=== PATIENT | male | born 1945 | race Caucasian/White ===

== ENCOUNTER 2020-01-24 18:15 | Inpatient (IN) | payer MEDICARE, MEDICAID, SELFPAY ==
[2020-01-24] VITALS (15 sets, daily range): BP systolic 108–123; BP diastolic 67–78; PULSE 108–170; RESP 18–44; TEMP 37.5–39.3; O2SAT 91–99; BMI 24.4
--- NOTE | 2020-01-24 18:35 | XRR_ITS ---
PROCEDURE INFORMATION: Exam: XR Chest, 1 View Exam date and time: 01/24/2020 6:37 PM Age: 74 years old Clinical indication: Shortness of breath; Patient HX: Resp distress TECHNIQUE: Imaging protocol: XR of the chest Views: 1 view. COMPARISON: No relevant prior studies available. FINDINGS: Lungs: Patchy atelectasis versus pneumonia in both right and left lower lobes. Pleural space: No pleural effusion. No pneumothorax. Heart/Mediastinum: The cardiac silhouette is mildly enlarged. Mediastinal contours are unremarkable. Vasculature: Vascular calcifications in the aorta. Bones/joints: Unremarkable for age. XR/XR chest 1V portable [id number] IMPRESSION: 1. Patchy atelectasis versus pneumonia in both right and left lower lobes. 2. Incidental/nonacute findings are listed in the report.
[2020-01-24] MEDS: sodium chloride 0.9% 1,000 ML 999 ML IV (18:43)
[2020-01-24 19:19] LABS: Hematocrit 49.1 % (42.0-52.0); Hemoglobin 14.9 g/dL (11.7-16.6); Mean Corpuscular HGB Conc 30.3 g/dL (30.0-36.0); Mean Corpuscular Hemoglobin 29.4 pg (28.0-34.0); Mean Platelet Volume 9.5 fL (7.4-10.4); Nucleated Red Blood Cells % 0 %; Platelet Count 150 10^3/cmm (130-400); Positive M 1; Red Blood Count 5.06 10^6/uL (4.1-5.3); Red Cell Distribution Width 12.9 % (12.1-15.1); White Blood Count 12.6 10^3/uL (4.0-10.0)
[2020-01-24 19:24] LABS: ABG PH Result 7.26 (7.35-7.45); Arterial Blood Gas Hematocrit 44.4 % (42-52); Base Excess ABG 1.9 mmol/L (-2.0-2.0); Blood Gas Allen Test Pos; Blood Gas Sample Site Radial, right; Blood Gas Sample Type Arterial; HCO3 ABG 31.1 mmol/L (22-26); Oxygen Device NRB
[2020-01-24 19:26] LABS: ABG PCO2 68.8 mmHg (35-45)
[2020-01-24 19:39] LABS: Slide Review Slide Review Perform
[2020-01-24 19:40] LABS: Absolute Neutrophil 10.7 10^3/cmm (1.4-6.5); Absolute Segmented Neutrophil 8.2 10/cmm (1.6-7.1); Band Neutrophils Absolute 2.5 10^3/cmm (0.0-1.2); Lymphocytes 7 %; Monocytes Absolute 0.9 10^3/cmm (0.1-0.6); NT Pro B Type Natriuretic Pept 1908 pg/mL (0-450); Platelet Estimate Normal (Normal); Segmented Neutrophils 65 %; Total Cells Counted 100 (0-100)
[2020-01-24 19:41] LABS: Eosinophils 0 %
[2020-01-24 19:42] LABS: Lymphocytes Absolute 0.9 10^3/cmm (1.2-3.4)
[2020-01-24] MEDS: cefepime 2,000 MG in sodium chloride 0.9% (plus) 50 ML 100 MG IV (20:18)
--- NOTE | 2020-01-24 20:28 | ECG_ITS ---
[facility] ED Test Date: 2020-01-24 Pat Name: Luis Talavera Department: Room: 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 Measurements Intervals [place] Rate: 160 P: [place]: -1 QRS: 189 QRSD: 82 T: 107 QT: 242 QTc: 395 Interpretive Statements POSSIBLY ATRIAL FLUTTER WITH RVR POSSIBLE RIGHT VENTRICULAR HYPERTROPHY Compared to ECG 04/07/2019 10:16:37 Atrial abnormality now present Myocardial infarct finding now present Sinus tachycardia no longer present Electronically Signed On 01-26-2020 19:01:39 CDT by Jacquelyn Ayala M.D. [id number]
[2020-01-24 20:33] LABS: Chloride 100 mmol/L (98-107); Potassium 4.7 mmol/L (3.5-5.1); Sodium 141 mmol/L (136-145)
[2020-01-24 20:34] LABS: Alanine Aminotransferase 16 U/L (0-41); Albumin Level 3.2 g/dL (3.5-5.2); Alkaline Phosphatase 102 IU/L (40-130); Anion Gap 16.7 (5-19); Aspartate Amino Transferase 28 U/L (0-40); Blood Urea Nitrogen 24 mg/dL (8-23); Calcium 8.7 mg/dL (8.5-10.5); Carbon Dioxide 29 mmol/L (22-29); Globulin 3.5 g/dL (1.3-4.6); Glucose 169 mg/dL (65-115); Osmolality Calculated 293 mOsm/kg (285-295); Total Bilirubin 0.9 mg/dL (0.15-1.2); Total Protein 6.7 g/dL (6.6-8.7)
[2020-01-24 20:57] LABS: Troponin(5th) Baseline 35 ng/L (0-15)
[2020-01-24 21:13] LABS: Influenza A by IFA Negative (Negative); Influenza B by IFA Negative (Negative)
[2020-01-24 21:30] LABS: ABG PCO2 63.6 mmHg (35-45); Alveolar-Arterial Oxygen Gradi 135.6 mmHg (5-10); Arterial Blood Gas Hematocrit 47.3 % (42-52); Base Excess ABG 2.8 mmol/L (-2.0-2.0); Blood Gas Allen Test Pos; Blood Gas Sample Site Radial, right; Blood Gas Sample Type Arterial; Carboxyhemoglobin 1.5 %THgb (0.4-20.1); HCO3 ABG 31.3 mmol/L (22-26); HGB O2 Sat 91.8 % (95-100); Ionized Calcium Level - ABG 1.2 mmol/L (1.1-1.4); Methemoglobin 0.9 % (0.4-1.5); Oxygen Device BIPAP; Oxygen Saturation ABG 94.1; PO2 ABG 69.3 mmHg (80.0-100.0); Potassium Level - ABG 4.7 mmol/L (3.5-5.0); Total Hemoglobin 15.4 g/dL (14-18)
--- NOTE | 2020-01-24 22:00 | P.HP_ITS ---
Providers/Chief Complaint Chief Complaint: RESP DISTRESS History of Present Illness Luis Talavera is a 74 year old male OR resident with history of dementia, aspiration pneumonia episodes, is brought for evaluation from the residential due to tachypnea, risk for distress, on the way in EMS was placed on nonrebreather, received terbutaline treatment. In ER respiratory rate still in the 30s, heart rate 120s. HR appears as sinus tachycardia on EKG. He is noted febrile at 102.8 Fahrenheit. Chest x-ray with bilateral lower lobe infiltrate suggestive of pneumonia. He is noted acidemic with a pH 7.3, PCO2 63.6, PO2 69.3, on nonrebreather mask. With noted acute kidney injury, creatinine 2.1. Patient himself has dementia, not able to provide much history, but is able to participate in some of the review of systems. He is feeling a bit better after being placed on BiPAP. He denies any severe shortness of breath at this time. Has a little bit of chest discomfort. He is oriented to being at [facility], but states the year is 1999. In ER he received cefepime, fluid challenge with 1 L bolus, and is being admitted to intensive care unit. Review of Systems Const: Reports: fever(s) and malaise; Denies: chills or body aches Eyes: Denies: change in vision or eye redness ENMT: Denies: throat pain, oral sores or ear or mastoid pain Card: Denies: chest pain, edema, pre-syncope or dyspnea on exertion Resp: Reports: dyspnea; Denies: hemoptysis GI: Denies: abdominal pain, nausea, vomiting, diarrhea, constipation, hematochezia or melena : Denies: flank pain, difficulty urinating, urinary frequency or hematuria Musc: Denies: back pain, joint swelling or joint redness Skin/Breast: Denies: rash, sores or new lesions Neuro: Denies: headache(s), numbness in extremities, weakness in extremities, dizziness, confusion or seizure-like activity Endo: Denies: polyuria or polydipsia Cam/Lymph: Denies: easy bleeding or purpura All/Imm: Denies: urticaria, throat swelling or tongue swelling PFSH Acute PFSH: Medical History Aspiration pneumonia Atrial fibrillation and flutter CHF (congestive heart failure) COPD (chronic obstructive pulmonary disease) Dementia Social History Smoking and tobacco status: current every day smoker cigarettes [ Other cigarette details: Unknown if still smoker, but was up until last year ] Housing: Longterm Vitals/I&O/Wt Last Vital Signs Temp 102.8 F H 01/24/20 18:27 Pulse 123 H 01/24/20 21:04 Resp 34 H 01/24/20 21:04 BP 123/78 01/24/20 21:04 Pulse Ox 92 01/24/20 21:04 01/24/20 01/24/20 01/24/20 06:59 14:59 22:59 Intake Total 1000 / 1000 Balance 1000 / 1000 Weight last 48 hrs Weight 81.647 kg Physical Exam Const: COMMON NORMALS: no acute distress; negative for patient oriented x3 (oriented to place) GENERAL APPEARANCE: cooperative and comfortable (On BiPAP) HENMT: COMMON NORMALS: oropharynx normal Neck/C-Spine: COMMON NORMALS: no JVD Resp: COMMON NORMALS: normal respiratory effort AUSCULTATION: diminished lung sounds bilateral in the lower lung tucker Cardio: COMMON NORMALS: no JVD, regular rhythm, S1 normal heart sound present, S2 normal heart sound present and No murmurs present (Cardio) RATE: tachycardic RHYTHM: regular rhythm HEART SOUNDS: S1 normal heart sound present and S2 normal heart sound present GI: COMMON NORMALS: Normal to inspection, nondistended, normoactive bowel so unds present, Soft to palpation and non-tender PALPATION: Yes Soft to palpation Extremity: COMMON NORMALS: no joint enlargement GENERAL: Yes edema (trace) Neuro: COMMON NORMALS: moves all extremities; negative for patient oriented x3 Skin: COMMON NORMALS: no rashes or lesions noted GENERAL SKIN EXAM: no rashes or lesions noted Data : 01/24/20 19:01 01/24/20 19: Micro: Microbiology 01/24/20 19:01 Blood Culture - Preliminary Blood SPECIMEN COLLECTED 01/24/20 19:01 Blood Culture - Preliminary Blood SPECIMEN COLLECTED A&P Assessment and plan (1) Respiratory failure: Acute respiratory with hypoxia and hypercapnia. Respiratory acidosis. On presentation had to be placed on NRB. Appears bilateral lower lobe pneumonia, possible aspiration given history of aspiration, history of dementia reported. Started on cefepime, will continue for now. Add vancomycin. Add Solu-Medrol, inhalers for COPD exacerbation. Check COVID-19. Rapid flu was negative. Sputum culture, urine bacterial antigens. Follow blood cultures. Continue BiPAP support, admit to ICU. N.p.o. for now. Strict aspiration precautions until can be assessed by ST. Status: Acute (2) Sepsis: WBC 12.6. Fever 102.8. Tachycardia 120s. Suspected pulmonary source. Bilateral pneumonia. Rapid flu negative. Assessment for COVID-19. Blood cultures collected. Antibiotics as above. Lactic acid 2. Received fluid challenge in ER. Hold further for now due to Hx CHF. Severe sepsis due to concomitant acute kidney injury, creatinine 2.1. Acute encephalopathy. Status: Acute (3) Aspiration pneumonia: As above. N.p.o. at this time. ST evaluation. Status: Acute (4) Tachycardia: Appears as sinus tachycardia 120s, although at the same time does have history of atrial fibrillation. Unfortunately no medication list is available at this time from residential. Request is in stricture will inquire with residential to fax the documentation. His blood pressure somewhat on the soft side. For now we will start on 12.5 mg of metoprolol. Assess response. Once medication list available, please review and restart home medications. Status: Acute (5) DEBRA (acute kidney injury): Acute kidney injury with creatinine 2.1. Baseline appears to be normal. Suspect this is secondary to sepsis. At this time medication list is unknown, although holding any p.o. intake due to suspected aspiration. Medication list and other documents are being requested from residential. Once available please review and exclude any medications which may have contributed to acute kidney injury. Received fluid challenge in ER. Monitor renal function, I&O. Will request for renal ultrasound. Will request urine studies. Status: Acute (6) CHF (congestive heart failure): Underlying reported chronic diastolic CHF, however, does not appear to be a solution currently. Does not have symptoms of orthopnea, no JVD, no peripheral edema. Monitor for any changes in symptoms. Please review medication list once available. Status: Acute (7) Dementia: Reported underlying dementia. Currently he knows he is in the hospital, but states the year is 1999. Status: Acute (8) COPD (chronic obstructive pulmonary disease): Status: Acute Additional A&P Information Mild troponin elevation, without significant rise, in the 30s. Has minor chest discomfort and lower substernal area. Complete troponin EKG series. At this time ACS is not suspected. Consider additional evaluation on a nonurgent basis depending on clinical condition, and final results. Attestations Medical Necessity Statement*: Admission of over 2 midnights continued for assessment management of acute respiratory failure with hypoxia and hypercapnia, pneumonia, COPD exacerbation, with severe sepsis, acute kidney injury. Critical Care Time: 55 minutes of critical care time spent on assessment and management of acute respiratory failure with hypoxia and hypercapnia, severe sepsis with pneumonia, COPD exacerbation, acute kidney injury, acute encephalopathy. Critical Care Time (min): 55 Coding Level of Care Code Acute Assembly Hand for [facility] Fwd Diagnoses Respiratory failure J96.90 Sepsis A41.9 Aspiration pneumonia J69.0 Tachycardia R00.0 DEBRA (acute kidney injury) N17.9 CHF (congestive heart failure) I50.9 Dementia F03.90 COPD (chronic obstructive pulmonary disease) J44.9
--- NOTE | 2020-01-24 22:26 | PC.NURSE ---
ATTEMPTED TO CALL REPORT BUT THE NURSE WAS NOT ON THE FLOOR I WAS TOLD SHE WOULD CALL ME BACK
--- NOTE | 2020-01-24 22:28 | ECG_ITS ---
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 Measurements Intervals [place] Rate: 121 P: 62 ID: 130 QRS: 12 QRSD: 79 T: 64 QT: 275 QTc: 390 Interpretive Statements SINUS TACHYCARDIA ABNORMAL RHYTHM ECG Compared to ECG 01/24/2020 18:30:52 Atrial flutter no longer present Atrial abnormality no longer present Myocardial infarct finding no longer present Electronically Signed On 01-25-2020 13:46:31 CDT by Jacquelyn Ayala M.D. [id number]
--- NOTE | 2020-01-24 23:07 | ED_ITS ---
HPI - SOB/Dyspnea General: Chief Complaint: Shortness of Breath/Dyspnea Stated Complaint: RESP DISTRESS Source: EMS Mode of arrival: EMS Limitations: altered mental status History of Present Illness: HPI Narrative: Patient was brought in via EMS from a local longterm facility. The patient was apparently in his usual state of health earlier today until this evening when he developed shortness of breath. According to the retirement staff the patient has frequent episodes of aspiration pneumonia and they felt this was another episode. He was noted to be febrile and hypoxic so he was placed on oxygen via nonrebreather. He was also given terbutaline by EMS. The patient has dementia and is also tachypneic and in respiratory distress and so is unable to give me a history. He has been a recent case of a COVID-19 positive staff member several weeks ago at this facility. This patient has been tested twice for COVID-19 in the last 2 weeks and has been negative both times. Review of Systems General: Reports: ROS unobtainable due to medical condition [facility] ED PFSH: Medical History (Updated 01/24/20 @ 23:23 by Jay Herbert MD, [facility] Aspiration pneumonia Atrial fibrillation and flutter CHF (congestive heart failure) COPD (chronic obstructive pulmonary disease) Dementia Social History Smoking and tobacco status: current every day smoker cigarettes [ Other cigarette details: Unknown if still smoker, but was up until last year ] Housing: [facility] Physical Exam Const: EXAM LIMITATIONS: altered mental status GENERAL APPEARANCE: in distress and ill appearing Resp: EFFORT & INSPECTION: Yes respiratory distress, Yes labored and Yes retractions AUSCULTATION: rales and diminished lung sounds Cardio: COMMON NORMALS: regular rhythm and No murmurs present (Cardio) RATE: tachycardic RHYTHM: regular rhythm GI: COMMON NORMALS: Normal to inspection, nondistended, normoactive bowel sounds present, Soft to palpation and non-tender PALPATION: Yes Soft to palpation : COMMON NORMALS: Yes no CVA tenderness BLADDER/KIDNEY EXAM: Yes no CVA tenderness Back/Pelvis: COMMON NORMALS: no CVA tenderness Course Consultations: Consultation #1: Dr. Roberts, hospitalist. He kindly accepted the patient to his service. Time: 21:19 Vital Signs: Vital signs: Vital Signs Temperature 102.8 F H 01/24/20 18:27 Pulse Rate 108 H 01/24/20 23:07 Respiratory Rate 22 H 01/24/20 23:07 Blood Pressure 116/67 01/24/20 23:07 Pulse Oximetry 93 01/24/20 23:07 MDM - SOB/Dyspnea MDM Narrative: Medical decision making narrative: 74-year-old retirement resident who presents to the emergency department with respiratory failure. He is also febrile. He likely has pneumonia, but he is also tested for COVID- 19. He had to be placed on a BiPAP after blood gas showed hypercapnia. He is admitted to the ICU for further evaluation and management. Differential Diagnosis: Shortness of Breath Differential Diagnosis: Likely acute exacerbation of chronic obstructive airways disease, congestive heart failure and community acquired pneumonia Medical Records: Attestation: I reviewed the patient's medical records. Lab Data: Attestation: I reviewed the patient's lab results. Labs: Lab Results 01/24/20 01/24/20 01/24/20 Range/Units 19:00 19:01 19:01 WBC 12.6 H (4.0-10.0) 10^3/ uL RBC 5.06 (4.1-5.3) 10^6/u L Hgb 14.9 (11.7-16.6) g/dL Hct 49.1 (42.0-52.0) % MCV 97.0 H (80-94) fL MCH 29.4 (28.0-34.0) pg MCHC 30.3 (30.0-36.0) g/dL RDW 12.9 (12.1-15.1) % Plt Count 150 (130-400) 10^3/c mm MPV 9.5 (7.4-10.4) fL Nucleated RBC % (a uto) 0 % Total Counted 100 (0-100) Atypical Lymphs % 0.0 (0-5) % Absolute Neutrophi ls 10.7 H (1.4-6.5) 10^3/c mm Segmented Neutroph ils 65 % Abs Segm Neuts (Ma n) 8.2 H (1.6-7.1) 10/cmm Band Neutrophils 20.0 % Abs Band Neuts (Ma n) 2.5 H (0.0-1.2) 10^3/c mm Absolute Lymphocyt es 0.9 L (1.2-3.4) 10^3/c mm Lymphocytes (Manua l) 7 % Monocytes (Manual) 7.0 % Absolute Monocytes 0.9 H (0.1-0.6) 10^3/c mm Eosinophils (Manua l) 0 % Absolute Eosinophi ls 0.0 (0.0-0.7) 10^3/c mm Basophils (Manual) 0.0 % Absolute Basophils 0.0 (0.0-0.2) 10^3/c mm Nucleated RBCs # 0.0 /100WBC Platelet Estimate Normal (Normal) Specimen Type Sample Site ABG pH (7.35-7.45) ABG pCO2 (35-45) mmHg ABG pO2 (80.0-100.0) mmH g ABG HCO3 (22-26) mmol/L ABG O2 Saturation ABG Base Excess (-2.0-2.0) mmol/ L Jamari Test A-a O2 Gradient (5-10) mmHg Hematocrit (42-52) % Hgb O2 Saturation (95-100) % Carboxyhemoglobin (0.4-20.1) %THgb Methemoglobin (0.4-1.5) % Total Hemoglobin (14-18) g/dL Ionized Calcium (1.1-1.4) mmol/L O2 Delivery Device O2 Liters/Min % FiO2 % Electric Razor Mechanic ID Sodium (136-145) mmol/L Potassium (3.5-5.1) mmol/L Chloride (98-107) mmol/L Carbon Dioxide (22-29) mmol/L Anion Gap (5-19) BUN (8-23) mg/dL Creatinine (0.7-1.2) mg/dL Glucose (65-115) mg/dL Calculated Osmolal ity (285-295) mOsm/k g Lactate 2.0 (0.5-2.2) mmol/L Calcium (8.5-10.5) mg/dL Total Bilirubin (0.15-1.2) mg/dL AST (0-40) U/L ALT (0-41) U/L Alkaline Phosphata se (40-130) IU/L Troponin T Baselin e (0-15) ng/L Troponin T 120 Min [place] (0-15) ng/L Delta Troponin T (0-10) ABS# C-Reactive Protein (0.0-4.9) mg/L NT-Pro-B Natriuret Pep (0-450) pg/mL Total Protein (6.6-8.7) g/dL Albumin (3.5-5.2) g/dL Globulin (1.3-4.6) g/dL Influenza Type A A g Negative (Negative) Influenza Type B A g Negative (Negative) 01/24/20 01/24/20 01/24/20 Range/Units 19:01 19:01 19:01 WBC (4.0-10.0) 10^3/ uL RBC (4.1-5.3) 10^6/u L Hgb (11.7-16.6) g/dL Hct (42.0-52.0) % MCV (80-94) fL MCH (28.0-34.0) pg MCHC (30.0-36.0) g/dL RDW (12.1-15.1) % Plt Count (130-400) 10^3/c mm MPV (7.4-10.4) fL Nucleated RBC % (a uto) % Total Counted (0-100) Atypical Lymphs % (0-5) % Absolute Neutrophi ls (1.4-6.5) 10^3/c mm Segmented Neutroph ils % Abs Segm Neuts (Ma n) (1.6-7.1) 10/cmm Band Neutrophils % Abs Band Neuts (Ma n) (0.0-1.2) 10^3/c mm Absolute Lymphocyt es (1.2-3.4) 10^3/c mm Lymphocytes (Manua l) % Monocytes (Manual) % Absolute Monocytes (0.1-0.6) 10^3/c mm Eosinophils (Manua l) % Absolute Eosinophi ls (0.0-0.7) 10^3/c mm Basophils (Manual) % Absolute Basophils (0.0-0.2) 10^3/c mm Nucleated RBCs # /100WBC Platelet Estimate (Normal) Specimen Type Sample Site ABG pH (7.35-7.45) ABG pCO2 (35-45) mmHg ABG pO2 (80.0-100.0) mmH g ABG HCO3 (22-26) mmol/L ABG O2 Saturation ABG Base Excess (-2.0-2.0) mmol/ L Jamari Test A-a O2 Gradient (5-10) mmHg Hematocrit (42-52) % Hgb O2 Saturation (95-100) % Carboxyhemoglobin (0.4-20.1) %THgb Methemoglobin (0.4-1.5) % Total Hemoglobin (14-18) g/dL Ionized Calcium (1.1-1.4) mmol/L O2 Delivery Device O2 Liters/Min % FiO2 % Electric Razor Mechanic ID Sodium 141 (136-145) mmol/L Potassium 4.7 (3.5-5.1) mmol/L Chloride 100 (98-107) mmol/L Carbon Dioxide 29 (22-29) mmol/L Anion Gap 16.7 (5-19) BUN 24 H (8-23) mg/dL Creatinine 2.1 H (0.7-1.2) mg/dL Glucose 169 H (65-115) mg/dL Calculated Osmolal ity 293 (285-295) mOsm/k g Lactate (0.5-2.2) mmol/L Calcium 8.7 (8.5-10.5) mg/dL Total Bilirubin 0.9 (0.15-1.2) mg/dL AST 28 (0-40) U/L ALT 16 (0-41) U/L Alkaline Phosphata se 102 (40-130) IU/L Troponin T Baselin e 35 H (0-15) ng/L Troponin T 120 Min [place] (0-15) ng/L Delta Troponin T (0-10) ABS# C-Reactive Protein 376.0 H (0.0-4.9) mg/L NT-Pro-B Natriuret Pep 1908 H (0-450) pg/mL Total Protein 6.7 (6.6-8.7) g/dL Albumin 3.2 L (3.5-5.2) g/dL Globulin 3.5 (1.3-4.6) g/dL Influenza Type A A g (Negative) Influenza Type B A g (Negative) 01/24/20 01/24/20 01/24/20 Range/Units 19:15 21:00 21:15 WBC (4.0-10.0) 10^3/ uL RBC (4.1-5.3) 10^6/u L Hgb (11.7-16.6) g/dL Hct (42.0-52.0) % MCV (80-94) fL MCH (28.0-34.0) pg MCHC (30.0-36.0) g/dL RDW (12.1-15.1) % Plt Count (130-400) 10^3/c mm MPV (7.4-10.4) fL Nucleated RBC % (a uto) % Total Counted (0-100) Atypical Lymphs % (0-5) % Absolute Neutrophi ls (1.4-6.5) 10^3/c mm Segmented Neutroph ils % Abs Segm Neuts (Ma n) (1.6-7.1) 10/cmm Band Neutrophils % Abs Band Neuts (Ma n) (0.0-1.2) 10^3/c mm Absolute Lymphocyt es (1.2-3.4) 10^3/c mm Lymphocytes (Manua l) % Monocytes (Manual) % Absolute Monocytes (0.1-0.6) 10^3/c mm Eosinophils (Manua l) % Absolute Eosinophi ls (0.0-0.7) 10^3/c mm Basophils (Manual) % Absolute Basophils (0.0-0.2) 10^3/c mm Nucleated RBCs # /100WBC Platelet Estimate (Normal) Specimen Type Arterial Arterial Sample Site Radial, right Radial, right ABG pH 7.26 L 7.30 L (7.35-7.45) ABG pCO2 68.8 H* 63.6 H* (35-45) mmHg ABG pO2 139.0 H 69.3 L (80.0-100.0) mmH g ABG HCO3 31.1 H 31.3 H (22-26) mmol/L ABG O2 Saturation 94.1 ABG Base Excess 1.9 2.8 H (-2.0-2.0) mmol/ L Jamari Test Pos Pos A-a O2 Gradient 135.6 H (5-10) mmHg Hematocrit 44.4 47.3 (42-52) % Hgb O2 Saturation 91.8 L (95-100) % Carboxyhemoglobin 1.5 (0.4-20.1) %THgb Methemoglobin 0.9 (0.4-1.5) % Total Hemoglobin 15.4 (14-18) g/dL Ionized Calcium 1.2 (1.1-1.4) mmol/L O2 Delivery Device Nrb Bipap O2 Liters/Min 10.0 % FiO2 40.0 % Electric Razor Mechanic ID ellpe ellpe Sodium 141.0 (136-145) mmol/L Potassium 4.7 (3.5-5.1) mmol/L Chloride (98-107) mmol/L Carbon Dioxide (22-29) mmol/L Anion Gap (5-19) BUN (8-23) mg/dL Creatinine (0.7-1.2) mg/dL Glucose 187.0 H (65-115) mg/dL Calculated Osmolal ity (285-295) mOsm/k g Lactate (0.5-2.2) mmol/L Calcium (8.5-10.5) mg/dL Total Bilirubin (0.15-1.2) mg/dL AST (0-40) U/L ALT (0-41) U/L Alkaline Phosphata se (40-130) IU/L Troponin T Baselin e (0-15) ng/L Troponin T 120 Min [place] 33.10 H (0-15) ng/L Delta Troponin T -1.90 L (0-10) ABS# C-Reactive Protein (0.0-4.9) mg/L NT-Pro-B Natriuret Pep (0-450) pg/mL Total Protein (6.6-8.7) g/dL Albumin (3.5-5.2) g/dL Globulin (1.3-4.6) g/dL Influenza Type A A g (Negative) Influenza Type B A g (Negative) Imaging Data^: CXR: Radiologist's impression: [address] [address] XRay Report Signed Patient: Luis Talavera #: [id number] : 4Acct#:[id number] Age/Sex: 74 / MADM Date: 01/24/20 Loc: ERRoom/Bed: Attending Dr: Ordering Provider/Ordering MD: Jay Herbert MD, [facility] [place] of Service: 01/24/20 Procedure(s): XR chest 1V portable [id number] Accession Number(s): [id number] Report Number: [id number] PROCEDURE INFORMATION: Exam: XR Chest, 1 View Exam date and time: 01/24/2020 6:37 PM Age: 74 years old Clinical indication: Shortness of breath; Patient HX: Resp distress TECHNIQUE: Imaging protocol: XR of the chest Views: 1 view. COMPARISON: No relevant prior studies available. FINDINGS: Lungs: Patchy atelectasis versus pneumonia in both right and left lower lobes. Pleural space: No pleural effusion. No pneumothorax. Heart/Mediastinum: The cardiac silhouette is mildly enlarged. Mediastinal contours are unremarkable. Vasculature: Vascular calcifications in the aorta. Bones/joints: Unremarkable for age. XR/XR chest 1V portable [id number] IMPRESSION: 1. Patchy atelectasis versus pneumonia in both right and left lower lobes. 2. Incidental/nonacute findings are listed in the report. Dictated By:Charleen Jurado MD Signed By:Charleen Jurado MDSigned Date/Time:01/24/201956 DD/ 55 EKG Data^: EKG 1: Attestation: I personally reviewed and interpreted this EKG as follows: EKG Interpretation Date: 01/24/20 EKG interpretation time: 20:28 Prior EKG tracings: not available for review Interpretation: Sinus tachycardia or atrial flutter with a heart rate of [address] changes. Normal axis. EKG 2: Attestation: I personally reviewed and interpreted this EKG as follows: EKG Interpretation Date: 01/24/20 EKG interpretation time: 22:28 Prior EKG tracings: available for review Interpretation: Sinus tachycardia. Heart rate [address] changes. Normal axis. 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
[2020-01-24] MEDS: metoprolol tartrate 25 mg Tablet 12.5 MG PO (23:09)
[2020-01-25] VITALS (56 sets, daily range): BP systolic 79–117; BP diastolic 52–77; PULSE 88–134; RESP 15–33; TEMP 36.3–37.2; O2SAT 84–99
[2020-01-25 00:11] LABS: Magnesium 1.8 mg/dL (1.7-2.3)
[2020-01-25 00:30] LABS: Add Urine Microscopic? YES; Bilirubin Urine 1+ (NEGATIVE); Blood Urine 2+ (Negative); Glucose Urine UA Norm (Normal); Ketones Urine 1+ (Negative); Leukocyte Esterase Urine Negative (Negative); Nitrate Urine Negative (Negative); Protein Urine 1+ (Negative); Specific Gravity, Urine 1.015 (1.005-1.030); Urine Appearance Cloudy (CLEAR); Urine Color Yellow (Yellow); Urobilinogen Urine Norm (Negative); pH Urine 5 (5-7)
--- NOTE | 2020-01-25 00:32 | PC.PHAR ---
Pharmacokinetic dosing service Date: 01/25/20 Time: 29 Objective: Patient: Luis Talavera Floor: ICU-5 Age: 74 yo Serum creatinine: 2.1 mg/dL Height: 72.0 Inches Weight (kg): 81.647 Diagnosis: Relevant medical/social history: Cultures and sensitivities: Other labs: Assessment: IBW (kg): 77.60 Dosing wt(kg): 81.647 Estimated Creatinine clearance (ml/min): 33.4 CRCL method: Cockcroft and Gault using ibw(default). Drug selected: Vancomycin Loading dose (mg): 0 Vd (liters): 73.5 (factor used: 0.9 L/kg) Toño (hr-1): 0.032 Half life (hrs): 21.66 Recommended dose: 1250 mg Interval: 24 hrs Infusion time (hrs): 1.5 Predicted peak (mcg/mL): 31.0 Predicted trough (mcg/mL): 15.09 Total body weight is being used for vancomycin dosing. Renal function is stable [ ] /unstable [ ] Recommendations: Give Vancomycin 1250 mg q 24 hrs with an expected Cpeak of 31.0 mcg/ml and an expected Ctrough of 15.09 mcg/ml Renal dosing of other antibiotics (review renal dosing of other medications and list guidelines here): Thank you for the consult, will continue to follow. Signature: Odilia Clark elisha
[2020-01-25 00:37] LABS: RBC Urine 0-4 /hpf (0-2)
[2020-01-25 00:38] LABS: Amorphous Sediment Urine 1+; Bacteria Urine 1+; Coarse Granular Casts Urine 25-40 /lpf; Mucus Urine TRACE; Squamous Epithelial Cell Urine 0-4 (0-5)
[2020-01-25 00:39] LABS: Add Urine Culture? Yes
[2020-01-25 00:44] LABS: Urine Creatinine 259 mg/dL (39-259)
[2020-01-25] MEDS: heparin 5,000 unit/mL INJ 1 mL 5000 UNIT SUBCUT ×3 (00:56→14:34)
[2020-01-25 01:57] LABS: Urine Random Sodium 16 mmol/L
[2020-01-25 01:58] LABS: Urea Nitrogen,Urine Random 562 mg/dL
[2020-01-25 03:04] LABS: Basophils # 0.1 10^3/uL (0.0-0.1); Basophils % 0.5 %; Hematocrit 46.1 % (42.0-52.0); Hemoglobin 14.1 g/dL (11.7-16.6); Lymphocytes # 0.8 10^3/uL (0.8-4.8); Lymphocytes % 6.7 %; Mean Corpuscular HGB Conc 30.6 g/dL (30.0-36.0); Mean Corpuscular Hemoglobin 29.9 pg (28.0-34.0); Mean Corpuscular Volume 97.7 fL (80-94); Mean Platelet Volume 9.7 fL (7.4-10.4); Monocytes # 0.5 10^3/uL (0.2-0.9); Monocytes % 4.6 %; Neutrophils # 10.2 10^3/uL (1.8-7.7); Neutrophils % 87.9 %; Nucleated Red Blood Cells % 0 %; Platelet Count 142 10^3/cmm (130-400); Positive M 1; Red Blood Count 4.72 10^6/uL (4.1-5.3); Red Cell Distribution Width 12.9 % (12.1-15.1); White Blood Count 11.6 10^3/uL (4.0-10.0)
[2020-01-25 03:16] LABS: Troponin 5 6HR 19.24 ng/L (0-15)
[2020-01-25 03:18] LABS: Alanine Aminotransferase 14 U/L (0-41); Albumin Level 3.1 g/dL (3.5-5.2); Alkaline Phosphatase 91 IU/L (40-130); Anion Gap 15.2 (5-19); Aspartate Amino Transferase 22 U/L (0-40); Blood Urea Nitrogen 33 mg/dL (8-23); Calcium 8.7 mg/dL (8.5-10.5); Carbon Dioxide 31 mmol/L (22-29); Chloride 101 mmol/L (98-107); Globulin 2.9 g/dL (1.3-4.6); Glucose 232 mg/dL (65-115); Osmolality Calculated 299 mOsm/kg (285-295); Potassium 5.2 mmol/L (3.5-5.1); Sodium 142 mmol/L (136-145); Total Bilirubin 0.5 mg/dL (0.15-1.2)
[2020-01-25 03:36] LABS: Troponin 5 6HR Delta -15.76 ng/L (0-12)
[2020-01-25] MEDS: albuterol 8 gm MDI 1 PUFF INHALATION ×2 (03:46→23:45)
[2020-01-25 04:17] LABS: Slide Review Slide Review Perform
--- NOTE | 2020-01-25 06:03 | PC.NURSE ---
SHIFT SUMMARY PT WILL AROUSE TO STERNAL RUB, WILL OPEN EYES IF NAME IS SAID. NO VERBAL RESPONSE. PT REMAINS ON NONREBREATHER 15L. PT IS PROTECTING AIRWAY. HEEL BOOTS PLACED ON PATIENT, BATH GIVEN, TURNED PERIODICALLY TO RELIEVE PRESSURE. PT LUNGS REMAIN DIMINISHED, IV IS PATENT. OTOOLE TO GRAVITY DRAIN.
[2020-01-25] MEDS: cefepime 1,000 MG in sodium chloride 0.9% (plus) 50 ML 100 MG IV ×2 (07:36→19:41)
[2020-01-25] MEDS: metoprolol tartrate 25 mg Tablet 12.5 MG PO (07:37)
--- NOTE | 2020-01-25 10:40 | P.PN_ITS ---
Subjective Subjective: Interval history: Chart reviewed including detention documentation, patient has been tested for COVID-19 first on 01/12 and a second time on 01/19 both of which were negative. He has been tested again for COVID-19 so is on isolation precautions. Per nursing staff has been difficult to arouse, significant difficulty with swallowing noted. Remains on nonrebreather, curre ntly on 12 L. Hypotensive, febrile overnight with a T-max of 102.8, tachycardic overnight with a heart rate is currently in the 80s. Medications: Reviewed: Yes Medication Review Details: Active Medications Generic Name Dose Route Start Last Admin Trade Name Freq PRN Reason Stop Dose Admin Acetaminophen 650 mg 01/24/20 23:57 Tylenol PO Q6H PRN Mild/Mod Pain Or Temp >/= 101 Albuterol Sulfate 2.5 mg 01/24/20 23:57 Albuterol INHALATION Q4H.RESPIRATORY P RN SHORTNESS OF JULIA TH Albuterol Sulfate 1 puff 01/25/20 04:00 01/25/20 08:55 Ventolin INHALATION Not Given Q4H.RESPIRATORY S CH Heparin Sodium (Be ef Lung) 5,000 unit 01/24/20 23:57 01/25/20 07:37 Heparin SUBCUT 5,000 unit Q8H CHUNG Administration Cefepime HCl 1,000 mg/ Sodium 50 mls @ 100 mls/ hr 01/25/20 08:00 01/25/20 08:21 Chloride IV Infused Q12H CHUNG Infusion Protocol Vancomycin HCl 1,2 50 mg/ 250 mls @ 250 mls /hr 01/25/20 01:00 01/25/20 02:05 Sodium Chloride IV Infused Q24H CHUNG Infusion Methylprednisolone Sodium Succinate 60 mg 01/24/20 23:57 01/25/20 05:32 Solu-Medrol IVP 60 mg Q6H CHUNG Administration Metoprolol Tartrat e 12.5 mg 01/24/20 22:30 01/25/20 07:37 Lopressor PO 12.5 mg BID CHUNG Administration Vitals/I&O/Wt Last Vital Signs Temp 97.4 F L 01/25/20 05:30 Pulse 88 01/25/20 09:30 Resp 18 01/25/20 09:30 BP 79/56 01/25/20 09:30 Pulse Ox 98 01/25/20 09:30 01/24/20 01/25/20 01/25/20 22:59 06:59 14:59 Intake Total 1050 / 1050 250 / 1300 60 / 60 Output Total 200 / 200 Balance 1050 / 1050 50 / 1100 60 / 60 Weight last 48 hrs Weight 71.804 kg Weight 81.647 kg Physical Exam Const: COMMON NORMALS: no acute distress and patient oriented x3 GENERAL APPEARANCE: cooperative and comfortable ORIENTATION/CONSCIOUSNESS: Yes awake HENMT: COMMON NORMALS: normocephalic, atraumatic, hearing grossly normal bilaterally and moist oral mucous membranes HEAD & SCALP: normocephalic and atraumatic Eye: COMMON NORMALS: Equal, round and reactive pupils present, EOMs intact bilaterally and conjunctivae normal CONJUNCTIVA: Yes conjunctivae normal PUPIL: Yes Equal, round and reactive pupils present Neck/C-Spine: COMMON NORMALS: full ROM GENERAL: Yes normal visual inspection and Yes trachea midline Resp: COMMON NORMALS: normal respiratory effort, No retractions, No use of accessory muscles and clear to auscultation bilaterally EFFORT & INSPECTION: Yes able to speak in complete sentences, Yes symmetric chest movement and No tachypneic AUSCULTATION: clear to auscultation bilaterally Cardio: COMMON NORMALS: regular rate, regular rhythm, S1 normal heart sound present, S2 normal heart sound present and No murmurs present (Cardio) RATE: regular rate RHYTHM: regular rhythm HEART SOUNDS: S1 normal heart sound present and S2 normal heart sound present GI: COMMON NORMALS: Normal to inspection, nondistended, normoactive bowel sounds present, Soft to palpation and non-tender PALPATION: Yes Soft to palpation Extremity: COMMON NORMALS: normal to inspection, full ROM and no clubbing, cyanosis or edema; negative for no pedal edema Neuro: COMMON NORMALS: patient oriented x3, moves all extremities, no focal motor deficits, no sensory deficits noted and gait normal Psych: COMMON NORMALS: mental status grossly normal, Normal thought process present, cooperative, normal affect and speech normal SPEECH: Yes normal speech THOUGHT PROCESS: Normal thought process present Skin: COMMON NORMALS: no rashes or lesions noted, no jaundice, no petechiae and no mottling GENERAL SKIN EXAM: no rashes or lesions noted Urinary Catheter Management^: Hastings: Cath Placed During This Visit: yes Reason for Continuing Indwelling Catheter: Accurate Measurement of Urinary Output in Critically Ill Patients Urinary Catheter Date of Insertion: 01/24/20 Urinary Catheter Time of Insertion: 23:30 Data : 01/25/20 02:35 01/25/20 02:35 Micro: Microbiology 01/25/20 23:55 Legionella Urinary Antigen - Final Urine Catheterized 01/25/20 23:55 Bacterial Antigens - Final Urine,Voided 01/24/20 19:01 Blood Culture - Preliminary Blood SPECIMEN COLLECTED 01/24/20 19:01 Blood Culture - Preliminary Blood SPECIMEN COLLECTED A&P Assessment and plan (1) Pneumonia: -High oxygen requirement currently, not oxygen dependent at baseline; wean as tolerated -Noted leukocytosis with neutrophilic predominance, continue to trend WBC -Chest x-ray noted indicating pneumonia in bilateral lower lobes -Has been tested twice for COVID-19 over the past week, repeat testing pending, continue isolation precautions -Legionella, bacterial antigens negative -Prelim blood cultures negative -has been hypotensive, tachycardic, febrile; continue to monitor vital signs closely -monitor respiratory status -continue Cefepime, Vanc, IV steroids, Neb treatments Status: Acute Qualifiers: Laterality: bilateral Lung location: lower lobe of lung Pneumonia type: due to unspecified organism Qualified Code(s): J18.9 - Pneumonia, unspecified organism (2) Respiratory failure: -as noted above -ABG noted with hypercapnia and hypoxia Status: Acute Qualifiers: Chronicity: acute Respiratory failure complication: hypercapnia Qualified Code(s): J96.02 - Acute respiratory failure with hypercapnia (3) Sepsis: -associated sepsis as evidenced by leukocytosis, hypoxia, fever, tachycardia, tachypnea, hypotensive Status: Acute Qualifiers: Sepsis type: sepsis due to unspecified organism Sepsis acute organ dysfunction status: with acute organ dysfunction Severe sepsis acute organ dysfunction type: acute respiratory failure Acute respiratory failure type: with hypoxia Severe sepsis shock status: without septic shock Qualified Code(s): A41.9 - Sepsis, unspecified organism; R65.20 - Severe sepsis without septic shock; J96.01 - Acute respiratory failure with hypoxia (4) CHF (congestive heart failure): -chronic diastolic CHF, no acute exacerbation -due to poor oral intake, will be on gentle IVF hydration, monitor for fluid ove rload Status: Acute Qualifiers: Heart failure type: diastolic Heart failure chronicity: chronic Qualified Code(s): I50.32 - Chronic diastolic (congestive) heart failure (5) Aspiration pneumonia: -has known hx of aspiration, likely due to underlying dementia -aspiration precautions Status: Acute Qualifiers: Aspiration pneumonia type: unspecified Laterality: unspecified laterality Lung location: unspecified part of lung Qualified Code(s): J69.0 - Pneumonitis due to inhalation of food and vomit (6) COPD (chronic obstructive pulmonary disease): -acute COPD exacerbation secondary to pneumonia -as noted above -not oxygen dependent at baseline Status: Acute Qualifiers: COPD type: COPD with acute exacerbation Qualified Code(s): J44.1 - Chronic obstructive pulmonary disease with (acute) exacerbation (7) Troponin level elevated: -likely secondary to demand ischemia given acute respiratory illness -telemetry monitoring Status: Acute (8) DEBRA (acute kidney injury): -baseline Cr wnl -likely secondary to acute infection -gentle IVF hydration as poor oral intake -continue to monitor renal function, avoid nephrotoxins, renally dose meds -monitor urine output Status: Acute (9) Atrial fibrillation and flutter: -rate controlled Status: Chronic (10) Dementia: -minimal verbal engagement at baseline per NH Status: Chronic Qualifiers: Dementia type: unspecified type Dementia behavioral disturbance: with out behavioral disturbance Qualified Code(s): F03.90 - Unspecified dementia without behavioral disturbance (11) Tachycardia: -likely secondary to sepsis, improving -metoprolol IV PRN Status: Acute Additional A&P Information -unable to take meds by mouth due to somnolence -GI ppx with PPI -DVT ppx with heparin -Dispo: return to [facility] [place] -Code status: DNR/DNI; Guardian is Ventura Matute -ICU care due to isolation precautions, need for close monitoring of respiratory status Attestations Medical Necessity Statement*: Patient requires hospitalization for continued management of pneumonia with associated sepsis on broad spectrum IV antibiotics, high oxygen requirement. Time Spent in Patient Care: Greater than 35 minutes (>than 50% of time spent in counselling and/or direct pt care on unit) . Coding Level of Care Code Acute [facility]p [employer]iler for [facility] Fwd Exam Comprehensive Diagnoses Pneumonia J18.9 Laterality: bilateral Lung location: lower lobe of lung Pneumonia type: due to unspecified organism Respiratory failure J96.02 Chronicity: acute Respiratory failure complication: hypercapnia Sepsis A41.9; R65.20; J96.01 Sepsis type: sepsis due to unspecified organism Sepsis acute organ dysfunction status: with acute organ dysfunction Severe sepsis acute organ dysfunction type: acute respiratory failure Acute respiratory failure type: with hypoxia Severe sepsis shock status: without septic shock CHF (congestive heart failure) I50.32 Heart failure type: diastolic Heart failure chronicity: chronic Aspiration pneumonia J69.0 Aspiration pneumonia type: unspecified Laterality: unspecified laterality Lung location: unspecified part of lung COPD (chronic obstructive pulmonary disease) J44.1 COPD type: COPD with acute exacerbation Troponin level elevated R79.89 DEBRA (acute kidney injury) N17.9 Atrial fibrillation and flutter I48.91; I48.92 Dementia F03.90 Dementia type: unspecified type Dementia behavioral disturbance: without behavioral disturbance Tachycardia R00.0
--- NOTE | 2020-01-25 10:41 | PC.NURSE ---
ZACKARY WADE, PATIENT HAS NO KNOWN ALLERGIES, HE IS A KNOWN SCHZIOPHRENIC WHO OFTEN STAYS TO HIMSELF AND IS MOSTLY ORIENTATED. HE ANSWERS PEOPLE IN YES OR NO SIMPLE SENTANCES NORMALLY. HE ALSO HAS PARKINSONS . FOR ME HE HAS EXPRESSED ANNOYANCE BUT NO SPOKEN WORDS AND WOULD NOT FOLLOW COMMANDS TO TAKE PILLS OR ANSWER QUESTIONS. PATIENT IS BEING TURNED Q2 HOURS
--- NOTE | 2020-01-25 12:29 | PC.NURSE ---
PATIENT IS DIAPHORETIC, UNRESPONSIVE, NO FEVER AT THIS TIME.
--- NOTE | 2020-01-25 13:25 | PC.SLP ---
The pt is not alert enough to participate in CORPORATE TRAVEL AGENT/swallowing evaluation this date.
[2020-01-25] MEDS: sodium chloride 0.9% 1,000 ML 50 ML IV (14:33)
[2020-01-25] MEDS: metoprolol tartrate 1 mg/1 mL SDV 5 mL 2.5 MG IV ×4 (14:34→23:02)
--- NOTE | 2020-01-25 14:49 | PC.NURSE ---
oral care given with swabs and mouth moistkurizer q2 hrs, turn q 2 hrs as well. fluids started and iv lopressor, current hr 102 and sbp 98.
--- NOTE | 2020-01-25 15:14 | PC.NURSE ---
1230 oxi mask placed at 10 liters and was weaned to 5 liters at 1400 , maintaining sats of 97. uop remains low at 20/hr but fluids just started at 1400 as well.
[2020-01-25 20:27] LABS: Coronavirus Lab Test PTC SEE COMMENTS
--- NOTE | 2020-01-25 22:55 | PC.NURSE ---
Dr Red notified of pt changing between ST and Afib with elevated HR. Orders received. Will continue to monitor.
[2020-01-25 23:32] LABS: Magnesium 2.2 mg/dL (1.7-2.3)
[2020-01-26] VITALS (40 sets, daily range): BP systolic 88–135; BP diastolic 57–90; PULSE 77–151; RESP 12–37; TEMP 36.4–37.1; O2SAT 80–100
[2020-01-26] MEDS: heparin 5,000 unit/mL INJ 1 mL 5000 UNIT SUBCUT ×3 (00:16→15:05)
[2020-01-26] MEDS: metoprolol tartrate 1 mg/1 mL SDV 5 mL 5 MG IV ×4 (02:59→15:05)
[2020-01-26] MEDS: albuterol 8 gm MDI 1 PUFF INHALATION ×6 (03:58→23:59)
[2020-01-26 04:07] LABS: Basophils # 0.1 10^3/uL (0.0-0.1); Basophils % 0.5 %; Eosinophils # 0.2 10^3/uL (0.0-0.8); Eosinophils % 1.6 %; Hematocrit 45.7 % (42.0-52.0); Hemoglobin 13.6 g/dL (11.7-16.6); Lymphocytes # 0.6 10^3/uL (0.8-4.8); Lymphocytes % 5.6 %; Mean Corpuscular HGB Conc 29.8 g/dL (30.0-36.0); Mean Corpuscular Hemoglobin 29.8 pg (28.0-34.0); Mean Platelet Volume 9.6 fL (7.4-10.4); Monocytes # 0.7 10^3/uL (0.2-0.9); Monocytes % 6.2 %; Neutrophils # 9.2 10^3/uL (1.8-7.7); Neutrophils % 85.2 %; Nucleated Red Blood Cells % 0.2 %; Platelet Count 158 10^3/cmm (130-400); Red Blood Count 4.57 10^6/uL (4.1-5.3); Red Cell Distribution Width 12.9 % (12.1-15.1); White Blood Count 10.8 10^3/uL (4.0-10.0)
[2020-01-26 04:28] LABS: Alanine Aminotransferase 14 U/L (0-41); Alkaline Phosphatase 83 IU/L (40-130); Anion Gap 15.8 (5-19); Aspartate Amino Transferase 18 U/L (0-40); Blood Urea Nitrogen 54 mg/dL (8-23); Calcium 8.3 mg/dL (8.5-10.5); Carbon Dioxide 28 mmol/L (22-29); Chloride 108 mmol/L (98-107); Globulin 2.9 g/dL (1.3-4.6); Glucose 144 mg/dL (65-115); Osmolality Calculated 303 mOsm/kg (285-295); Potassium 5.8 mmol/L (3.5-5.1); Sodium 146 mmol/L (136-145); Total Bilirubin 0.3 mg/dL (0.15-1.2); Total Protein 5.9 g/dL (6.6-8.7)
--- NOTE | 2020-01-26 05:13 | PC.NURSE ---
Dr Roberts notified of positive blood culture results as well as today's chemistry results. Also notified him pt continues to change from NSR to afib with HR 80-150 without sustaining a high heart rate. Will continue to monitor.
[2020-01-26] MEDS: cefepime 1,000 MG in sodium chloride 0.9% (plus) 50 ML 100 MG IV ×2 (07:23→19:37)
[2020-01-26] MEDS: metoprolol tartrate 25 mg Tablet 12.5 MG PO ×2 (09:12→17:32)
[2020-01-26] MEDS: bisacodyl 10 mg Supp PR (09:13)
[2020-01-26] MEDS: tamsulosin 0.4 mg Capsule PO (09:13)
[2020-01-26] MEDS: sennosides-docusate Tablet 1 TAB PO (09:13)
[2020-01-26] MEDS: sodium polystyrene sulfonate 15 gm/60 mL Btl PO (09:14)
--- NOTE | 2020-01-26 09:38 | PM.PN ---
Subjective Subjective: Interval history: Afebrile overnight, decreased oxygen requirement (now on 4 L NC), has been in and out of atrial fibrillation with RVR, received 2 doses of IV metoprolol 5 mg. Decreased leukocytosis, stable renal function, COVID 19 test negative so off isolation precautions. Awake and alert this AM, will do bedside swallow evaluation to determine if can take PO meds and diet. Had 500 mL urine output overnight. Medications: Reviewed: Yes Medication Review Details: Active Medications Generic Name Dose Route Start Last Admin Trade Name Freq PRN Reason Stop Dose Admin Acetaminophen 650 mg 01/24/20 23:57 Tylenol PO Q6H PRN Mild/Mod Pain Or Temp >/= 101 Albuterol Sulfate 2.5 mg 01/24/20 23:57 Albuterol INHALATION Q4H.RESPIRATORY P RN SHORTNESS OF JULIA TH Albuterol Sulfate 1 puff 01/25/20 04:00 01/26/20 07:27 Ventolin INHALATION 1 puff Q4H.RESPIRATORY S CH Administration Bisacodyl 10 mg 01/26/20 09:00 01/26/20 09:13 Bisac-Evac TN 10 mg DAILY CHUNG Administration Heparin Sodium (Be ef Lung) 5,000 unit 01/24/20 23:57 01/26/20 07:23 Heparin SUBCUT 5,000 unit Q8H CHUNG Administration Cefepime HCl 1,000 mg/ Sodium 50 mls @ 100 mls/ hr 01/25/20 08:00 01/26/20 07:23 Chloride IV 100 mls/hr Q12H CHUNG Administration Protocol Vancomycin HCl 1,2 50 mg/ 250 mls @ 250 mls /hr 01/25/20 01:00 01/26/20 00:55 Sodium Chloride IV 200 mls/hr Q24H CHUNG Administration Sodium Chloride 1,000 mls @ 50 ml s/hr 01/25/20 14:23 01/25/20 14:33 Sodium Chloride 0.9% IV 01/26/20 10:22 50 mls/hr .Q20H ONE Administration Methylprednisolone Sodium Succinate 60 mg 01/24/20 23:57 01/26/20 05:59 Solu-Medrol IVP 60 mg Q6H CHUNG Administration Metoprolol Tartrat e 5 mg 01/26/20 03:00 01/26/20 06:34 Metoprolol Tartr ate IV 5 mg Q4H CHUNG Administration Metoprolol Tartrat e 12.5 mg 01/26/20 09:00 01/26/20 09:12 Lopressor PO 12.5 mg BID CHUNG Administration Mirtazapine 15 mg 01/26/20 21:00 Remeron PO BEDTIME CHUNG Senna/Docusate Sod ium 1 tab 01/26/20 09:00 01/26/20 09:13 Senna-S PO 1 tab BID CHUNG Administration Tamsulosin HCl 0.4 mg 01/26/20 09:00 01/26/20 09:13 Flomax PO 0.4 mg DAILY CHUNG Administration No Known Allergies Allergy (Verified 01/25/20 12:21) Vitals/I&O/Wt Last Vital Signs Temp 97.7 F 01/26/20 08:00 Pulse 83 01/26/20 08:00 Resp 25 H 01/26/20 08:00 BP 107/65 01/26/20 08:00 Pulse Ox 96 01/26/20 07:26 01/25/20 01/26/20 01/26/20 22:59 06:59 14:59 Intake Total 50 / 110 0 / 110 Output Total 150 / 150 250 / 400 Balance -100 / -40 -250 / -290 Weight last 48 hrs Weight 76.204 kg Weight 71.804 kg Weight 81.647 kg Physical Exam Const: COMMON NORMALS: no acute distress and alert GENERAL APPEARANCE: cooperative and comfortable; not ill appearing ORIENTATION/CONSCIOUSNESS: Yes awake and Yes oriented to person HENMT: COMMON NORMALS: normocephalic, atraumatic, hearing grossly normal bilaterally and moist oral mucous membranes HEAD & SCALP: normocephalic and atraumatic Eye: COMMON NORMALS: Equal, round and reactive pupils present, EOMs intact bilaterally and conjunctivae normal CONJUNCTIVA: Yes conjunctivae normal PUPIL: Yes Equal, round and reactive pupils present Neck/C-Spine: COMMON NORMALS: full ROM GENERAL: Yes normal visual inspection and Yes trachea midline Chest: CHEST: Yes Symmetrical chest wall rise Resp: COMMON NORMALS: normal respiratory effort, No retractions, No use of accessory muscles and clear to auscultation bilaterally EFFORT & INSPECTION: Yes able to speak in complete sentences, Yes symmetric chest movement and No tachypneic AUSCULTATION: clear to auscultation bilaterally OTHER: -on 4 L NC Cardio: COMMON NORMALS: regular rate, S1 normal heart sound present, S2 normal heart sound present and No murmurs present (Cardio) RATE: regular rate and tachycardic (intermittently) RHYTHM: abnormal rhythm irregularly irregular HEART SOUNDS: S1 normal heart sound present and S2 normal heart sound present GI: COMMON NORMALS: Normal to inspection, nondistended, normoactive bowel sounds present, Soft to palpation and non-tender PALPATION: Yes Soft to palpation : BLADDER/KIDNEY EXAM: Yes catheter in place Catheter type (Male): urethral Extremity: COMMON NORMALS: normal to inspection, full ROM, no clubbing, cyanosis or edema and no pedal edema Neuro: COMMON NORMALS: moves all extremities, no focal motor deficits and no sensory deficits noted SENSORIUM/ORIENTATION: Yes alert and Yes oriented to person Psych: COMMON NORMALS: mental status grossly normal, Normal thought process present, cooperative, normal affect and speech normal SPEECH: Yes normal speech THOUGHT PROCESS: Normal thought process present Skin: COMMON NORMALS: no rashes or lesions noted, no jaundice, no petechiae and no mottling GENERAL SKIN EXAM: no rashes or lesions noted Urinary Catheter Management^: Hastings: Cath Placed During This Visit: yes Urethral Indwelling: Yes Reason for Continuing Indwelling Catheter: Accurate Measurement of Urinary Output in Critically Ill Patients Urinary Catheter Date of Insertion: 01/24/20 Urinary Catheter Time of Insertion: 23:30 Data : 01/26/20 03:07 01/26/20 03:07 Micro: Microbiology 01/24/20 19:01 Blood Culture - Preliminary Blood Gram positive cocci 01/24/20 19:01 Blood Culture - Preliminary Blood NEGATIVE TO DATE 01/25/20 23:55 Legionella Urinary Antigen - Final Urine Catheterized 01/25/20 23:55 Bacterial Antigens - Final Urine,Voided A&P Assessment and plan (1) Pneumonia: -High oxygen requirement currently, not oxygen dependent at baseline; wean as tolerated -Noted leukocytosis with neutrophilic predominance, continue to trend WBC -Chest x-ray noted indicating pneumonia in bilateral lower lobes -Has been tested twice for COVID-19 over the past week, repeat testing negative, discontinue isolation precautions -Legionella, bacterial antigens negative -Prelim blood cultures negative -had been hypotensive, tachycardic, febrile; now normotensive, afebrile, HR controlled; continue to monitor vital signs closely -continue to monitor respiratory status -continue Cefepime, Vanc, IV steroids, Neb treatments Status: Acute Qualifiers: Laterality: bilateral Lung location: lower lobe of lung Pneumonia type: due to unspecified organism Qualified Code(s): J18.9 - Pneumonia, unspecified organism (2) Respiratory failure: -as noted above -ABG noted with hypercapnia and hypoxia Status: Acute Qualifiers: Chronicity: acute Respiratory failure complication: hypercapnia Qualified Code(s): J96.02 - Acute respiratory failure with hypercapnia (3) Sepsis: -associated sepsis as evidenced by leukocytosis, hypoxia, fever, tachycardia, tachypnea, hypotensive -improving with noted hemodynamic stability, afebrile x > 24 hrs, decreased leukocytosis. Status: Acute Qualifiers: Acute respiratory failure type: with hypoxia Sepsis acute organ dysfunction status: with acute organ dysfunction Sepsis type: sepsis due to unspecified organism Severe sepsis acute organ dysfunction type: acute respiratory failure Severe sepsis shock status: without septic shock Qualified Code(s): A41.9 - Sepsis, unspecified organism; R65.20 - Severe sepsis without septic shock; J96.01 - Acute respiratory failure with hypoxia (4) CHF (congestive heart failure): -chronic diastolic CHF, no acute exacerbation -due to poor oral intake, will be on gentle IVF hydration, monitor for fluid overload -Echo (2016): EF=55%, no RWMA, mild pulmonary HTN (35) Status: Acute Qualifiers: Heart failure chronicity: chronic Heart failure type: diastolic Qualified Code(s): I50.32 - Chronic diastolic (congestive) heart failure (5) Aspiration pneumonia: -has known hx of aspiration, likely due to underlying dementia -aspiration precautions -ST evaluation today Status: Acute Qualifiers: Aspiration pneumonia type: unspecified Laterality: unspecified laterality Lung location: unspecified part of lung Qualified Code(s): J69.0 - Pneumonitis due to inhalation of food and vomit (6) COPD (chronic obstructive pulmonary disease): -acute COPD exacerbation secondary to pneumonia -as noted above -not oxygen dependent at baseline Status: Acute Qualifiers: COPD type: COPD with acute exacerbation Qualified Code(s): J44.1 - Chronic obstructive pulmonary disease with (acute) exacerbation (7) Troponin level elevated: -likely secondary to demand ischemia given acute respiratory illness -telemetry monitoring Status: Acute (8) DEBRA (acute kidney injury): -baseline Cr wnl -likely secondary to acute infection -gentle IVF hydration as poor oral intake -continue to monitor renal function, avoid nephrotoxins, renally dose meds -monitor urine output Status: Acute (9) Atrial fibrillation and flutter: -rate controlled though intermittently in RVR -resume oral BB; trial of digoxin -not on AC, presumably due to high fall risk Status: Chronic (10) Dementia: -minimal verbal engagement at baseline per NH -more alert and talkative today -uses WC at baseline Status: Chronic Qualifiers: Dementia behavioral disturbance: without behavioral disturbance Dementia type: unspecified type Qualified Code(s): F03.90 - Unspecified dementia without behavioral disturbance (11) Tachycardia: -likely secondary to sepsis, improving -metoprolol IV PRN Status: Acute Additional A&P Information -bedside swallow then start on diet (mechanical soft for now) pending ST evaluation -GI ppx with PPI -DVT ppx with heparin -Dispo: return to [facility] -Code status: DNR/DNI; Guardian is Ventura Giovani -transfer to [facility] for continued care Attestations Medical Necessity Statement*: Patient requires hospitalization for continued treatment of bilateral pneumonia, pending PO intake, needs continued monitoring of hemodynamic and respiratory status. Time Spent in Patient Care: 16 - 35 minutes (>than 50% of time spent in counselling and/or direct pt care on unit). Coding Level of Care Code Acute Creative Arts Therapist for g Fwd Exam Comprehensive Diagnoses Pneumonia J18.9 Laterality: bilateral Lung location: lower lobe of lung Pneumonia type: due to unspecified organism Respiratory failure J96.02 Chronicity: acute Respiratory failure complication: hypercapnia Sepsis A41.9; R65.20; J96.01 Acute respiratory failure type: with hypoxia Sepsis acute organ dysfunction status: with acute organ dysfunction Sepsis type: sepsis due to unspecified organism Severe sepsis acute organ dysfunction type: acute respiratory failure Severe sepsis shock status: without septic shock CHF (congestive heart failure) I50.32 Heart failure chronicity: chronic Heart failure type: diastolic Aspiration pneumonia J69.0 Aspiration pneumonia type: unspecified Laterality: unspecified laterality Lung location: unspecified part of lung COPD (chronic obstructive pulmonary disease) J44.1 COPD type: COPD with acute exacerbation Troponin level elevated R79.89 DEBRA (acute kidney injury) N17.9 Atrial fibrillation and flutter I48.91; I48.92 Dementia F03.90 Dementia behavioral disturbance: without behavioral disturbance Dementia type: unspecified type Tachycardia R00.0
[2020-01-26] MEDS: digoxin 250 mcg/ml INJ 2 mL 125 MCG IVP (11:15)
--- NOTE | 2020-01-26 11:46 | PC.RESP ---
Smoking Cessation and Pulmonary Rehab information sent to patient.
[2020-01-26 15:43] LABS: Potassium 4.3 mmol/L (3.5-5.1)
--- NOTE | 2020-01-26 15:46 | PC.NURSE ---
pt responding well to kaexalate therapy.dr maldonado states senna po (bowel regime from [facility]) can be held this evening
[2020-01-26] MEDS: digoxin 125 mcg Tablet PO (17:32)
--- NOTE | 2020-01-26 17:59 | PC.NURSE ---
transfer to [id number] on [facility].report given.pt currently in nsr with rate in 80's.
--- NOTE | 2020-01-26 18:26 | PC.NURSE ---
PATIENT RECEIVED FROM ICU FROM MELANI NICE. PATIENT HAS NO COMPLAINTS AT THIS TIME. DIGOXIN PATIENT HAD ORDERED DOSE OF 125MCG OF DIGOXIN ORDERED PO. PATIENT IN NSR UPON ARRIVAL TO FLOOR. DR. LARSON ASKED THIS NURSE TO NON ADMINISTER DOSE. HOWEVER, PATIENT HR INCREASED TO THE 120'S, UP TO 140'S IN AN ARRHYTHMIA APPEARING TO BE AFIB. THEN ORDERED TO STILL GIVE THE DIGOXIN. DR. LARSON AWARE OF ARRHYTHMIA.
--- NOTE | 2020-01-26 20:30 | PC.NURSE ---
Received report from MELANI Conte. Pt sitting up in bed with no complaints or needs at this time. See nursing assessment.
[2020-01-26] MEDS: mirtazapine 15 mg Tablet PO (20:33)
--- NOTE | 2020-01-26 23:57 | US_ITS ---
WS: [id number] RENAL ULTRASOUND Urinary bladder ultrasound HISTORY: DEBRA COMPARISON: None available. TECHNIQUE: 2-D and color Doppler imaging of the kidney submitted. Right kidney: 11.0 cm x 6.5 cm x 5.8 cm. Normal echogenicity with no hydronephrosis or mass. Left kidney: 11.2 cm x 5.8 cm x 5.9 cm. Normal echogenicity with no hydronephrosis or mass. Aorta: Normal. Urinary Bladder: Nondistended urinary bladder. There is a Hastings catheter present. No free fluid. US/US renal BI with bladder IMPRESSION: Normal renal ultrasound. Nondistended urinary bladder due to Hastings catheter.
[2020-01-27] VITALS (15 sets, daily range): BP systolic 100–136; BP diastolic 74–87; PULSE 90–152; RESP 16–29; TEMP 35.9–36.8; O2SAT 91–96
[2020-01-27] MEDS: heparin 5,000 unit/mL INJ 1 mL 5000 UNIT SUBCUT ×4 (00:24→23:44)
--- NOTE | 2020-01-27 00:44 | PC.NURSE ---
IV vancomycin stopped due to missing trough level.
[2020-01-27 01:21] LABS: Vancomycin Trough 30.6 ug/mL (10-15)
--- NOTE | 2020-01-27 01:59 | PC.PHAR ---
Vancomycin trough is given as 30.6; however, trough level has drawn as Vancomycin was being administered. Ignore this report and repeat draw one hour before administration of next dose.
--- NOTE | 2020-01-27 02:01 | PC.NURSE ---
Spoke with Aydin in Pharmacy regarding vancomycin trough level. He instructed to finish the infusion and he would order next vancomycin level. Vanc resumed.
[2020-01-27 04:42] LABS: Basophils % 0.3 %; Hematocrit 42.9 % (42.0-52.0); Hemoglobin 13.3 g/dL (11.7-16.6); Lymphocytes # 0.5 10^3/uL (0.8-4.8); Lymphocytes % 5.2 %; Mean Corpuscular Hemoglobin 29.6 pg (28.0-34.0); Mean Corpuscular Volume 95.5 fL (80-94); Mean Platelet Volume 9.9 fL (7.4-10.4); Monocytes # 0.4 10^3/uL (0.2-0.9); Monocytes % 3.9 %; Neutrophils % 89.2 %; Nucleated Red Blood Cells % 0.2 %; Platelet Count 182 10^3/cmm (130-400); Red Blood Count 4.49 10^6/uL (4.1-5.3); Red Cell Distribution Width 13.1 % (12.1-15.1)
[2020-01-27 05:09] LABS: Alanine Aminotransferase 17 U/L (0-41); Albumin Level 3.1 g/dL (3.5-5.2); Alkaline Phosphatase 81 IU/L (40-130); Anion Gap 13.8 (5-19); Aspartate Amino Transferase 25 U/L (0-40); Blood Urea Nitrogen 59 mg/dL (8-23); Carbon Dioxide 29 mmol/L (22-29); Chloride 107 mmol/L (98-107); Globulin 2.4 g/dL (1.3-4.6); Glucose 141 mg/dL (65-115); Osmolality Calculated 303 mOsm/kg (285-295); Potassium 3.8 mmol/L (3.5-5.1); Sodium 146 mmol/L (136-145); Total Bilirubin 0.5 mg/dL (0.15-1.2); Total Protein 5.5 g/dL (6.6-8.7)
[2020-01-27] MEDS: albuterol 8 gm MDI 1 PUFF INHALATION ×4 (07:43→20:25)
--- NOTE | 2020-01-27 09:06 | PC.SOCIAL ---
Pg 2 IMM Explained to pt Pg 2 IMM. Pt verbally understands, no questions voiced. Provided pt a copy. Signed, dated, & timed a copy & placed in pt's chart.
[2020-01-27] MEDS: cefepime 1,000 MG in sodium chloride 0.9% (plus) 50 ML 100 MG IV (09:41)
[2020-01-27] MEDS: digoxin 250 mcg Tablet PO ×2 (09:42→17:52)
[2020-01-27] MEDS: metoprolol tartrate 25 mg Tablet 12.5 MG PO ×2 (09:42→17:52)
[2020-01-27] MEDS: tamsulosin 0.4 mg Capsule PO (09:42)
[2020-01-27] MEDS: sennosides-docusate Tablet 1 TAB PO (09:42)
--- NOTE | 2020-01-27 11:41 | P.PN_ITS ---
Subjective Subjective: Interval history: Patient resting quietly in bed, no acute overnight events reported, heart rate remains uncontrolled and rhythm remains atrial fibrillation. Will give additional doses of digoxin as needed for more optimal heart rate control. Had 475 mL urine output overnight and a bowel movement this morning. Remains on supplemental oxygen, currently on 4 L nasal cannula. Normotensive and afebrile. Renal function improving and leukocytosis resolved. Discontinue Hastings catheter. Medications: Reviewed: Yes Medication Review Details: Active Medications Generic Name Dose Route Start Last Admin Trade Name Freq PRN Reason Stop Dose Admin Acetaminophen 650 mg 01/24/20 23:57 Tylenol PO Q6H PRN Mild/Mod Pain Or Temp >/= 101 Albuterol Sulfate 2.5 mg 01/24/20 23:57 Albuterol INHALATION Q4H.RESPIRATORY P RN SHORTNESS OF JULIA TH Albuterol Sulfate 1 puff 01/25/20 04:00 01/27/20 07:45 Ventolin INHALATION Not Given Q4H.RESPIRATORY S CH Bisacodyl 10 mg 01/26/20 09:00 01/27/20 09:21 Bisac-Evac MT Not Given DAILY CHUNG Digoxin 250 mcg 01/27/20 09:00 01/27/20 09:42 Lanoxin PO 250 mcg DAILY CUHNG Administration Heparin Sodium (Be ef Lung) 5,000 unit 01/24/20 23:57 01/27/20 09:41 Heparin SUBCUT 5,000 unit Q8H CHUNG Administration Metoprolol Tartrat e 12.5 mg 01/26/20 09:00 01/27/20 09:42 Lopressor PO 12.5 mg BID CHUNG Administration Mirtazapine 15 mg 01/26/20 21:00 01/26/20 20:33 Remeron PO 15 mg BEDTIME CHUNG Administration Senna/Docusate Sod ium 1 tab 01/26/20 09:00 01/27/20 09:42 Senna-S PO 1 tab BID CHUNG Administration Tamsulosin HCl 0.4 mg 01/26/20 09:00 01/27/20 09:42 Flomax PO 0.4 mg DAILY CHUNG Administration No Known Allergies Allergy (Verified 01/25/20 12:21) Vitals/I&O/Wt Last Vital Signs Temp 96.7 F L 01/27/20 04:01 Pulse 121 H 01/27/20 09:42 Resp 18 01/27/20 07:37 BP 119/76 01/27/20 03:17 Pulse Ox 93 01/27/20 07:37 01/26/20 01/27/20 01/27/20 22:59 06:59 14:59 Intake Total 50 / 580 470 / 1050 Output Total 400 / 400 475 / 875 Balance -350 / 180 -5 / 175 Weight last 48 hrs Weight 55.928 kg Weight 55.928 kg Weight 76.204 kg Physical Exam Const: COMMON NORMALS: no acute distress and alert GENERAL APPEARANCE: cooperative and comfortable; not ill appearing ORIENTATION/CONSCIOUSNESS: Yes awake and Yes oriented to person HENMT: COMMON NORMALS: normocephalic, atraumatic, hearing grossly normal bilaterally and moist oral mucous membranes HEAD & SCALP: normocephalic and atraumatic Eye: COMMON NORMALS: Equal, round and reactive pupils present, EOMs intact bilaterally and conjunctivae normal CONJUNCTIVA: Yes conjunctivae normal PUPIL: Yes Equal, round and reactive pupils present Neck/C-Spine: COMMON NORMALS: full ROM GENERAL: Yes normal visual inspection and Yes trachea midline Chest: CHEST: Yes Symmetrical chest wall rise Resp: COMMON NORMALS: normal respiratory effort, No retractions, No use of accessory muscles and clear to auscultation bilaterally EFFORT & INSPECTION: Yes able to speak in complete sentences, Yes symmetric chest movement and No tachypneic AUSCULTATION: clear to auscultation bilaterally OTHER: -on 4 L NC Cardio: COMMON NORMALS: S1 normal heart sound present, S2 normal heart sound present and No murmurs present (Cardio) RATE: tachycardic (intermittently) RHYTHM: abnormal rhythm irregularly irregular HEART SOUNDS: S1 normal heart sound present and S2 normal heart sound present GI: COMMON NORMALS: Normal to inspection, nondistended, normoactive bowel sounds present, Soft to palpation and non-tender PALPATION: Yes Soft to palpation : BLADDER/KIDNEY EXAM: Yes catheter in place Extremity: COMMON NORMALS: normal to inspection, full ROM, no clubbing, cyanosis or edema and no pedal edema Neuro: COMMON NORMALS: moves all extremities, no focal motor deficits and no sensory deficits noted SENSORIUM/ORIENTATION: Yes alert and Yes oriented to person Psych: COMMON NORMALS: mental status grossly normal, Normal thought process present, cooperative, normal affect and speech normal SPEECH: Yes normal speech THOUGHT PROCESS: Normal thought process present Skin: COMMON NORMALS: no rashes or lesions noted, no jaundice, no petechiae and no mottling GENERAL SKIN EXAM: no rashes or lesions noted Urinary Catheter Management^: Hastings: Cath Placed During This Visit: yes Urethral Indwelling: Yes Reason for Continuing Indwelling Catheter: Accurate Measurement of Urinary Output in Critically Ill Patients Urinary Catheter Date of Insertion: 01/24/20 Urinary Catheter Time of Insertion: 23:30 Data : 01/27/20 03:41 01/27/20 03:41 Micro: Microbiology 01/27/20 08:34 Blood Culture - Preliminary Blood SPECIMEN COLLECTED 01/27/20 08:30 Blood Culture - Preliminary Blood SPECIMEN COLLECTED 01/25/20 23:55 Urine Culture - Preliminary Urine Catheterized A&P Assessment and plan (1) Atrial fibrillation with RVR: -on oral BB; digoxin -not on AC, presumably due to high fall risk Status: Acute (2) Pneumonia: -High oxygen requirement currently, not oxygen dependent at baseline; wean as tolerated -Noted leukocytosis with neutrophilic predominance, continue to trend WBC -Chest x-ray noted indicating pneumonia in bilateral lower lobes -Has been tested twice for COVID-19 over the past week, repeat testing negative, discontinue isolation precautions -Legionella, bacterial antigens negative -blood cultures: 1/4 bottles positive for GPC, suspect contamination, repeat set pending -had been hypotensive, tachycardic, febrile; now normotensive, afebrile, A.fib with RVR; continue to monitor vital signs closely -continue to monitor respiratory status -has been on Cefepime, Vanc, IV steroids, Neb treatments; due to noted clinical improvement, will switch to oral antibiotics and steroids. Status: Acute Qualifiers: Laterality: bilateral Lung location: lower lobe of lung Pneumonia type: due to unspecified organism Qualified Code(s): J18.9 - Pneumonia, unspecified organism (3) Respiratory failure: -as noted above -ABG noted with hypercapnia and hypoxia Status: Acute Qualifiers: Chronicity: acute Respiratory failure complication: hypercapnia Qualified Code(s): J96.02 - Acute respiratory failure with hypercapnia (4) Sepsis: -associated sepsis as evidenced by leukocytosis, hypoxia, fever, tachycardia, tachypnea, hypotensive -improving with noted hemodynamic stability, afebrile x > 24 hrs, resolved leukocytosis. Status: Resolved Qualifiers: Sepsis type: sepsis due to unspecified organism Sepsis acute organ dysfunction status: with acute organ dysfunction Severe sepsis acute organ dysfunction type: acute respiratory failure Acute respiratory failure type: with hypoxia Severe sepsis shock status: without septic shock Qualified Code(s): A41.9 - Sepsis, unspecified organism; R65.20 - Severe sepsis without septic shock; J96.01 - Acute respiratory failure with hypoxia (5) CHF (congestive heart failure): -chronic diastolic CHF, no acute exacerbation -due to poor oral intake, will be on gentle IVF hydration, monitor for fluid overload -Echo (2016): EF=55%, no RWMA, mild pulmonary HTN (35) Status: Acute Qualifiers: Heart failure type: diastolic Heart failure chronicity: chronic Qualified Code(s): I50.32 - Chronic diastolic (congestive) heart failure (6) Aspiration pneumonia: -has known hx of aspiration, likely due to underlying dementia -aspiration precautions -ST evaluation appreciated; no overt aspiration noted, regular liquids with mechanical soft diet recommended Status: Acute Qualifiers: Aspiration pneumonia type: unspecified Laterality: unspecified laterality Lung location: unspecified part of lung Qualified Code(s): J69.0 - Pneumonitis due to inhalation of food and vomit (7) COPD (chronic obstructive pulmonary disease): -acute COPD exacerbation secondary to pneumonia -as noted above -not oxygen dependent at baseline Status: Acute Qualifiers: COPD type: COPD with acute exacerbation Qualified Code(s): J44.1 - Chronic obstructive pulmonary disease with (acute) exacerbation (8) Troponin level elevated: -likely secondary to demand ischemia given acute respiratory illness -telemetry monitoring Status: Acute (9) DEBRA (acute kidney injury): -baseline Cr wnl -likely secondary to acute infection -improved oral intake so off IVF hydration -continue to monitor renal function, avoid nephrotoxins, renally dose meds. Improving renal function -continue to monitor urine output; d/c Hastings catheter today Status: Acute (10) Atrial fibrillation and flutter: Status: Chronic (11) Dementia: -minimal verbal engagement at baseline per NH though typically alert and oriented to self -more alert and oriented to self -uses WC at baseline Status: Chronic Qualifiers: Dementia type: unspecified type Dementia behavioral disturbance: withou t behavioral disturbance Qualified Code(s): F03.90 - Unspecified dementia without behavioral disturbance (12) Tachycardia: -likely secondary to sepsis, improving -metoprolol IV PRN -as noted above Status: Acute Additional A&P Information -mechanical soft diet -GI ppx with PPI -DVT ppx with heparin -Dispo: return to [facility] [place] -Code status: DNR/DNI; Guardian is Ventura Isbelluett Attestations Medical Necessity Statement*: Patient requires hospitalization for continued management of atrial fibrillation with RVR, and treatment of pneumonia, switched to oral antibiotics today. Time Spent in Patient Care: 16 - 35 minutes (>than 50% of time spent in counselling and/or direct pt care on unit) . Coding Level of Care Code Acute Accounts Payable Lead for Chg Fwd Diagnoses Atrial fibrillation with RVR I48.91 Pneumonia J18.9 Laterality: bilateral Lung location: lower lobe of lung Pneumonia type: due to unspecified organism Respiratory failure J96.02 Chronicity: acute Respiratory failure complication: hypercapnia Sepsis A41.9; R65.20; J96.01 Sepsis type: sepsis due to unspecified organism Sepsis acute organ dysfunction status: with acute organ dysfunction Severe sepsis acute organ dysfunction type: acute respiratory failure Acute respiratory failure type: with hypoxia Severe sepsis shock status: without septic shock CHF (congestive heart failure) I50.32 Heart failure type: diastolic Heart failure chronicity: chronic Aspiration pneumonia J69.0 Aspiration pneumonia type: unspecified Laterality: unspecified laterality Lung location: unspecified part of lung COPD (chronic obstructive pulmonary disease) J44.1 COPD type: COPD with acute exacerbation Troponin level elevated R79.89 DEBRA (acute kidney injury) N17.9 Atrial fibrillation and flutter I48.91; I48.92 Dementia F03.90 Dementia type: unspecified type Dementia behavioral disturbance: without behavioral disturbance Tachycardia R00.0
[2020-01-27] MEDS: amoxicillin-clav 875-125 mg Tablet 1 TAB PO ×2 (12:29→17:52)
[2020-01-27] MEDS: predniSONE 20 mg Tablet 40 MG PO (12:29)
[2020-01-27] MEDS: digoxin 125 mcg Tablet PO (12:30)
--- NOTE | 2020-01-27 20:00 | PC.NURSE ---
Received report from MELANI Conte. Pt sitting up in bed watching tv. No complaints or needs at this time. Will continue to monitor.
[2020-01-27] MEDS: mirtazapine 15 mg Tablet PO (20:13)
--- NOTE | 2020-01-27 21:04 | PC.NURSE ---
Hastings removed by previous nurse
[2020-01-28] VITALS (7 sets, daily range): BP systolic 121–138; BP diastolic 68–84; PULSE 85–112; RESP 18–34; TEMP 36.6; O2SAT 85–95
[2020-01-28 04:10] LABS: Anion Gap 12.2 (5-19); Blood Urea Nitrogen 58 mg/dL (8-23); Calcium 7.6 mg/dL (8.5-10.5); Carbon Dioxide 29 mmol/L (22-29); Chloride 106 mmol/L (98-107); Glucose 129 mg/dL (65-115); Osmolality Calculated 296 mOsm/kg (285-295); Potassium 4.2 mmol/L (3.5-5.1); Sodium 143 mmol/L (136-145)
[2020-01-28] MEDS: albuterol 8 gm MDI 1 PUFF INHALATION ×2 (07:34→11:24)
[2020-01-28] MEDS: amoxicillin-clav 875-125 mg Tablet 1 TAB PO (09:09)
[2020-01-28] MEDS: predniSONE 20 mg Tablet 40 MG PO (09:09)
[2020-01-28] MEDS: metoprolol tartrate 50 mg Tablet PO (09:09)
[2020-01-28] MEDS: digoxin 250 mcg Tablet PO (09:09)
[2020-01-28] MEDS: sennosides-docusate Tablet 1 TAB PO (09:09)
[2020-01-28] MEDS: heparin 5,000 unit/mL INJ 1 mL 5000 UNIT SUBCUT (09:10)
[2020-01-28] MEDS: tamsulosin 0.4 mg Capsule PO (09:10)
--- NOTE | 2020-01-28 11:56 | ECG_ITS ---
[facility] ED Test Date: 2020-01-28 Pat Name: Luis Talavera Department: Room: 111 Gender: Male Fight Manager: : 1945 Requested By: Geeta Valdes Order Number: [id number] Liliam MD: Jacquelyn Ayala M.D. Measurements Intervals [place] Rate: 103 P: [place]: -1 QRS: 32 QRSD: 82 T: 50 QT: 308 QTc: 405 Interpretive Statements SINUS RHYTHM WITH FREQUENT PAC'S LOW QRS VOLTAGE IN EXTREMITY LEADS Compared to ECG 01/24/2020 21:35:19 Low QRS voltage now present Sinus tachycardia no longer present Electronically Signed On 01-28-2020 17:11:45 CDT by Jacquelyn Ayala M.D. [id number]
--- NOTE | 2020-01-28 13:24 | PM.DCS ---
Discharge Providers Date of Admission: 01/24/20 21:27 Date of Discharge: January 28, 2020 Attending Provider at Admission: Case Roberts Attending Provider at Discharge: Geeta Valdes MD Primary Care Provider: Dr. Ivet Burnham Diagnoses at Discharge Discharge Diagnosis (1) Atrial fibrillation with RVR: Status: Acute Problem details: -on oral BB; digoxin -not on AC, presumably due to high fall risk (2) Pneumonia: Status: Acute Problem details: -High oxygen requirement initially, not oxygen dependent at baseline; wean as tolerated -Noted leukocytosis with neutrophilic predominance now resolved -Chest x-ray noted indicating pneumonia in bilateral lower lobes -Has been tested twice for COVID-19 over the past week, repeat testing negative, off isolation precautions -Legionella, bacterial antigens negative -blood cultures: 1/ bottles positive for GPC, suspect contamination, repeat set prelim negative -had been hypotensive, tachycardic, febrile; now normotensive, afebrile, A.fib with RVR; continue to monitor vital signs closely -continue to monitor respiratory status -has been on Cefepime, Vanc, IV steroids, Neb treatments; due to noted clinical improvement, switched to oral antibiotics and steroids. Qualifiers: Laterality: bilateral Lung location: lower lobe of lung Pneumonia type: due to unspecified organism Qualified Code(s): J18.9 - Pneumonia, unspecified organism (3) Respiratory failure: Status: Acute Problem details: -as noted above -ABG noted with hypercapnia and hypoxia Qualifiers: Chronicity: acute Respiratory failure complication: hypercapnia Qualified Code(s): J96.02 - Acute respiratory failure with hypercapnia (4) Sepsis: Status: Resolved Problem details: -associated sepsis as evidenced by leukocytosis, hypoxia, fever, tachycardia, tachypnea, hypotensive -improving with noted hemodynamic stability, afebrile x > 24 hrs, resolved leukocytosis. Qualifiers: Acute respiratory failure type: with hypoxia Sepsis acute organ dysfunction status: with acute organ dysfunction Sepsis type: sepsis due to unspecified organism Severe sepsis acute organ dysfunction type: acute respiratory failure Severe sepsis shock status: without septic shock Qualified Code(s): A41.9 - Sepsis, unspecified organism; R65.20 - Severe sepsis without septic shock; J96.01 - Acute respiratory failure with hypoxia (5) CHF (congestive heart failure): Status: Acute Problem details: -chronic diastolic CHF, no acute exacerbation -due to poor oral intake, will be on gentle IVF hydration, monitor for fluid overload -Echo (2016): EF=55%, no RWMA, mild pulmonary HTN (35) Qualifiers: Heart failure chronicity: chronic Heart failure type: diastolic Qualified Code(s): I50.32 - Chronic diastolic (congestive) heart failure (6) Aspiration pneumonia: Status: Acute Problem details: -has known hx of aspiration, likely due to underlying dementia -aspiration precautions -ST evaluation appreciated; no overt aspiration noted, regular liquids with mechanical soft diet recommended Qualifiers: Aspiration pneumonia type: unspecified Laterality: unspecified laterality Lung location: unspecified part of lung Qualified Code(s): J69.0 - Pneumonitis due to inhalation of food and vomit (7) COPD (chronic obstructive pulmonary disease): Status: Acute Problem details: -acute COPD exacerbation secondary to pneumonia -as noted above -not oxygen dependent at baseline Qualifiers: COPD type: COPD with acute exacerbation Qualified Code(s): J44.1 - Chronic obstructive pulmonary disease with (acute) exacerbation (8) Troponin level elevated: Status: Acute Problem details: -likely secondary to demand ischemia given acute respiratory illness -telemetry monitoring (9) DEBRA (acute kidney injury): Status: Acute Problem details: -baseline Cr wnl -likely secondary to acute infection -improved oral intake so off IVF hydration -continue to monitor renal function, avoid nephrotoxins, renally dose meds. Improving renal function -continue to monitor urine output; d/c Hastings catheter, able to void (10) Atrial fibrillation and flutter: Status: Chronic (11) Dementia: Status: Chronic Problem details: -minimal verbal engagement at baseline per NH though typically alert and oriented to self -more alert and oriented to self -uses WC at baseline Qualifiers: Dementia behavioral disturbance: without behavioral disturbance Dementia type: unspecified type Qualified Code(s): F03.90 - Unspecified dementia without behavioral disturbance (12) Tachycardia: Status: Acute Problem details: -likely secondary to sepsis, improving -metoprolol IV PRN -as noted above Reason for Visit Reason for Visit: RESP DISTRESS Hospital Course Hospital Course: Patient was initially admitted to ICU secondary to noted altered mental status, sepsis and respiratory failure requiring close monitoring. He was tested for COVID-19 due to his symptoms as well as being a resident of [facility]; he had previously been tested twice due to recent outbreak at facility. He was covered with broad-spectrum IV antibiotics and with continued supportive care gradually improved particularly in terms of his mental status. At baseline he is alert and oriented to self and is essentially bedbound/wheelchair bound. He had had a Hastings catheter placed on admission for accurate ins and outs and based on his particular illness. He has required supplemental oxygen support which he is not dependent on at baseline. He was initially requiring about 15 L nonrebreather but this has been weaned down to about 3 L nasal cannula. Over the course of his hospital stay he has developed A. fib with RVR which has been managed by increasing dose of beta-melisa and addition of digoxin. Once he was more awake and alert, with noted improvement in his respiratory and hemodynamic status he was transferred to [facility] for closer monitoring. Hastings catheter was discontinued and he has been able to void independently. He had presented with noted acute kidney injury which has improved with the most recent creatinine being 1.4 compared to initial value of 2.1. Antibiotic regimen has been de-escalated and he is to continue oral Augmentin for several more days. Choice of antibiotic is based on patient's history of aspiration pneumonia. Supplemental oxygen support can be continued and titrated as needed for patient comfort and/or to maintain his saturation at or above 92%. In the event that he may develop bradycardia, digoxin may need to be held or discontinued altogether. He was hyperkalemic on admission but with medical treatment this has normalized. Leukocytosis has resolved as well, he has been normotensive and afebrile. He is negative for COVID-19, blood cultures have been negative, urine cultures have also been negative and sputum culture is pending though Gram stain is negative. Bacterial antigens and Legionella were also checked and both are negative. He was evaluated by speech therapy to rule out overt aspiration and was cleared for mechanical soft diet with regular liquids. He will be discharged back to [facility] this afternoon. Discharge Summary: -Patient to follow-up with primary care provider within 1 week or per SNF Physical Exam Const: COMMON NORMALS: no acute distress and alert GENERAL APPEARANCE: cooperative and comfortable; not ill appearing ORIENTATION/CONSCIOUSNESS: Yes awake and Yes oriented to person HENMT: COMMON NORMALS: normocephalic, atraumatic, hearing grossly normal bilaterally and moist oral mucous membranes HEAD & SCALP: normocephalic and atraumatic Eye: COMMON NORMALS: Equal, round and reactive pupils present, EOMs intact bilaterally and conjunctivae normal CONJUNCTIVA: Yes conjunctivae normal PUPIL: Yes Equal, round and reactive pupils present Neck/C-Spine: COMMON NORMALS: full ROM GENERAL: Yes normal visual inspection and Yes trachea midline Chest: CHEST: Yes Symmetrical chest wall rise Resp: COMMON NORMALS: normal respiratory effort, No retractions, No use of accessory muscles and clear to auscultation bilaterally EFFORT & INSPECTION: Yes able to speak in complete sentences, Yes symmetric chest movement and No tachypneic AUSCULTATION: clear to auscultation bilaterally OTHER: -on 3 L NC Cardio: COMMON NORMALS: S1 normal heart sound present, S2 normal heart sound present and No murmurs present (Cardio) RATE: tachycardic (intermittently) RHYTHM: abnormal rhythm irregularly irregular HEART SOUNDS: S1 normal heart sound present and S2 normal heart sound present GI: COMMON NORMALS: Normal to inspection, nondistended, normoactive bowel sounds present, Soft to palpation and non-tender PALPATION: Yes Soft to palpation Extremity: COMMON NORMALS: normal to inspection, full ROM, no clubbing, cyanosis or edema and no pedal edema Neuro: COMMON NORMALS: moves all extremities, no focal motor deficits and no sensory deficits noted SENSORIUM/ORIENTATION: Yes alert and Yes oriented to person Psych: COMMON NORMALS: mental status grossly normal, Normal thought process present, cooperative, normal affect and speech normal SPEECH: Yes normal speech THOUGHT PROCESS: Normal thought process present Skin: COMMON NORMALS: no rashes or lesions noted, no jaundice, no petechiae and no mottling GENERAL SKIN EXAM: no rashes or lesions noted Urinary Catheter Management^: Hastings: Cath Placed During This Visit: yes, but has since been removed by the nurse Urethral Indwelling: Yes Reason for Continuing Indwelling Catheter: Not indwelling catheter Urinary Catheter Date of Insertion: 01/24/20 Urinary Catheter Time of Insertion: 23:30 Date Urinary Catheter Removed: 01/27/20 Time Urinary Catheter Discontinued: 19:00 Discharge Data Data Completed and Pending: Completed Studies During Hospitalization Category Date Time Status XR chest 1V eva ble 23054 Stat Exams 01/24/20 18:35 Completed US renal BI with bladder Routine Ultrasound 01/26/20 23:57 Completed Pending at discharge Category Date Time Status Blood Culture Sta t Lab 01/24/20 19:01 Results Blood Culture Sta t Lab 01/27/20 08:34 Results Gram Stain Routin e Lab 01/26/20 22:35 Results Sputum Culture Ro utine Lab 01/26/20 22:35 Results Labs from last 24 hours 01/28/20 03:20 Sodium 143 Potassium 4.2 Chloride 106 Carbon Dioxide 29 Anion Gap 12.2 BUN 58 H Creatinine 1.4 H Glucose 129 H Calculated Osmolal ity 296 H Calcium 7.6 L Vitals: Last Vital Signs Temp 97.8 F 01/28/20 08:00 Pulse 103 H 01/28/20 13:19 Resp 34 H 01/28/20 13:19 BP 121/68 01/28/20 13:19 Pulse Ox 95 01/28/20 13:19 Discharge Plan Discharge Patient Disposition: Xfer [facility] Condition: Stable Prescriptions: New amoxicillin-pot clavulanate 875-125 mg Tablet 1 tab PO BID 7 Days Qty: 14 RF: 0 prednisone 20 mg Tablet 40 mg PO DAILY 3 Days Qty: 6 RF: 0 digoxin 250 mcg (0.25 mg) Tablet 250 mcg PO DAILY 30 Days Qty: 30 RF: 0 metoprolol tartrate 50 mg Tablet 50 mg PO BID 30 Days Qty: 60 RF: 0 Continued acetaminophen 325 mg Tablet 325 mg PO QID PRN (Reason: Pain) RF: 0 Senokot-S 8.6-50 mg Tablet 1 tab-cap PO BID PRN (Reason: Constipation) RF: 0 potassium chloride 10 mEq Tablet Extended Release 10 meq PO DAILY RF: 0 Milk of Magnesia 400 mg/5 mL Suspension 30 ml PO DAILY PRN (Reason: Constipation) RF: 0 tamsulosin 0.4 mg Capsule 0.4 mg PO DAILY RF: 0 trazodone 100 mg Tablet 100 mg PO DAILY RF: 0 bisacodyl 10 mg Suppository 10 mg VA DAILY PRN (Reason: Constipation) RF: 0 Enema 19-7 gram/118 mL Enema 118 ml VA DAILY PRN (Reason: Constipation) RF: 0 mirtazapine 15 mg Tablet 15 mg PO DAILY RF: 0 loratadine 10 mg Tablet 10 mg PO DAILY RF: 0 Discontinued metoprolol tartrate 25 mg Tablet 12.5 mg PO BID RF: 0 Discharge Orders: Discharge Order (Routine); Ordered 06/24/20 Ordered By: Geeta Valdes Referrals: Ivet Burnham MD [Staff Physician] - 4-7 days (Post hospital discharge follow up) Discharge Diet: Soft Mechanical Discharge Activity: Resume usual activity Activity Restrictions/Additional Instructions: -Patient has required supplemental oxygen support, 3 L, which can be titrated as needed for comfort or to maintain saturation at or above 92%. Discharge Date/Time: 01/28/20 15:15 Discharge Attestations Time Spent in Discharge Care*: greater than 30 min Specific Discharge Activities: Specific discharge activities: educating patient, discussing with showcase maker/social workers/dc planners, documenting/other paperwork and evaluating patient/reviewing data Status at Discharge: Cognitive status at discharge: mildly impaired cognition (at baseline, A & O x 1), Behavioral status at discharge: cooperative and dependent in ADL's, Functional status at discharge: bed bound Overall status at discharge: patient is progressing back to baseline Quality Metrics Clinical Quality Measures During this hospital stay, did patient experience: None Coding Level of Care Code Acute Clinical Nurse Educator for [facility] Fwd Exam Comprehensive Diagnoses Atrial fibrillation with RVR I48.91 Pneumonia J18.9 Laterality: bilateral Lung location: lower lobe of lung Pneumonia type: due to unspecified organism Respiratory failure J96.02 Chronicity: acute Respiratory failure complication: hypercapnia Sepsis A41.9; R65.20; J96.01 Acute respiratory failure type: with hypoxia Sepsis acute organ dysfunction status: with acute organ dysfunction Sepsis type: sepsis due to unspecified organism Severe sepsis acute organ dysfunction type: acute respiratory failure Severe sepsis shock status: without septic shock CHF (congestive heart failure) I50.32 Heart failure chronicity: chronic Heart failure type: diastolic Aspiration pneumonia J69.0 Aspiration pneumonia type: unspecified Laterality: unspecified laterality Lung location: unspecified part of lung COPD (chronic obstructive pulmonary disease) J44.1 COPD type: COPD with acute exacerbation Troponin level elevated R79.89 DEBRA (acute kidney injury) N17.9 Atrial fibrillation and flutter I48.91; I48.92 Dementia F03.90 Dementia behavioral disturbance: without behavioral disturbance Dementia type: unspecified type Tachycardia R00.0
== END 2020-01-28 15:15 | disposition skilled nursing facility (03) | DRG 871 ==
LOC: ER 18:50 → ICU 22:13 → CSU 01-26 17:04
PROVIDERS: Admitting Provider Internal Medicine; Emergency Provider Family Medicine; Visit Provider Family Medicine
DX: A41.9 Sepsis, unspecified organism (principal); J69.0 Pneumonitis due to inhalation of food and vomit; J96.02 Acute respiratory failure with hypercapnia; J96.01 Acute respiratory failure with hypoxia; I50.31 Acute diastolic (congestive) heart failure; N17.9 Acute kidney failure, unspecified; J44.1 Chronic obstructive pulmonary disease with (acute) exacerbation; I48.92 Unspecified atrial flutter; Z66 Do not resuscitate; F03.90 Unspecified dementia, unspecified severity, without behavioral disturbance, psychotic disturbance, mood disturbance, and anxiety; I48.91 Unspecified atrial fibrillation; Z74.01 Bed confinement status; Z99.3 Dependence on wheelchair; F17.210 Nicotine dependence, cigarettes, uncomplicated
CPT/HCPCS: 12345; 36415; 36600; 51702; 71045; 76770; 76857; 80048; 80051; 80053; 80202; 81001; 82570; 82803; 82810; 83605; 83735; 83880; 83986; 84132; 84300; 84484; 84540; 85007; 85025; 86140; 86403; 87040; 87070; 87086; 87205; 87449; 87635; 87804; 92610; 93005; 94640; 94660; 94664; 96372; 96375; 99284; J0692; J1160; J1644; J2930; J3370; J3490; J3535; J7030; J7050; J7512

== ENCOUNTER 2020-02-14 07:48 | Inpatient (IN) | payer MEDICARE, MEDICAID, SELFPAY ==
[2020-02-14] VITALS (15 sets, daily range): BP systolic 110–134; BP diastolic 66–79; PULSE 90–119; RESP 16–28; TEMP 36.6–37.2; O2SAT 92–97; BMI 23.0
--- NOTE | 2020-02-14 07:59 | XRR_ITS ---
PROCEDURE INFORMATION: Exam: XR Chest, 1 View Exam date and time: 02/14/2020 8:00 AM Age: 74 years old Clinical indication: Dyspnea TECHNIQUE: Imaging protocol: XR of the chest Views: 1 view. COMPARISON: CR (CHEST, ) 01/24/2020 7:02 PM FINDINGS: Lungs: Stable scarring in both lower lobes. Overall improved aeration in both lower lobes with residual or recurrent patchy atelectasis/pneumonia in the right lower lobe. Pleural space: No pleural effusion. No pneumothorax. Heart/Mediastinum: Stable mild enlargement of the cardiac silhouette. Mediastinal contours are unremarkable. Vasculature: Stable vascular calcifications in the aorta. Bones/joints: Stable degenerative changes in the spine and shoulders. Bones are diffusely osteopenic. Findings are stable. XR/XR chest 1V portable [id number] IMPRESSION: 1. Overall improved aeration in both lower lobes with residual or recurrent patchy atelectasis/pneumonia in the right lower lobe. Follow-up chest x-ray recommended to ensure complete resolution of these findings. 2. Incidental/nonacute findings are listed in the report.
--- NOTE | 2020-02-14 08:00 | ECG_ITS ---
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 Measurements Intervals [place] Rate: 111 P: 74 DE: 126 QRS: 69 QRSD: 80 T: 53 QT: 303 QTc: 413 Interpretive Statements SINUS TACHYCARDIA WITH OCCASIONAL SUPRAVENTRICULAR PREMATURE COMPLEXES ABNORMAL RHYTHM ECG Compared to ECG 01/28/2020 12:58:31 Sinus rhythm no longer present Electronically Signed On 02-14-2020 10:28:02 CDT by Malcom Angel M.D. [id number]
--- NOTE | 2020-02-14 08:00 | W.ED.SOB ---
HPI - SOB/Dyspnea General: Chief Complaint: Shortness of Breath/Dyspnea Stated Complaint: RESPIRATORY DISTRESS Time Seen by Provider: 02/14/20 07:59 History of Present Illness: HPI Narrative: This patient is a 74-year-old male presenting today with shortness of breath. He is a resident at [place]. He was noted to be short of breath and hypoxic this morning. By report he had an admission at the end of January for sepsis and pneumonitis and respiratory failure. Paperwork reflects a history of COPD, CHF, aspiration, schizophrenia, pyelonephritis. The patient actually denied any complaints to me stating that he did not feel short of breath although clinically he appears short of breath. He is very slow to answer questions. He does say that he had a cough but feels like it is better now. He does not normally require oxygen but per the retirement required 5 L by Venturi mask this morning during this episode. He was reported to have a fever of 99 and to be coughing up green sputum. MD elicited complaint: shortness of breath and cough Pertinent past history: COPD, congestive heart failure, pneumonia and aspiration Onset (ago): unknown Context: recent illness and choking/aspiration Treatment prior to arrival: oxygen Review of Systems General: Reports: ROS unobtainable due to mental status (Patient denied any complaints. Not reliable for an accurate review of systems.) FOR[facility]LY [facility] ED PFSH: Medical History (Updated 02/14/20 @ 11:50 by Aniceto Burnham MD) Aspiration pneumonia Atrial fibrillation and flutter Atrial fibrillation with RVR -on oral BB; digoxin -not on AC, presumably due to high fall risk CHF (congestive heart failure) -chronic diastolic CHF, no acute exacerbation -due to poor oral intake, will be on gentle IVF hydration, monitor for fluid overload -Echo (2016): EF=55%, no RWMA, mild pulmonary HTN (35) Chronic kidney disease COPD (chronic obstructive pulmonary disease) -acute COPD exacerbation secondary to pneumonia -as noted above -not oxygen dependent at baseline Dementia -minimal verbal engagement at baseline per NH though typically alert and oriented to self -more alert and oriented to self -uses WC at baseline Social History Smoking and tobacco status: current every day smoker cigarettes [ Other cigarette details: Unknown if still smoker, but was up until last year ] [facility]: [facility] Physical Exam Const: COMMON NORMALS: no acute distress, patient oriented x3, no limitations and alert GENERAL APPEARANCE: cooperative and comfortable HENMT: HEAD & SCALP: normal to inspection FACE & SINUS: normal facial exam Eye: GENERAL EYE: appearance normal, both eyes and all related structures Neck/C-Spine: COMMON NORMALS: supple, no meningeal signs and no JVD Chest: COMMONS NORMALS: normal inspection of the chest Resp: EFFORT & INSPECTION: Yes tachypneic, Yes Actively coughing (Occasional, weak, wet), Yes uses accessory muscles and Yes paradoxical thoraco-abdominal movements AUSCULTATION: diminished lung sounds (Severe) diffuse Cardio: COMMON NORMALS: no JVD, regular rate, regular rhythm and No murmurs present (Cardio) RATE: regular rate RHYTHM: regular rhythm GI: COMMON NORMALS: Normal to inspection, nondistended, normoactive bowel sounds present, Soft to palpation and non-tender INSPECTION: Yes normal to inspection AUSCULTATION: Yes normoactive bowel sounds PALPATION: Yes Soft to palpation Back/Pelvis: COMMON NORMALS: thoracic and lumbar spine normal to inspection Extremity: COMMON NORMALS: normal to inspection Neuro: COMMON NORMALS: patient oriented x3, moves all extremities, no focal motor deficits and no sensory deficits noted SENSORIUM/ORIENTATION: Yes alert MENINGEAL SIGNS: Yes no meningeal signs Psych: COMMON NORMALS: mental status grossly normal, cooperative and normal affect ACTIVITY/MOTOR BEHAVIOR: Yes psychomotor slowing Skin: COMMON NORMALS: no rashes or lesions noted and turgor normal GENERAL SKIN EXAM: no rashes or lesions noted and turgor normal Course ED course: Patient with history of COPD and CHF. His BNP is elevated and chest x-ray could show some mild fluid. He has some infiltrates in bilateral bases which seem to be overall improved from his prior chest x-ray. Lactate is negative as his procalcitonin. Troponins are flat. Creatinine is 1.6. On his ABG his pH is 7.35, PCO2 is 67.7, PaO2 is 67.8. Bicarb is 37.3. Base excess is 9.8. Digoxin level is 0.8. He was given albuterol by MDI while in the ED. He was also given Decadron IV for COPD. He was also given Lasix for some mild CHF. His oxygen requirement here is 2 L with a sat of 92%. Not exactly clear what caused his episode this morning of hypoxia. He did have a low-grade fever and has had some cough. He was tested for COVID while in the hospital last time and was negative but that was several weeks ago and I have ordered a repeat COVID rule out test today. Vital Signs: Vital signs: Vital Signs Temperature 98.4 F 02/14/20 15:19 Pulse Rate 98 02/14/20 15:55 Respiratory Rate 16 02/14/20 15:54 Blood Pressure 110/66 02/14/20 15:19 Pulse Oximetry 96 02/14/20 15:54 MDM - SOB/Dyspnea MDM Narrative: Medical decision making narrative: halfway patient with respiratory distress. Sats initially in the ED on 4 L of oxygen were 98%. We will titrate down to a sat between 90 and 93. He is tachycardic as well. We will give some fluids. Rule out sepsis and pneumonia. Breath sounds are extremely diminished and chest x-ray is pending. Differential Diagnosis: Shortness of Breath Differential Diagnosis: Likely acute exacerbation of chronic obstructive airways disease, congestive heart failure and community acquired pneumonia Lab Data: Labs: Lab Results 02/14/20 02/14/20 02/14/20 Range/Units 08:09 08:09 08:09 WBC 12.9 H (4.0-10.0) 10^3/ uL RBC 3.42 L (4.1-5.3) 10^6/u L Hgb 9.9 L (11.7-16.6) g/dL Hct 33.0 L (42.0-52.0) % MCV 96.5 H (80-94) fL MCH 28.9 (28.0-34.0) pg MCHC 30.0 (30.0-36.0) g/dL RDW 12.4 (12.1-15.1) % Plt Count 190 (130-400) 10^3/c mm MPV 9.2 (7.4-10.4) fL Neut % (Auto) 78.1 % Lymph % (Auto) 11.7 % [place] % (Auto) 9.0 % Eos % (Auto) 0.5 % Baso % (Auto) 0.2 % Neut # (Auto) 10.04 H (1.8-7.7) 10^3/u L Lymph # (Auto) 1.5 (0.8-4.8) 10^3/u L [place] # (Auto) 1.2 H (0.2-0.9) 10^3/u L Eos # (Auto) 0.1 (0.0-0.8) 10^3/u L Baso # (Auto) 0.0 (0.0-0.1) 10^3/u L Nucleated RBC % (a uto) 0 % Nucleated RBCs # 0.0 /100WBC Specimen Type Sample Site ABG pH (7.35-7.45) ABG pCO2 (35-45) mmHg ABG pO2 (80.0-100.0) mmH g ABG HCO3 (22-26) mmol/L ABG Base Excess (-2.0-2.0) mmol/ L Jamari Test Hematocrit (42-52) % O2 Delivery Device O2 Liters/Min % FiO2 % Chemical Equipment Sales Engineer ID Sodium 139 (136-145) mmol/L Potassium 4.2 (3.5-5.1) mmol/L Chloride 96 L (98-107) mmol/L Carbon Dioxide 36 H (22-29) mmol/L Anion Gap 11.2 (5-19) BUN 20 (8-23) mg/dL Creatinine 1.6 H (0.7-1.2) mg/dL GFR Calculation Not Reportable Glucose 107 (65-115) mg/dL Calculated Osmolal ity 285 (285-295) mOsm/k g Lactate (0.5-2.2) mmol/L Calcium 8.8 (8.5-10.5) mg/dL Total Bilirubin 0.4 (0.15-1.2) mg/dL AST 10 (0-40) U/L ALT 11 (0-41) U/L Alkaline Phosphata se 79 (40-130) IU/L Troponin T Baselin e 53 H (0-15) ng/L Troponin T 120 Min [place] (0-15) ng/L Delta Troponin T (0-10) ABS# NT-Pro-B Natriuret Pep 1514 H (0-450) pg/mL Total Protein 6.0 L (6.6-8.7) g/dL Albumin 3.2 L (3.5-5.2) g/dL Globulin 2.8 (1.3-4.6) g/dL Procalcitonin 0.22 (0-0.5) ng/mL Urine Color (Yellow) Urine Appearance (CLEAR) Urine pH (5-7) Ur Specific Gravit y (1.005-1.030) Urine Protein (Negative) Urine Glucose (UA) (Normal) Urine Ketones (Negative) Urine Blood (Negative) Urine Nitrate (Negative) Urine Bilirubin (NEGATIVE) Urine Urobilinogen (Negative) mg/dL Ur Leukocyte Susana ase (Negative) Urine RBC (0-2) /hpf Urine WBC (0-5) /hpf Ur Squamous Epith Cells (0-5) Amorphous Sediment Urine Bacteria (NONE) Coarse Granular Ca sts /lpf Digoxin 0.8 (0.6-1.2) ng/mL 02/14/20 02/14/20 02/14/20 Range/Units 08:11 08:31 10:11 WBC (4.0-10.0) 10^3/ uL RBC (4.1-5.3) 10^6/u L Hgb (11.7-16.6) g/dL Hct (42.0-52.0) % MCV (80-94) fL MCH (28.0-34.0) pg MCHC (30.0-36.0) g/dL RDW (12.1-15.1) % Plt Count (130-400) 10^3/c mm MPV (7.4-10.4) fL Neut % (Auto) % Lymph % (Auto) % [place] % (Auto) % Eos % (Auto) % Baso % (Auto) % Neut # (Auto) (1.8-7.7) 10^3/u L Lymph # (Auto) (0.8-4.8) 10^3/u L [place] # (Auto) (0.2-0.9) 10^3/u L Eos # (Auto) (0.0-0.8) 10^3/u L Baso # (Auto) (0.0-0.1) 10^3/u L Nucleated RBC % (a uto) % Nucleated RBCs # /100WBC Specimen Type Arterial Sample Site Radial, left ABG pH 7.35 (7.35-7.45) ABG pCO2 67.7 H* (35-45) mmHg ABG pO2 67.8 L (80.0-100.0) mmH g ABG HCO3 37.3 H (22-26) mmol/L ABG Base Excess 9.8 H (-2.0-2.0) mmol/ L Jamari Test Pos Hematocrit 30.6 L (42-52) % O2 Delivery Device Nc O2 Liters/Min 2.0 % FiO2 28.0 % Chemical Equipment Sales Engineer ID glc Sodium (136-145) mmol/L Potassium (3.5-5.1) mmol/L Chloride (98-107) mmol/L Carbon Dioxide (22-29) mmol/L Anion Gap (5-19) BUN (8-23) mg/dL Creatinine (0.7-1.2) mg/dL GFR Calculation Glucose (65-115) mg/dL Calculated Osmolal ity (285-295) mOsm/k g Lactate 0.7 (0.5-2.2) mmol/L Calcium (8.5-10.5) mg/dL Total Bilirubin (0.15-1.2) mg/dL AST (0-40) U/L ALT (0-41) U/L Alkaline Phosphata se (40-130) IU/L Troponin T Baselin e (0-15) ng/L Troponin T 120 Min [place] 48.31 H (0-15) ng/L Delta Troponin T -4.69 L (0-10) ABS# NT-Pro-B Natriuret Pep (0-450) pg/mL Total Protein (6.6-8.7) g/dL Albumin (3.5-5.2) g/dL Globulin (1.3-4.6) g/dL Procalcitonin (0-0.5) ng/mL Urine Color (Yellow) Urine Appearance (CLEAR) Urine pH (5-7) Ur Specific Gravit y (1.005-1.030) Urine Protein (Negative) Urine Glucose (UA) (Normal) Urine Ketones (Negative) Urine Blood (Negative) Urine Nitrate (Negative) Urine Bilirubin (NEGATIVE) Urine Urobilinogen (Negative) mg/dL Ur Leukocyte Susana ase (Negative) Urine RBC (0-2) /hpf Urine WBC (0-5) /hpf Ur Squamous Epith Cells (0-5) Amorphous Sediment Urine Bacteria (NONE) Coarse Granular Ca sts /lpf Digoxin (0.6-1.2) ng/mL 02/14/20 Range/Units 10:11 WBC (4.0-10.0) 10^3/ uL RBC (4.1-5.3) 10^6/u L Hgb (11.7-16.6) g/dL Hct (42.0-52.0) % MCV (80-94) fL MCH (28.0-34.0) pg MCHC (30.0-36.0) g/dL RDW (12.1-15.1) % Plt Count (130-400) 10^3/c mm MPV (7.4-10.4) fL Neut % (Auto) % Lymph % (Auto) % [place] % (Auto) % Eos % (Auto) % Baso % (Auto) % Neut # (Auto) (1.8-7.7) 10^3/u L Lymph # (Auto) (0.8-4.8) 10^3/u L [place] # (Auto) (0.2-0.9) 10^3/u L Eos # (Auto) (0.0-0.8) 10^3/u L Baso # (Auto) (0.0-0.1) 10^3/u L Nucleated RBC % (a uto) % Nucleated RBCs # /100WBC Specimen Type Sample Site ABG pH (7.35-7.45) ABG pCO2 (35-45) mmHg ABG pO2 (80.0-100.0) mmH g ABG HCO3 (22-26) mmol/L ABG Base Excess (-2.0-2.0) mmol/ L Jamari Test Hematocrit (42-52) % O2 Delivery Device O2 Liters/Min % FiO2 % Chemical Equipment Sales Engineer ID Sodium (136-145) mmol/L Potassium (3.5-5.1) mmol/L Chloride (98-107) mmol/L Carbon Dioxide (22-29) mmol/L Anion Gap (5-19) BUN (8-23) mg/dL Creatinine (0.7-1.2) mg/dL GFR Calculation Glucose (65-115) mg/dL Calculated Osmolal ity (285-295) mOsm/k g Lactate (0.5-2.2) mmol/L Calcium (8.5-10.5) mg/dL Total Bilirubin (0.15-1.2) mg/dL AST (0-40) U/L ALT (0-41) U/L Alkaline Phosphata se (40-130) IU/L Troponin T Baselin e (0-15) ng/L Troponin T 120 Min [place] (0-15) ng/L Delta Troponin T (0-10) ABS# NT-Pro-B Natriuret Pep (0-450) pg/mL Total Protein (6.6-8.7) g/dL Albumin (3.5-5.2) g/dL Globulin (1.3-4.6) g/dL Procalcitonin (0-0.5) ng/mL Urine Color Straw (Yellow) Urine Appearance Sl hazy (CLEAR) Urine pH 5 (5-7) Ur Specific Gravit y 1.015 (1.005-1.030) Urine Protein Neg (Negative) Urine Glucose (UA) Norm (Normal) Urine Ketones Negative (Negative) Urine Blood Neg (Negative) Urine Nitrate Negative (Negative) Urine Bilirubin Neg (NEGATIVE) Urine Urobilinogen Norm (Negative) mg/dL Ur Leukocyte Susana ase Negative (Negative) Urine RBC None (0-2) /hpf Urine WBC None (0-5) /hpf Ur Squamous Epith Cells None (0-5) Amorphous Sediment 1+ Urine Bacteria Trace (NONE) Coarse Granular Ca sts 10-15 H /lpf Digoxin (0.6-1.2) ng/mL EKG Data^: EKG 1: EKG Interpretation Date: 02/14/20 EKG interpretation time: 08:31 Interpretation: Sinus tachycardia with premature supraventricular complexes. Rate 111. Intervals are normal. [place] is normal. No ST changes. EKG 2: EKG Interpretation Date: 02/14/20 EKG interpretation time: 09:57 Interpretation: Ventricular rate of 107. Rhythm unchanged from previous. Normal intervals. No acute ST changes. Discharge Plan Discharge Patient Disposition: Placed in Observation Admit Provider: Aniceto Burnham Clinical Impression: Acute dyspnea, COPD exacerbation, COVID-19 virus test result unknown Condition: Stable Discharge Date/Time: 02/14/20 11:37 Coding Level of Care Code ED Electroslag Welding Machine Operator for Chg Fwd Exam Comprehensive
[2020-02-14] MEDS: sodium chloride 0.9% 500 ML 999 ML IV (08:15)
[2020-02-14 08:17] LABS: Basophils % 0.2 %; Eosinophils # 0.1 10^3/uL (0.0-0.8); Eosinophils % 0.5 %; Hemoglobin 9.9 g/dL (11.7-16.6); Lymphocytes # 1.5 10^3/uL (0.8-4.8); Lymphocytes % 11.7 %; Mean Corpuscular Hemoglobin 28.9 pg (28.0-34.0); Mean Corpuscular Volume 96.5 fL (80-94); Mean Platelet Volume 9.2 fL (7.4-10.4); Monocytes # 1.2 10^3/uL (0.2-0.9); Neutrophils # 10.04 10^3/uL (1.8-7.7); Neutrophils % 78.1 %; Nucleated Red Blood Cells % 0 %; Platelet Count 190 10^3/cmm (130-400); Red Blood Count 3.42 10^6/uL (4.1-5.3); Red Cell Distribution Width 12.4 % (12.1-15.1); White Blood Count 12.9 10^3/uL (4.0-10.0)
[2020-02-14 08:20] LABS: ABG PCO2 67.7 mmHg (35-45); ABG PH Result 7.35 (7.35-7.45); Arterial Blood Gas Hematocrit 30.6 % (42-52); Base Excess ABG 9.8 mmol/L (-2.0-2.0); Blood Gas Allen Test Pos; Blood Gas Operator Identificat glc; Blood Gas Sample Site Radial, left; Blood Gas Sample Type Arterial; HCO3 ABG 37.3 mmol/L (22-26); Oxygen Device NC; PO2 ABG 67.8 mmHg (80.0-100.0)
[2020-02-14 08:30] LABS: Troponin(5th) Baseline 53 ng/L (0-15)
[2020-02-14 08:40] LABS: NT Pro B Type Natriuretic Pept 1514 pg/mL (0-450); Procalcitonin 0.22 ng/mL (0-0.5)
[2020-02-14 08:48] LABS: Lactate (Lactic Acid level) 0.7 mmol/L (0.5-2.2)
[2020-02-14 08:51] LABS: Alanine Aminotransferase 11 U/L (0-41); Albumin Level 3.2 g/dL (3.5-5.2); Alkaline Phosphatase 79 IU/L (40-130); Anion Gap 11.2 (5-19); Aspartate Amino Transferase 10 U/L (0-40); Blood Urea Nitrogen 20 mg/dL (8-23); Calcium 8.8 mg/dL (8.5-10.5); Carbon Dioxide 36 mmol/L (22-29); Chloride 96 mmol/L (98-107); Globulin 2.8 g/dL (1.3-4.6); Glucose 107 mg/dL (65-115); Osmolality Calculated 285 mOsm/kg (285-295); Potassium 4.2 mmol/L (3.5-5.1); Sodium 139 mmol/L (136-145); Total Bilirubin 0.4 mg/dL (0.15-1.2)
[2020-02-14 09:08] LABS: Digoxin 0.8 ng/mL (0.6-1.2)
[2020-02-14] MEDS: FUROsemide 10 mg/mL SDV 2mL 20 MG IVP (09:24)
[2020-02-14] MEDS: dexamethasone 4 mg/mL INJ 8 MG IVP (09:24)
[2020-02-14] MEDS: albuterol 8 gm MDI 2 PUFF INHALATION (09:34)
--- NOTE | 2020-02-14 10:00 | ECG_ITS ---
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 Measurements Intervals Bonnie Rate: 107 P: 71 VT: 123 QRS: 65 QRSD: 82 T: 66 QT: 302 QTc: 403 Interpretive Statements SINUS TACHYCARDIA WITH OCCASIONAL SUPRAVENTRICULAR PREMATURE COMPLEXES ABNORMAL RHYTHM ECG Compared to ECG 02/14/2020 08:28:40 No significant changes Electronically Signed On 02-14-2020 10:30:14 CDT by Malcom Angel M.D. [id number]
[2020-02-14 10:21] LABS: Add Urine Microscopic? YES; Bilirubin Urine Neg (NEGATIVE); Blood Urine Neg (Negative); Glucose Urine UA Norm (Normal); Ketones Urine Negative (Negative); Leukocyte Esterase Urine Negative (Negative); Nitrate Urine Negative (Negative); Protein Urine Neg (Negative); Specific Gravity, Urine 1.015 (1.005-1.030); Urine Appearance SL Hazy (CLEAR); Urine Color Straw (Yellow); Urobilinogen Urine Norm (Negative); pH Urine 5 (5-7)
[2020-02-14 10:28] LABS: Add Urine Culture? No; Amorphous Sediment Urine 1+; Bacteria Urine TRACE
[2020-02-14 10:35] LABS: Troponin 5 2HR 48.31 ng/L (0-15)
[2020-02-14 10:53] LABS: Troponin 5 2HR Delta -4.69 ABS# (0-10)
--- NOTE | 2020-02-14 11:34 | P.HP_ITS ---
Providers/Chief Complaint Admitting Physician: Aniceto Burnham MD Chief Complaint: RESPIRATORY DISTRESS History of Present Illness Luis Talavera is a 74 year old male resident of nursing facility who presents with shortness of breath. He was noted to be hypoxic this morning. He was recently in the hospital for pneumonia, being discharged on January 27. Patient himself has significant mental health issues including dementia which makes history from him impossible. When I went in the room he had pulled his oxygen off, and reported he did not feel short of breath although his oxygen level was approximately 82%. Nursing facility reports that he was doing well yesterday as far as they know. Low oxygen saturation, productive cough was noted this morning. Review of Systems General: Reports: ROS unobtainable due to mental status (unable to obtain secondary to dementia) Medications/Allergies Home Medications Medication Instructions Recorded Confirmed Last Taken Type Enema 118 ml DC DAILY PRN 01/24/20 02/14/20 Unknown History acetaminophen 325 mg PO QID PRN 01/24/20 02/14/20 Unknown History bisacodyl 10 mg DC DAILY PRN 01/24/20 02/14/20 Unknown History loratadine 10 mg PO DAILY 01/24/20 02/14/20 02/13/20 History magnesium hydroxide [Milk of 30 ml PO DAILY PRN 01/24/20 02/14/20 Unknown History Magnesia] mirtazapine 15 mg PO DAILY 01/24/20 02/14/20 02/13/20 History potassium chloride 10 meq PO DAILY 01/24/20 02/14/20 02/13/20 History sennosides-docusate sodium 1 tab-cap PO BID PRN 01/24/20 02/14/20 Unknown History [Senokot-S] tamsulosin 0.4 mg PO DAILY 01/24/20 02/14/20 02/13/20 History trazodone 100 mg PO DAILY 01/24/20 02/14/20 02/13/20 History digoxin 250 mcg PO DAILY 30 Days #30 tab 01/28/20 02/14/20 02/13/20 Rx metoprolol tartrate 50 mg PO BID 30 Days #60 tab 01/28/20 02/14/20 02/13/20 Rx acidophilus-pectin, citrus 1 cap PO TID 02/14/20 02/14/20 02/13/20 History [Acidophilus Probiotic] Allergies Allergy/AdvReac Type Severity Reaction Status Date / Time No Known Allergies Allergy Verified 02/14/20 09:40 PFSH Acute PFSH: Medical History Aspiration pneumonia -has known hx of aspiration, likely due to underlying dementia -aspiration precautions -ST evaluation appreciated; no overt aspiration noted, regular liquids with mechanical soft diet recommended Atrial fibrillation and flutter Atrial fibrillation with RVR -on oral BB; digoxin -not on AC, presumably due to high fall risk CHF (congestive heart failure) -chronic diastolic CHF, no acute exacerbation -due to poor oral intake, will be on gentle IVF hydration, monitor for fluid overload -Echo (2016): EF=55%, no RWMA, mild pulmonary HTN (35) COPD (chronic obstructive pulmonary disease) -acute COPD exacerbation secondary to pneumonia -as noted above -not oxygen dependent at baseline Dementia -minimal verbal engagement at baseline per NH though typically alert and oriented to self -more alert and oriented to self -uses WC at baseline Social History Smoking and tobacco status: current every day smoker cigarettes [ Other cigarette details: Unknown if still smoker, but was up until last year ] Housing: [facility] Supplemental PFSH Information: Very limited secondary to patient's mental status. Vitals/I&O/Wt Last Vital Signs Temp 99.0 F 02/14/20 07:56 Pulse 119 H 02/14/20 10:54 Resp 18 02/14/20 10:54 BP 125/72 02/14/20 10:54 Pulse Ox 94 02/14/20 10:54 02/13/20 02/14/20 02/14/20 22:59 06:59 14:59 Intake Total 500 / 500 Balance 500 / 500 Weight last 48 hrs Weight 77.111 kg Physical Exam Narrative: EXAM NARRATIVE: Adult male, with mild respiratory distress HEENT: Pupils equally round. Oropharynx clear. Poor dentition noted. Neck is supple no lymphadenopathy or thyromegaly Cardiovascular regular rate and rhythm, no murmur Lungs diminished breath sounds bilaterally. Few wheezes Abdomen is soft with positive bowel sounds. No organomegaly Extremities no cyanosis clubbing or edema Neuro no obvious focal deficits Skin no rash Data : 02/14/20 08:09 02/14/20 08:09 Other data: Chest x-ray with right lower lobe infiltrate. EKG sinus tach, normal axis, no acute changes ABG with pH of 7.35, PCO2 67, PO2 67 on 2 L LFTs normal. Troponin baseline 53 with follow-up 48. BNP elevated at 1514 Procalcitonin normal. Urinalysis negative. Digoxin level was checked and 0.8. A&P Assessment and plan (1) Acute hypoxemic respiratory failure: Etiology unknown. Could be recurrent aspiration. Certainly chest x-ray demonstrates right lower lobe pneumonia. May be related to COPD exacerbation as well. COVID testing was ordered. Low risk Status: Acute (2) COPD exacerbation: Prednisone 40 mg daily Combivent, Advair ordered Status: Acute (3) Leukocytosis: Follow. Suspect this is secondary to pneumonia Status: Acute (4) Elevated troponin: Type II Await echocardiogram Status: Acute (5) Aspiration pneumonia: Zosyn IV Speech therapy consultation [place] thick liquids, pur?ed diet Status: Acute Qualifiers: Aspiration pneumonia type: unspecified Laterality: unspecified laterality Lung location: unspecified part of lung Qualified Code(s): J69.0 - Pneumonitis due to inhalation of food and vomit Additional A&P Information Mental health disorder, listed as Parkinson's/dementia and nursing facility record History of atrial fibrillation with rapid ventricular rate. Currently in sinus rhythm History of congestive heart failure, unknown type. Will check echocardiogram Allow natural per his nursing facility records Heparin for DVT prophylaxis Will need sitter to help him keep oxygen on secondary to dementia. Attestations Medical Necessity Statement*: May need less than 2 midnight stay for treatment of acute COPD exacerbation. Time Spent in Patient Care: Greater than 35 minutes Coding Level of Care Code Acute Forensic Science Technician for [facility] Fwd Diagnoses Acute hypoxemic respiratory failure J96.01 COPD exacerbation J44.1 Leukocytosis D72.829 Elevated troponin R79.89 Aspiration pneumonia J69.0 Aspiration pneumonia type: unspecified Laterality: unspecified laterality Lung location: unspecified part of lung
--- NOTE | 2020-02-14 11:55 | PC.NURSE ---
Received report from Stacey POLO in the ER. Patient is a resident at [facility] and was found to have a oxygen level of 70% this morning on 3 liters of oxygen and after being placed on a oxy-mask he came up to 80. Patient has a #18 gauge IV in his left AC. Patient was given 20mg of IV Lasix in the ER and his now on 2 liters NC with an oxygen level of 92%. Patient has recently been in [facility] so he will be re-tested for COVIID virus.
--- NOTE | 2020-02-14 12:26 | PC.NURSE ---
Speech at bedside to complete a swallow study.
[2020-02-14] MEDS: piperacillin-tazobactam 3.375 GM in sodium chloride 0.9% (plus) 50 ML IV ×2 (13:21→20:26)
[2020-02-14] MEDS: heparin 5,000 unit/mL INJ 1 mL 5000 UNIT SUBCUT (13:21)
--- NOTE | 2020-02-14 14:00 | ECG_ITS ---
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 Measurements Intervals [place] Rate: 93 P: 58 ID: [id number] QRS: 37 QRSD: 85 T: 59 QT: 327 QTc: 407 Interpretive Statements SINUS RHYTHM Compared to ECG 02/14/2020 09:55:22 Sinus tachycardia no longer present Electronically Signed On 02-15-2020 8:05:57 CDT by Malcom Angel M.D. [id number]
--- NOTE | 2020-02-14 15:05 | CTR_ITS ---
PROCEDURE INFORMATION: Exam: CT Angiography Chest With Contrast Exam date and time: 02/14/2020 3:13 PM Age: 74 years old Clinical indication: Shortness of breath; Additional info: Positive d-dimer, respiratory failure, hypoxia TECHNIQUE: Imaging protocol: Computed tomographic angiography of the chest with intravenous contrast. 3D rendering: MIP and/or 3D reconstructed images were created by the technologist. Radiation optimization: All CT scans at this facility use at least one of these dose optimization techniques: automated exposure control; mA and/or kV adjustment per patient size (includes targeted exams where dose is matched to clinical indication); or iterative reconstruction. Contrast material: VISI 320; Contrast volume: 95 ml; Contrast route: INTRAVENOUS (IV); COMPARISON: CT chest w con* [id number] 02/22/2016 7:50 AM RADIATION DOSE METRICS: Total DLP (mGy-cm): 553.5 FINDINGS: Pulmonary arteries: Normal. No pulmonary emboli. Aorta: Unremarkable. No aortic aneurysm. No aortic dissection. Lungs: There are centrilobular emphysematous changes in the bilateral lungs. There are pulmonary parenchymal calcifications consistent with remote granulomatous organism exposure. Pleural space: Small right pleural effusion with adjacent compressive atelectasis or pneumonia. There is patchy consolidation along the posterior aspects of the bilateral lungs, right greater than left. Heart: Multivessel atherosclerotic disease which involves the coronary arteries. Lymph nodes: There are subcentimeter perihilar and mediastinal lymph nodes. There is a 2.3 by 1.0 cm subcarinal lymph node. Bones/joints: Unremarkable. No acute fracture. Soft tissues: Unremarkable. CT/CT angio chest [facility] [id number] IMPRESSION: 1. Patchy consolidation along the posterior aspects of the lungs may represent atelectasis, scar tissue, or pneumonia. 2. There are centrilobular emphysematous changes in the bilateral lungs. 3. Small right pleural effusion. 4. Multivessel atherosclerotic disease which involves the coronary arteries. 5. No evidence for pulmonary embolus. Radiation Dose CTDIVOL = (mGy): DLP = 553.5 (mGy-cm)
[2020-02-14 16:46] LABS: Troponin 5 6HR 42.33 ng/L (0-15)
[2020-02-14] MEDS: metoprolol tartrate 50 mg Tablet PO (17:30)
[2020-02-14] MEDS: iodixanol 320 mg/mL 100mL Btl IV (17:44)
[2020-02-14] MEDS: trazodone 100 mg Tablet PO (20:26)
[2020-02-15] VITALS (12 sets, daily range): BP systolic 94–134; BP diastolic 57–77; PULSE 67–98; RESP 14–18; TEMP 36.4–36.7; O2SAT 91–96
[2020-02-15] MEDS: heparin 5,000 unit/mL INJ 1 mL 5000 UNIT SUBCUT ×2 (04:05→17:13)
[2020-02-15] MEDS: piperacillin-tazobactam 3.375 GM in sodium chloride 0.9% (plus) 50 ML IV ×3 (04:05→21:01)
[2020-02-15 04:42] LABS: Basophils % 0.1 %; Hemoglobin 9.5 g/dL (11.7-16.6); Lymphocytes # 0.9 10^3/uL (0.8-4.8); Lymphocytes % 9.7 %; Mean Corpuscular HGB Conc 31.7 g/dL (30.0-36.0); Mean Corpuscular Hemoglobin 30.5 pg (28.0-34.0); Mean Corpuscular Volume 96.5 fL (80-94); Mean Platelet Volume 9.5 fL (7.4-10.4); Monocytes # 0.5 10^3/uL (0.2-0.9); Monocytes % 4.7 %; Neutrophils # 8.11 10^3/uL (1.8-7.7); Nucleated Red Blood Cells % 0 %; Platelet Count 188 10^3/cmm (130-400); Red Blood Count 3.11 10^6/uL (4.1-5.3); Red Cell Distribution Width 12.2 % (12.1-15.1); White Blood Count 9.6 10^3/uL (4.0-10.0)
[2020-02-15 04:59] LABS: Anion Gap 8.5 (5-19); Blood Urea Nitrogen 23 mg/dL (8-23); Calcium 8.8 mg/dL (8.5-10.5); Carbon Dioxide 37 mmol/L (22-29); Chloride 98 mmol/L (98-107); Glucose 152 mg/dL (65-115); Osmolality Calculated 288 mOsm/kg (285-295); Potassium 4.5 mmol/L (3.5-5.1); Sodium 139 mmol/L (136-145)
[2020-02-15] MEDS: mirtazapine 15 mg Tablet PO (08:52)
[2020-02-15] MEDS: tamsulosin 0.4 mg Capsule PO (08:52)
[2020-02-15] MEDS: digoxin 250 mcg Tablet PO (08:52)
[2020-02-15] MEDS: metoprolol tartrate 50 mg Tablet PO ×2 (08:53→17:13)
[2020-02-15] MEDS: predniSONE 20 mg Tablet 40 MG PO (08:53)
--- NOTE | 2020-02-15 11:22 | PM.PN ---
Subjective Subjective: Interval history: Ray reports he feels fine. No shortness of breath. He required urinary catheter placement yesterday secondary to urinary retention. Medications: Reviewed: Yes Vitals/I&O/Wt Last Vital Signs Temp 97.8 F 02/15/20 07:47 Pulse 77 02/15/20 09:48 Resp 16 02/15/20 09:48 BP 110/68 02/15/20 07:47 Pulse Ox 96 02/15/20 09:48 02/14/20 02/15/20 02/15/20 22:59 06:59 14:59 Intake Total 550 / 1050 50 / 1100 526.042 / 526.042 Output Total 700 / 700 Balance 550 / 1050 -650 / 400 526.042 / 526.042 Weight last 48 hrs Weight 77.111 kg Physical Exam Narrative: EXAM NARRATIVE: General exam demonstrates no respiratory distress Cardiovascular regular rate and rhythm, no murmur Lungs diminished breath sounds bilaterally. No wheezing Abdomen is soft with positive bowel sounds. No organomegaly Extremities no cyanosis clubbing or edema Urinary Catheter Management^: Hastings: Cath Placed During This Visit: yes Reason for Continuing Indwelling Catheter: Acute Urinary Retention or Obstruction Urinary Catheter Date of Insertion: 02/15/20 Urinary Catheter Time of Insertion: 05:23 Data : 02/15/20 04:03 02/15/20 04:03 A&P Assessment and plan (1) Acute hypoxemic respiratory failure: Etiology unknown. Could be recurrent aspiration. Certainly chest x-ray demonstrates right lower lobe pneumonia. May be related to COPD exacerbation as well. CTA chest demonstrates patchy atelectasis possible pneumonia, small right effusion. No pulmonary embolism was noted. He is rapidly improved overnight which makes aspiration more likely. COVID testing was ordered. Low risk. He has had multiple previous tests and resides at the nursing facility. Status: Acute (2) COPD exacerbation: Prednisone 40 mg daily Combivent, Advair ordered Status: Acute (3) Leukocytosis: This has resolved Status: Acute (4) Elevated troponin: Type II Await echocardiogram Status: Acute (5) Aspiration pneumonia: Zosyn IV Speech therapy consultation Castella thick liquids, pur?ed diet Status: Acute Qualifiers: Aspiration pneumonia type: unspecified Laterality: unspecified laterality Lung location: unspecified part of lung Qualified Code(s): J69.0 - Pneumonitis due to inhalation of food and vomit Additional A&P Information Urinary Retention, Hastings placed. Continue Flomax. Chronic kidney disease. Slight worsening in creatinine. We will see if this improves as Hastings was placed yesterday. Mental health disorder, listed as Parkinson's/dementia and nursing facility record History of atrial fibrillation with rapid ventricular rate. Currently in sinus rhythm History of congestive heart failure, unknown type. Awaiting echocardiogram Allow natural per his nursing facility records Heparin for DVT prophylaxis Will need sitter to help him keep oxygen on secondary to dementia. 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
[2020-02-15 18:10] LABS: Coronavirus Lab Test PTC SEE REPORT
[2020-02-15] MEDS: trazodone 100 mg Tablet PO (21:01)
[2020-02-16] VITALS (9 sets, daily range): BP systolic 92–108; BP diastolic 45–61; PULSE 71–93; RESP 12–18; TEMP 36.4–37.2; O2SAT 90–96
[2020-02-16 04:06] LABS: Basophils % 0.1 %; Eosinophils % 0.1 %; Hematocrit 27.3 % (42.0-52.0); Hemoglobin 8.5 g/dL (11.7-16.6); Lymphocytes # 1.8 10^3/uL (0.8-4.8); Lymphocytes % 15.3 %; Mean Corpuscular HGB Conc 31.1 g/dL (30.0-36.0); Mean Corpuscular Hemoglobin 29.3 pg (28.0-34.0); Mean Corpuscular Volume 94.1 fL (80-94); Mean Platelet Volume 9.3 fL (7.4-10.4); Monocytes % 8.5 %; Neutrophils # 8.94 10^3/uL (1.8-7.7); Neutrophils % 75.4 %; Nucleated Red Blood Cells % 0 %; Platelet Count 212 10^3/cmm (130-400); Red Cell Distribution Width 12.1 % (12.1-15.1); White Blood Count 11.9 10^3/uL (4.0-10.0)
[2020-02-16] MEDS: piperacillin-tazobactam 3.375 GM in sodium chloride 0.9% (plus) 50 ML IV (04:10)
[2020-02-16] MEDS: heparin 5,000 unit/mL INJ 1 mL 5000 UNIT SUBCUT (04:12)
[2020-02-16 04:25] LABS: Anion Gap 8.8 (5-19); Blood Urea Nitrogen 22 mg/dL (8-23); Calcium 8.1 mg/dL (8.5-10.5); Carbon Dioxide 36 mmol/L (22-29); Chloride 98 mmol/L (98-107); Glucose 118 mg/dL (65-115); Osmolality Calculated 286 mOsm/kg (285-295); Potassium 3.8 mmol/L (3.5-5.1); Sodium 139 mmol/L (136-145)
--- NOTE | 2020-02-16 05:10 | PC.NURSE ---
Pt c/o being SOB and coughing. Pt is coughing up thick yellow sputum. O2 sat was 84. Raised head of the bed and increased his oxygen to 3L NC. O2 increased to 90s and pt is saying he is breathing better.
[2020-02-16] MEDS: predniSONE 20 mg Tablet 40 MG PO (08:50)
[2020-02-16] MEDS: mirtazapine 15 mg Tablet PO (08:50)
[2020-02-16] MEDS: digoxin 250 mcg Tablet PO (08:50)
[2020-02-16] MEDS: metoprolol tartrate 50 mg Tablet PO (08:50)
[2020-02-16] MEDS: tamsulosin 0.4 mg Capsule PO (08:50)
--- NOTE | 2020-02-16 10:34 | PC.CHAP ---
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 [] Patient/Family/Request visit [] Outpatient visit [] Follow-up visit [] Physician referral [] Code/Alert [x] Routine visit [] Staff referral [] Actively dying [] Patient sleeping [] Family support [] [] Out of room [] Palliative care [] [] Receiving care in room [] Pre-surgical visit [] Trauma [] Long length of stay [] ICU visit [] Other: Relational/Emotional Strength [] Patient feels connected with others/family/visitors/staff [] Distress [] Loneliness/isolation [] Abandonment Spirituality of Patient [] Person of Stacey [] Attends Mosque of their Stacey [] Believes in Prayer [] Reads Bible or Restoration materials [] There are Spiritual issues to be addressed Photoengraving Supervisor Interventions [x] Prayer [] Active listening [] Non-anxious presence [] Spiritual/emotional support [] Crisis/trauma care [] Spiritual counseling [] Bereavement support [] Provided bereavement packet [] Provided Bible/devotional materials [] Provided toy/stuffed animal, coloring book to patient or family member [] Provided Communion [] Anointing/[place] [] Salvation [] Completed spiritual assessment [] Other: Impact on Illness or Injury [] Angry [] Fearful [] Anxious [] Often cries [] Exhaustion [] Unable to work [] Unable to attend methodist [] Unable to walk/stand [] Unable to read [] Unable to drive [] Unable to eat/drink [] Unable to sleep [] Unable to be with family [] Patient intubated [] Other: Summary patiant not able to talk Time spent with patient 10 maximo
--- NOTE | 2020-02-16 12:03 | USCV_ITS ---
Luis Talavera Age: 74 Gender: M : 1945 Exam Date: 02/16/2020 05:57 Ordering Phys: Aniceto Burnham MD Technologist: Tomer De La Paz [place] [facility] [place]: CHF BP: 132 / 84 HR: 86 Rhythm: Sinus Technical Quality: MEASUREMENTS (Male / Female) Normal Values 2D ECHO LA Diameter 3.8 cm M-MODE LV Diastolic Diameter MM 4.1 cm 4.2 - 5.9 / 3.9 - 5.3 cm LV Systolic Diameter MM 2.4 cm LV Ejection Fraction MM Teich 72.5 % IVS Diastolic Thickness MM 1.0 cm 0.6 - 1.0 / 0.6 - 0.9 cm IVS Systolic Thickness MM 1.8 cm LVPW Diastolic Thickness MM 1.2 cm 0.6 - 1.0 / 0.6 - 0.9 cm LVPW Systolic Thickness MM 1.7 cm RV Diastolic Diameter MM 2.1 cm Aortic Annulus Diameter 3.9 cm LA Ao Ratio MM 1.0 MV E Point Septal Separation 0.8 cm FINDINGS Left Ventricle Right Ventricle Right Atrium Left Atrium Mitral Valve Aortic Valve Tricuspid Valve Pulmonic Valve Pericardium Aorta CONCLUSIONS Limited echo due to suboptimal image quality 1-Normal left ventricle ejection fraction. Left ventricle ejection fraction 50-55 %. 2-Mitral and tricuspid valve opening and closing fine with trace regurgitation. 3-Aortic and pulmonic valve not well visualized 4-No pericardial effusion. 5-Cannot compare with the prior echocardiogram due to suboptimal quality and limited echo Yemi Muhammad MD (Electronically Signed) Final Date: 16 February 2020 16:38 Maribel FERRELL
--- NOTE | 2020-02-16 12:51 | P.DS_ITS ---
Discharge Providers Date of Admission: 02/15/20 15:33 Date of Discharge: February 16, 2020 Attending Provider at Admission: Aniceto Burnham MD Attending Provider at Discharge: Geeta Valdes MD Primary Care Provider: Dr. Ivet Burnham Diagnoses at Discharge Discharge Diagnosis (1) Acute hypoxemic respiratory failure: Status: Acute Problem details: -secondary to aspiration pneumonia -improvement noted on CXR; CTA noted as well, negative PE (d-dimer elevation noted) -has been on Zosyn, will d/c on Augmentin -supplemental oxygen as needed, currently requiring 2-3 L NC (2) COPD exacerbation: Status: Acute Problem details: -on antibiotics, inhalers/Neb treatments, oral steroids (3) Leukocytosis: Status: Acute Problem details: -secondary to acute infection as noted above Qualifiers: Leukocytosis type: unspecified Qualified Code(s): D72.829 - Elevated white blood cell count, unspecified (4) Elevated troponin: Status: Acute Problem details: -Echo report pending; last one done in 2015 with EF=55%, no RWMA, mild pulmonary HTN -negative delta (5) Aspiration pneumonia: Status: Acute Problem details: -as noted above Qualifiers: Aspiration pneumonia type: unspecified Laterality: unspecified laterality Lung location: unspecified part of lung Qualified Code(s): J69.0 - Pneumonitis due to inhalation of food and vomit Other Information Additional DC diagnoses/information: -hx of dementia: alert and oriented to self at baseline; WC bound at baseline -Atrial fibrillation; on digoxin, BB; no AC due to high fall risk -Chronic diastolic CHF -CKD (unknown stage); baseline Cr was previously wnl but now seems to be around 1.4-1.6 -Acute urinary retention; has Hastings catheter in place, Urology f/u as outpatient; continue Flomax -Acute on chronic anemia; baseline Hg is around 12; recommend repeat H & H in 2 days and may need endoscopic evaluation if continued anemia Reason for Visit Reason for Visit: RESPIRATORY DISTRESS Hospital Course Hospital Course: Patient was admitted to the medical-surgical floor and placed on oxygen as well as broad-spectrum IV antibiotic coverage secondary to suspicion for aspiration pneumonia given increased oxygen requirement, noted leukocytosis, hypercapnia and hypoxia noted on ABG as well as increased producti ve cough. Patient had been admitted to our facility for similar presentation last month and has been discharged on a course of steroids and Augmentin. He was evaluated by speech therapy and pur?ed diet with nectar thick liquids recommended in addition to aspiration precautions. Patient has been afebrile, hemodynamically stable, requiring 2 to 3 L supplemental oxygen which is his current baseline; this can be titrated as needed to maintain his oxygen saturation at or above 92% or for patient comfort. During the course of his hospital stay he developed acute urinary retention requiring placement of Hastings catheter. Catheter will remain in place on discharge until patient follows up with urology. He was tested for COVID-19 which is negative. It is worth noting that patient has been tested multiple times over the past month and has tested negative each time. Due to suspicion for aspiration he will be discharged on a course of oral antibiotics and complete his short course of steroids as well. He did require one-on-one monitoring secondary to dementia and need to make sure he does not take off his supplemental oxygen, peripheral IV access or Hastings catheter. He will require follow-up with his primary care provider within 1 week. He is to seek medical attention immediately should any of his symptoms worsen or recur. Discharge Summary: -Patient to follow-up with his primary care provider within 1 week -Patient to follow-up with urology in 1 week or as soon as next available appointment secondary to acute urinary retention requiring Hastings catheter placement -Please repeat CBC in 2 days to continue to monitor hemoglobin Physical Exam Const: COMMON NORMALS: no acute distress, patient oriented x3 and alert GENERAL APPEARANCE: cooperative and comfortable ORIENTATION/CONSCIOUSNESS: Yes awake HENMT: COMMON NORMALS: normocephalic, atraumatic, hearing grossly normal bilaterally and moist oral mucous membranes HEAD & SCALP: normocephalic and atraumatic Eye: COMMON NORMALS: Equal, round and reactive pupils present, EOMs intact bilaterally and conjunctivae normal CONJUNCTIVA: Yes conjunctivae normal PUPIL: Yes Equal, round and reactive pupils present Neck/C-Spine: COMMON NORMALS: full ROM GENERAL: Yes normal visual inspection and Yes trachea midline Chest: COMMONS NORMALS: normal inspection of the chest Resp: COMMON NORMALS: normal respiratory effort, No retractions, No use of accessory muscles and clear to auscultation bilaterally EFFORT & INSPECTION: Yes able to speak in complete sentences, Yes symmetric chest movement and No tachypneic AUSCULTATION: clear to auscultation bilaterally OTHER: -on 3 L NC Cardio: COMMON NORMALS: regular rate, regular rhythm, S1 normal heart sound present, S2 normal heart sound present and No murmurs present (Cardio) RATE: regular rate RHYTHM: regular rhythm HEART SOUNDS: S1 normal heart sound present and S2 normal heart sound present GI: COMMON NORMALS: Normal to inspection, nondistended, normoactive bowel sounds present, Soft to palpation and non-tender PALPATION: Yes Soft to palpation : BLADDER/KIDNEY EXAM: Yes catheter in place Catheter type (Male): urethral Extremity: COMMON NORMALS: normal to inspection, full ROM, no clubbing, cyanosis or edema and no pedal edema Neuro: COMMON NORMALS: patient oriented x3, moves all extremities, no focal motor deficits and no sensory deficits noted SENSORIUM/ORIENTATION: Yes alert OTHER: -WC bound at baseline Psych: COMMON NORMALS: mental status grossly normal, Normal thought process present, cooperative, normal affect and speech normal SPEECH: Yes normal speech THOUGHT PROCESS: Normal thought process present Skin: COMMON NORMALS: no rashes or lesions noted, no jaundice, no petechiae and no mottling GENERAL SKIN EXAM: no rashes or lesions noted Urinary Catheter Management^: Hastings: Cath Placed During This Visit: yes Urethral Indwelling: Yes Reason for Continuing Indwelling Catheter: Acute Urinary Retention or Obstruction Urinary Catheter Date of Insertion: 02/15/20 Urinary Catheter Time of Insertion: 05:23 Discharge Data Data Completed and Pending: Completed Studies During Hospitalization Category Date Time Status CT angio chest PE protcl [id number] Urge nt Cat Scan 02/14/20 15:05 Completed XR chest 1V eva ble [id number] Stat Exams 02/14/20 07:59 Completed Pending at discharge Category Date Time Status CV echo complete* [id number] Routine Ultrasound 02/16/20 12:03 Taken Labs from last 24 hours 02/16/20 02/16/20 02/14/20 03:48 03:48 09:40 WBC 11.9 H RBC 2.90 L Hgb 8.5 L Hct 27.3 L MCV 94.1 H MCH 29.3 MCHC 31.1 RDW 12.1 Plt Count 212 MPV 9.3 Neut % (Auto) 75.4 Lymph % (Auto) 15.3 Sunflower % (Auto) 8.5 Eos % (Auto) 0.1 Baso % (Auto) 0.1 Neut # (Auto) 8.94 H Lymph # (Auto) 1.8 Sunflower # (Auto) 1.0 H Eos # (Auto) 0.0 Baso # (Auto) 0.0 Nucleated RBC % (a uto) 0 Nucleated RBCs # 0.0 Sodium 139 Potassium 3.8 Chloride 98 Carbon Dioxide 36 H Anion Gap 8.8 BUN 22 Creatinine 1.6 H Glucose 118 H Calculated Osmolal ity 286 Calcium 8.1 L Nasal/Oral COVID-1 9 PCR See report Vitals: Last Vital Signs Temp 97.6 F 02/16/20 12:00 Pulse 83 02/16/20 12:45 Resp 18 02/16/20 12:45 BP 108/61 02/16/20 12:00 Pulse Ox 93 02/16/20 12:45 Discharge Plan Discharge Patient Disposition: Xfer [facility] Condition: Stable Prescriptions: New prednisone 20 mg Tablet 40 mg PO DAILY Qty: 6 RF: 0 Advair Diskus 500-50 mcg/dose Blister With Device 1 puff inhalation BID.RESPIRATORY Qty: 1 RF: 0 Combivent Respimat 20-100 mcg/actuation Mist 1 puff inhalation Q4H.RESPIRATORY Qty: 4 RF: 0 amoxicillin-pot clavulanate 875-125 mg tablet 1 tab PO BID 7 Days Qty: 14 RF: 0 Continued acetaminophen 325 mg Tablet 325 mg PO QID PRN (Reason: Pain) RF: 0 sennosides-docusate sodium [Senokot-S] 8.6-50 mg Tablet 1 tab-cap PO BID PRN (Reason: Constipation) RF: 0 potassium chloride 10 mEq Tablet Extended Release 10 meq PO DAILY RF: 0 magnesium hydroxide [Milk of Magnesia] 400 mg/5 mL Suspension 30 ml PO DAILY PRN (Reason: Constipation) RF: 0 tamsulosin 0.4 mg Capsule 0.4 mg PO DAILY RF: 0 trazodone 100 mg Tablet 100 mg PO DAILY RF: 0 bisacodyl 10 mg Suppository 10 mg MI DAILY PRN (Reason: Constipation) RF: 0 Enema 19-7 gram/118 mL Enema 118 ml MI DAILY PRN (Reason: Constipation) RF: 0 mirtazapine 15 mg Tablet 15 mg PO DAILY RF: 0 loratadine 10 mg Tablet 10 mg PO DAILY RF: 0 digoxin 250 mcg (0.25 mg) Tablet 250 mcg PO DAILY 30 Days Qty: 30 RF: 0 metoprolol tartrate 50 mg Tablet 50 mg PO BID 30 Days Qty: 60 RF: 0 Acidophilus Probiotic 100 million cell-10 mg Capsule 1 cap PO TID RF: 0 Discharge Orders: Discharge Order (Routine); Ordered 02/16/20 Ordered By: Geeta Valdes Referrals: [facility] [Outside] Ivet Burnham MD [Staff Physician] - 4-7 days (Post hospital discharge follow up. ) Ottoniel Norris MD [Physician] - 1 week (Urinary retention) Discharge Diet: As Directed Discharge Activity: Increase activity as tolerated and Oxygen as instructed Patient Instructions: Prednisone (By mouth), Amoxicillin (By mouth), Fluticasone/Salmeterol (By breathing), Aspiration Pneumonia (DC) Activity Restrictions/Additional Instructions: -Patient will need to continue pureed diet with nectar thick liquids due to history of aspiration -Patient to continue to use supplemental oxygen, currently requiring 2-3 L NC, which can be titrated to maintain his oxygen saturation at or above 92% -Patient has a Hastings catheter in place due to acute urinary retention. Catheter care should be continued and it should remain in place until patient is seen by Urologist or PCP orders it -Patient will need repeat CBC in 2 days to continue to monitor his hemoglobin Discharge Attestations Time Spent in Discharge Care*: greater than 30 min Specific Discharge Activities: Specific discharge activities: educating patient, discussing with manager case management/social workers/dc planners, documenting/other paperwork and evaluating patient/reviewing data Status at Discharge: Cognitive status at discharge: mildly impaired cognition (at baseline, A & O x 1) , Behavioral status at discharge: cooperative and dependent in ADL's , Functional status at discharge: wheelchair bound Overall status at discharge: patient is back to baseline Quality Metrics Clinical Quality Measures During this hospital stay, did patient experience: None Coding Level of Care Code Acute Automatic 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
== END 2020-02-16 15:43 | disposition skilled nursing facility (03) | DRG 189 ==
LOC: ER 13:23 → MEDSURG 13:23
PROVIDERS: Admitting Provider Internal Medicine; Emergency Provider Emergency Medicine; Visit Provider Family Medicine
DX: J96.01 Acute respiratory failure with hypoxia (principal); J69.0 Pneumonitis due to inhalation of food and vomit; J44.1 Chronic obstructive pulmonary disease with (acute) exacerbation; I50.32 Chronic diastolic (congestive) heart failure; I27.20 Pulmonary hypertension, unspecified; I48.91 Unspecified atrial fibrillation; Z66 Do not resuscitate; N18.9 Chronic kidney disease, unspecified; R33.9 Retention of urine, unspecified; D63.1 Anemia in chronic kidney disease; F17.210 Nicotine dependence, cigarettes, uncomplicated; F03.90 Unspecified dementia, unspecified severity, without behavioral disturbance, psychotic disturbance, mood disturbance, and anxiety
CPT/HCPCS: 12345; 36415; 36600; 51702; 71045; 71275; 80048; 80053; 80162; 81001; 81003; 82803; 83605; 83880; 84145; 84484; 85025; 85378; 87635; 92523; 92610; 93005; 93306; 93308; 94640; 96372; 96375; 99283; G0378; J1100; J1644; J1940; J2543; J3535; J7040; J7512; Q9967

== ENCOUNTER → 2020-03-05 13:27 | Outpatient (BNVA) | payer OTHER, MEDICARE, MEDICAID, SELFPAY | PROVIDERS: PCP Nurse Practitioner Family; Visit Provider Nurse Practitioner Family | DX: R33.9 Retention of urine, unspecified (principal) | CPT/HCPCS: 81001 ==

== ENCOUNTER 2020-12-26 09:09 | Inpatient (IN) | payer MEDICARE, MEDICAID, SELFPAY ==
[2020-12-26] VITALS (56 sets, daily range): BP systolic 102–143; BP diastolic 61–88; PULSE 72–111; RESP 13–38; TEMP 36.5–37.7; O2SAT 83–96
--- NOTE | 2020-12-26 09:13 | XRR_ITS ---
PROCEDURE INFORMATION: Exam: XR Chest Exam date and time: 12/26/2020 9:16 AM Age: 75 years old Clinical indication: Fever; Additional info: Cough TECHNIQUE: Imaging protocol: XR of the chest. Views: 1 view. COMPARISON: CR XR chest 1V portable [id number] 02/14/2020 8:09 AM FINDINGS: Lungs: Mild bilateral perihilar and bibasilar bronchopneumonia. Pleural spaces: Unremarkable. No pleural effusion. No pneumothorax. Heart/Mediastinum: Unremarkable. No cardiomegaly. Bones/joints: Unremarkable. XR/XR chest 1V portable [id number] IMPRESSION: Mild bilateral perihilar and bibasilar bronchopneumonia.
--- NOTE | 2020-12-26 09:13 | ECG_ITS ---
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 Measurements Intervals [place] Rate: 110 P: 53 [place]: 139 QRS: 19 QRSD: 75 T: 59 QT: 281 QTc: 381 Interpretive Statements SINUS TACHYCARDIA Compared to ECG 02/14/2020 15:42:33 Sinus rhythm no longer present Electronically Signed On 12-26-2020 15:33:07 CDT by Stephane Hawkins M.D. [id number]
--- NOTE | 2020-12-26 09:16 | ED_ITS ---
HPI - SOB/Dyspnea General: Chief Complaint: Shortness of Breath/Dyspnea Stated Complaint: LOW O2 SATS Time Seen by Provider: 12/26/20 09:10 Source: patient, EMS, RN notes reviewed and old records reviewed Mode of arrival: EMS History of Present Illness: HPI Narrative: This patient presents to the emergency department from local nursing facility with reported fever confusion and shortness of breath/cough. Patient has a long history of disability and does not ambulate well. They state that the patient was a bit more confused today. Patient does answer questions appropriately states his name and where he lives. Patient states he is felt little sick. Patient's temperature was greater than 100 upon arrival with EMS. We will recheck temperature. Patient does have a history of aspiration pneumonia. Will do medical evaluation treat as needed. MD elicited complaint: cough Onset (ago): hour(s) Timing: constant Severity: moderate Exacerbating factors: nothing Associated symptoms: Reports fever(s); Deny abdominal pain, chest pain, extremity pain, lightheadedness, nausea, palpitations or vomiting Review of Systems General: Reports: 10 or more systems reviewed and unremarkable except in HPI and below Const: Reports: fever(s); Denies: chills, body aches or fatigue Eyes: Denies: change in vision or blurry vision ENMT: Denies: throat pain, hoarseness or mouth pain Card: Denies: chest pain, palpitations, irregular heart rhythm, edema, swelling of feet/ankles or lightheadedness Resp: Reports: dyspnea and non-productive cough; Denies: productive cough, wheezing or pain on inspiration GI: Denies: abdominal pain, nausea or vomiting : Denies: flank pain, dysuria, urinary frequency, urinary urgency or urinary hesitancy Musc: Denies: neck pain, back pain, extremity pain, extremity swelling, joint pain, joint swelling, joint redness, joint warmth or limited range of motion Skin/Breast: Denies: rash, pruritus, erythema or skin tenderness Neuro: Reports: confusion; Denies: headache(s), numbness in extremities or weakness in extremities Psych: Denies: anxiety or depression [facility] ED PFSH: Medical History (Updated 12/26/20 @ 11:56 by Raul Armijo MD) Aspiration pneumonia -as noted above Atrial fibrillation and flutter Atrial fibrillation with RVR -on oral BB; digoxin -not on AC, presumably due to high fall risk CHF (congestive heart failure) -chronic diastolic CHF, no acute exacerbation -due to poor oral intake, will be on gentle IVF hydration, monitor for fluid overload -Echo (2016): EF=55%, no RWMA, mild pulmonary HTN (35) Chronic kidney disease COPD (chronic obstructive pulmonary disease) -acute COPD exacerbation secondary to pneumonia -as noted above -not oxygen dependent at baseline Dementia -minimal verbal engagement at baseline per NH though typically alert and oriented to self -more alert and oriented to self -uses WC at baseline Urinary retention Surgical History Status post cystoscopy with ureteral stent placement Family History Mother , 84 No problems noted. Father , 80's No problems noted. Social History Smoking and tobacco status: current every day smoker Alcohol intake: never Housing: Group Home Physical Exam Const: COMMON NORMALS: no acute distress, average body habitus, no limitations, healthy appearing, alert and well nourished EXAM LIMITATIONS: physical limitations GENERAL APPEARANCE: cooperative and frail appearing NUTRITIONAL APPEARANCE: thin ORIENTATION/CONSCIOUSNESS: Yes awake, Yes oriented to person and Yes oriented to place HENMT: COMMON NORMALS: normocephalic, atraumatic, external ears normal, EAC's normal, TM's normal bilaterally, Normal external nose present and Normal nasal mucous membranes and turbinates present HEAD & SCALP: normocephalic and atraumatic NOSE: Normal external nose present and Normal nasal mucous membranes and turbinates present EXTERNAL EAR: Yes external ears normal EXTERNAL AUDITORY CANAL: EAC's normal TYMPANIC MEMBRANE: TM's normal bilaterally Neck/C-Spine: COMMON NORMALS: full ROM, no lymphadenopathy, supple, no meningeal signs, no JVD, Thyroid normal and No carotid bruits THYROID: Thyroid normal Chest: COMMONS NORMALS: normal inspection of the chest, normal palpation of entire chest wall, normal inspection of the breasts and normal palpation of the breasts Breast/axilla inspection: Yes normal inspection of the breasts BREAST/AXILLA PALPATION: Yes normal palpation of the breasts Resp: COMMON NORMALS: No retractions, No use of accessory muscles and percussion normal EFFORT & INSPECTION: Yes tachypneic AUSCULTATION: rhonchi PERCUSSION: percussion normal Cardio: COMMON NORMALS: no JVD, regular rate, regular rhythm, S1 normal heart sound present, S2 normal heart sound present, No gallops present (Cardio), No clicks present (Cardio), No murmurs present (Cardio), No rub (Cardio) and Peripheral pulses 2+ throughout RATE: regular rate RHYTHM: regular rhythm HEART SOUNDS: S1 normal heart sound present and S2 normal heart sound present PERIPHERAL PULSES: Peripheral pulses 2+ throughout GI: COMMON NORMALS: Normal to inspection, nondistended, normoactive bowel sounds present, Soft to palpation, non-tender, No hepatosplenomegaly present, no masses and no bruits PALPATION: Yes Soft to palpation and Yes No hepatosplenomegaly present : COMMON NORMALS: Yes no CVA tenderness BLADDER/KIDNEY EXAM: Yes no CVA tenderness Back/Pelvis: COMMON NORMALS: no CVA tenderness, thoracic and lumbar spine normal to inspection, no thoracic nor lumbar tenderness, thoraco-lumbar ROM normal and straight leg raise negative bilaterally Extremity: COMMON NORMALS: normal to inspection, full ROM, capillary refill normal, no joint enlargement, no clubbing, cyanosis or edema, no calf tenderness and no pedal edema Neuro: SENSORIUM/ORIENTATION: Yes alert, Yes oriented to person and Yes oriented to place MENINGEAL SIGNS: Yes no meningeal signs Course Reevaluation(s): Reevaluation #1: Patient's mental status much improved he is using the remote control and watching TV. Time: 11:54 Consultations: Consultation #1: did discuss sling with Dr. Tanner she is accepted this patient for admission. She request a repeat blood gas. Time: 11:54 Vital Signs: Vital signs: Vital Signs Temperature 99.8 F H 12/26/20 09:26 Pulse Rate 89 12/26/20 12:05 Respiratory Rate 16 12/26/20 12:05 Blood Pressure 143/75 12/26/20 09:26 Pulse Oximetry 96 12/26/20 12:05 MDM - SOB/Dyspnea MDM Narrative: Medical decision making narrative: This patient presents to the emergency department from local nursing facility with reported fever confusion and shortness of breath/cough. Patient has a long history of disability and does not ambulate well. They state that the patient was a bit more confused today. Patient does answer questions appropriately states his name and where he lives. Patient states he is felt little sick. Patient's temperature was greater than 100 upon arrival with EMS. We will recheck temperature. Patient does have a history of aspiration pneumonia. Differential Diagnosis: Shortness of Breath Differential Diagnosis: Likely acute exacerbation of chronic obstructive airways disease, congestive heart failure, community acquired pneumonia, asthma with exacerbation and pulmonary embolism Medical Records: Attestation: I reviewed the patient's medical records. Lab Data: Attestation: I reviewed the patient's lab results. Labs: Lab Results 12/26/20 12/26/20 12/26/20 Range/Units 09:20 09:20 09:20 WBC 16.3 H (4.0-10.0) 10^3/ uL RBC 5.10 (4.1-5.3) 10^6/u L Hgb 14.8 (11.7-16.6) g/dL Hct 49.3 (42.0-52.0) % MCV 96.7 H (80-94) fL MCH 29.0 (28.0-34.0) pg MCHC 30.0 (30.0-36.0) g/dL RDW 13.1 (12.1-15.1) % Plt Count 211 (130-400) 10^3/c mm MPV 9.2 (7.4-10.4) fL Neut % (Auto) 78.8 % Lymph % (Auto) 10.3 % Calloway % (Auto) 9.2 % Eos % (Auto) 0.6 % Baso % (Auto) 0.4 % Neut # (Auto) 12.85 H (1.8-7.7) 10^3/u L Lymph # (Auto) 1.7 (0.8-4.8) 10^3/u L Calloway # (Auto) 1.5 H (0.2-0.9) 10^3/u L Eos # (Auto) 0.1 (0.0-0.8) 10^3/u L Baso # (Auto) 0.1 (0.0-0.1) 10^3/u L Nucleated RBC % (a uto) 0 % Nucleated RBCs # 0.0 /100WBC PT 14.10 (12.1-14.9) SECO NDS INR 1.06 (0.8-1.2) APTT 34.1 (23.9-36.7) SECO NDS Specimen Type Sample Site ABG pH (7.35-7.45) ABG pCO2 (35-45) mmHg ABG pO2 (80.0-100.0) mmH g ABG HCO3 (22-26) mmol/L ABG O2 Saturation ABG Base Excess (-2.0-2.0) mmol/ L Jamari Test A-a O2 Gradient (5-10) mmHg Hematocrit (42-52) % Hgb O2 Saturation (95-100) % Carboxyhemoglobin (0.4-20.1) %THgb Methemoglobin (0.4-1.5) % Total Hemoglobin (14-18) g/dL Ionized Calcium (1.1-1.4) mmol/L O2 Delivery Device O2 Liters/Min % FiO2 % PEEP cmH20 Cylinder Press Operator Helper ID Sodium 144 (136-145) mmol/L Potassium 4.8 (3.5-5.1) mmol/L Chloride 101 (98-107) mmol/L Carbon Dioxide 35 H (22-29) mmol/L Anion Gap 12.8 (5-19) BUN 24 H (8-23) mg/dL Creatinine 1.4 H (0.7-1.2) mg/dL GFR Calculation Not Reportable Glucose 99 (65-115) mg/dL Calculated Osmolal ity 302 H (285-295) mOsm/k g Lactic Acid (0.5-2.2) mmol/L Calcium 8.6 (8.5-10.5) mg/dL Total Bilirubin 0.5 (0.15-1.2) mg/dL AST 20 (0-40) U/L ALT 15 (0-41) U/L Alkaline Phosphata se 103 (40-130) IU/L Ammonia (16-60) umol/L Troponin T Baselin e (0-15) ng/L Troponin T 120 Min [place] (0-15) ng/L Delta Troponin T (0-10) ABS# NT-Pro-B Natriuret Pep 797 H (0-450) pg/mL Total Protein 6.6 (6.6-8.7) g/dL Albumin 4.1 (3.5-5.2) g/dL Globulin 2.5 (1.3-4.6) g/dL Urine Color (Yellow) Urine Appearance (CLEAR) Urine pH (5-7) Ur Specific Gravit y (1.005-1.030) Urine Protein (Negative) Urine Glucose (UA) (Normal) Urine Ketones (Negative) Urine Blood (Negative) Urine Nitrate (Negative) Urine Bilirubin (Negative) Urine Urobilinogen (Negative) mg/dL Ur Leukocyte Susana ase (Negative) Urine RBC (0-2) /hpf Urine WBC (0-5) /hpf Ur Squamous Epith Cells (0-5) /hpf Amorphous Sediment /hpf Urine Bacteria (NONE) /hpf Urine Mucus /hpf SARS-CoV-2 Ag (Rap id) (Negative) 12/26/20 12/26/20 12/26/20 Range/Units 09:20 09:36 09:42 WBC (4.0-10.0) 10^3/ uL RBC (4.1-5.3) 10^6/u L Hgb (11.7-16.6) g/dL Hct (42.0-52.0) % MCV (80-94) fL MCH (28.0-34.0) pg MCHC (30.0-36.0) g/dL RDW (12.1-15.1) % Plt Count (130-400) 10^3/c mm MPV (7.4-10.4) fL Neut % (Auto) % Lymph % (Auto) % Calloway % (Auto) % Eos % (Auto) % Baso % (Auto) % Neut # (Auto) (1.8-7.7) 10^3/u L Lymph # (Auto) (0.8-4.8) 10^3/u L Calloway # (Auto) (0.2-0.9) 10^3/u L Eos # (Auto) (0.0-0.8) 10^3/u L Baso # (Auto) (0.0-0.1) 10^3/u L Nucleated RBC % (a uto) % Nucleated RBCs # /100WBC PT (12.1-14.9) SECO NDS INR (0.8-1.2) APTT (23.9-36.7) SECO NDS Specimen Type Arterial Sample Site Radial, right ABG pH 7.33 L (7.35-7.45) ABG pCO2 68.2 H* (35-45) mmHg ABG pO2 63.0 L (80.0-100.0) mmH g ABG HCO3 36.0 H (22-26) mmol/L ABG O2 Saturation 92.4 ABG Base Excess 7.5 H (-2.0-2.0) mmol/ L Jamari Test Pos A-a O2 Gradient 0.8 L (5-10) mmHg Hematocrit 42.1 (42-52) % Hgb O2 Saturation 90.0 L (95-100) % Carboxyhemoglobin 1.7 (0.4-20.1) %THgb Methemoglobin 0.9 (0.4-1.5) % Total Hemoglobin 13.7 L (14-18) g/dL Ionized Calcium 1.2 (1.1-1.4) mmol/L O2 Delivery Device Nc O2 Liters/Min 3.5 % FiO2 % PEEP cmH20 Cylinder Press Operator Helper ID Gd Sodium 144.0 H (136-145) mmol/L Potassium 4.4 (3.5-5.1) mmol/L Chloride (98-107) mmol/L Carbon Dioxide (22-29) mmol/L Anion Gap (5-19) BUN (8-23) mg/dL Creatinine (0.7-1.2) mg/dL GFR Calculation Glucose 113.0 (65-115) mg/dL Calculated Osmolal ity (285-295) mOsm/k g Lactic Acid (0.5-2.2) mmol/L Calcium (8.5-10.5) mg/dL Total Bilirubin (0.15-1.2) mg/dL AST (0-40) U/L ALT (0-41) U/L Alkaline Phosphata se (40-130) IU/L Ammonia 34 (16-60) umol/L Troponin T Baselin e 35 H (0-15) ng/L Troponin T 120 Min [place] (0-15) ng/L Delta Troponin T (0-10) ABS# NT-Pro-B Natriuret Pep (0-450) pg/mL Total Protein (6.6-8.7) g/dL Albumin (3.5-5.2) g/dL Globulin (1.3-4.6) g/dL Urine Color (Yellow) Urine Appearance (CLEAR) Urine pH (5-7) Ur Specific Gravit y (1.005-1.030) Urine Protein (Negative) Urine Glucose (UA) (Normal) Urine Ketones (Negative) Urine Blood (Negative) Urine Nitrate (Negative) Urine Bilirubin (Negative) Urine Urobilinogen (Negative) mg/dL Ur Leukocyte Susana ase (Negative) Urine RBC (0-2) /hpf Urine WBC (0-5) /hpf Ur Squamous Epith Cells (0-5) /hpf Amorphous Sediment /hpf Urine Bacteria (NONE) /hpf Urine Mucus /hpf SARS-CoV-2 Ag (Rap id) (Negative) 12/26/20 12/26/20 12/26/20 Range/Units 09:42 10:00 10:00 WBC (4.0-10.0) 10^3/ uL RBC (4.1-5.3) 10^6/u L Hgb (11.7-16.6) g/dL Hct (42.0-52.0) % MCV (80-94) fL MCH (28.0-34.0) pg MCHC (30.0-36.0) g/dL RDW (12.1-15.1) % Plt Count (130-400) 10^3/c mm MPV (7.4-10.4) fL Neut % (Auto) % Lymph % (Auto) % Calloway % (Auto) % Eos % (Auto) % Baso % (Auto) % Neut # (Auto) (1.8-7.7) 10^3/u L Lymph # (Auto) (0.8-4.8) 10^3/u L Calloway # (Auto) (0.2-0.9) 10^3/u L Eos # (Auto) (0.0-0.8) 10^3/u L Baso # (Auto) (0.0-0.1) 10^3/u L Nucleated RBC % (a uto) % Nucleated RBCs # /100WBC PT (12.1-14.9) SECO NDS INR (0.8-1.2) APTT (23.9-36.7) SECO NDS Specimen Type Sample Site ABG pH (7.35-7.45) ABG pCO2 (35-45) mmHg ABG pO2 (80.0-100.0) mmH g ABG HCO3 (22-26) mmol/L ABG O2 Saturation ABG Base Excess (-2.0-2.0) mmol/ L Jamari Test A-a O2 Gradient (5-10) mmHg Hematocrit (42-52) % Hgb O2 Saturation (95-100) % Carboxyhemoglobin (0.4-20.1) %THgb Methemoglobin (0.4-1.5) % Total Hemoglobin (14-18) g/dL Ionized Calcium (1.1-1.4) mmol/L O2 Delivery Device O2 Liters/Min % FiO2 % PEEP cmH20 Cylinder Press Operator Helper ID Sodium (136-145) mmol/L Potassium (3.5-5.1) mmol/L Chloride (98-107) mmol/L Carbon Dioxide (22-29) mmol/L Anion Gap (5-19) BUN (8-23) mg/dL Creatinine (0.7-1.2) mg/dL GFR Calculation Glucose (65-115) mg/dL Calculated Osmolal ity (285-295) mOsm/k g Lactic Acid 1.0 (0.5-2.2) mmol/L Calcium (8.5-10.5) mg/dL Total Bilirubin (0.15-1.2) mg/dL AST (0-40) U/L ALT (0-41) U/L Alkaline Phosphata se (40-130) IU/L Ammonia (16-60) umol/L Troponin T Baselin e (0-15) ng/L Troponin T 120 Min [place] (0-15) ng/L Delta Troponin T (0-10) ABS# NT-Pro-B Natriuret Pep (0-450) pg/mL Total Protein (6.6-8.7) g/dL Albumin (3.5-5.2) g/dL Globulin (1.3-4.6) g/dL Urine Color Yellow (Yellow) Urine Appearance Hazy A (CLEAR) Urine pH 5 (5-7) Ur Specific Gravit y 1.025 (1.005-1.030) Urine Protein Neg (Negative) Urine Glucose (UA) Norm (Normal) Urine Ketones Negative (Negative) Urine Blood Trace H (Negative) Urine Nitrate Negative (Negative) Urine Bilirubin Neg (Negative) Urine Urobilinogen Norm (Negative) mg/dL Ur Leukocyte Susana ase Negative (Negative) Urine RBC None (0-2) /hpf Urine WBC None (0-5) /hpf Ur Squamous Epith Cells Rare (0-5) /hpf Amorphous Sediment 2+ /hpf Urine Bacteria 2+ H (NONE) /hpf Urine Mucus Trace /hpf SARS-CoV-2 Ag (Rap id) Negative (Negative) 12/26/20 12/26/20 Range/Units 11:45 11:56 WBC (4.0-10.0) 10^3/ uL RBC (4.1-5.3) 10^6/u L Hgb (11.7-16.6) g/dL Hct (42.0-52.0) % MCV (80-94) fL MCH (28.0-34.0) pg MCHC (30.0-36.0) g/dL RDW (12.1-15.1) % Plt Count (130-400) 10^3/c mm MPV (7.4-10.4) fL Neut % (Auto) % Lymph % (Auto) % Calloway % (Auto) % Eos % (Auto) % Baso % (Auto) % Neut # (Auto) (1.8-7.7) 10^3/u L Lymph # (Auto) (0.8-4.8) 10^3/u L Calloway # (Auto) (0.2-0.9) 10^3/u L Eos # (Auto) (0.0-0.8) 10^3/u L Baso # (Auto) (0.0-0.1) 10^3/u L Nucleated RBC % (a uto) % Nucleated RBCs # /100WBC PT (12.1-14.9) SECO NDS INR (0.8-1.2) APTT (23.9-36.7) SECO NDS Specimen Type Arterial Sample Site Radial, left ABG pH 7.31 L (7.35-7.45) ABG pCO2 68.4 H* (35-45) mmHg ABG pO2 114.0 H (80.0-100.0) mmH g ABG HCO3 34.2 H (22-26) mmol/L ABG O2 Saturation 98.7 ABG Base Excess 5.7 H (-2.0-2.0) mmol/ L Jamari Test Pos A-a O2 Gradient 21.2 H (5-10) mmHg Hematocrit 40.5 L (42-52) % Hgb O2 Saturation 96.6 (95-100) % Carboxyhemoglobin 1.3 (0.4-20.1) %THgb Methemoglobin 0.8 (0.4-1.5) % Total Hemoglobin 13.2 L (14-18) g/dL Ionized Calcium 1.2 (1.1-1.4) mmol/L O2 Delivery Device Bipap O2 Liters/Min % FiO2 50.0 % PEEP 8.0 cmH20 Cylinder Press Operator Helper ID [place] Sodium 144.0 H (136-145) mmol/L Potassium 4.2 (3.5-5.1) mmol/L Chloride (98-107) mmol/L Carbon Dioxide (22-29) mmol/L Anion Gap (5-19) BUN (8-23) mg/dL Creatinine (0.7-1.2) mg/dL GFR Calculation Glucose 113.0 (65-115) mg/dL Calculated Osmolal ity (285-295) mOsm/k g Lactic Acid (0.5-2.2) mmol/L Calcium (8.5-10.5) mg/dL Total Bilirubin (0.15-1.2) mg/dL AST (0-40) U/L ALT (0-41) U/L Alkaline Phosphata se (40-130) IU/L Ammonia (16-60) umol/L Troponin T Baselin e (0-15) ng/L Troponin T 120 Min [place] 32.32 H (0-15) ng/L Delta Troponin T -2.68 L (0-10) ABS# NT-Pro-B Natriuret Pep (0-450) pg/mL Total Protein (6.6-8.7) g/dL Albumin (3.5-5.2) g/dL Globulin (1.3-4.6) g/dL Urine Color (Yellow) Urine Appearance (CLEAR) Urine pH (5-7) Ur Specific Gravit y (1.005-1.030) Urine Protein (Negative) Urine Glucose (UA) (Normal) Urine Ketones (Negative) Urine Blood (Negative) Urine Nitrate (Negative) Urine Bilirubin (Negative) Urine Urobilinogen (Negative) mg/dL Ur Leukocyte Susana ase (Negative) Urine RBC (0-2) /hpf Urine WBC (0-5) /hpf Ur Squamous Epith Cells (0-5) /hpf Amorphous Sediment /hpf Urine Bacteria (NONE) /hpf Urine Mucus /hpf SARS-CoV-2 Ag (Rap id) (Negative) Imaging Data^: CXR: Attestation: I personally reviewed and interpreted this imaging study as follows: My impression: Concerning for bronchial pneumonia Radiologist's impression: Concerning for bronchopneumonia EKG Data^: EKG 1: Attestation: I personally reviewed and interpreted this EKG as follows: EKG Interpretation Date: 12/26/20 EKG interpretation time: 09:19 Prior EKG tracings: available for review Interpretation: Sinus tachycardia heart rate 110 nonspecific EKG ABG Data^: ABG Interpretation 1: ABG results: pH 7.33 PCO2 60.2 PO2 63 Attestation: I personally reviewed and interpreted this ABG as follows: Interpretation: Compensated respiratory acidosis Discharge Plan Discharge Patient Disposition: Admitted As Inpatient Clinical Impression: Bronchopneumonia, Acute exacerbation of chronic obstructive airways disease Condition: Stable Coding Level of Care Code ED Obstetrical Anesthesiologist for Chg Fwd Exam Comprehensive
[2020-12-26 09:43] LABS: Basophils # 0.1 10^3/uL (0.0-0.1); Basophils % 0.4 %; Eosinophils # 0.1 10^3/uL (0.0-0.8); Eosinophils % 0.6 %; Hematocrit 49.3 % (42.0-52.0); Hemoglobin 14.8 g/dL (11.7-16.6); Lymphocytes # 1.7 10^3/uL (0.8-4.8); Lymphocytes % 10.3 %; Mean Corpuscular Volume 96.7 fL (80-94); Mean Platelet Volume 9.2 fL (7.4-10.4); Monocytes # 1.5 10^3/uL (0.2-0.9); Monocytes % 9.2 %; Neutrophils # 12.85 10^3/uL (1.8-7.7); Neutrophils % 78.8 %; Nucleated Red Blood Cells % 0 %; Platelet Count 211 10^3/cmm (130-400); Red Cell Distribution Width 13.1 % (12.1-15.1); White Blood Count 16.3 10^3/uL (4.0-10.0)
[2020-12-26] MEDS: acetaminophen 325 mg Tablet 650 MG PO (09:47)
[2020-12-26] MEDS: sodium chloride 0.9% 500 ML IV (09:48)
[2020-12-26 09:53] LABS: INR 1.06 (0.8-1.2)
[2020-12-26 09:53] LABS: ABG PH Result 7.33 (7.35-7.45); Alveolar-Arterial Oxygen Gradi 0.8 mmHg (5-10); Arterial Blood Gas Hematocrit 42.1 % (42-52); Base Excess ABG 7.5 mmol/L (-2.0-2.0); Blood Gas Allen Test Pos; Blood Gas LPM 3.5 %; Blood Gas Operator Identificat GD; Blood Gas Sample Site Radial, right; Blood Gas Sample Type Arterial; Carboxyhemoglobin 1.7 %THgb (0.4-20.1); Ionized Calcium Level - ABG 1.2 mmol/L (1.1-1.4); Methemoglobin 0.9 % (0.4-1.5); Oxygen Device NC; Oxygen Saturation ABG 92.4; Potassium Level - ABG 4.4 mmol/L (3.5-5.0); Total Hemoglobin 13.7 g/dL (14-18)
[2020-12-26 09:54] LABS: Partial Thromboplastin Time 34.1 SECONDS (23.9-36.7)
[2020-12-26 09:54] LABS: ABG PCO2 68.2 mmHg (35-45)
[2020-12-26 10:00] LABS: Troponin(5th) Baseline 35 ng/L (0-15)
[2020-12-26 10:06] LABS: Ammonia 34 umol/L (16-60)
[2020-12-26 10:08] LABS: Alanine Aminotransferase 15 U/L (0-41); Albumin Level 4.1 g/dL (3.5-5.2); Alkaline Phosphatase 103 IU/L (40-130); Anion Gap 12.8 (5-19); Aspartate Amino Transferase 20 U/L (0-40); Blood Urea Nitrogen 24 mg/dL (8-23); Calcium 8.6 mg/dL (8.5-10.5); Carbon Dioxide 35 mmol/L (22-29); Chloride 101 mmol/L (98-107); Globulin 2.5 g/dL (1.3-4.6); Glucose 99 mg/dL (65-115); NT Pro B Type Natriuretic Pept 797 pg/mL (0-450); Osmolality Calculated 302 mOsm/kg (285-295); Potassium 4.8 mmol/L (3.5-5.1); Sodium 144 mmol/L (136-145); Total Bilirubin 0.5 mg/dL (0.15-1.2); Total Protein 6.6 g/dL (6.6-8.7)
[2020-12-26 10:13] LABS: Add Urine Microscopic? YES; Bilirubin Urine Neg (Negative); Blood Urine Trace (Negative); Glucose Urine UA Norm (Normal); Ketones Urine Negative (Negative); Leukocyte Esterase Urine Negative (Negative); Nitrate Urine Negative (Negative); Protein Urine Neg (Negative); Specific Gravity, Urine 1.025 (1.005-1.030); Urine Appearance Hazy (CLEAR); Urine Color Yellow (Yellow); Urobilinogen Urine Norm (Negative); pH Urine 5 (5-7)
[2020-12-26 10:17] LABS: Amorphous Sediment Urine 2+ /hpf; Bacteria Urine 2+ /hpf; Mucus Urine TRACE /hpf; Squamous Epithelial Cell Urine RARE /hpf (0-5)
[2020-12-26 10:18] LABS: Add Urine Culture? No
[2020-12-26 10:21] LABS: SARS Covid-2 Antigen Negative (Negative)
[2020-12-26] MEDS: ipratropium-albuterol 3 mL Neb INHALATION ×2 (10:46→12:02)
--- NOTE | 2020-12-26 11:14 | ECG_ITS ---
[facility] Test Date: 2020-12-26 Pat Name: Luis Talavera Department: Room: [facility]05 Gender: Male Skates Operator: : 1945 Requested By: Raul Armijo Order Number: [id number] Liliam MD: Stephane Hawkins M.D. Measurements Intervals [place] Rate: 87 P: 68 AK: 126 QRS: 43 QRSD: 83 T: 65 QT: 309 QTc: 372 Interpretive Statements SINUS RHYTHM WITH MARKED SINUS ARRHYTHMIA Compared to ECG 12/26/2020 09:19:11 Sinus tachycardia no longer present Electronically Signed On 12-26-2020 15:35:22 CDT by Stephane Hawkins M.D. [id number]
[2020-12-26 12:09] LABS: ABG PH Result 7.31 (7.35-7.45); Alveolar-Arterial Oxygen Gradi 21.2 mmHg (5-10); Arterial Blood Gas Hematocrit 40.5 % (42-52); Base Excess ABG 5.7 mmol/L (-2.0-2.0); Blood Gas Allen Test Pos; Blood Gas Operator Identificat MONRO; Blood Gas Sample Site Radial, left; Blood Gas Sample Type Arterial; Carboxyhemoglobin 1.3 %THgb (0.4-20.1); HCO3 ABG 34.2 mmol/L (22-26); HGB O2 Sat 96.6 % (95-100); Ionized Calcium Level - ABG 1.2 mmol/L (1.1-1.4); Methemoglobin 0.8 % (0.4-1.5); Oxygen Device BIPAP; Oxygen Saturation ABG 98.7; Potassium Level - ABG 4.2 mmol/L (3.5-5.0); Total Hemoglobin 13.2 g/dL (14-18)
[2020-12-26 12:12] LABS: Troponin 5 2HR 32.32 ng/L (0-15)
[2020-12-26 12:14] LABS: Troponin 5 2HR Delta -2.68 ABS# (0-10)
[2020-12-26] MEDS: cefTRIAXone 1,000 MG in lidocaine 1% 2.1 ML 10 MG IM (12:21)
[2020-12-26] MEDS: dexamethasone 10 mg/mL INJ IM (12:29)
[2020-12-26] MEDS: azithromycin 500 MG in sodium chloride 0.9% 250 ML 250 MG IV (13:53)
[2020-12-26 14:46] LABS: ABG PCO2 68.4 mmHg (35-45)
--- NOTE | 2020-12-26 15:14 | ECG_ITS ---
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 Measurements Intervals [place] Rate: 91 P: 71 TN: 128 QRS: 50 QRSD: 84 T: 69 QT: 313 QTc: 385 Interpretive Statements SINUS RHYTHM WITH OCCASIONAL SUPRAVENTRICULAR PREMATURE COMPLEXES Compared to ECG 12/26/2020 13:48:24 Sinus arrhythmia no longer present Electronically Signed On 12-26-2020 15:35:15 CDT by Stephane Hawkins M.D. [id number]
[2020-12-26 15:32] LABS: Troponin 5 6HR 27.94 ng/L (0-15)
[2020-12-26 15:38] LABS: Troponin 5 6HR Delta -7.06 ng/L (0-12)
--- NOTE | 2020-12-26 18:11 | PM.HP ---
Providers/Chief Complaint Admitting Physician: Evangelina Tanner MD Primary Care Provider: Humaira Bolaños APRN Chief Complaint: LOW O2 SATS History of Present Illness Luis Talavera is a 75 year old male sent from [place] where he is senior living reisdent with fever, dyspnea, hypoxia, poor mental Status. Unable to get history from patient as he is currently lethargic, on Bipap. Labs notable for leukocytosis, CXR with bronchopneumonia, has a previous h/o aspiration pneumonia. Abg with hypoxic hypercapneic respiratory failure, placed on Bipap on admission Review of Systems General: Reports: ROS unobtainable due to medical condition and ROS unobtainable due to mental status Medications/Allergies Home Medications Medication Instructions Recorded Confirmed Last Taken Type Enema 118 ml OH DAILY PRN 01/24/20 12/26/20 Unknown History acetaminophen 325 mg PO QID PRN 01/24/20 12/26/20 12/26/20 01:20 History bisacodyl 10 mg OH DAILY PRN 01/24/20 12/26/20 Unknown History magnesium hydroxide [Milk of 30 ml PO DAILY PRN 01/24/20 12/26/20 Unknown History Magnesia] mirtazapine 15 mg PO DAILY@199901/24/20 12/26/20 12/25/20 History sennosides-docusate sodium 1 tab-cap PO BID PRN 01/24/20 12/26/20 Unknown History [Senokot-S] tamsulosin 0.4 mg PO DAILY@199901/24/20 12/26/20 12/25/20 History trazodone 100 mg PO DAILY@199901/24/20 12/26/20 12/25/20 History ipratropium-albuterol [Combivent 1 puff INHALATION Q4H.RESPIRATORY 02/16/20 12/26/20 12/26/20 Rx Respimat] #4 g digoxin 125 mcg PO DAILY@0800 12/26/20 12/26/20 12/26/20 History food supplemt, lactose-reduced 1 ea PO TID@08,,12/26/20 12/26/20 12/26/20 History [TwoCal HN] metoprolol tartrate 12.5 mg PO BID@0800,199912/26/20 12/26/2021 History Allergies Allergy/AdvReac Type Severity Reaction Status Date / Time No Known Allergies Allergy Verified 02/17/20 15:19 PFSH Acute PFSH: Medical History (Updated 12/26/20 @ 18:27 by Evangelina Tanner MD) Aspiration pneumonia -as noted above Atrial fibrillation and flutter Atrial fibrillation with RVR -on oral BB; digoxin -not on AC, presumably due to high fall risk CHF (congestive heart failure) -chronic diastolic CHF, no acute exacerbation -due to poor oral intake, will be on gentle IVF hydration, monitor for fluid overload -Echo (2016): EF=55%, no RWMA, mild pulmonary HTN (35) Chronic kidney disease COPD (chronic obstructive pulmonary disease) -acute COPD exacerbation secondary to pneumonia -as noted above -not oxygen dependent at baseline Dementia -minimal verbal engagement at baseline per NH though typically alert and oriented to self -more alert and oriented to self -uses WC at baseline Urinary retention Surgical History Status post cystoscopy with ureteral stent placement Family History Mother , 84 No problems noted. Father , 80's No problems noted. Social History Smoking and tobacco status: current every day smoker Alcohol intake: never Housing: Long-Term Vitals/I&O/Wt Last Vital Signs Temp 98.0 F 12/26/20 14:33 Pulse 80 12/26/20 17:51 Resp 18 12/26/20 17:15 BP 112/63 12/26/20 17:15 Pulse Ox 94 12/26/20 17:51 12/26/20 12/26/20 12/26/20 06:59 14:59 22:59 Intake Total 502.1 / 502.1 250 / 752.1 Balance 502.1 / 502.1 250 / 752.1 Weight last 48 hrs Weight 65.317 kg Physical Exam Narrative: EXAM NARRATIVE: General: lethargic, wake sup to calling name, does not answer most questions HEENT: on Bipap HEENT: PERRLA, pupils bilaterally equal and reactive, pallors not present Chest: B/L coarse breath sounds CVS: S1-S2 regular, no murmurs, no tachycardia, no gallops, no rubs Abdomen: Soft, non tender, no organomegaly, bowel sounds present Neuro: No focal deficits, no facial deformity, AO x3, power 5/5 in all limbs Extremities: no edema, cyanosis or clubbing Data : 12/26/20 09:20 12/26/20 09:20 Attestation for Other Data: I personally reviewed and interpreted the following: Other data: Laboratory Results WBC 16.3 10^3/uL (4.0-10.0) H 12/26/20 09:20 RBC 5.10 10^6/uL (4.1-5.3) 12/26/20 09:20 Hgb 14.8 g/dL (11.7-16.6) 12/26/20 09:20 Hct 49.3 % (42.0-52.0) 12/26/20 09:20 MCV 96.7 fL (80-94) H 12/26/20 09:20 MCH 29.0 pg (28.0-34.0) 12/26/20 09:20 MCHC 30.0 g/dL (30.0-36.0) 12/26/20 09:20 RDW 13.1 % (12.1-15.1) 12/26/20 09:20 Plt Count 211 10^3/cmm (130-400) 12/26/20 09:20 MPV 9.2 fL (7.4-10.4) 12/26/20 09:20 Neut % (Auto) 78.8 % 12/26/20 09:20 Lymph % (Auto) 10.3 % 12/26/20 09:20 [place] % (Auto) 9.2 % 12/26/20 09:20 Eos % (Auto) 0.6 % 12/26/20 09:20 Baso % (Auto) 0.4 % 12/26/20 09:20 Neut # (Auto) 12.85 10^3/uL (1.8-7.7) H 12/26/20 09:20 Lymph # (Auto) 1.7 10^3/uL (0.8-4.8) 12/26/20 09:20 [place] # (Auto) 1.5 10^3/uL (0.2-0.9) H 12/26/20 09:20 Eos # (Auto) 0.1 10^3/uL (0.0-0.8) 12/26/20 09:20 Baso # (Auto) 0.1 10^3/uL (0.0-0.1) 12/26/20 09:20 Nucleated RBC % (auto) 0 % 12/26/20 09:20 Nucleated RBCs # 0.0 /100WBC 12/26/20 09:20 PT 14.10 SECONDS (12.1-14.9) 12/26/20 09:20 INR 1.06 (0.8-1.2) 12/26/20 09:20 APTT 34.1 SECONDS (23.9-36.7) 12/26/20 09:20 Specimen Type Arterial 12/26/20 11:56 Sample Site Radial, left 12/26/20 11:56 ABG pH 7.31 (7.35-7.45) L 12/26/20 11:56 ABG pCO2 68.4 mmHg (35-45) H* 12/26/20 11:56 ABG pO2 114.0 mmHg (80.0-100.0) H 12/26/20 11:56 ABG HCO3 34.2 mmol/L (22-26) H 12/26/20 11:56 ABG O2 Saturation 98.7 12/26/20 11:56 ABG Base Excess 5.7 mmol/L (-2.0-2.0) H 12/26/20 11:56 Jamari Test Pos 12/26/20 11:56 A-a O2 Gradient 21.2 mmHg (5-10) H 12/26/20 11:56 Hematocrit 40.5 % (42-52) L 12/26/20 11:56 Hgb O2 Saturation 96.6 % (95-100) 12/26/20 11:56 Carboxyhemoglobin 1.3 %THgb (0.4-20.1) 12/26/20 11:56 Methemoglobin 0.8 % (0.4-1.5) 12/26/20 11:56 Total Hemoglobin 13.2 g/dL (14-18) L 12/26/20 11:56 Sodium 144.0 mmol/L (131-143) H 12/26/20 11:56 Potassium 4.2 mmol/L (3.5-5.0) 12/26/20 11:56 Glucose 113.0 mg/dL (70-115) 12/26/20 11:56 Ionized Calcium 1.2 mmol/L (1.1-1.4) 12/26/20 11:56 O2 Delivery Device Bipap 12/26/20 11:56 O2 Liters/Min 3.5 % 12/26/20 09:36 FiO2 50.0 % 12/26/20 11:56 PEEP 8.0 cmH20 12/26/20 11:56 Cooling Tower Technician ID [place] 12/26/20 11:56 Sodium 144 mmol/L (136-145) 12/26/20 09:20 Potassium 4.8 mmol/L (3.5-5.1) 12/26/20 09:20 Chloride 101 mmol/L (98-107) 12/26/20 09:20 Carbon Dioxide 35 mmol/L (22-29) H 12/26/20 09:20 Anion Gap 12.8 (5-19) 12/26/20 09:20 BUN 24 mg/dL (8-23) H 12/26/20 09:20 Creatinine 1.4 mg/dL (0.7-1.2) H 12/26/20 09:20 GFR Calculation Not Reportable 12/26/20 09:20 Glucose 99 mg/dL (65-115) 12/26/20 09:20 Calculated Osmolality 302 mOsm/kg (285-295) H 12/26/20 09:20 Lactic Acid 1.0 mmol/L (0.5-2.2) 12/26/20 09:42 Calcium 8.6 mg/dL (8.5-10.5) 12/26/20 09:20 Total Bilirubin 0.5 mg/dL (0.15-1.2) 12/26/20 09:20 AST 20 U/L (0-40) 12/26/20 09:20 ALT 15 U/L (0-41) 12/26/20 09:20 Alkaline Phosphatase 103 IU/L (40-130) 12/26/20 09:20 Ammonia 34 umol/L (16-60) 12/26/20 09:42 Troponin T Baseline 35 ng/L (0-15) H 12/26/20 09:20 Troponin T 120 Minute 32.32 ng/L (0-15) H 12/26/20 11:45 Delta Troponin T -2.68 ABS# (0-10) L 12/26/20 11:45 Troponin T Hi Sens 6Hr 27.94 ng/L (0-15) H 12/26/20 14:50 Troponin T Hi Sens 6Hr Delta -7.06 ng/L (0-12) L 12/26/20 14:50 NT-Pro-B Natriuret Pep 797 pg/mL (0-450) H 12/26/20 09:20 Total Protein 6.6 g/dL (6.6-8.7) 12/26/20 09:20 Albumin 4.1 g/dL (3.5-5.2) 12/26/20 09:20 Globulin 2.5 g/dL (1.3-4.6) 12/26/20 09:20 Urine Color Yellow (Yellow) 12/26/20 10:00 Urine Appearance Hazy (CLEAR) A 12/26/20 10:00 Urine pH 5 (5-7) 12/26/20 10:00 Ur Specific [place] 1.025 (1.005-1.030) 12/26/20 10:00 Urine Protein Neg (Negative) 12/26/20 10:00 Urine Glucose (UA) Norm (Normal) 12/26/20 10:00 Urine Ketones Negative (Negative) 12/26/20 10:00 Urine Blood Trace (Negative) H 12/26/20 10:00 Urine Nitrate Negative (Negative) 12/26/20 10:00 Urine Bilirubin Neg (Negative) 12/26/20 10:00 Urine Urobilinogen Norm mg/dL (Negative) 12/26/20 10:00 Ur Leukocyte Esterase Negative (Negative) 12/26/20 10:00 Urine RBC None /hpf (0-2) 12/26/20 10:00 Urine WBC None /hpf (0-5) 12/26/20 10:00 Ur Squamous Epith Cells Rare /hpf (0-5) 12/26/20 10:00 Amorphous Sediment 2+ /hpf 12/26/20 10:00 Urine Bacteria 2+ /hpf (NONE) H 12/26/20 10:00 Urine Mucus Trace /hpf 12/26/20 10:00 SARS-CoV-2 Ag (Rapid) Negative (Negative) 12/26/20 10:00 Impressions Chest X-Ray 12/26/20 09:13 IMPRESSION: Mild bilateral perihilar and bibasilar bronchopneumonia. 12/26/20 12/26/20 09:36 11:56 ABG pH 7.33 L 7.31 L ABG pCO2 68.2 H* 68.4 H* ABG pO2 63.0 L 114.0 H ABG HCO3 36.0 H 34.2 H ABG O2 Saturation 92.4 98.7 ABG Base Excess 7.5 H 5.7 H A&P Assessment and plan (1) Sepsis: as a result of pneumonia meets crieteria with fever, leukocytosis, tachycardia, source of infection Status: Acute Qualifiers: Acute respiratory failure type: with hypercapnia Sepsis acute organ dysfunction status: with acute organ dysfunction Sepsis type: sepsis due to unspecified organism Severe sepsis acute organ dysfunction type: acute respiratory failure Severe sepsis shock status: without septic shock Qualified Code(s): A41.9 - Sepsis, unspecified organism; R65.20 - Severe sepsis without septic shock; J96.02 - Acute respiratory failure with hypercapnia (2) Bronchopneumonia: May be related to aspitaion vs CAP start empiric zosyn MRSA screen ABG with hypoxic hypercapneic respiratory failure , continue Bipap, wean as tolerated Status: Acute (3) Acute exacerbation of chronic obstructive airways disease: duoneb q4h budesonide 0.5mg BID meythpred 30mg iv q8h Status: Acute (4) Aspiration pneumonia: as above Status: Acute Qualifiers: Aspiration pneumonia type: unspecified Laterality: unspecified laterality Lung location: unspecified part of lung Qualified Code(s): J69.0 - Pneumonitis due to inhalation of food and vomit Additional A&P Information DVT ppx: lovenox DNR/DNI Attestations Medical Necessity Statement*: Anticipate >2midnight admission fro management of sepsis related to pneumonia Critical Care Time: The high probability of a clinically significant, sudden or life threatening deterioration of the patient's [] system(s) required my full and direct attention, intervention and personal management. The critical care time is as shown. This time is in addition to time spent performing any reported procedures but includes the following: [x] Data and vital sign review and interpretation [x] Patient assessment, examination and intervention [x] Documentation [x] Medication orders and management Critical Care Time (min): 45 Coding Level of Care Code Acute Active Directory Architect for g Fwd Diagnoses Sepsis A41.9; R65.20; J96.02 Acute respiratory failure type: with hypercapnia Sepsis acute organ dysfunction status: with acute organ dysfunction Sepsis type: sepsis due to unspecified organism Severe sepsis acute organ dysfunction type: acute respiratory failure Severe sepsis shock status: without septic shock Bronchopneumonia J18.0 Acute exacerbation of chronic obstructive airways disease J44.1 Aspiration pneumonia J69.0 Aspiration pneumonia type: unspecified Laterality: unspecified laterality Lung location: unspecified part of lung
[2020-12-26] MEDS: dextrose 5%-sod chloride 0.45% 1,000 ML 75 ML IV (18:42)
[2020-12-26] MEDS: enoxaparin 40 mg/0.4 mL Syringe SUBCUT (18:42)
[2020-12-26] MEDS: piperacillin-tazobactam 3.375 GM in sodium chloride 0.9% (plus) 50 ML IV (18:51)
[2020-12-26 20:18] LABS: Lactic Sepsis W/Reflex 1.5 mmol/L (0.5-2.2)
[2020-12-27] VITALS (37 sets, daily range): BP systolic 104–130; BP diastolic 60–78; PULSE 57–107; RESP 14–29; TEMP 36.4–37.1; O2SAT 89–98
[2020-12-27] MEDS: piperacillin-tazobactam 3.375 GM in sodium chloride 0.9% (plus) 50 ML IV ×3 (03:17→19:05)
[2020-12-27 03:35] LABS: ABG PCO2 53.1 mmHg (35-45); Arterial Blood Gas Hematocrit 39.9 % (42-52); Base Excess ABG 6.5 mmol/L (-2.0-2.0); Blood Gas Allen Test Pos; Blood Gas Sample Site Radial, right; Blood Gas Sample Type Arterial; HCO3 ABG 32.8 mmol/L (22-26); PO2 ABG 70.7 mmHg (80.0-100.0)
[2020-12-27 03:39] LABS: Oxygen Device BIPAP
[2020-12-27 04:03] LABS: Basophils % 0.1 %; Hematocrit 42.6 % (42.0-52.0); Hemoglobin 12.9 g/dL (11.7-16.6); Lymphocytes # 1.1 10^3/uL (0.8-4.8); Mean Corpuscular HGB Conc 30.3 g/dL (30.0-36.0); Mean Corpuscular Hemoglobin 29.3 pg (28.0-34.0); Mean Corpuscular Volume 96.6 fL (80-94); Mean Platelet Volume 9.5 fL (7.4-10.4); Monocytes # 0.3 10^3/uL (0.2-0.9); Monocytes % 1.7 %; Neutrophils # 12.84 10^3/uL (1.8-7.7); Neutrophils % 89.6 %; Nucleated Red Blood Cells % 0 %; Platelet Count 199 10^3/cmm (130-400); Red Blood Count 4.41 10^6/uL (4.1-5.3); White Blood Count 14.3 10^3/uL (4.0-10.0)
[2020-12-27 04:31] LABS: Alanine Aminotransferase 14 U/L (0-41); Albumin Level 3.2 g/dL (3.5-5.2); Alkaline Phosphatase 86 IU/L (40-130); Anion Gap 12.4 (5-19); Aspartate Amino Transferase 20 U/L (0-40); Blood Urea Nitrogen 27 mg/dL (8-23); Carbon Dioxide 31 mmol/L (22-29); Chloride 105 mmol/L (98-107); Globulin 3.1 g/dL (1.3-4.6); Glucose 176 mg/dL (65-115); Osmolality Calculated 307 mOsm/kg (285-295); Potassium 4.4 mmol/L (3.5-5.1); Sodium 144 mmol/L (136-145); Total Bilirubin 0.5 mg/dL (0.15-1.2); Total Protein 6.3 g/dL (6.6-8.7)
--- NOTE | 2020-12-27 05:49 | PC.NURSE ---
ASSUMING CARE 1900 Patient resting in bed on BIPAP, AVAPS mode, TV 500, FiO2 30%. Patient will open his eyes to pain and is lethargic. Hastings catheter in place and draining. D51/2NS running at 75 mL/hour and zosyn is running.
--- NOTE | 2020-12-27 06:33 | PC.NURSE ---
NEURO STATUS Patient was very lethargic at the beginning of the night. Around 0200, patient awake and tells nurse he is in the hospital and states his name and that it is January. Patient is requesting that he get something to eat and that he is thirsty. Patient given ice chips and tolerated well.
[2020-12-27] MEDS: ipratropium-albuterol 3 mL Neb INHALATION ×3 (08:04→20:27)
--- NOTE | 2020-12-27 08:32 | USCV_ITS ---
Luis Talavera Age: 75 Gender: M : 1945 Exam Date: 12/27/2020 15:12 Ordering Phys: Frank Lane MD Technologist: Exam Location: [facility] [place] Indication: SOB, PECTUS EXAVATUM BP: 134 / 73 HR: 93 Rhythm: Sinus Technical Quality: Technically difficult study MEASUREMENTS (Male / Female) Normal Values 2D ECHO LV Diastolic Diameter PLAX 4.0 cm 4.2 - 5.9 / 3.9 - 5.3 cm LV Systolic Diameter PLAX 2.1 cm IVS Diastolic Thickness 1.0 cm 0.6 - 1.0 / 0.6 - 0.9 cm IVS Systolic Thickness 1.3 cm LVPW Diastolic Thickness 1.0 cm 0.6 - 1.0 / 0.6 - 0.9 cm LVPW Systolic Thickness 1.2 cm LVOT Diameter 1.9 cm LV Ejection Fraction 2D Teich 78.3 % LV Ejection Fraction MOD 2C 67.4 % LV Ejection Fraction 2C AL 69.7 % LA Diameter 2.5 cm Aorta at Sinotubular Diameter 2.7 cm M-MODE MV E Point Septal Separation 0.5 cm DOPPLER AV Peak Velocity 123.0 cm/s LVOT Peak Velocity 83.0 cm/s AV Area Cont Eq vti 2.0 cm squared AV Area Cont Eq pk 1.9 cm squared MV Area PHT 5.0 cm squared Mitral E to A Ratio 1.3 MV E' Velocity 30.5 cm/s Mitral E to MV E' Ratio 9.9 Mitral E to LV E' Lateral Ratio 9.4 Mitral E to LV E' Septal Ratio 10.5 TR Peak Velocity 114.0 cm/s TR Peak Gradient 5.2 mmHg PV Peak Velocity 77.0 cm/s FINDINGS Left Ventricle Normal left ventricular cavity size. Normal left ventricular systolic function. Left ventricular ejection fraction is estimated at 55-60 %. No diagnostic regional wall motion abnormalities. Right Ventricle Normal right ventricular size and systolic function. Right Atrium Right atrium not well visualized. Left Atrium Left atrium not well visualized. Mitral Valve Thickened mitral valve. No mitral valve stenosis. Trace mitral valve regurgitation. Aortic Valve Aortic valve not well visualized. No aortic valve stenosis. Tricuspid Valve Tricuspid valve not well visualized. Pulmonic Valve Pulmonic valve not well visualized. Pericardium No pericardial effusion. Aorta Normal size aortic root. CONCLUSIONS 1. This is a technically difficult study. Echo contrast was used per protocol. 2. Normal left ventricular cavity size and systolic function. Left ventricular ejection fraction is estimated at 55-60 %. No diagnostic regional wall motion abnormalities. 3. Normal right ventricular size and systolic function. 4. Direct comparison to previous study is not possible due to image quality. Jacquelyn Ayala MD (Electronically Signed) Final Date: 28 Dec 2020 07:40 S
[2020-12-27] MEDS: metoprolol tartrate 25 mg Tablet 12.5 MG PO ×2 (09:27→21:12)
[2020-12-27] MEDS: dextrose 5%-sod chloride 0.45% 1,000 ML 75 ML IV (09:28)
--- NOTE | 2020-12-27 09:55 | PC.CHAP ---
Pastoral Care Encounter/Spiritual Assessment Type of Contact [] Declined rn neonatal visit [] Patient/Family/Request visit [] Outpatient visit [x] Follow-up visit [] Physician referral [] Code/Alert [] Routine visit [] Staff referral [] Actively dying [x] Patient sleeping [] Family support [] [] Out of room [] Palliative care [] [] Receiving care in room [] Pre-surgical visit [] Trauma [] Long length of stay [] ICU visit [] Other: Relational/Emotional Strength [] Patient feels connected with others/family/visitors/staff [] Distress [] Loneliness/isolation [] Abandonment Spirituality of Patient [] Person of Stacey [] Attends Shinto of their [place]acey [] Believes in Prayer [] Reads Bible or Uatsdin materials [] There are Spiritual issues to be addressed [employer] Interventions [] Prayer [] Active listening [] Non-anxious presence [] Spiritual/emotional support [] Crisis/trauma care [] Spiritual counseling [] Bereavement support [] Provided bereavement packet [] Provided Bible/devotional materials [] Provided toy/stuffed animal, coloring book to patient or family member [] Provided Communion [] Anointing/[place] [] Salvation [] Completed spiritual assessment [] Other: Impact on Illness or Injury [] Angry [] Fearful [] Anxious [] Often cries [] Exhaustion [] Unable to work [] Unable to attend jainism [] Unable to walk/stand [] Unable to read [] Unable to drive [] Unable to eat/drink [] Unable to sleep [] Unable to be with family [] Patient intubated [] Other: Summary Time spent with patient
--- NOTE | 2020-12-27 13:04 | PM.PN ---
Subjective Subjective: Interval history: Patient was seen and examined this morning, shortness of breath has improved a lot, currently saturating well on 2/3 LS oxygen via nasal cannula. Vitals/I&O/Wt Last Vital Signs Temp 97.6 F 12/27/20 09:00 Pulse 69 12/27/20 12:30 Resp 23 H 12/27/20 12:30 BP 114/69 12/27/20 12:30 Pulse Ox 96 12/27/20 12:30 12/26/20 12/27/20 12/27/20 22:59 06:59 14:59 Intake Total 300 / 802.1 1080 / 1080 Output Total 450 / 450 Balance 300 / 802.1 -450 / 352.1 1080 / 1080 Weight last 48 hrs Weight 65.998 kg Weight 65.317 kg Physical Exam Const: COMMON NORMALS: patient oriented x3 HENMT: COMMON NORMALS: normocephalic and atraumatic HEAD & SCALP: normocephalic and atraumatic Chest: CHEST: Yes Symmetrical chest wall rise Resp: COMMON NORMALS: clear to auscultation bilaterally EFFORT & INSPECTION: Yes symmetric chest movement AUSCULTATION: clear to auscultation bilaterally Cardio: COMMON NORMALS: regular rate, regular rhythm, S1 normal heart sound present, S2 normal heart sound present, No gallops present (Cardio), No murmurs present (Cardio), No rub (Cardio) and Peripheral pulses 2+ throughout RATE: regular rate RHYTHM: regular rhythm HEART SOUNDS: S1 normal heart sound present and S2 normal heart sound present PERIPHERAL PULSES: Peripheral pulses 2+ throughout GI: COMMON NORMALS: Normal to inspection, nondistended, normoactive bowel sounds present, Soft to palpation, non-tender, No hepatosplenomegaly present and no masses AUSCULTATION: Yes normoactive bowel sounds PALPATION: Yes Soft to palpation and Yes No hepatosplenomegaly present RECTAL EXAM: Yes deferred Extremity: COMMON NORMALS: no clubbing, cyanosis or edema and no pedal edema Neuro: COMMON NORMALS: patient oriented x3 Urinary Catheter Management^: Hastings: Cath Placed During This Visit: yes Reason for Continuing Indwelling Catheter: Accurate Measurement of Urinary Output in Critically Ill Patients Urinary Catheter Date of Insertion: 12/26/20 Urinary Catheter Time of Insertion: 19:00 Data : 12/27/20 03:20 12/27/20 03:20 Micro: Microbiology 12/27/20 10:28 Blood Culture - Preliminary Blood SPECIMEN COLLECTED 12/27/20 10:32 Blood Culture - Preliminary Blood SPECIMEN COLLECTED A&P Assessment and plan (1) Sepsis: Sepsis 2/2 PNA : fever, leukocytosis, tachycardia, PNA start empiric zosyn Status: Acute Qualifiers: Sepsis type: sepsis due to unspecified organism Sepsis acute organ dysfunction status: with acute organ dysfunction Severe sepsis acute organ dysfunction type: acute respiratory failure Acute respiratory failure type: with hypercapnia Severe sepsis shock status: without septic shock Qualified Code(s): A41.9 - Sepsis, unspecified organism; R65.20 - Severe sepsis without septic shock; J96.02 - Acute respiratory failure with hypercapnia (2) Respiratory failure with hypoxia and hypercapnia: Acute on chronic hypoxic hypercapnic respiratory failure secondary to COPD exacerbation secondary to pneumonia. Status: Acute (3) Bronchopneumonia: May be related to aspitaion vs CAP start empiric zosyn MRSA screen ABG with hypoxic hypercapneic respiratory failure , continue Bipap, wean as tolerated Status: Acute (4) Acute exacerbation of chronic obstructive airways disease: duoneb q4h budesonide 0.5mg BID meythpred 30mg iv q8h Status: Acute (5) Atrial fibrillation: Currently rate controlled Metoprolol tartrate 12.5 mg every 12 hours day Not on anticoagulation due to high fall risk Status: Acute (6) Diastolic heart failure: Heart failure with preserved ejection fraction: Currently compensated Monitor intake output Daily weight K>4 , MG >2 Status: Acute (7) Aspiration pneumonia: as above Status: Acute Qualifiers: Aspiration pneumonia type: unspecified Laterality: unspecified laterality Lung location: unspecified part of lung Qualified Code(s): J69.0 - Pneumonitis due to inhalation of food and vomit (8) CKD (chronic kidney disease) stage 3, GFR 30-59 ml/min: Status: Acute (9) Elevated troponin: Status: Acute Additional A&P Information DVT ppx: lovenox DNR/DNI Attestations Medical Necessity Statement*: Patient needs to be in hospital for management of sepsis secondary to pneumonia. Coding Level of Care Code Acute Sales Order Clerk for [facility] Fwd Diagnoses Sepsis A41.9; R65.20; J96.02 Sepsis type: sepsis due to unspecified organism Sepsis acute organ dysfunction status: with acute organ dysfunction Severe sepsis acute organ dysfunction type: acute respiratory failure Acute respiratory failure type: with hypercapnia Severe sepsis shock status: without septic shock Respiratory failure with hypoxia and hypercapnia J96.91; J96.92 Bronchopneumonia J18.0 Acute exacerbation of chronic obstructive airways disease J44.1 Atrial fibrillation I48.91 Diastolic heart failure I50.30 Aspiration pneumonia J69.0 Aspiration pneumonia type: unspecified Laterality: unspecified laterality Lung location: unspecified part of lung CKD (chronic kidney disease) stage 3, GFR 30-59 ml/min N18.30 Elevated troponin R77.8
--- NOTE | 2020-12-27 14:46 | PC.NURSE ---
Patient was transferred to [facility] by this nurse via wheelchair. Bag of patients belongings were put in cabinet in room. Staff met this nurse in room and helped get patient in bed. Call light in reach.
[2020-12-27] MEDS: enoxaparin 40 mg/0.4 mL Syringe SUBCUT (19:05)
[2020-12-28] VITALS (18 sets, daily range): BP systolic 107–133; BP diastolic 63–77; PULSE 76–98; RESP 16–23; TEMP 36.6–37.1; O2SAT 92–99
[2020-12-28] MEDS: dextrose 5%-sod chloride 0.45% 1,000 ML 75 ML IV (00:40)
[2020-12-28] MEDS: ipratropium-albuterol 3 mL Neb INHALATION ×4 (03:01→20:13)
[2020-12-28] MEDS: piperacillin-tazobactam 3.375 GM in sodium chloride 0.9% (plus) 50 ML IV ×3 (03:47→18:20)
[2020-12-28] MEDS: digoxin 125 mcg Tablet PO (10:58)
[2020-12-28] MEDS: metoprolol tartrate 25 mg Tablet 12.5 MG PO ×2 (10:58→21:06)
[2020-12-28 11:06] LABS: Basophils % 0.1 %; Hematocrit 41.5 % (42.0-52.0); Hemoglobin 12.7 g/dL (11.7-16.6); Lymphocytes # 0.8 10^3/uL (0.8-4.8); Lymphocytes % 4.7 %; Mean Corpuscular HGB Conc 30.6 g/dL (30.0-36.0); Mean Corpuscular Hemoglobin 29.3 pg (28.0-34.0); Mean Corpuscular Volume 95.8 fL (80-94); Mean Platelet Volume 9.4 fL (7.4-10.4); Monocytes # 0.6 10^3/uL (0.2-0.9); Monocytes % 3.5 %; Neutrophils # 15.58 10^3/uL (1.8-7.7); Nucleated Red Blood Cells % 0 %; Platelet Count 219 10^3/cmm (130-400); Red Blood Count 4.33 10^6/uL (4.1-5.3); Red Cell Distribution Width 13.1 % (12.1-15.1); White Blood Count 17.1 10^3/uL (4.0-10.0)
[2020-12-28 11:46] LABS: Anion Gap 11.5 (5-19); Blood Urea Nitrogen 29 mg/dL (8-23); Calcium 7.7 mg/dL (8.5-10.5); Carbon Dioxide 33 mmol/L (22-29); Chloride 104 mmol/L (98-107); Glucose 119 mg/dL (65-115); Osmolality Calculated 305 mOsm/kg (285-295); Potassium 4.5 mmol/L (3.5-5.1); Sodium 144 mmol/L (136-145)
--- NOTE | 2020-12-28 12:49 | P.PN_ITS ---
Subjective Subjective: Interval history: Patient was seen and examined this morning, shortness of breath has improved a lot. Has continued to remain Afebrile. Vitals/I&O/Wt Last Vital Signs Temp 98.7 F 12/28/20 11:32 Pulse 97 12/28/20 11:32 Resp 18 12/28/20 11:32 BP 117/72 12/28/20 11:32 Pulse Ox 97 12/28/20 11:32 12/27/20 12/28/20 12/28/20 22:59 06:59 14:59 Intake Total 1050 / 2130 50 / 2180 770 / 770 Output Total 300 / 300 200 / 500 Balance 750 / 1830 -150 / 1680 770 / 770 Weight last 48 hrs Weight 69.899 kg Weight 65.998 kg Physical Exam Const: COMMON NORMALS: patient oriented x3 HENMT: COMMON NORMALS: normocephalic and atraumatic HEAD & SCALP: normocephalic and atraumatic Chest: CHEST: Yes Symmetrical chest wall rise Resp: COMMON NORMALS: clear to auscultation bilaterally EFFORT & INSPECT ION: Yes symmetric chest movement AUSCULTATION: clear to auscultation bilaterally Cardio: COMMON NORMALS: regular rate, regular rhythm, S1 normal heart sound present, S2 normal heart sound present, No gallops present (Cardio), No murmurs present (Cardio), No rub (Cardio) and Peripheral pulses 2+ throughout RATE: regular rate RHYTHM: regular rhythm HEART SOUNDS: S1 normal heart sound present and S2 normal heart sound present PERIPHERAL PULSES: Peripheral pulses 2+ throughout GI: COMMON NORMALS: Normal to inspection, nondistended, normoactive bowel sounds present, Soft to palpation, non-tender, No hepatosplenomegaly present and no masses AUSCULTATION: Yes normoactive bowel sounds PALPATION: Yes Soft to palpation and Yes No hepatosplenomegaly present RECTAL EXAM: Yes deferred Extremity: COMMON NORMALS: no clubbing, cyanosis or edema and no pedal edema Neuro: COMMON NORMALS: patient oriented x3 Urinary Catheter Management^: [place]: Cath Placed During This Visit: yes Reason for Continuing Indwelling Catheter: Acute Urinary Retention or Obstruct ion Urinary Catheter Date of Insertion: 12/26/20 Urinary Catheter Time of Insertion: 19:00 Data : 12/28/20 10:40 12/28/20 10:40 Micro: Microbiology 12/27/20 10:28 Blood Culture - Preliminary Blood NEGATIVE TO DATE 12/27/20 10:32 Blood Culture - Preliminary Blood NEGATIVE TO DATE 12/27/20 13:30 Urine Culture - Preliminary Urine Catheterized 12/27/20 13:30 Sputum Culture - Preliminary Sputum - Expectorated Sputum A&P Assessment and plan (1) Sepsis: Sepsis 2/2 PNA : fever, leukocytosis, tachycardia, PNA. Blood Culture :NTD Urine Culture : NTD Sputum Culture : Procalcitonin : On zosyn Status: Acute Qualifiers: Sepsis type: sepsis due to unspecified organism Sepsis acute organ dysfunction status: with acute organ dysfunction Severe sepsis acute organ dysfunction type: acute respiratory failure Acute respiratory failure type: with hypercapnia Severe sepsis shock status: without septic shock Qualified Code(s): A41.9 - Sepsis, unspecified organism; R65.20 - Severe sepsis without se ptic shock; J96.02 - Acute respiratory failure with hypercapnia (2) Respiratory failure with hypoxia and hypercapnia: Acute on chronic hypoxic hypercapnic respiratory failure secondary to COPD exacerbation secondary to pneumonia. Status: Acute (3) Bronchopneumonia: May be related to aspitaion vs CAP zosyn MRSA screen ABG with hypoxic hypercapneic respiratory failure , continue Bipap, wean as tolerated Status: Acute (4) Acute exacerbation of chronic obstructive airways disease: duoneb q4h budesonide 0.5mg BID Initially on meythpred 30mg iv q12h stopped on 12/28 Switched to Prednisone 40 mg po daily for 5 days Status: Acute (5) Atrial fibrillation: Currently rate controlled Metoprolol tartrate 12.5 mg every 12 hours day Not on anticoagulation due to high fall risk Status: Acute (6) Diastolic heart failure: Heart failure with preserved ejection fraction: Currently compensated Monitor intake output Daily weight K>4 , MG >2 Status: Acute (7) Aspiration pneumonia: as above Status: Acute Qualifiers: Aspiration pneumonia type: unspecified Laterality: unspecified laterality Lung location: unspecified part of lung Qualified Code(s): J69.0 - Pneumonitis due to inhalation of food and vomit (8) CKD (chronic kidney disease) stage 3, GFR 30-59 ml/min: Status: Acute (9) Elevated troponin: Status: Acute Additional A&P Information DVT ppx[facility]*: Patient needs to be in hospital for the management of PNA,COPD Coding Level of Care Code Acute Mobile Paramedical Examiner for [facility] Fwd Diagnoses Sepsis A41.9; R65.20; J96.02 Sepsis type: sepsis due to unspecified organism Sepsis acute organ dysfunction status: with acute organ dysfunction Severe sepsis acute organ dysfunction type: acute respiratory failure Acute respiratory failure type: with hypercapnia Severe sepsis shock status: without septic shock Respiratory failure with hypoxia and hypercapnia J96.91; J96.92 Bronchopneumonia J18.0 Acute exacerbation of chronic obstructive airways disease J44.1 Atrial fibrillation I48.91 Diastolic heart failure I50.30 Aspiration pneumonia J69.0 Aspiration pneumonia type: unspecified Laterality: unspecified laterality Lung location: unspecified part of lung CKD (chronic kidney disease) stage 3, GFR 30-59 ml/min N18.30 Elevated troponin R77.8
[2020-12-28] MEDS: FUROsemide 10 mg/mL SDV 4mL 40 MG IVP (14:23)
[2020-12-28] MEDS: enoxaparin 40 mg/0.4 mL Syringe SUBCUT (18:21)
[2020-12-29] VITALS (10 sets, daily range): BP systolic 118–140; BP diastolic 70–77; PULSE 78–96; RESP 16–20; TEMP 36.6–36.8; O2SAT 90–98
[2020-12-29] MEDS: ipratropium-albuterol 3 mL Neb INHALATION ×2 (02:31→08:00)
[2020-12-29] MEDS: piperacillin-tazobactam 3.375 GM in sodium chloride 0.9% (plus) 50 ML IV (04:14)
[2020-12-29 06:11] LABS: Basophils % 0.1 %; Eosinophils % 0.1 %; Hematocrit 42.1 % (42.0-52.0); Hemoglobin 12.8 g/dL (11.7-16.6); Lymphocytes # 1.9 10^3/uL (0.8-4.8); Lymphocytes % 13.4 %; Mean Corpuscular HGB Conc 30.4 g/dL (30.0-36.0); Mean Corpuscular Hemoglobin 28.8 pg (28.0-34.0); Mean Corpuscular Volume 94.8 fL (80-94); Mean Platelet Volume 9.2 fL (7.4-10.4); Monocytes # 1.4 10^3/uL (0.2-0.9); Monocytes % 10.1 %; Neutrophils # 10.55 10^3/uL (1.8-7.7); Neutrophils % 75.7 %; Nucleated Red Blood Cells % 0 %; Platelet Count 224 10^3/cmm (130-400); Red Blood Count 4.44 10^6/uL (4.1-5.3); Red Cell Distribution Width 13.1 % (12.1-15.1); White Blood Count 13.9 10^3/uL (4.0-10.0)
[2020-12-29 06:29] LABS: Anion Gap 5.9 (5-19); Blood Urea Nitrogen 31 mg/dL (8-23); Calcium 7.5 mg/dL (8.5-10.5); Carbon Dioxide 35 mmol/L (22-29); Chloride 103 mmol/L (98-107); Glucose 85 mg/dL (65-115); Osmolality Calculated 296 mOsm/kg (285-295); Potassium 3.9 mmol/L (3.5-5.1); Sodium 140 mmol/L (136-145)
[2020-12-29 06:34] LABS: Procalcitonin 0.12 ng/mL (0-0.5)
--- NOTE | 2020-12-29 10:27 | P.DS_ITS ---
Discharge Providers Date of Admission: 12/26/20 12:17 Date of Discharge: December 29, 2020 Attending Provider at Admission: Evangelina Tanner MD Attending Provider at Discharge: Frank Lane MD Primary Care Provider: Humaira Bolaños APRN Diagnoses at Discharge Discharge Diagnosis (1) Sepsis: Status: Resolved Qualifiers: Acute respiratory failure type: with hypercapnia Sepsis acute organ dysfunction status: with acute organ dysfunction Sepsis type: sepsis due to u nspecified organism Severe sepsis acute organ dysfunction type: acute respiratory failure Severe sepsis shock status: without septic shock Qualified Code(s): A41.9 - Sepsis, unspecified organism; R65.20 - Severe sepsis without septic shock; J96.02 - Acute respiratory failure with hypercapnia (2) Respiratory failure with hypoxia and hypercapnia: Status: Chronic Permanent problem details: Currently discharged on 3 Ls oxygen (3) Bronchopneumonia: Status: Acute (4) Acute exacerbation of chronic obstructive airways disease: Status: Resolved (5) Atrial fibrillation: Status: Chronic (6) Diastolic heart failure: Status: Chronic (7) Aspiration pneumonia: Status: Resolved Permanent problem details: -as noted above Qualifiers: Aspiration pneumonia type: unspecified Laterality: unspecified laterality Lung location: unspecified part of lung Qualified Code(s): J69.0 - Pneumonitis due to inhalation of food and vomit (8) CKD (chronic kidney disease) stage 3, GFR 30-59 ml/min: Status: Acute Reason for Visit Reason for Visit: LOW O2 SATS Hospital Course Hospital Course 75-year-old male with past medical history of atrial fibrillation, diastolic heart failure, severe dementia, minimally verbal engagement at baseline per jail but typically alert, awake, and oriented , COPD not on oxygen, was admitted with chief complaint of fever, dyspnea, hypoxia, poor mental Status. Patient was admitted for management of sepsis secondary to pneumonia, as well as COPD exacerbation secondary to pneumonia, patient was kept on broad-spectrum antibiotics, blood cultures were negative urine culture was negative, Continued to remain afebrile throughout the hospital stay procalcitonin was normal, he was hemodynamically stable, for a COPD exacerbation he was initially placed on BiPAP on admission, was placed on i.v steroids, continued to do received duo nebs throughout the hospital stay.At the time of discharge he was requiring 3 Ls of oxygen. He was switched to p.o. 40 mg prednisone for 5 days on discharge as well as on levofloxacin 500 mg p.o. daily for 5 days to complete the antibiotic course. Patient responded well to the above medical management, and was discharged in stable condition to nursing facility. Follow-up with pulmonary as an outpatient for the management of COPD. Physical Exam Const: COMMON NORMALS: patient oriented x3 HENMT: COMMON NORMALS: normocephalic and atraumatic HEAD & SCALP: normocephalic and atraumatic Chest: CHEST: Yes Symmetrical chest wall rise Resp: COMMON NORMALS: clear to auscultation bilaterally EFFORT & INSPECTION: Yes symmetric chest movement AUSCULTATION: clear to auscultation bilaterally Cardio: COMMON NORMALS: regular rate, regular rhythm, S1 normal heart sound present, S2 normal heart sound present, No gallops present (Cardio), No murmurs present (Cardio), No rub (Cardio) and Peripheral pulses 2+ throughout RATE: regular rate RHYTHM: regular rhythm HEART SOUNDS: S1 normal heart sound present and S2 normal heart sound present PERIPHERAL PULSES: Peripheral pulses 2+ throughout GI: COMMON NORMALS: Normal to inspection, nondistended, normoactive bowel sounds present, Soft to palpation, non-tender, No hepatosplenomegaly present and no masses AUSCULTATION: Yes normoactive bowel sounds PALPATION: Yes Soft to palpation and Yes No hepatosplenomegaly present RECTAL EXAM: Yes deferred Extremity: COMMON NORMALS: no clubbing, cyanosis or edema and no pedal edema Neuro: COMMON NORMALS: patient oriented x3 Urinary Catheter Management^: [place]: Cath Placed During This Visit: yes Reason for Continuing Indwelling Catheter: Other Urinary Catheter Date of Insertion: 12/26/20 Urinary Catheter Time of Insertion: 19:00 Discharge Data Data Completed and Pending: Completed Studies During Hospitalization Category Date Time Status XR chest 1V eva ble [id number] Stat Exams 12/26/20 09:13 Completed CV echo wo/w cont rast [id number] Routine Ultrasound 12/27/20 08:32 Completed Pending at discharge Category Date Time Status Basic Metabolic P daniela AM LABS Lab 12/30/20 04:00 Ordered Basic Metabolic P daniela AM LABS Lab 12/31/20 04:00 Ordered Blood Culture Rou chandan Lab 12/27/20 10:28 Results Complete Blood Co unt w/Auto AM LABS Lab 12/30/20 04:00 Ordered Complete Blood Co unt w/Auto AM LABS Lab 12/31/20 04:00 Ordered Labs from last 24 hours 12/29/20 12/29/20 12/28/20 05:40 05:40 10:40 WBC 13.9 H RBC 4.44 Hgb 12.8 Hct 42.1 MCV 94.8 H MCH 28.8 MCHC 30.4 RDW 13.1 Plt Count 224 MPV 9.2 Neut % (Auto) 75.7 Lymph % (Auto) 13.4 [place] % (Auto) 10.1 Eos % (Auto) 0.1 Baso % (Auto) 0.1 Neut # (Auto) 10.55 H Lymph # (Auto) 1.9 [place] # (Auto) 1.4 H Eos # (Auto) 0.0 Baso # (Auto) 0.0 Nucleated RBC % (a uto) 0 Nucleated RBCs # 0.0 Sodium 140 144 Potassium 3.9 4.5 Chloride 103 104 Carbon Dioxide 35 H 33 H Anion Gap 5.9 11.5 BUN 31 H 29 H Creatinine 1.1 1.2 GFR Calculation Not Reportable Not Reportable Glucose 85 119 H Calculated Osmolal ity 296 H 305 H Calcium 7.5 L 7.7 L Procalcitonin 0.12 12/28/20 10:40 WBC 17.1 H RBC 4.33 Hgb 12.7 Hct 41.5 L MCV 95.8 H MCH 29.3 MCHC 30.6 RDW 13.1 Plt Count 219 MPV 9.4 Neut % (Auto) 91.0 Lymph % (Auto) 4.7 [place]bon % (Auto) 3.5 Eos % (Auto) 0.0 Baso % (Auto) 0.1 Neut # (Auto) 15.58 H Lymph # (Auto) 0.8 Bourbon # (Auto) 0.6 Eos # (Auto) 0.0 Baso # (Auto) 0.0 Nucleated RBC % (a uto) 0 Nucleated RBCs # 0.0 Sodium Potassium Chloride Carbon Dioxide Anion Gap BUN Creatinine GFR Calculation Glucose Calculated Osmolal ity Calcium Procalcitonin Vitals: Last Vital Signs Temp 98.1 F 12/29/20 08:00 Pulse 88 12/29/20 08:03 Resp 18 12/29/20 08:00 BP 126/70 12/29/20 08:00 Pulse Ox 95 12/29/20 08:00 Discharge Plan Discharge Patient Disposition: Xfer SNF Condition: Stable Prescriptions: New levofloxacin 500 mg tablet 500 mg PO DAILY 5 Days RF: 0 prednisone 20 mg tablet 40 mg PO DAILY 5 Days Qty: 10 RF: 0 Continued acetaminophen 325 mg Tablet 325 mg PO QID PRN (Reason: Pain) RF: 0 sennosides-docusate sodium [Senokot-S] 8.6-50 mg Tablet 1 tab-cap PO BID PRN (Reason: Constipation) RF: 0 magnesium hydroxide [Milk of Magnesia] 400 mg/5 mL Suspension 30 ml PO DAILY PRN (Reason: Constipation) RF: 0 tamsulosin 0.4 mg Capsule 0.4 mg PO DAILY@1999 RF: 0 trazodone 100 mg Tablet 100 mg PO DAILY@1999 RF: 0 bisacodyl 10 mg Suppository 10 mg KS DAILY PRN (Reason: Constipation) RF: 0 Enema 19-7 gram/118 mL Enema 118 ml KS DAILY PRN (Reason: Constipation) RF: 0 mirtazapine 15 mg Tablet 15 mg PO DAILY@1999 RF: 0 Combivent Respimat 20-100 mcg/actuation Mist 1 puff inhalation Q4H.RESPIRATORY Qty: 4 RF: 0 digoxin 125 mcg (0.125 mg) tablet 125 mcg PO DAILY@0800 RF: 0 food supplemt, lactose-reduced Liquid 1 ea PO TID@, RF: 0 metoprolol tartrate 25 mg tablet 12.5 mg PO BID@799,1999 RF: 0 Discharge Orders: Discharge Order (Routine); Ordered 12/29/20 Ordered By: Frank Lane Referrals: [facility] [Outside] Datar,Yousuf Cruz MD [Physician] - 01/13/21 9:15 am Humaira Bolañso APRN [Primary Care Provider] - 01/17/21 1:30 pm Discharge Diet: Regular Discharge Activity: Resume usual activity Patient Instructions: Prednisone (By mouth), Levofloxacin (By mouth), Heart Failure (DC), Atrial Fibrillation (DC), Chronic Kidney Disease (DC), Aspiration Pneumonia (DC), Sepsis (DC) Discharge Attestations Time Spent in Discharge Care*: less than 30 min Specific Discharge Activities: educating patient, educating and/or supporting family/caregiver, discussing with sample case porter/social workers/dc planners, documenting/other paperwork and evaluating patient/reviewing data Status at Discharge: Cognitive status at discharge: mildly impaired cognition (at baseline, A & O x 1) , Behavioral status at discharge: cooperative and dependent in ADL's , Quality Metrics Clinical Quality Measures During this hospital stay, did patient experience: None Coding Level of Care Code Acute Chg FW DC note Exam Detailed Diagnoses Sepsis A41.9; R65.20; J96.02 Acute respiratory failure type: with hypercapnia Sepsis acute organ dysfunction status: with acute organ dysfunction Sepsis type: sepsis due to unspecified organism Severe sepsis acute organ dysfunction type: acute respiratory failure Severe sepsis shock status: without septic shock Respiratory failure with hypoxia and hypercapnia J96.91; J96.92 Bronchopneumonia J18.0 Acute exacerbation of chronic obstructive airways disease J44.1 Atrial fibrillation I48.91 Diastolic heart failure I50.30 Aspiration pneumonia J69.0 Aspiration pneumonia type: unspecified Laterality: unspecified laterality Lung location: unspecified part of lung CKD (chronic kidney disease) stage 3, GFR 30-59 ml/min N18.30
--- NOTE | 2020-12-29 10:27 | PC.NURSE ---
Stopped IV at 09:45 per nurse. Flushed 5mL NS. Wrapped with coban
--- NOTE | 2020-12-29 10:45 | DCPLANNER ---
Discussed Pg 2 of the IM with Pt's Guardian; Mr. Ventura Matute - [phone]. No questions, copy sent with pt as agreed.
[2020-12-29] MEDS: predniSONE 20 mg Tablet 40 MG PO (10:48)
[2020-12-29] MEDS: digoxin 125 mcg Tablet PO (10:48)
[2020-12-29] MEDS: metoprolol tartrate 25 mg Tablet 12.5 MG PO (10:49)
--- NOTE | 2020-12-29 16:13 | PC.NURSE ---
PT HAS DONE WELL FOR ME TODAY. NO COMPLAINTS OF PAIN. PT GETS UP WITH STANDBY ASSIST AND DOES WELL WITH THIS. PTS OTOOLE WAS REMOVED FIRST THING THIS MORNING. PT TOLERATED THAT WELL. PT WAS GIVEN A URINAL TO VOID IN. PT WILL DISCHARGE TODAY PER MD. PT WILL GO TO [facility]. TRANSPORTATION WAS CALLED. REPORT WAS CALLED TO SANDRO JANE AT [facility]. ALL QUESTIONS WERE ANSWERED. PT WAS NOTIFIED OF THE WHAT WAS GOING TO HAPPEN WITH HIM TODAY. PT WAS ACCEPTING AND LOOKING FORWARD TO GOING TO SNF. IV WAS REMOVED. PT TOLERATED WELL. CATHETER TIP INTACT. [facility] ARRIVED TO TRANSPORT PT TO [facility]. PT WAS SAFELY WHEELED OUT BY TRANSPORT SERVICES AND THIS NURSE AT 1334.
== END 2020-12-29 13:34 | disposition skilled nursing facility (03) | DRG 871 ==
LOC: ER 11:56 → ICU 13:24 → MEDSURG 12-27 14:12
PROVIDERS: Admitting Provider Student in an Organized Health Care Education/Training Program; Emergency Provider Emergency Medicine; PCP Nurse Practitioner Family; Visit Provider Internal Medicine
DX: A41.9 Sepsis, unspecified organism (principal); J69.0 Pneumonitis due to inhalation of food and vomit; J96.22 Acute and chronic respiratory failure with hypercapnia; J96.21 Acute and chronic respiratory failure with hypoxia; J44.1 Chronic obstructive pulmonary disease with (acute) exacerbation; J44.0 Chronic obstructive pulmonary disease with (acute) lower respiratory infection; I50.32 Chronic diastolic (congestive) heart failure; R65.20 Severe sepsis without septic shock; I48.91 Unspecified atrial fibrillation; N18.32 Chronic kidney disease, stage 3b; F03.90 Unspecified dementia, unspecified severity, without behavioral disturbance, psychotic disturbance, mood disturbance, and anxiety; F17.210 Nicotine dependence, cigarettes, uncomplicated
CPT/HCPCS: 36415; 36600; 51702; 71045; 80048; 80051; 80053; 81001; 82140; 82330; 82803; 82805; 83605; 83880; 84145; 84484; 85025; 85610; 85730; 87040; 87070; 87086; 87426; 93005; 94640; 94660; 94664; 96365; 96372; 99291; C8929; J0456; J0696; J1100; J1650; J1940; J2543; J2920; J7040; J7050; J7512; J7799

== ENCOUNTER 2021-01-27 09:09 | Outpatient (CLI) | payer MEDICARE, MEDICAID, SELFPAY ==
--- NOTE | 2021-01-27 09:48 | PFTS_ITS ---
Date of Study:01/27/21 Date of Dictation: MECHANICS: Forced vital capacity (FVC) is reduced. Forced expiratory volume in one second (FEV1) is reduced. FEV1/FVC is reduced. FLOW VOLUME LOOP: Reduced flow at all lung volumes with significant scooping. LUNG VOLUMES: Not measured DIFFUSING CAPACITY FOR CARBON MONOXIDE: Not measured INTERPRETATION: The pulmonary function tests are consistent with very severe airflow obstruction. There is no significant postbronchodilator response. MTDD
== END 2021-01-27 09:10 | disposition home or self-care (01) ==
PROVIDERS: PCP Nurse Practitioner Family; Visit Provider Internal Medicine Pulmonary Disease
DX: J44.9 Chronic obstructive pulmonary disease, unspecified (principal)
CPT/HCPCS: 94060; 94618; J7611

== ENCOUNTER → 2021-01-31 14:44 | Outpatient (BNVA) | payer MEDICARE, MEDICAID, SELFPAY | PROVIDERS: PCP Family Medicine; Visit Provider Nurse Practitioner Family | DX: R33.9 Retention of urine, unspecified (principal) | CPT/HCPCS: 81003 ==

== ENCOUNTER 2021-11-20 18:45 | Inpatient (IN) | payer MEDICARE, MEDICAID, SELFPAY ==
[2021-11-20] VITALS (10 sets, daily range): BP systolic 104–141; BP diastolic 66–83; PULSE 79–122; RESP 14–31; TEMP 36.8–37.6; O2SAT 91–100; BMI 26.4
--- NOTE | 2021-11-20 18:49 | XRR_ITS ---
PROCEDURE INFORMATION: Exam: XR Chest Exam date and time: 11/20/2021 7:07 PM Age: 76 years old Clinical indication: Dyspnea; Additional info: SOB TECHNIQUE: Imaging protocol: XR of the chest. Views: 1 view. COMPARISON: CR XR chest 1V portable [id number] 12/26/2020 9:21 AM FINDINGS: Lungs: Emphysematous changes. Bibasilar atelectasis versus minimal infiltrate. Pleural spaces: Unremarkable. No pleural effusion. No pneumothorax. Heart/Mediastinum: Unremarkable. No cardiomegaly. Bones/joints: Unremarkable. XR/XR chest 1V portable [id number] IMPRESSION: 1. Emphysematous changes. 2. Bibasilar atelectasis versus minimal infiltrate.
--- NOTE | 2021-11-20 18:49 | CTR_ITS ---
PROCEDURE INFORMATION: Exam: CT Head Without Contrast Exam date and time: 11/20/2021 7:48 PM Age: 76 years old Clinical indication: Altered mental status/memory loss; Confusion or disorientation; Patient HX: AMS TECHNIQUE: Imaging protocol: Computed tomography of the head without contrast. Radiation optimization: All CT scans at this facility use at least one of these dose optimization techniques: automated exposure control; mA and/or kV adjustment per patient size (includes targeted exams where dose is matched to clinical indication); or iterative reconstruction. COMPARISON: CT head wo con* [id number] 07/21/2018 5:43 PM RADIATION DOSE METRICS: Total DLP (mGy-cm): 824.98 FINDINGS: Brain: Moderate diffuse white matter disease likely reflecting chronic microvascular ischemic changes. Cerebral ventricles: No ventriculomegaly. Paranasal sinuses: Visualized sinuses are unremarkable. No fluid levels. Mastoid air cells: Visualized mastoid air cells are well aerated. Bones/joints: Unremarkable. No acute fracture. Soft tissues: Unremarkable. CT/CT head wo con* [id number] IMPRESSION: 1. Negative for intracranial hemorrhage or mass effect. 2. Moderate diffuse white matter disease likely reflecting chronic microvascular ischemic changes.
[2021-11-20 18:59] LABS: Basophils # 0.1 10^3/uL (0.0-0.1); Basophils % 0.5 %; Eosinophils % 0.4 %; Hematocrit 54.5 % (42.0-52.0); Hemoglobin 16.2 g/dL (11.7-16.6); Lymphocytes # 1.3 10^3/uL (0.8-4.8); Lymphocytes % 12.3 %; Mean Corpuscular HGB Conc 29.7 g/dL (30.0-36.0); Mean Corpuscular Hemoglobin 28.5 pg (28.0-34.0); Mean Platelet Volume 9.7 fL (7.4-10.4); Monocytes # 0.8 10^3/uL (0.2-0.9); Monocytes % 7.2 %; Neutrophils # 8.37 10^3/uL (1.8-7.7); Neutrophils % 79.1 %; Nucleated Red Blood Cells % 0 %; Platelet Count 169 10^3/cmm (130-400); Red Blood Count 5.68 10^6/uL (4.1-5.3); Red Cell Distribution Width 13.1 % (12.1-15.1); White Blood Count 10.6 10^3/uL (4.0-10.0)
[2021-11-20 19:06] LABS: Arterial Blood Gas Hematocrit 48.2 % (42-52); Base Excess ABG 6.6 mmol/L (-2.0-2.0); Blood Gas Allen Test Pos; Blood Gas Sample Site Radial, right; Blood Gas Sample Type Arterial; HCO3 ABG 36.2 mmol/L (22-26); Oxygen Device NC; PO2 ABG 87.1 mmHg (80.0-100.0)
[2021-11-20 19:19] LABS: INR 1.02 (0.8-1.2)
[2021-11-20 19:20] LABS: Troponin(5th) Baseline 29 ng/L (0-15)
[2021-11-20 19:27] LABS: Alanine Aminotransferase 14 U/L (0-41); Albumin Level 4.1 g/dL (3.5-5.2); Alkaline Phosphatase 92 IU/L (40-130); Aspartate Amino Transferase 17 U/L (0-40); Blood Urea Nitrogen 26 mg/dL (8-23); Calcium 8.8 mg/dL (8.5-10.5); Carbon Dioxide 36 mmol/L (22-29); Chloride 102 mmol/L (98-107); Globulin 2.8 g/dL (1.3-4.6); Glucose 108 mg/dL (65-115); NT Pro B Type Natriuretic Pept 591 pg/mL (0-450); Osmolality Calculated 303 mOsm/kg (285-295); Sodium 144 mmol/L (136-145); Total Bilirubin 0.4 mg/dL (0.15-1.2); Total Protein 6.9 g/dL (6.6-8.7)
--- NOTE | 2021-11-20 19:36 | W.ED.AMS ---
HPI - Altered Mental Status General: Chief Complaint: Altered Mental Status Stated Complaint: AMS; RESP DISTRESS Time Seen by Provider: 11/20/21 18:46 Source: patient and EMS Mode of arrival: EMS Limitations: altered mental status History of Present Illness: 76-year-old male who has a history of COPD here [facility] with increased mental status changes dyspnea and low-grade fevers. He does have COPD he is on 2 L of oxygen at baseline pulse ox was in the 70s and 80s per EMS he is currently on 5 L. He does have some tachypnea he is able to talk to me at this time he tells me his name is able to answer some questions he does have some dementia at baseline. Temp here is 99 7 he denies any chest or abdominal pain. Associated symptoms: Deny depression Review of Systems Const: Reports: fever(s) and chills Eyes: Denies: blurry vision or eye discomfort ENMT: Denies: throat pain or dental pain Card: Denies: chest pain Resp: Reports: dyspnea and non-productive cough GI: Denies: abdominal pain, nausea, vomiting or diarrhea : Denies: dysuria Musc: Denies: neck pain or back pain Skin/Breast: Denies: rash Neuro: Reports: confusion Psych: Denies: depression Acm/Lymph: Denies: easy bruising All/Imm: Denies: urticaria PFSH ED PFSH: Medical History Acute exacerbation of chronic obstructive airways disease Aspiration pneumonia -as noted above Atrial fibrillation Atrial fibrillation and flutter Atrial fibrillation with RVR -on oral BB; digoxin -not on AC, presumably due to high fall risk Bronchopneumonia CHF (congestive heart failure) Chronic kidney disease CKD (chronic kidney disease) stage 3, GFR 30-59 ml/min COPD (chronic obstructive pulmonary disease) -acute COPD exacerbation secondary to pneumonia -as noted above -not oxygen dependent at baseline Dementia Diastolic heart failure Elevated troponin Respiratory failure with hypoxia and hypercapnia Currently discharged on 3 Ls oxygen Sepsis Urinary retention Surgical History Status post cystoscopy with ureteral stent placement Family History Mother , 84 No problems noted. Father , 80's No problems noted. Social History Quit status (tobacco): has quit using tobacco Year quit tobacco: 2018 [id number] Second hand smoke exposure: No Smoking risk assessment/counseling performed?: No Alcohol intake: never Caregiver/support person: Yes Lives independently: No Household members: none Housing: [facility] Marital status: Single service: No Current occupational status: retired Pets and animals: No History of recent travel: No Current gender identity: Male Physical Exam Const: COMMON NORMALS: apparent distress GENERAL APPEARANCE: in distress and ill appearing HENMT: COMMON NORMALS: normocephalic and atraumatic HEAD & SCALP: normocephalic and atraumatic Eye: COMMON NORMALS: Equal, round and reactive pupils present PUPIL: Yes Equal, round and reactive pupils present Neck/C-Spine: COMMON NORMALS: full ROM, supple and no meningeal signs Chest: COMMONS NORMALS: normal inspection of the chest Resp: OTHER: Diffuse rales in the lower lobes of lungs tachypnea and respiratory distress Cardio: COMMON NORMALS: regular rhythm RATE: tachycardic RHYTHM: regular rhythm GI: COMMON NORMALS: Normal to inspection, nondistended, normoactive bowel sounds present and non-tender Extremity: COMMON NORMALS: normal to inspection Neuro: MENINGEAL SIGNS: Yes no meningeal signs OTHER: Able answer most my questions is alert to self disoriented to place and time Psych: COMMON NORMALS: cooperative Skin: COMMON NORMALS: no rashes or lesions noted GENERAL SKIN EXAM: no rashes or lesions noted Course Vital Signs: Vital signs: Vital Signs Temperature 99.7 F H 11/20/21 18:47 Pulse Rate 83 11/20/21 21:26 Respiratory Rate 24 H 11/20/21 21:26 Blood Pressure 113/66 11/20/21 21:26 Pulse Oximetry 98 11/20/21 21:26 MDM - Altered Mental Status Medical Decision Making Patient presents here with worsening COPD exacerbation now requiring BiPAP due to some slight hypercapnia he does have a low-grade fever possible pneumonia we will start IV antibiotics as well follow blood cultures I spoke to hospitalist who will admit. Lab Data : 11/20/21 18:40 11/20/21 18:40 Radiology Impressions Chest X-Ray 11/20/21 18:49 IMPRESSION: 1. Emphysematous changes. 2. Bibasilar atelectasis versus minimal infiltrate. Head CT 11/20/21 18:49 IMPRESSION: 1. Negative for intracranial hemorrhage or mass effect. 2. Moderate diffuse white matter disease likely reflecting chronic microvascular ischemic changes. Laboratory Results WBC 10.6 10^3/uL (4.0-10.0) H 11/20/21 18:40 RBC 5.68 10^6/uL (4.1-5.3) H 11/20/21 18:40 Hgb 16.2 g/dL (11.7-16.6) 11/20/21 18:40 Hct 54.5 % (42.0-52.0) H 11/20/21 18:40 MCV 96.0 fl (80-94) H 11/20/21 18:40 MCH 28.5 pg (28.0-34.0) 11/20/21 18:40 MCHC 29.7 g/dL (30.0-36.0) L 11/20/21 18:40 RDW 13.1 % (12.1-15.1) 11/20/21 18:40 Plt Count 169 10^3/cmm (130-400) 11/20/21 18:40 MPV 9.7 fL (7.4-10.4) 11/20/21 18:40 Neut % (Auto) 79.1 % 11/20/21 18:40 Lymph % (Auto) 12.3 % 11/20/21 18:40 [place] % (Auto) 7.2 % 11/20/21 18:40 Eos % (Auto) 0.4 % 11/20/21 18:40 Baso % (Auto) 0.5 % 11/20/21 18:40 Neut # (Auto) 8.37 10^3/uL (1.8-7.7) H 11/20/21 18:40 Lymph # (Auto) 1.3 10^3/uL (0.8-4.8) 11/20/21 18:40 [place] # (Auto) 0.8 10^3/uL (0.2-0.9) 11/20/21 18:40 Eos # (Auto) 0.0 10^3/uL (0.0-0.8) 11/20/21 18:40 Baso # (Auto) 0.1 10^3/uL (0.0-0.1) 11/20/21 18:40 Nucleated RBC % (auto) 0 % 11/20/21 18:40 Nucleated RBCs # 0.0 /100WBC 11/20/21 18:40 PT 13.70 SECONDS (12.1-14.9) 11/20/21 18:40 INR 1.02 (0.8-1.2) 11/20/21 18:40 Sodium 144 mmol/L (136-145) 11/20/21 18:40 Potassium 5.0 mmol/L (3.5-5.1) 11/20/21 18:40 Chloride 102 mmol/L (98-107) 11/20/21 18:40 Carbon Dioxide 36 mmol/L (22-29) H 11/20/21 18:40 Anion Gap 11.0 (5-19) 11/20/21 18:40 BUN 26 mg/dL (8-23) H 11/20/21 18:40 Creatinine 1.3 mg/dL (0.7-1.2) H 11/20/21 18:40 GFR Calculation Not Reportable 11/20/21 18:40 Glucose 108 mg/dL (65-115) 11/20/21 18:40 Calculated Osmolality 303 mOsm/kg (285-295) H 11/20/21 18:40 Lactate 0.8 mmol/L (0.5-2.2) 11/20/21 19:50 Calcium 8.8 mg/dL (8.5-10.5) 11/20/21 18:40 Total Bilirubin 0.4 mg/dL (0.15-1.2) 11/20/21 18:40 AST 17 U/L (0-40) 11/20/21 18:40 ALT 14 U/L (0-41) 11/20/21 18:40 Alkaline Phosphatase 92 IU/L (40-130) 11/20/21 18:40 Troponin T Baseline 29 ng/L (0-15) H 11/20/21 18:40 Troponin T 120 Minute 30.11 ng/L (0-15) H 11/20/21 21:00 Delta Troponin T 1.11 ABS# (0-10) 11/20/21 21:00 NT-Pro-B Natriuret Pep 591 pg/mL (0-450) H 11/20/21 18:40 Total Protein 6.9 g/dL (6.6-8.7) 11/20/21 18:40 Albumin 4.1 g/dL (3.5-5.2) 11/20/21 18:40 Globulin 2.8 g/dL (1.3-4.6) 11/20/21 18:40 Urine Color Yellow (Yellow) 11/20/21 19:58 Urine Appearance Clear (CLEAR) 11/20/21 19:58 Urine pH 5 (5-7) 11/20/21 19:58 Ur Specific [employer] 1.025 (1.005-1.030) 11/20/21 19:58 Urine Protein Trace (Negative) 11/20/21 19:58 Urine Glucose (UA) Norm (Normal) 11/20/21 19:58 Urine Ketones Negative (Negative) 11/20/21 19:58 Urine Blood Neg (Negative) 11/20/21 19:58 Urine Nitrate Negative (Negative) 11/20/21 19:58 Urine Bilirubin Neg (Negative) 11/20/21 19:58 Urine Urobilinogen Norm mg/dL (Negative) 11/20/21 19:58 Ur Leukocyte Esterase Negative (Negative) 11/20/21 19:58 Urine RBC 0-4 /hpf (0-2) H 11/20/21 19:58 Urine WBC 0-4 /hpf (0-5) H 11/20/21 19:58 Ur Squamous Epith Cells 0-4 /hpf (0-5) H 11/20/21 19:58 Amorphous Sediment 3+ /hpf 11/20/21 19:58 Urine Bacteria Trace /hpf (NONE) 11/20/21 19:58 Influenza Type A Ag Negative (Negative) 11/20/21 19:11 Influenza Type B Ag Negative (Negative) 11/20/21 19:11 SARS-CoV-2 Ag (Rapid) Negative (Negative) 11/20/21 19:11 EKG Data EKG 1: I personally reviewed and interpreted this EKG as follows: EKG interpretation date: 11/20/21 EKG interpretation time: 19:19 Interpretation: sinus tach hr [address] or t wave abnormalities qrs 81 qtc 353 Critical Care Time Critical Care Time: Critical Care Time: Yes Total Critical Care Time: 40 Attestation: The high probability of a clinically significant, sudden or life threatening deterioration of the patient's pulm system(s) required my full and direct attention, intervention and personal management. The critical care time is as shown. This time is in addition to time spent performing any reported procedures but includes the following: [x] Data and vital sign review and interpretation [x] Patient assessment, examination and intervention [x] Documentation [x] Medication orders and management Discharge Plan Discharge Patient Disposition: Admitted As Inpatient Clinical Impression: Acute exacerbation of chronic obstructive airways disease, Altered mental status, Acute and chronic respiratory failure with hypercapnia Condition: Stable Coding Level of Care Code ED Instructional Services Specialist for Carmen Fwd Exam Comprehensive
[2021-11-20] MEDS: sodium chloride 0.9% 1,000 ML 999 ML IV (19:41)
[2021-11-20] MEDS: acetaminophen 325 mg Tablet 650 MG PO (19:41)
[2021-11-20 19:53] LABS: Influenza A by IFA Negative (Negative); Influenza B by IFA Negative (Negative); SARS Covid-2 Antigen Negative (Negative)
[2021-11-20 20:18] LABS: Add Urine Microscopic? YES; Bilirubin Urine Neg (Negative); Blood Urine Neg (Negative); Glucose Urine UA Norm (Normal); Ketones Urine Negative (Negative); Leukocyte Esterase Urine Negative (Negative); Nitrate Urine Negative (Negative); Protein Urine Trace (Negative); Specific Gravity, Urine 1.025 (1.005-1.030); Urine Appearance Clear (CLEAR); Urine Color Yellow (Yellow); Urobilinogen Urine Norm (Negative); pH Urine 5 (5-7)
[2021-11-20] MEDS: cefTRIAXone 1,000 MG in sodium chloride 0.9% (plus) 100 ML 200 MG IV (20:22)
[2021-11-20 20:28] LABS: Add Urine Culture? No; Amorphous Sediment Urine 3+ /hpf; Bacteria Urine TRACE /hpf; RBC Urine 0-4 /hpf (0-2); Squamous Epithelial Cell Urine 0-4 /hpf (0-5); WBC Urine 0-4 /hpf (0-5)
[2021-11-20 20:28] LABS: Lactate (Lactic Acid level) 0.8 mmol/L (0.5-2.2)
--- NOTE | 2021-11-20 20:49 | ECG_ITS ---
[facility] Test Date: 2021-11-20 Pat Name: Luis Talavera Department: Room: Gender: Male Nut Threader: : 1945 Requested By: Samuel Reynoso Order Number: [id number] Liliam MD: Jacquelyn Ayala M.D. Measurements Intervals [place] Rate: 117 P: 69 NM: 134 QRS: 11 QRSD: 81 T: 71 QT: 284 QTc: 396 Interpretive Statements SINUS TACHYCARDIA POSSIBLE LEFT ATRIAL ENLARGEMENT [-0.1mV P-WAVE IN V1/V2] Compared to ECG 12/26/2020 14:57:36 Sinus rhythm no longer present Electronically Signed On 11-22-2021 7:48:51 CDT by Jacquelyn Ayala M.D. [id number]
[2021-11-20] MEDS: azithromycin 500 MG in sodium chloride 0.9% 250 ML 250 MG IV (21:00)
[2021-11-20 21:32] LABS: Troponin 5 2HR 30.11 ng/L (0-15)
[2021-11-20 21:43] LABS: Troponin 5 2HR Delta 1.11 ABS# (0-10)
--- NOTE | 2021-11-20 21:57 | PM.HP ---
Providers/Chief Complaint Primary Care Provider: Ivet Burnham MD Chief Complaint: AMS; RESP DISTRESS History of Present Illness Patient is a 76-year-old male who was transferred from the alf due to dyspnea. Patient has known history of COPD for which she is O2 dependent As well as congestive heart failure. Patient has a history of dementia and the time of my encounter he is dyspneic and unable to answer questions. Unfortunately because of this, I am unable to obtain further history of present illness as well as past medical history. He presents for further evaluation Review of Systems General: Reports: 10 or more systems reviewed and unremarkable except in HPI and below Medications/Allergies Home Medications Medication Instructions Recorded Confirmed Last Taken Type acetaminophen 325 mg tablet 325 mg PO QID PRN 01/24/20 05/30/21 12/26/20 01:20 History bisacodyl 10 mg rectal suppository 10 mg WV DAILY PRN 01/24/20 05/30/21 Unknown History magnesium hydroxide 400 mg/5 mL 30 ml PO DAILY PRN 01/24/20 05/30/21 Unknown History oral suspension (Milk of Magnesia) mirtazapine 15 mg tablet 15 mg PO DAILY@199901/24/20 05/30/21 04/27/21 13:55 History sennosides 8.6 mg-docusate sodium 1 tab-cap PO BID PRN 01/24/20 05/30/21 Unknown History 50 mg tablet (Senokot-S) sodium phosphates 19 gram-7 118 ml WV DAILY PRN 01/24/20 05/30/21 Unknown History gram/118 mL enema (Enema) tamsulosin 0.4 mg capsule 0.4 mg PO DAILY@199901/24/20 05/30/21 12/25/20 History trazodone 100 mg tablet 100 mg PO DAILY@199901/24/20 05/30/21 12/25/20 History digoxin 125 mcg (0.125 mg) tablet 125 mcg PO DAILY@0800 12/26/20 05/30/21 12/26/20 History food supplemt, lactose-reduced 1 ea PO TID@08,14,20 12/26/20 05/30/21 12/26/20 History metoprolol tartrate 25 mg tablet 12.5 mg PO BID@0800,199912/26/20 05/30/21 12/26/20 History Giorgio Reedphere 160 2 inh INHALATION BID #10.7 g NS 01/13/21 05/30/21 04/27/21 13:54 Rx mcg-9mcg-4.8mcg/actuation HFA aerosol inhaler (hotqpsyhvy-tbihbcnz-tculoxrpec) fluticasone fur. 100 mcg-umeclid 1 inh INHALATION DAILY ea 03/29/21 05/30/21 04/27/21 13:55 History 62.5 mcg-vilant 25 mcg inhalat.powder ipratropium 20 mcg-albuterol 100 1 puff INHALATION Q6H PRN g 03/29/21 05/30/21 Unknown History mcg/actuation mist for inhalation (Combivent Respimat) fluticasone fur. 100 mcg-umeclid 1 inh INHALATION DAILY 04/27/21 05/30/21 Unknown History 62.5 mcg-vilant 25 mcg inhalat.powder (Trelegy Ellipta) Allergies Allergy/AdvReac Type Severity Reaction Status Date / Time No Known Allergies Allergy Verified 11/20/21 18:46 PFSH Acute PFSH: Medical History Acute exacerbation of chronic obstructive airways disease Aspiration pneumonia -as noted above Atrial fibrillation Atrial fibrillation and flutter Atrial fibrillation with RVR -on oral BB; digoxin -not on AC, presumably due to high fall risk Bronchopneumonia CHF (congestive heart failure) Chronic kidney disease CKD (chronic kidney disease) stage 3, GFR 30-59 ml/min COPD (chronic obstructive pulmonary disease) -acute COPD exacerbation secondary to pneumonia -as noted above -not oxygen dependent at baseline Dementia Diastolic heart failure Elevated troponin Respiratory failure with hypoxia and hypercapnia Currently discharged on 3 Ls oxygen Sepsis Urinary retention Surgical History Status post cystoscopy with ureteral stent placement Family History Mother , 84 No problems noted. Father , 80's No problems noted. Social History Quit status (tobacco): has quit using tobacco Year quit tobacco: 2018 [id number] Second hand smoke exposure: No Smoking risk assessment/counseling performed?: No Alcohol intake: never Caregiver/support person: Yes Lives independently: No Household members: none Housing: Longterm Marital status: Single service: No Current occupational status: retired Pets and animals: No History of recent travel: No Current gender identity: Male Vitals/I&O/Wt Last Vital Signs Temp 99.7 F H 11/20/21 18:47 Pulse 83 11/20/21 21:26 Resp 24 H 11/20/21 21:26 BP 113/66 11/20/21 21:26 Pulse Ox 98 11/20/21 21:26 11/20/21 11/20/21 11/20/21 06:59 14:59 22:59 Intake Total 1100 / 1100 Balance 1100 / 1100 Weight last 48 hrs Weight 86.183 kg Physical Exam Narrative: General: -Alert -No acute distress -No dyspnea -No tachypnea Head: -Atraumatic -Normocephalic Eyes: -Pupils equally round and reactive to light and accommodation -Extraocular muscles intact Neurological: -Cranial nerves II-XII intact Neck: -No jugular venous distention -No thyromegaly -No cervical lymphadenopathy Heart: -Regular rate -Regular rhythm -No murmurs -No gallops -No rubs Lungs: -No wheeze -No rhonchi -No rales ? Abdomen: -Normal bowel sounds in all four quadrants -No rebound -No guarding -No tenderness Extremities: -2/4 pulse in all four extremities -No clubbing -No cyanosis -No edema -No calf tenderness present bilaterally -Negative Bob?s sign bilaterally Musculoskeletal: -5/5 bilateral upper extremity strength -5/5 bilateral lower extremity strength -Sensorium of bilateral upper extremities are equal and intact -Sensorium of bilateral lower extremities are equal and intact ? Additional Details / Additional Findings / Exceptions / Miscellaneous: Data : 11/20/21 18:40 11/20/21 18:40 Micro: Microbiology 11/20/21 20:10 Blood Culture - Preliminary Blood SPECIMEN COLLECTED 11/20/21 19:58 Blood Culture - Preliminary Blood SPECIMEN COLLECTED A&P Assessment and plan (1) Altered mental status: Status: Acute Plan Acute on chronic COPD. Patient is typically O2 dependent 2 L. Solu-Medrol 60 mg IV every 8 hours plus DuoNeb every 4 hours. Patient currently on BiPAP and will check ABG intermittently and make adjustments accordingly Acute renal insufficiency. Will monitor creatinine intermittently.IV normal saline 50 ML's per hour Query pneumonia. Blood culture ?2 drawn the emergency department pending. A cephamycin 500 Mill grams IV daily plus Rocephin 1 g IV daily plus DuoNeb every 4 hours LV troponin, chronic. Will monitor patient on telemetry and checks her cardiac enzymes. Recheck EKG on the morning of November 21, 2021 Dementia. Turn every 2 hours Atrial for ablation. Telemetry monitoring BPH CHF, unknown ejection fraction as the patient has not had recently had a recent echocardiogram at this facility Hypertension Macrocytosis. TSH, free T4, B12, foot level pending GI Proflex is. Protonix 40 Mill grams by mouth daily DVT prophylaxis. Heparin 5000 units subcu tensely every 12 hours Attestations Medical Necessity Statement*: The patient's anticipated length of stay is greater than 2 midnights for his treatment of COPD exacerbation Coding Level of Care Code Acute Armed Custom Protection Officer for Carmen Torres Diagnoses Altered mental status R41.82
[2021-11-20 22:27] LABS: Free T4 Free Thyroxine 0.97 ng/dL (0.82-1.77); Thyroid Stimulating Hormone 1.26 uIU/mL (0.27-4.20)
[2021-11-20 22:45] LABS: ABG PCO2 73.3 mmHg (35-45)
[2021-11-20 22:52] LABS: Folate Level 15.1 ng/mL (4.5-32.2)
[2021-11-20 23:02] LABS: Vitamin B12 1059 pg/mL (232-1245)
[2021-11-20] MEDS: heparin 5,000 unit/mL INJ 1 mL 5000 UNIT SUBCUT (23:07)
[2021-11-20] MEDS: sodium chloride 0.9% 1,000 ML 50 ML IV (23:07)
[2021-11-20] MEDS: ipratropium-albuterol 3 mL Neb INHALATION (23:17)
--- NOTE | 2021-11-20 23:54 | ECG_ITS ---
[facility] Test Date: 2021-11-20 Pat Name: Luis Talavera Department: Room: 277 Gender: Male Ehs Specialist: : 1945 Requested By: Jayne De León Order Number: [id number] Liliam MD: Jacquelyn Ayala M.D. Measurements Intervals [place] Rate: 96 P: 65 MS: 138 QRS: 60 QRSD: 84 T: 77 QT: 313 QTc: 397 Interpretive Statements SINUS RHYTHM WITH FREQUENT SUPRAVENTRICULAR PREMATURE COMPLEXES AND SHORT ATRIAL RUN ABNORMAL RHYTHM ECG Compared to ECG 11/20/2021 19:19:51 Sinus tachycardia no longer present Electronically Signed On 11-22-2021 7:48:05 CDT by Jacquelyn Ayala M.D. [id number]
[2021-11-21] VITALS (21 sets, daily range): BP systolic 106–139; BP diastolic 61–82; PULSE 79–116; RESP 15–26; TEMP 36.6–36.8; O2SAT 87–96
[2021-11-21 00:18] LABS: ABG PH Result 7.27 (7.35-7.45); Arterial Blood Gas Hematocrit 45.4 % (42-52); Base Excess ABG 3.9 mmol/L (-2.0-2.0); Blood Gas Allen Test Pos; Blood Gas Operator Identificat WALCI; Blood Gas Sample Site Radial, right; Blood Gas Sample Type Arterial; Carboxyhemoglobin 1.2 %THgb (0.4-20.1); HCO3 ABG 33.5 mmol/L (22-26); HGB O2 Sat 95.3 % (95-100); Ionized Calcium Level - ABG 1.2 mmol/L (1.1-1.4); Methemoglobin 0.4 % (0.4-1.5); Oxygen Saturation ABG 96.9; PO2 ABG 91.5 mmHg (80.0-100.0); Potassium Level - ABG 4.6 mmol/L (3.5-5.0); Total Hemoglobin 14.8 g/dL (14-18)
[2021-11-21 00:19] LABS: Alveolar-Arterial Oxygen Gradi 9.2 mmHg (5-10); Oxygen Device BIPAP
[2021-11-21 00:26] LABS: ABG PCO2 72.9 mmHg (35-45)
[2021-11-21 01:40] LABS: Troponin 5 6HR 30.21 ng/L (0-15)
[2021-11-21 01:51] LABS: Troponin 5 6HR Delta 1.21 ng/L (0-12)
[2021-11-21 02:48] LABS: ABG PCO2 59.7 mmHg (35-45); ABG PH Result 7.33 (7.35-7.45); Arterial Blood Gas Hematocrit 46.9 % (42-52); Base Excess ABG 3.7 mmol/L (-2.0-2.0); Blood Gas Allen Test Pos; Blood Gas Operator Identificat WALCI; Blood Gas Sample Site Brachial, left; Blood Gas Sample Type Arterial; HCO3 ABG 31.6 mmol/L (22-26); Oxygen Device BIPAP; PO2 ABG 82.6 mmHg (80.0-100.0)
[2021-11-21] MEDS: ipratropium-albuterol 3 mL Neb INHALATION ×5 (02:58→20:33)
--- NOTE | 2021-11-21 03:54 | ECG_ITS ---
[facility] Test Date: 2021-11-21 Pat Name: Luis Talavera Department: Room: 277 Gender: Male Deputy Fire Chief: : 1945 Requested By: Jayne De León Order Number: [id number] Liliam MD: Jacquelyn Ayala M.D. Measurements Intervals [place] Rate: P: IL: QRS: QRSD: T: QT: QTc: Interpretive Statements SINUS RHYTHM WITH FREQUENT SUPRAVENTRICULAR PREMATURE COMPLEXES Compared to ECG 11/20/2021 23:51:51 Sinus rhythm no longer present Electronically Signed On 11-22-2021 7:45:23 CDT by Jacquelyn Ayala M.D. [id number]
[2021-11-21 05:00] LABS: Basophils % 0.4 %; Eosinophils # 0.1 10^3/uL (0.0-0.8); Eosinophils % 0.9 %; Hematocrit 50.2 % (42.0-52.0); Hemoglobin 14.5 g/dL (11.7-16.6); Lymphocytes # 0.8 10^3/uL (0.8-4.8); Lymphocytes % 8.1 %; Mean Corpuscular HGB Conc 28.9 g/dL (30.0-36.0); Mean Corpuscular Hemoglobin 28.9 pg (28.0-34.0); Mean Corpuscular Volume 100.2 fl (80-94); Mean Platelet Volume 9.9 fL (7.4-10.4); Monocytes # 0.1 10^3/uL (0.2-0.9); Monocytes % 1.1 %; Neutrophils # 8.13 10^3/uL (1.8-7.7); Neutrophils % 88.1 %; Nucleated Red Blood Cells % 0 %; Platelet Count 153 10^3/cmm (130-400); Red Blood Count 5.01 10^6/uL (4.1-5.3); Red Cell Distribution Width 13.3 % (12.1-15.1); White Blood Count 9.2 10^3/uL (4.0-10.0)
[2021-11-21] MEDS: pantoprazole DR 40 mg Tablet PO (10:04)
--- NOTE | 2021-11-21 10:32 | PC.CHAP ---
Pastoral Care Encounter/Spiritual Assessment Type of Contact [] Declined audiovisual production specialist visit [] Patient/Family/Request visit [] Outpatient visit [] Follow-up visit [] Physician referral [] Code/Alert [x] Routine visit [] Staff referral [] Actively dying [] Patient sleeping [] Family support [] [] Out of room [] Palliative care [] [] Receiving care in room [] Pre-surgical visit [] Trauma [] Long length of stay [] ICU visit [] Other: Relational/Emotional Strength [x] Patient feels connected with others/family/visitors/staff [] Distress [] Loneliness/isolation [] Abandonment Spirituality of Patient [x] Person of Stacey [] Attends Episcopal of their Stacey [x] Believes in Prayer [] Reads Bible or Latter Day materials [] There are Spiritual issues to be addressed Billboard Mechanic Interventions [x] Prayer [x] Active listening [x] Non-anxious presence [x] Spiritual/emotional support [] Crisis/trauma care [] Spiritual counseling [] Bereavement support [] Provided bereavement packet [] Provided Bible/devotional materials [] Provided toy/stuffed animal, coloring book to patient or family member [] Provided Communion [] Anointing/[place] [] Salvation [] Completed spiritual assessment [] Other: Impact on Illness or Injury [] Angry [] Fearful [] Anxious [] Often cries [] Exhaustion [] Unable to work [] Unable to attend episcopal [] Unable to walk/stand [] Unable to read [] Unable to drive [] Unable to eat/drink [] Unable to sleep [] Unable to be with family [] Patient intubated [] Other: Summary Time spent with patient 15 min
[2021-11-21] MEDS: heparin 5,000 unit/mL INJ 1 mL 5000 UNIT SUBCUT (11:48)
--- NOTE | 2021-11-21 12:24 | PC.NURSE ---
Notified Windy at [place] with an update on patient
--- NOTE | 2021-11-21 15:43 | PM.PN ---
Subjective Subjective: Doing better. Denies any active complaints. Reports cough but no shortness of breath or chest pain. No fever or chills. No nausea or vomiting. No diarrhea. Medications: Medication Review Details: Generic Name Dose Route Start Last Admin Trade Name Markel PRN Reason Stop Dose Admin Albuterol/Ipratrop ium 3 ml 11/20/21 22:55 11/21/21 11:24 Ipratropium-Albu terol 3 Ml Neb INHALATION 3 ml Q4H CHUNG Administration Heparin Sodium (Po rcine) 5,000 unit 11/20/21 22:55 11/21/21 11:48 Heparin 5,000 Un it/Ml Inj 1 Ml SUBCUT 5,000 unit Q12H CHUNG Administration Methylprednisolone Sodium Succinate 60 mg 11/20/21 22:55 11/21/21 06:23 Methylprednisolo ne Sod Succ 125 Mg /2 Ml Inj IVP 60 mg Q8H CHUNG Administration Pantoprazole Sodiu m 40 mg 11/21/21 09:00 11/21/21 10:[address] 40 Mg Tablet PO 40 mg DAILY CHUNG Administration Vitals/I&O/Wt Last Vital Signs Temp 97.9 F 11/21/21 11:44 Pulse 107 H 11/21/21 11:44 Resp 15 11/21/21 11:44 BP 123/74 11/21/21 11:44 Pulse Ox 95 11/21/21 11:44 11/21/21 11/21/21 11/21/21 06:59 14:59 22:59 Intake Total 240 / 240 Output Total 200 / 200 Balance 40 / 40 Weight last 48 hrs Weight 86.183 kg Physical Exam Narrative: Awake alert. No acute distress. Mood and affect are appropriate. Responses are adequate. Skin is warm and dry. Moist mucous membranes Eyes PERRL, extraocular muscle intact No aphasia or dysarthria Neck no JVD Lungs no respiratory distress. Air conduction to all lung tucker. No crackles. Coarse breath sounds bilaterally Heart S1, S2, regular Abdomen soft, nontender, bowel sounds are present Extremities trace edema, no cyanosis or calf tenderness bilaterally Nonfocal neuro exam Data : 11/21/21 04:22 11/21/21 04:22 Other Labs: Radiology Impressions Chest X-Ray 11/20/21 18:49 IMPRESSION: 1. Emphysematous changes. 2. Bibasilar atelectasis versus minimal infiltrate. Head CT 11/20/21 18:49 IMPRESSION: 1. Negative for intracranial hemorrhage or mass effect. 2. Moderate diffuse white matter disease likely reflecting chronic microvascular ischemic changes. Laboratory Results WBC 9.2 10^3/uL (4.0-10.0) 11/21/21 04:22 RBC 5.01 10^6/uL (4.1-5.3) 11/21/21 04:22 Hgb 14.5 g/dL (11.7-16.6) 11/21/21 04:22 Hct 50.2 % (42.0-52.0) 11/21/21 04:22 MCV 100.2 fl (80-94) H 11/21/21 04:22 MCH 28.9 pg (28.0-34.0) 11/21/21 04:22 MCHC 28.9 g/dL (30.0-36.0) L 11/21/21 04: RDW 13.3 % (12.1-15.1) 11/21/21 04:22 Plt Count 153 10^3/cmm (130-400) 11/21/21 04:22 MPV 9.9 fL (7.4-10.4) 11/21/21 04: Neut % (Auto) 88.1 % 11/21/21 04: Lymph % (Auto) 8.1 % 11/21/21 04:22 [place] % (Auto) 1.1 % 11/21/21 04: Eos % (Auto) 0.9 % 11/21/21 04:22 Baso % (Auto) 0.4 % 11/21/21 04:22 Neut # (Auto) 8.13 10^3/uL (1.8-7.7) H 11/21/21 04:22 Lymph # (Auto) 0.8 10^3/uL (0.8-4.8) 11/21/21 04:22 [place] # (Auto) 0.1 10^3/uL (0.2-0.9) L 11/21/21 04:22 Eos # (Auto) 0.1 10^3/uL (0.0-0.8) 11/21/21 04:22 Baso # (Auto) 0.0 10^3/uL (0.0-0.1) 11/21/21 04:22 Nucleated RBC % (auto) 0 % 11/21/21 04: Nucleated RBCs # 0.0 /100WBC 11/21/21 04:22 PT 13.70 SECONDS (12.1-14.9) 11/20/21 18:40 INR 1.02 (0.8-1.2) 11/20/21 18:40 Specimen Type Arterial 11/21/21 02:36 Sample Site Brachial, left 11/21/21 02:36 ABG pH 7.33 (7.35-7.45) L 11/21/21 02:36 ABG pCO2 59.7 mmHg (35-45) H 11/21/21 02:36 ABG pO2 82.6 mmHg (80.0-100.0) 11/21/21 02:36 ABG HCO3 31.6 mmol/L (22-26) H 11/21/21 02:36 ABG O2 Saturation 96.9 11/21/21 00:05 ABG Base Excess 3.7 mmol/L (-2.0-2.0) H 11/21/21 02:36 Jamari Test Pos 11/21/21 02:36 A-a O2 Gradient 9.2 mmHg (5-10) 11/21/21 00:05 Hematocrit 46.9 % (42-52) 11/21/21 02:36 Hgb O2 Saturation 95.3 % (95-100) 11/21/21 00:05 Carboxyhemoglobin 1.2 %THgb (0.4-20.1) 11/21/21 00:05 Methemoglobin 0.4 % (0.4-1.5) 11/21/21 00:05 Total Hemoglobin 14.8 g/dL (14-18) 11/21/21 00:05 Sodium 144.0 mmol/L (131-143) H 11/21/21 00:05 Potassium 4.6 mmol/L (3.5-5.0) 11/21/21 00:05 Glucose 118.0 mg/dL (70-115) H 11/21/21 00:05 Ionized Calcium 1.2 mmol/L (1.1-1.4) 11/21/21 00:05 O2 Delivery Device Bipap 11/21/21 02:36 O2 Liters/Min 5.0 % 11/20/21 18:54 FiO2 35.0 % 11/21/21 02:36 PEEP 8.0 cmH20 11/21/21 02:36 Amortization Schedule Clerk ID [email or web address] 11/21/21 02:36 Sodium 144 mmol/L (136-145) 11/20/21 18:40 Potassium 5.0 mmol/L (3.5-5.1) 11/20/21 18:40 Chloride 102 mmol/L (98-107) 11/20/21 18:40 Carbon Dioxide 36 mmol/L (22-29) H 11/20/21 18:40 Anion Gap 11.0 (5-19) 11/20/21 18:40 BUN 26 mg/dL (8-23) H 11/20/21 18:40 Creatinine 1.2 mg/dL (0.7-1.2) 11/21/21 04:22 GFR Calculation Not Reportable 11/21/21 04:22 Glucose 108 mg/dL (65-115) 11/20/21 18:40 Calculated Osmolality 303 mOsm/kg (285-295) H 11/20/21 18:40 Lactate 0.8 mmol/L (0.5-2.2) 11/20/21 19:50 Calcium 8.8 mg/dL (8.5-10.5) 11/20/21 18:40 Total Bilirubin 0.4 mg/dL (0.15-1.2) 11/20/21 18:40 AST 17 U/L (0-40) 11/20/21 18:40 ALT 14 U/L (0-41) 11/20/21 18:40 Alkaline Phosphatase 92 IU/L (40-130) 11/20/21 18:40 Troponin T Baseline 29 ng/L (0-15) H 11/20/21 18:40 Troponin T 120 Minute 30.11 ng/L (0-15) H 11/20/21 21:00 Delta Troponin T 1.11 ABS# (0-10) 11/20/21 21:00 Troponin T Hi Sens 6Hr 30.21 ng/L (0-15) H 11/21/21 00:50 Troponin T Hi Sens 6Hr Delta 1.21 ng/L (0-12) 11/21/21 00:50 NT-Pro-B Natriuret Pep 591 pg/mL (0-450) H 11/20/21 18:40 Total Protein 6.9 g/dL (6.6-8.7) 11/20/21 18:40 Albumin 4.1 g/dL (3.5-5.2) 11/20/21 18:40 Globulin 2.8 g/dL (1.3-4.6) 11/20/21 18:40 Vitamin B12 1059 pg/mL (232-1245) 11/20/21 18:40 Folate 15.1 ng/mL (4.5-32.2) 11/20/21 18:40 TSH 1.26 uIU/mL (0.27-4.20) 11/20/21 18:40 Free T4 0.97 ng/dL (0.82-1.77) 11/20/21 18:40 Urine Color Yellow (Yellow) 11/20/21 19:58 Urine Appearance Clear (CLEAR) 11/20/21 19:58 Urine pH 5 (5-7) 11/20/21 19:58 Ur Specific [place] 1.025 (1.005-1.030) 11/20/21 19:58 Urine Protein Trace (Negative) 11/20/21 19:58 Urine Glucose (UA) Norm (Normal) 11/20/21 19:58 Urine Ketones Negative (Negative) 11/20/21 19:58 Urine Blood Neg (Negative) 11/20/21 19:58 Urine Nitrate Negative (Negative) 11/20/21 19:58 Urine Bilirubin Neg (Negative) 11/20/21 19:58 Urine Urobilinogen Norm mg/dL (Negative) 11/20/21 19:58 Ur Leukocyte Esterase Negative (Negative) 11/20/21 19:58 Urine RBC 0-4 /hpf (0-2) H 11/20/21 19:58 Urine WBC 0-4 /hpf (0-5) H 11/20/21 19:58 Ur Squamous Epith Cells 0-4 /hpf (0-5) H 11/20/21 19:58 Amorphous Sediment 3+ /hpf 11/20/21 19:58 Urine Bacteria Trace /hpf (NONE) 11/20/21 19:58 Influenza Type A Ag Negative (Negative) 11/20/21 19:11 Influenza Type B Ag Negative (Negative) 11/20/21 19:11 SARS-CoV-2 Ag (Rapid) Negative (Negative) 11/20/21 19:11 Micro: Microbiology 11/20/21 20:10 Blood Culture - Preliminary Blood SPECIMEN COLLECTED 11/20/21 19:58 Blood Culture - Preliminary Blood SPECIMEN COLLECTED A&P Assessment and plan (1) Altered mental status: Status: Acute Plan Acute on chronic COPD. Patient is typically O2 dependent 2 L. Solu-Medrol 60 mg IV every 8 hours plus DuoNeb every 4 hours. Patient currently on BiPAP and will check ABG intermittently and make adjustments accordingly Acute renal insufficiency. Will monitor creatinine intermittently.IV normal saline 50 ML's per hour Query pneumonia. Blood culture ?2 drawn the emergency department pending. A cephamycin 500 Mill grams IV daily plus Rocephin 1 g IV daily plus DuoNeb every 4 hours LV troponin, chronic. Will monitor patient on telemetry and checks her cardiac enzymes. Recheck EKG on the morning of November 21, 2021 Dementia. Turn every 2 hours Atrial for ablation. Telemetry monitoring BPH CHF, unknown ejection fraction as the patient has not had recently had a recent echocardiogram at this facility Hypertension Macrocytosis. TSH, free T4, B12, foot level pending GI Proflex is. Protonix 40 Mill grams by mouth daily DVT prophylaxis. Heparin 5000 units subcu tensely every 12 hours [place] Acute hypercapnic respiratory failure secondary to acute on chronic COPD exacerbation. Currently stabilized with BiPAP. Off BiPAP now. Continuing supplemental oxygen. Starting steroid taper. Continuing antibiotics and respiratory treatments. Acute kidney injury. Improved renal function. Continue monitoring. Acute metabolic encephalopathy secondary to #1 on top of chronic dementia. Improved. Probably close to baseline. Continue management of original problem. History of CHF. No evidence of exacerbation. Stopping IV fluids to prevent fluid overload. Hypertension. Stable. Continue current management. DVT prophylaxis. Heparin. The plan of care was discussed with the patient. He verbalized understanding. Discussed with multidisciplinary team. Attestations Medical Necessity Statement*: The plan of care requires that he remains hospitalized. Coding Level of Care Code Acute Yarn Washer for Carmen Torres Diagnoses Altered mental status R41.82
--- NOTE | 2021-11-21 16:42 | PC.NURSE ---
Notified Dr. Quijano of patient not voiding all day. Bladder scan showed 194 ml. If greater than 500 then notify physcian
[2021-11-21] MEDS: azithromycin 500 MG in sodium chloride 0.9% 250 ML 250 MG IV (20:36)
[2021-11-22] VITALS (20 sets, daily range): BP systolic 117–131; BP diastolic 64–79; PULSE 96–122; RESP 16–18; TEMP 36.4–36.8; O2SAT 90–96
[2021-11-22] MEDS: heparin 5,000 unit/mL INJ 1 mL 5000 UNIT SUBCUT ×3 (00:01→22:34)
[2021-11-22] MEDS: ipratropium-albuterol 3 mL Neb INHALATION ×6 (00:25→21:41)
[2021-11-22 06:16] LABS: Basophils % 0.1 %; Hematocrit 45.6 % (42.0-52.0); Hemoglobin 13.7 g/dL (11.7-16.6); Lymphocytes # 0.6 10^3/uL (0.8-4.8); Lymphocytes % 3.7 %; Mean Corpuscular Hemoglobin 28.5 pg (28.0-34.0); Mean Corpuscular Volume 94.8 fl (80-94); Monocytes # 0.5 10^3/uL (0.2-0.9); Monocytes % 2.9 %; Neutrophils # 14.95 10^3/uL (1.8-7.7); Neutrophils % 92.8 %; Nucleated Red Blood Cells % 0 %; Platelet Count 170 10^3/cmm (130-400); Red Blood Count 4.81 10^6/uL (4.1-5.3); Red Cell Distribution Width 13.2 % (12.1-15.1); White Blood Count 16.1 10^3/uL (4.0-10.0)
[2021-11-22 06:52] LABS: Albumin Level 3.3 g/dL (3.5-5.2); Anion Gap 14.1 (5-19); Blood Urea Nitrogen 29 mg/dL (8-23); Calcium 8.1 mg/dL (8.5-10.5); Carbon Dioxide 27 mmol/L (22-29); Chloride 102 mmol/L (98-107); Glucose 114 mg/dL (65-115); Phosphorus 2.2 mg/dL (2.5-4.5); Potassium 4.1 mmol/L (3.5-5.1); Sodium 139 mmol/L (136-145)
[2021-11-22 06:58] LABS: Procalcitonin 0.08 ng/mL (0-0.5)
--- NOTE | 2021-11-22 07:15 | PC.NURSE ---
SHIFT SUMMARY Has had a good night. Has remained alert. Some confusion as to time and date but otherwise is oriented. Continuous pulse oximetry has ranged 93-95%. O2 in place at 3l per NC. Had trouble urinating in urinal in bed but voided 600ml when got him up to [facility]. Told me he does not remember anything about when he came to the hospital. Telemetry has been ST with rate mostly 110-120. Occ noted to get up to 130 but came right back down. Receiving IV antibiotics
[2021-11-22] MEDS: pantoprazole DR 40 mg Tablet PO (08:33)
--- NOTE | 2021-11-22 11:47 | P.PN_ITS ---
Subjective Subjective: Doing better. Denies any active complaints. Reports cough but no shortness of breath or chest pain. No wheezing. No fever or chills. No nausea or vomiting. No diarrhea. Medications: Medication Review Details: Generic Name Dose Route Start Last Admin Trade Name Markel PRN Reason Stop Dose Admin Albuterol/Ipratrop ium 3 ml 11/20/21 22:55 11/21/21 11:24 Ipratropium-Albu terol 3 Ml Neb INHALATION 3 ml Q4H CHUGN Administration Heparin Sodium (Po rcine) 5,000 unit 11/20/21 22:55 11/21/21 11:48 Heparin 5,000 Un it/Ml Inj 1 Ml SUBCUT 5,000 unit Q12H CHUNG Administration Methylprednisolone Sodium Succinate 60 mg 11/20/21 22:55 11/21/21 06:23 Methylprednisolo ne Sod Succ 125 Mg /2 Ml Inj IVP 60 mg Q8H CHUNG Administration Pantoprazole Sodiu m 40 mg 11/21/21 09:00 11/21/21 10:[address] 40 Mg Tablet PO 40 mg DAILY CHUNG Administration Vitals/I&O/Wt Last Vital Signs Temp 97.5 F L 11/22/21 11:33 Pulse 108 H 11/22/21 11:33 Resp 18 11/22/21 11:33 BP 123/64 11/22/21 11:33 Pulse Ox 95 11/22/21 11:33 11/21/21 11/22/21 11/22/21 22:59 06:59 14:59 Intake Total 660 / 900 300 / 1200 360 / 360 Output Total 600 / 800 Balance 660 / 700 -300 / 400 360 / 360 Weight last 48 hrs Weight 86.183 kg Physical Exam Narrative: Awake alert. No acute distress. Mood and affect are appropriate. Responses are adequate. Skin is warm and dry. Moist mucous membranes Eyes PERRL, extraocular muscle intact No aphasia or dysarthria Neck no JVD Lungs no respiratory distress. Air conduction to all lung tucker. No crackles. Coarse breath sounds bilaterally Heart S1, S2, regular Abdomen soft, nontender, bowel sounds are present Extremities trace edema, no cyanosis or calf tenderness bilaterally Nonfocal neuro exam Data : 11/22/21 05:35 11/22/21 05:35 Micro: Microbiology 11/20/21 20:10 Blood Culture - Preliminary Blood NEGATIVE TO DATE 11/20/21 19:58 Blood Culture - Preliminary Blood NEGATIVE TO DATE A&P Assessment and plan (1) Altered mental status: Status: Acute Plan Acute on chronic COPD. Patient is typically O2 dependent 2 L. Solu-Medrol 60 mg IV every 8 hours plus DuoNeb every 4 hours. Patient currently on BiPAP and will check ABG intermittently and make adjustments accordingly Acute renal insufficiency. Will monitor creatinine intermittently.IV normal saline 50 ML's per hour Query pneumonia. Blood culture ?2 drawn the emergency department pending. A c ephamycin 500 Mill grams IV daily plus Rocephin 1 g IV daily plus DuoNeb every 4 hours LV troponin, chronic. Will monitor patient on telemetry and checks her cardiac enzymes. Recheck EKG on the morning of November 21, 2021 Dementia. Turn every 2 hours Atrial for ablation. Telemetry monitoring BPH CHF, unknown ejection fraction as the patient has not had recently had a recent echocardiogram at this facility Hypertension Macrocytosis. TSH, free T4, B12, foot level pending GI Proflex is. Protonix 40 Mill grams by mouth daily DVT prophylaxis. Heparin 5000 units subcu tensely every 12 hours [place] Acute hypercapnic respiratory failure secondary to acute on chronic COPD exacerbation. Off BiPAP now. Continuing supplemental oxygen. Continue steroid taper. Continuing antibiotics and respiratory treatments. Possible discharge in a day or 2. Asked the case management to assess his discharge needs. Acute kidney injury. Resolved. Acute metabolic encephalopathy secondary to #1 on top of chronic dementia. Improved. Probably close to baseline. Continue management of original problem. History of CHF. No evidence of exacerbation. Continue current management. Hypertension. Stable. Continue current management. DVT prophylaxis. Heparin. The plan of care was discussed with the patient. He verbalized understanding. Discussed with multidisciplinary team. Attestations Medical Necessity Statement*: Tapering steroids. If continues improving we might be able to discharge him next 24 to 48 hours. Will go back to his [facility] facility. Coding Level of Care Code Acute Precision Dancer for Carmen Torres Diagnoses Altered mental status R41.82
--- NOTE | 2021-11-22 16:28 | PC.NURSE ---
Took over care for patient at 1648. Report given by MELANI Farfan. Will continue to care for patient and give report to night nurse.
[2021-11-22] MEDS: azithromycin 500 MG in sodium chloride 0.9% 250 ML 250 MG IV (20:04)
[2021-11-23] VITALS (8 sets, daily range): BP systolic 125–145; BP diastolic 68–92; PULSE 89–108; RESP 14–20; TEMP 36.6; O2SAT 89–96
[2021-11-23] MEDS: ipratropium-albuterol 3 mL Neb INHALATION ×2 (04:04→08:23)
[2021-11-23] MEDS: pantoprazole DR 40 mg Tablet PO (08:19)
[2021-11-23] MEDS: predniSONE 20 mg Tablet 40 MG PO (10:26)
[2021-11-23] MEDS: heparin 5,000 unit/mL INJ 1 mL 5000 UNIT SUBCUT (10:26)
--- NOTE | 2021-11-23 12:05 | PM.DCS ---
Discharge Providers Date of Admission: 11/20/21 21:36 Date of Discharge: November 23, 2021 Attending Provider at Admission: Jayne De León DO Attending Provider at Discharge: Tobin Quijano Primary Care Provider: Ivet Burnham MD Diagnoses at Discharge Discharge Diagnosis (1) Altered mental status: Status: Acute Reason for Visit Reason for Visit: AMS; RESP DISTRESS Hospital Course Hospital Course Please see patient's H&P, progress notes for more details. Discharge diagnosis and problem list Acute hypercapnic respiratory failure secondary to acute on chronic COPD exacerbation. Off BiPAP now.? Resolved. Doing well. [facility]. Continue steroid taper.? Continuing respiratory treatments.? Eager to be discharged. Denies any active complaints today. Off oxygen Acute kidney injury.? Resolved. Acute metabolic encephalopathy secondary to #1 on top of chronic dementia.? Resolved. History of CHF.? No evidence of exacerbation.? Continue current management. Follow-up with the primary care physician Hypertension.? Stable.? Continue current management. DVT prophylaxis.? Received heparin. The plan of care was discussed with the patient.? He verbalized understanding. Discussed with multidisciplinary team. Physical Exam Narrative: Awake alert. No acute distress. Mood and affect are appropriate. Responses are adequate. Skin is warm and dry. Moist mucous membranes Eyes PERRL, extraocular muscle intact No aphasia or dysarthria Neck no JVD Lungs no respiratory distress. Air conduction to all lung tucker. No crackles. Coarse breath sounds bilaterally Heart S1, S2, regular Abdomen soft, nontender, bowel sounds are present Extremities trace edema, no cyanosis or calf tenderness bilaterally Nonfocal neuro exam Discharge Data Studies Completed and Pending Completed Studies During Hospitalization Category Date Time Status CT head wo con* [id number] Urgent Cat Scan 11/20/21 18:49 Completed XR chest 1V portable [id number] Urgent Exams 11/20/21 18:49 Completed Pending at discharge Category Date Time Status Blood Culture Stat Lab 11/20/21 20:10 Results Complete Blood Count w/Auto AM LABS Lab 11/24/21 04:00 Ordered Magnesium AM LABS Lab 11/24/21 04:00 Ordered Renal Function Panel AM LABS Lab 11/24/21 04:00 Ordered Radiology Impressions Chest X-Ray 11/20/21 18:49 IMPRESSION: 1. Emphysematous changes. 2. Bibasilar atelectasis versus minimal infiltrate. Head CT 11/20/21 18:49 IMPRESSION: 1. Negative for intracranial hemorrhage or mass effect. 2. Moderate diffuse white matter disease likely reflecting chronic microvascular ischemic changes. Laboratory Results WBC 16.1 10^3/uL (4.0-10.0) H 11/22/21 05:35 RBC 4.81 10^6/uL (4.1-5.3) 11/22/21 05:35 Hgb 13.7 g/dL (11.7-16.6) 11/22/21 05:35 Hct 45.6 % (42.0-52.0) 11/22/21 05:35 MCV 94.8 fl (80-94) H D 11/22/21 05:35 MCH 28.5 pg (28.0-34.0) 11/22/21 05:35 MCHC 30.0 g/dL (30.0-36.0) 11/22/21 05:35 RDW 13.2 % (12.1-15.1) 11/22/21 05:35 Plt Count 170 10^3/cmm (130-400) 11/22/21 05:35 MPV 10.0 fL (7.4-10.4) 11/22/21 05:35 Neut % (Auto) 92.8 % 11/22/21 05:35 Lymph % (Auto) 3.7 % 11/22/21 05:35 [place] % (Auto) 2.9 % 11/22/21 05:35 Eos % (Auto) 0.0 % 11/22/21 05:35 Baso % (Auto) 0.1 % 11/22/21 05:35 Neut # (Auto) 14.95 10^3/uL (1.8-7.7) H 11/22/21 05:35 Lymph # (Auto) 0.6 10^3/uL (0.8-4.8) L 11/22/21 05:35 [place] # (Auto) 0.5 10^3/uL (0.2-0.9) 11/22/21 05:35 Eos # (Auto) 0.0 10^3/uL (0.0-0.8) 11/22/21 05:35 Baso # (Auto) 0.0 10^3/uL (0.0-0.1) 11/22/21 05:35 Nucleated RBC % (auto) 0 % 11/22/21 05:35 Nucleated RBCs # 0.0 /100WBC 11/22/21 05:35 PT 13.70 SECONDS (12.1-14.9) 11/20/21 18:40 INR 1.02 (0.8-1.2) 11/20/21 18:40 Specimen Type Arterial 11/21/21 02:36 Sample Site Brachial, left 11/21/21 02:36 ABG pH 7.33 (7.35-7.45) L 11/21/21 02:36 ABG pCO2 59.7 mmHg (35-45) H 11/21/21 02:36 ABG pO2 82.6 mmHg (80.0-100.0) 11/21/21 02:36 ABG HCO3 31.6 mmol/L (22-26) H 11/21/21 02:36 ABG O2 Saturation 96.9 11/21/21 00:05 ABG Base Excess 3.7 mmol/L (-2.0-2.0) H 11/21/21 02:36 Jamari Test Pos 11/21/21 02:36 A-a O2 Gradient 9.2 mmHg (5-10) 11/21/21 00:05 Hematocrit 46.9 % (42-52) 11/21/21 02:36 Hgb O2 Saturation 95.3 % (95-100) 11/21/21 00:05 Carboxyhemoglobin 1.2 %THgb (0.4-20.1) 11/21/21 00:05 Methemoglobin 0.4 % (0.4-1.5) 11/21/21 00:05 Total Hemoglobin 14.8 g/dL (14-18) 11/21/21 00:05 Sodium 144.0 mmol/L (131-143) H 11/21/21 00:05 Potassium 4.6 mmol/L (3.5-5.0) 11/21/21 00:05 Glucose 118.0 mg/dL (70-115) H 11/21/21 00:05 Ionized Calcium 1.2 mmol/L (1.1-1.4) 11/21/21 00:05 O2 Delivery Device Bipap 11/21/21 02:36 O2 Liters/Min 5.0 % 11/20/21 18:54 FiO2 35.0 % 11/21/21 02:36 PEEP 8.0 cmH20 11/21/21 02:36 Chef Passenger Vessel ID [email or web address] 11/21/21 02:36 Sodium 139 mmol/L (136-145) 11/22/21 05:35 Potassium 4.1 mmol/L (3.5-5.1) 11/22/21 05:35 Chloride 102 mmol/L (98-107) 11/22/21 05:35 Carbon Dioxide 27 mmol/L (22-29) 11/22/21 05:35 Anion Gap 14.1 (5-19) 11/22/21 05:35 BUN 29 mg/dL (8-23) H 11/22/21 05:35 Creatinine 1.2 mg/dL (0.7-1.2) 11/22/21 05:35 GFR Calculation Not Reportable 11/22/21 05:35 Glucose 114 mg/dL (65-115) 11/22/21 05:35 Calculated Osmolality 303 mOsm/kg (285-295) H 11/20/21 18:40 Lactate 0.8 mmol/L (0.5-2.2) 11/20/21 19:50 Calcium 8.1 mg/dL (8.5-10.5) L 11/22/21 05:35 Phosphorus 2.2 mg/dL (2.5-4.5) L 11/22/21 05:35 Magnesium 2.0 mg/dL (1.7-2.3) 11/22/21 05:35 Total Bilirubin 0.4 mg/dL (0.15-1.2) 11/20/21 18:40 AST 17 U/L (0-40) 11/20/21 18:40 ALT 14 U/L (0-41) 11/20/21 18:40 Alkaline Phosphatase 92 IU/L (40-130) 11/20/21 18:40 Troponin T Baseline 29 ng/L (0-15) H 11/20/21 18:40 Troponin T 120 Minute 30.11 ng/L (0-15) H 11/20/21 21:00 Delta Troponin T 1.11 ABS# (0-10) 11/20/21 21:00 Troponin T Hi Sens 6Hr 30.21 ng/L (0-15) H 11/21/21 00:50 Troponin T Hi Sens 6Hr Delta 1.21 ng/L (0-12) 11/21/21 00:50 NT-Pro-B Natriuret Pep 591 pg/mL (0-450) H 11/20/21 18:40 Total Protein 6.9 g/dL (6.6-8.7) 11/20/21 18:40 Albumin 3.3 g/dL (3.5-5.2) L 11/22/21 05:35 Globulin 2.8 g/dL (1.3-4.6) 11/20/21 18:40 Vitamin B12 1059 pg/mL (232-1245) 11/20/21 18:40 Folate 15.1 ng/mL (4.5-32.2) 11/20/21 18:40 Procalcitonin 0.08 ng/mL (0-0.5) 11/22/21 05:35 TSH 1.26 uIU/mL (0.27-4.20) 11/20/21 18:40 Free T4 0.97 ng/dL (0.82-1.77) 11/20/21 18:40 Urine Color Yellow (Yellow) 11/20/21 19:58 Urine Appearance Clear (CLEAR) 11/20/21 19:58 Urine pH 5 (5-7) 11/20/21 19:58 Ur Specific [place] 1.025 (1.005-1.030) 11/20/21 19:58 Urine Protein Trace (Negative) 11/20/21 19:58 Urine Glucose (UA) Norm (Normal) 11/20/21 19:58 Urine Ketones Negative (Negative) 11/20/21 19:58 Urine Blood Neg (Negative) 11/20/21 19:58 Urine Nitrate Negative (Negative) 11/20/21 19:58 Urine Bilirubin Neg (Negative) 11/20/21 19:58 Urine Urobilinogen Norm mg/dL (Negative) 11/20/21 19:58 Ur Leukocyte Esterase Negative (Negative) 11/20/21 19:58 Urine RBC 0-4 /hpf (0-2) H 11/20/21 19:58 Urine WBC 0-4 /hpf (0-5) H 11/20/21 19:58 Ur Squamous Epith Cells 0-4 /hpf (0-5) H 11/20/21 19:58 Amorphous Sediment 3+ /hpf 11/20/21 19:58 Urine Bacteria Trace /hpf (NONE) 11/20/21 19:58 Influenza Type A Ag Negative (Negative) 11/20/21 19:11 Influenza Type B Ag Negative (Negative) 11/20/21 19:11 SARS-CoV-2 Ag (Rapid) Negative (Negative) 11/20/21 19:11 Vitals Last Vital Signs Temp 97.8 F 11/23/21 03:22 Pulse 90 11/23/21 11:50 Resp 17 11/23/21 11:50 BP 125/68 11/23/21 03:22 Pulse Ox 95 11/23/21 11:50 Discharge Plan Discharge Patient Disposition: Xfer [facility] Condition: Stable Prescriptions: New prednisone 20 mg Tablet 40 mg PO DAILY Qty: 12 0RF Rx Instructions: Continue this dose for 3 days then decrease by half a tablet every 2 days and stop Continued acetaminophen 325 mg Tablet 325 mg PO QID PRN (Reason: Pain) 0RF sennosides-docusate sodium [Senokot-S] 8.6-50 mg Tablet 1 tab-cap PO DAILY PRN (Reason: Constipation) 0RF magnesium hydroxide [Milk of Magnesia] 400 mg/5 mL Suspension 30 ml PO DAILY PRN (Reason: Constipation) 0RF tamsulosin 0.4 mg Capsule 0.4 mg PO DAILY@1999 0RF bisacodyl 10 mg Suppository 10 mg VT DAILY PRN (Reason: Constipation) 0RF Enema 19-7 gram/118 mL Enema 118 ml VT DAILY PRN (Reason: Constipation) 0RF digoxin 125 mcg (0.125 mg) tablet 125 mcg PO DAILY@0800 0RF metoprolol tartrate 25 mg tablet 25 mg PO BID@0800,1999 0RF fexofenadine 180 mg Tablet 180 mg PO BID 0RF carboxymethylcellulose sodium 1 % Drops, Liquid Gel 1 drp OPHTHALMIC (EYE) BID 0RF Minerin Creme Cream 1 applic TOPICAL BID PRN (Reason: Itching) 0RF Combivent Respimat 20-100 mcg/actuation Mist 1 puff INHALATION Q6H PRN (Reason: Shortness Of Breath) 0RF Trelegy Ellipta 100-62.5-25 mcg Blister With Device 1 inh INHALATION DAILY 0RF Discharge Orders: Discharge Order (Routine); Ordered 11/23/21 Ordered By: Tobin Quijano Referrals: Ivet Burnham MD [Primary Care Provider] - Discharge Diet: Usual diet Discharge Activity: Increase activity as tolerated Discharge Attestations Time Spent in Discharge Care*: less than 30 min Status at Discharge: Cognitive status at discharge: mildly impaired cognition (at baseline, A & O x 1), Behavioral status at discharge: cooperative and dependent in ADL's, Quality Metrics Clinical Quality Measures [ No reported AMI, CVA or VTE this stay] Coding Level of Care Code Acute Chg FW DC note Diagnoses Altered mental status R41.82
--- NOTE | 2021-11-23 12:13 | PC.SOCIAL ---
IMM update IM updated with patient's guardian [place]. Verbalized an understanding. Initialled, dated, timed, and placed in chart.
--- NOTE | 2021-11-23 14:29 | PC.NURSE ---
Report was called to facility to [facility], all questions were answered at this time. VS stable. IVs discontinued. Belongings accounted for.
== END 2021-11-23 15:50 | disposition skilled nursing facility (03) | DRG 190 ==
LOC: ER 21:49 → MEDSURG 22:11
PROVIDERS: Admitting Provider Internal Medicine; Emergency Provider Emergency Medicine; PCP Family Medicine; Visit Provider Internal Medicine
DX: J44.0 Chronic obstructive pulmonary disease with (acute) lower respiratory infection (principal); J96.22 Acute and chronic respiratory failure with hypercapnia; G93.41 Metabolic encephalopathy; N17.9 Acute kidney failure, unspecified; I13.0 Hypertensive heart and chronic kidney disease with heart failure and stage 1 through stage 4 chronic kidney disease, or unspecified chronic kidney disease; I50.9 Heart failure, unspecified; F03.90 Unspecified dementia, unspecified severity, without behavioral disturbance, psychotic disturbance, mood disturbance, and anxiety; Z87.891 Personal history of nicotine dependence; Z99.81 Dependence on supplemental oxygen; N40.0 Benign prostatic hyperplasia without lower urinary tract symptoms; N18.30 Chronic kidney disease, stage 3 unspecified
CPT/HCPCS: 36415; 36600; 70450; 71045; 80051; 80053; 80069; 81001; 82330; 82565; 82607; 82746; 82803; 82805; 83605; 83735; 83880; 84145; 84439; 84443; 84484; 85025; 85610; 87040; 87426; 87804; 93005; 94640; 94660; 94664; 94762; 96365; 96367; 96372; 96375; 99285; J0456; J0696; J1644; J2930; J7030; J7050; J7512

== ENCOUNTER 2022-02-17 06:49 | Inpatient (IN) | payer MEDICARE, MEDICAID, SELFPAY ==
[2022-02-17] VITALS (24 sets, daily range): BP systolic 95–139; BP diastolic 60–87; PULSE 74–132; RESP 16–36; TEMP 37.1–37.6; O2SAT 90–98; BMI 21.0
--- NOTE | 2022-02-17 07:05 | XR_ITS ---
WS: [id number] Portable AP upright chest, 02/17/2022 Clinical Data: hypoxia Comparison: Portable chest, 11/20/2021. Findings: No nodules, masses or effusions are seen. The heart is normal. The pulmonary vascularity is not increased. No pneumonia or pneumothorax is seen. The aortic arch and descending thoracic aorta s how mild tortuosity. There are monitor leads on the chest wall. XR/XR chest 1V portable [id number] Impression: Atherosclerosis.
--- NOTE | 2022-02-17 07:07 | ECG_ITS ---
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 Measurements Intervals [place] Rate: 129 P: 75 [place]: 131 QRS: 48 QRSD: 81 T: 89 QT: 264 QTc: 387 Interpretive Statements SINUS TACHYCARDIA NONSPECIFIC ST & T-WAVE ABNORMALITY ABNORMAL RHYTHM ECG Compared to ECG 11/21/2021 03:24:57 T-wave abnormality now present Sinus rhythm no longer present Electronically Signed On 02-17-2022 17:10:35 CDT by Doyle Healy M.D. [id number]
--- NOTE | 2022-02-17 07:09 | W.ED.SOB ---
HPI - SOB/Dyspnea General: Chief Complaint: Shortness of Breath/Dyspnea Stated Complaint: SOB Time Seen by Provider: 02/17/22 06:52 History of Present Illness: HPI Narrative: This 76-year-old male presents to the emergency department chief complaint of having progressive shortness of breath he presents long-term facility apparently was found in acute respiratory distress patient has a known history of both cardiac and pulmonary issues. We are unaware of whether or not patient requires baseline oxygen. No other reported history per long-term as noted. Unaware patient has had a recent fevers or chills or recent infection. [facility] arrival patient was started on supplemental oxygen in which a pulmonary neb treatment was provided. Associated symptoms: Deny abdominal pain, chest pain, extremity pain, fever(s), nausea, palpitations or vomiting Review of Systems General: Reports: 10 or more systems reviewed and unremarkable except in HPI and below Const: Denies: fever(s), chills, fatigue or malaise Eyes: Denies: change in vision or blurry vision Card: Denies: chest pain or palpitations Resp: Reports: dyspnea, productive cough and wheezing GI: Denies: abdominal pain, nausea or vomiting : Denies: flank pain Musc: Denies: extremity pain or extremity swelling Skin/Breast: Denies: rash or pruritus Neuro: Denies: headache(s) Psych: Denies: anxiety or depression Cam/Lymph: Denies: easy bleeding All/Imm: Denies: urticaria, throat swelling or facial swelling [facility] ED PFSH: Medical History Acute exacerbation of chronic obstructive airways disease Aspiration pneumonia -as noted above Atrial fibrillation Atrial fibrillation and flutter Atrial fibrillation with RVR -on oral BB; digoxin -not on AC, presumably due to high fall risk Bronchopneumonia CHF (congestive heart failure) Chronic kidney disease CKD (chronic kidney disease) stage 3, GFR 30-59 ml/min COPD (chronic obstructive pulmonary disease) -acute COPD exacerbation secondary to pneumonia -as noted above -not oxygen dependent at baseline Dementia Diastolic heart failure Elevated troponin Respiratory failure with hypoxia and hypercapnia Currently discharged on 3 Ls oxygen Sepsis Urinary retention Surgical History Status post cystoscopy with ureteral stent placement Family History Mother , 84 No problems noted. Father , 80's No problems noted. Social History Quit status (tobacco): has quit using tobacco Year quit tobacco: 2018 [id number] Second hand smoke exposure: No Smoking risk assessment/counseling performed?: No Alcohol intake: never Caregiver/support person: Yes Lives independently: No Household members: none Housing: [facility] Marital status: Single service: No Current occupational status: retired Pets and animals: No History of recent travel: No Current gender identity: Male Physical Exam Const: COMMON NORMALS: patient oriented x3 and healthy appearing; apparent distress OTHER: Patient appears to be acute respiratory distress with an elevated respiratory rate expiratory wheezing appreciated with diminished breath sounds at bases HENMT: COMMON NORMALS: normocephalic and atraumatic HEAD & SCALP: normocephalic and atraumatic Eye: COMMON NORMALS: Equal, round and reactive pupils present and EOMs intact bilaterally PUPIL: Yes Equal, round and reactive pupils present Neck/C-Spine: COMMON NORMALS: full ROM, supple and no JVD Lymph: LYMPHATIC: no lymphadenopathy noted Chest: COMMONS NORMALS: normal inspection of the chest and normal palpation of entire chest wall Resp: OTHER: Expiratory wheezing noted bilaterally with diminished breath sounds appreciated bilaterally with significant tachypnea and the mid 30s appreciated Cardio: COMMON NORMALS: no JVD GI: COMMON NORMALS: Normal to inspection, nondistended, normoactive bowel sounds present, Soft to palpation and non-tender INSPECTION: Yes normal to inspection PALPATION: Yes Soft to palpation : COMMON NORMALS: Yes no CVA tenderness BLADDER/KIDNEY EXAM: Yes no CVA tenderness Back/Pelvis: COMMON NORMALS: no CVA tenderness Extremity: COMMON NORMALS: normal to inspection and full ROM Neuro: COMMON NORMALS: patient oriented x3, CN's II-XII intact bilaterally, moves all extremities and no focal motor deficits Psych: COMMON NORMALS: mental status grossly normal, Normal thought process present, cooperative and normal affect THOUGHT PROCESS: Normal thought process present Skin: COMMON NORMALS: no rashes or lesions noted GENERAL SKIN EXAM: no rashes or lesions noted Course Vital Signs: Vital signs: Vital Signs Temperature 99.7 F H 02/17/22 06:55 Pulse Rate 115 H 02/17/22 12:00 Respiratory Rate 24 H 02/17/22 11:01 Blood Pressure 126/82 02/17/22 12:00 Pulse Oximetry 93 02/17/22 12:00 MDM - SOB/Dyspnea Medical Decision Making Due to the patient due to patient symptom condition IV established labwork imaging obtained additional medication will provided for his respiratory component and underlying concerns of both cardiac versus respiratory are prominent we will continue to follow Discussed the patient's case with Dr. Oneil that is excepted the patient's case to medical telemetry. Patient remained in stable condition this time Lab Data : 02/17/22 06:53 02/17/22 06:53 Labs/Radiology: Radiology Impressions Chest X-Ray 02/17/22 07:05 Impression: Atherosclerosis. Chest/Abdomen/Pelvis CT 02/17/22 08:36 IMPRESSION: 1. No pulmonary embolism. 2. Patchy opacifications with volume loss in the lower lung tucker bilaterally. Most consistent with atelectasis. 3. Bronchial wall thickening with bilateral hilar and interlobar adenopathy. The largest lymph node on the RIGHT measures 2.1 cm. Suspect this is reactive adenopathy. 4. Chronic emphysema. 5. No evidence for pancreatitis. 6. No bile duct dilatation. 7. Bilobed abdominal aortic aneurysm. Largest aneurysmal dilatation is 4.7 x 3.9 cm. Aneurysm has increased in size since 07/21/2018. The largest aneurysm was 3.8 x 3.3 cm at that time. 8. Diverticulosis without acute diverticulitis. 9. Prostate gland enlargement. Laboratory Results WBC 22.0 10^3/uL (4.0-10.0) H 02/17/22 06:53 RBC 5.24 10^6/uL (4.1-5.3) 02/17/22 06:53 Hgb 15.8 g/dL (11.7-16.6) 02/17/22 06:53 Hct 49.4 % (42.0-52.0) 02/17/22 06:53 MCV 94.3 fl (80-94) H 02/17/22 06:53 MCH 30.2 pg (28.0-34.0) 02/17/22 06:53 MCHC 32.0 g/dL (30.0-36.0) 02/17/22 06:53 RDW 14.9 % (12.1-15.1) 02/17/22 06:53 Plt Count 152 10^3/cmm (130-400) 02/17/22 06:53 MPV 9.9 fL (7.4-10.4) 02/17/22 06:53 Neut % (Auto) 84.1 % 02/17/22 06:53 Lymph % (Auto) 6.7 % 02/17/22 06:53 [place] % (Auto) 8.2 % 02/17/22 06:53 Eos % (Auto) 0.0 % 02/17/22 06:53 Baso % (Auto) 0.3 % 02/17/22 06:53 Neut # (Auto) 18.53 10^3/uL (1.8-7.7) H 02/17/22 06:53 Lymph # (Auto) 1.5 10^3/uL (0.8-4.8) 02/17/22 06:53 [place] # (Auto) 1.8 10^3/uL (0.2-0.9) H 02/17/22 06:53 Eos # (Auto) 0.0 10^3/uL (0.0-0.8) 02/17/22 06:53 Baso # (Auto) 0.1 10^3/uL (0.0-0.1) 02/17/22 06:53 Nucleated RBC % (auto) 0 % 02/17/22 06:53 Nucleated RBCs # 0.0 /100WBC 02/17/22 06:53 Specimen Type Arterial 02/17/22 07:30 Sample Site Radial, right 02/17/22 07:30 ABG pH 7.31 (7.35-7.45) L 02/17/22 07:30 ABG pCO2 67.3 mmHg (35-45) H* 02/17/22 07:30 ABG pO2 61.3 mmHg (80.0-100.0) L 02/17/22 07:30 ABG HCO3 33.8 mmol/L (22-26) H 02/17/22 07:30 ABG Base Excess 4.9 mmol/L (-2.0-2.0) H 02/17/22 07:30 Jamari Test Pos 02/17/22 07:30 Hematocrit 47.2 % (42-52) 02/17/22 07:30 O2 Delivery Device Nc 02/17/22 07:30 O2 Liters/Min 4.0 % 02/17/22 07:30 Supervisor [employer] ID Corynja 02/17/22 07:30 Sodium 144 mmol/L (136-145) 02/17/22 06:53 Potassium 4.1 mmol/L (3.5-5.1) 02/17/22 06:53 Chloride 103 mmol/L (98-107) 02/17/22 06:53 Carbon Dioxide 34 mmol/L (22-29) H 02/17/22 06:53 Anion Gap 11.1 (5-19) 02/17/22 06:53 BUN 33 mg/dL (8-23) H 02/17/22 06:53 Creatinine 1.5 mg/dL (0.7-1.2) H 02/17/22 06:53 GFR Calculation Not Reportable 02/17/22 06:53 Glucose 112 mg/dL (65-115) 02/17/22 06:53 Calculated Osmolality 306 mOsm/kg (285-295) H 02/17/22 06:53 Lactic Acid 1.5 mmol/L (0.5-2.2) 02/17/22 07:18 Calcium 9.3 mg/dL (8.5-10.5) 02/17/22 06:53 Total Bilirubin 0.9 mg/dL (0.15-1.2) 02/17/22 06:53 AST 84 U/L (0-40) H 02/17/22 06:53 ALT 31 U/L (0-41) 02/17/22 06:53 Alkaline Phosphatase 105 IU/L (40-130) 02/17/22 06:53 Lactate Dehydrogenase 241 U/L (135-225) H 02/17/22 06:53 Troponin T Baseline 36 ng/L (0-15) H 02/17/22 06:53 Troponin T 120 Minute 28.45 ng/L (0-15) H 02/17/22 09:30 Delta Troponin T -7.55 ABS# (0-10) L 02/17/22 09:30 Troponin T Hi Sens 6Hr 25.36 ng/L (0-15) H 02/17/22 12:45 Troponin T Hi Sens 6Hr Delta -10.64 ng/L (0-12) L 02/17/22 12:45 C-Reactive Protein 273.0 mg/L (0.0-4.9) H 02/17/22 06:53 NT-Pro-B Natriuret Pep 1186 pg/mL (0-450) H 02/17/22 06:53 Total Protein 7.0 g/dL (6.6-8.7) 02/17/22 06:53 Albumin 4.0 g/dL (3.5-5.2) 02/17/22 06:53 Globulin 3.0 g/dL (1.3-4.6) 02/17/22 06:53 Lipase 166 U/L (13-60) H 02/17/22 06:53 Coronavirus 229E (PCR) Not detected (NOT DETECT) 02/17/22 06:55 SARS-CoV-2 (PCR) Not detected (NOT DETECT) 02/17/22 06:55 Discharge Plan Discharge Condition: Stable Prescriptions: No Action acetaminophen 325 mg Tablet 325 mg PO QID MDD 4000 mg PRN (Reason: Pain) 0RF magnesium hydroxide [Milk of Magnesia] 400 mg/5 mL Suspension 30 ml PO DAILY PRN (Reason: Constipation) 0RF tamsulosin 0.4 mg Capsule 0.4 mg PO BEDTIME@20 0RF bisacodyl 10 mg Suppository 10 mg NH DAILY PRN (Reason: Constipation) 0RF Enema 19-7 gram/118 mL Enema 118 ml NH DAILY PRN (Reason: Constipation) 0RF digoxin 125 mcg (0.125 mg) tablet 125 mcg PO DAILY@0800 0RF Rx Instructions: hold for pulse less than 60 metoprolol tartrate 25 mg tablet 25 mg PO BID@0800,2000 0RF Minerin Creme Cream 1 applic TOPICAL Q12H PRN (Reason: Itching) 0RF Rx Instructions: apply to back Combivent Respimat 20-100 mcg/actuation Mist 1 puff INHALATION Q6H PRN (Reason: Shortness Of Breath) 0RF Trelegy Ellipta 100-62.5-25 mcg Blister With Device 1 inh INHALATION DAILY@08 0RF Stool Softener-Laxative 8.6-50 mg Tablet 1 tab-cap PO DAILY PRN (Reason: Constipation) 0RF Mucinex Allergy 180 mg Tablet 180 mg PO BID@08,20 0RF Aspir-81 81 mg Tablet,Delayed Release (Dr/Ec) 81 mg PO DAILY@08 0RF Refresh 1 % Drops, Liquid Gel 1 drp OPHTHALMIC (EYE) BID@08,20 0RF Rx Instructions: each eye TwoCal HN 0.08-2 gram-kcal/mL Liquid 1 ea PO TID 0RF Referrals: Ivet Burnham MD [Primary Care Provider] - Coding Level of Care Code ED Red Lead Burner for Chg Fwd Exam Comprehensive
[2022-02-17 07:18] LABS: Basophils # 0.1 10^3/uL (0.0-0.1); Basophils % 0.3 %; Hematocrit 49.4 % (42.0-52.0); Hemoglobin 15.8 g/dL (11.7-16.6); Lymphocytes # 1.5 10^3/uL (0.8-4.8); Lymphocytes % 6.7 %; Mean Corpuscular Hemoglobin 30.2 pg (28.0-34.0); Mean Corpuscular Volume 94.3 fl (80-94); Mean Platelet Volume 9.9 fL (7.4-10.4); Monocytes # 1.8 10^3/uL (0.2-0.9); Monocytes % 8.2 %; Neutrophils # 18.53 10^3/uL (1.8-7.7); Neutrophils % 84.1 %; Nucleated Red Blood Cells % 0 %; Platelet Count 152 10^3/cmm (130-400); Red Blood Count 5.24 10^6/uL (4.1-5.3); Red Cell Distribution Width 14.9 % (12.1-15.1)
[2022-02-17 07:34] LABS: ABG PH Result 7.31 (7.35-7.45); Arterial Blood Gas Hematocrit 47.2 % (42-52); Base Excess ABG 4.9 mmol/L (-2.0-2.0); Blood Gas Allen Test Pos; Blood Gas Sample Site Radial, right; Blood Gas Sample Type Arterial; HCO3 ABG 33.8 mmol/L (22-26); Oxygen Device NC; PO2 ABG 61.3 mmHg (80.0-100.0)
[2022-02-17] MEDS: ipratropium-albuterol 3 mL Neb INHALATION ×2 (07:40→21:37)
[2022-02-17 07:44] LABS: Lactic Sepsis W/Reflex 1.5 mmol/L (0.5-2.2)
[2022-02-17 07:45] LABS: Troponin(5th) Baseline 36 ng/L (0-15)
--- NOTE | 2022-02-17 07:49 | PC.PHAR ---
pt is from [facility]-jaylyn nurse from [facility] states the pt had no medications or prn meds today
[2022-02-17 07:54] LABS: Alanine Aminotransferase 31 U/L (0-41); Alkaline Phosphatase 105 IU/L (40-130); Anion Gap 11.1 (5-19); Aspartate Amino Transferase 84 U/L (0-40); Blood Urea Nitrogen 33 mg/dL (8-23); Calcium 9.3 mg/dL (8.5-10.5); Carbon Dioxide 34 mmol/L (22-29); Chloride 103 mmol/L (98-107); Glucose 112 mg/dL (65-115); Lactate Dehydrogenase 241 U/L (135-225); Lipase 166 U/L (13-60); NT Pro B Type Natriuretic Pept 1186 pg/mL (0-450); Osmolality Calculated 306 mOsm/kg (285-295); Potassium 4.1 mmol/L (3.5-5.1); Sodium 144 mmol/L (136-145); Total Bilirubin 0.9 mg/dL (0.15-1.2)
--- NOTE | 2022-02-17 08:36 | CT_ITS ---
WS: [id number] CTA CHEST WITH CT ABDOMEN AND PELVIS. HISTORY: Elevated liver and pancreatic enzymes. TECHNIQUE: CT angiogram is performed through the chest. Additional imaging is performed through the a bdomen and pelvis with IV contrast. Sagittal and coronal reformats have been submitted. MIP imaging also reviewed. All CT scans at [facility] use at least one of these dose optimization techniqu es: automated exposure control; mA and/or kV adjustment per patient size (includes targeted exams whe re dose is matched to clinical indication); or iterative reconstruction. Contrast: Visipaque 95 cc IV. DLP: 1516.96 mGy.cm COMPARISON: 02/14/2020 and 07/21/2018 Chest CTA: Good opacification of the pulmonary arteries. There are no filling defects through the seg mental branches. Main pulmonary artery is normal size. Mild atherosclerosis aorta with no aneurysm. 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 Centrilobular emp hysema. Scattered bilateral greatest in the lower lobe areas of consolidation. Patchy consolidations with areas of atelectasis and volume loss. No pneumothorax. No significant pleural effusion. Bilatera l hilar and interlobar enlarged lymph nodes. The largest lymph node RIGHT hilar measures 2.1 cm. Slig htly greater bronchial wall thickening extending into the RIGHT lower lobe. These findings have mildl y progressed since 02/14/2020. Abdomen CT: Normal liver. Normal portal vein enhancement. Normal size spleen. Mild motion artifact th rough the gallbladder. No pancreatic abnormality. No adrenal mass. Extensive calcified plaque through out the aorta. The abdominal aorta is mildly dilated with a bilobed aneurysm. Juxtarenal aneurysm jhoan sures 3.6 x 3.3 cm with mild increase in size. Infrarenal aneurysm measures 4.7 x 3.9 cm. Extensive c alcification of the wall and there is a crescentic shape mural thickening. Mild atherosclerotic galdamez es at the origins of the celiac axis and SMA. There is a mild median arcuate deformity of the celiac artery but no occlusion. Renal arteries are both normally enhancing. RIGHT common iliac artery measur es 2.0 cm in diameter. Atherosclerosis with no aneurysm of the LEFT common iliac artery. No aortic ru pture. Kidneys are normally enhancing bilaterally. Nonobstructing 5 mm calcification LEFT kidney. No GI tract obstruction. Stomach is normal. No small bowel obstruction. No appendicitis. Numerous div erticula throughout the distal colon. Pelvic CT: Markedly distended urinary bladder. No significant wall thickening. Prostate gland is enla rged and heterogeneous. Central variable mild enhancement. Small ventral abdominal wall hernia at the umbilicus. CT/CT angio chest w abd pel w con IMPRESSION: 1. No pulmonary embolism. 2. Patchy opacifications with volume loss in the lower lung tucker bilaterally . Most consistent with atelectasis. 3. Bronchial wall thickening with bilateral hilar and interlobar adenopathy. T he largest lymph node on the RIGHT measures 2.1 cm. Suspect this is reactive ad enopathy. 4. Chronic emphysema. 5. No evidence for pancreatitis. 6. No bile duct dilatation. 7. Bilobed abdominal aortic aneurysm. Largest aneurysmal dilatation is 4.7 x 3 .9 cm. Aneurysm has increased in size since 07/21/2018. The largest aneurysm wa s 3.8 x 3.3 cm at that time. 8. Diverticulosis without acute diverticulitis. 9. Prostate gland enlargement.
--- NOTE | 2022-02-17 08:38 | PC.NURSE ---
PT PLACED ON CONTINUOUS NIBP, SPO2, AND CM
[2022-02-17] MEDS: cefTRIAXone 1,000 MG in sodium chloride 0.9% (plus) 50 ML 100 MG IV (08:55)
--- NOTE | 2022-02-17 09:07 | ECG_ITS ---
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 Measurements Intervals [place] Rate: 118 P: 76 [place]: 131 QRS: 57 QRSD: 84 T: 70 QT: 287 QTc: 403 Interpretive Statements SINUS TACHYCARDIA ABNORMAL RHYTHM ECG Compared to ECG 02/17/2022 07:05:33 T-wave abnormality no longer present Electronically Signed On 02-17-2022 17:18:34 CDT by Doyle Healy M.D. [id number]
[2022-02-17 09:23] LABS: Adenovirus Not Detected (NOT DETECT); Chlamydia Pneumoniae Not Detected (NOT DETECT); Coronavirus 229E,HKU1,NL63,OC4 Not Detected (NOT DETECT); Human Metapneumovirus Not Detected (NOT DETECT); Human Rhinovirus/Enterovirus Not Detected (NOT DETECT); Influenza A Not Detected (NOT DETECT); Influenza A H1 Not Detected (NOT DETECT); Influenza A H1-2009 Not Detected (NOT DETECT); Influenza A H3 Not Detected (NOT DETECT); Influenza B Not Detected (NOT DETECT); Mycoplasma Pneumoniae Not Detected (NOT DETECT); Parainfluenza Virus Type 1 Not Detected (NOT DETECT); Parainfluenza Virus Type 2 Not Detected (NOT DETECT); Parainfluenza Virus Type 3 Not Detected (NOT DETECT); Parainfluenza Virus Type 4 Not Detected (NOT DETECT); Respiratory Syncytial Virus A Not Detected (NOT DETECT); Respiratory Syncytial Virus B Not Detected (NOT DETECT); SARS-COV-2 Not Detected (NOT DETECT)
[2022-02-17 10:16] LABS: Troponin 5 2HR 28.45 ng/L (0-15)
[2022-02-17 10:19] LABS: Troponin 5 2HR Delta -7.55 ABS# (0-10)
[2022-02-17 11:47] LABS: ABG PCO2 67.3 mmHg (35-45)
--- NOTE | 2022-02-17 13:07 | ECG_ITS ---
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 Measurements Intervals [place] Rate: 116 P: 61 RI: 127 QRS: 60 QRSD: 84 T: 52 QT: 293 QTc: 409 Interpretive Statements SINUS TACHYCARDIA ABNORMAL RHYTHM ECG Compared to ECG 02/17/2022 10:38:13 No significant changes Electronically Signed On 02-17-2022 17:19:49 CDT by Doyle Healy M.D. [id number]
[2022-02-17 13:27] LABS: Troponin 5 6HR 25.36 ng/L (0-15)
[2022-02-17] MEDS: FUROsemide 10 mg/mL SDV 10mL 60 MG IVP (13:36)
--- NOTE | 2022-02-17 16:17 | P.HP_ITS ---
Providers/Chief Complaint Admitting Physician: Kristopher Bauman MD Primary Care Provider: Ivet Burnham MD Chief Complaint: SOB History of Present Illness History taken through chart review and evaluation through ER physician along with nursing staff at the correction. Luis Talavera is a 76 year old male with PMH of ?COPD, aspiration pneumonia, atrial fibrillation, chronic diastolic CHF, CKD, severe dementia with minimal verbal communication, correction resident who was sent into the SNF today because of worsening shortness of breath. Hospitalization to the nursing staff at correction patient was found today down on the floor in the bathroom. When asking about the patient was done on the floor he stated to the nursing staff that he was resting. Patient was thought to be in acute respiratory distress. As per nursing staff he has been requiring 2 to 3 L oxygen lately for last few days. In the ER at first patient was on nonrebreather mask but later after nebulization treatment and 40 mg of IV Lasix he was transitioned over to 4 L. Patient was seen in the ICU. Patient was sleepy but arousable. Not able to give any history. ABG done in the ER showed a pH of 7.31 with PCO2 of 67 which seems to be more than his baseline. Patient was placed on BiPAP. Review of Systems General: Reports: ROS unobtainable due to mental status Medications/Allergies Home Medications Medication Instructions Recorded Confirmed Last Taken Type acetaminophen 325 mg tablet 325 mg PO QID PRN MDD 4000 mg 01/24/20 02/17/22 12/26/20 01:20 History bisacodyl 10 mg rectal suppository 10 mg TN DAILY PRN 01/24/20 02/17/22 Unknown History magnesium hydroxide 400 mg/5 mL 30 ml PO DAILY PRN 01/24/20 02/17/22 Unknown History oral suspension (Milk of Magnesia) sodium phosphates 19 gram-7 118 ml TN DAILY PRN 01/24/20 02/17/22 Unknown History gram/118 mL enema (Enema) tamsulosin 0.4 mg capsule 0.4 mg PO BEDTIME@01/24/20 02/17/22 02/16/22 History digoxin 125 mcg (0.125 mg) tablet 125 mcg PO DAILY@0800 12/26/20 02/17/22 02/16/22 History metoprolol tartrate 25 mg tablet 25 mg PO BID@0800,199912/26/20 02/17/22 02/16/22 History fluticasone fur. 100 mcg-umeclid 1 inh INHALATION DAILY@11/21/21 02/17/22 02/16/22 History 62.5 mcg-vilant 25 mcg inhalat.powder (Trelegy Ellipta) ipratropium 20 mcg-albuterol 100 1 puff INHALATION Q6H PRN 11/21/21 02/17/22 Unknown History mcg/actuation mist for inhalation (Combivent Respimat) lanolin alcohols-mineral 1 applic TOPICAL Q12H PRN 11/21/21 02/17/22 Unknown History oil-w.petrolatum-ceresin topical cream (Minerin Creme) aspirin 81 mg tablet,delayed 81 mg PO DAILY@02/17/22 02/17/22 02/16/22 History release carboxymethylcellulose sodium 1 % 1 drp OPHTHALMIC (EYE) BID@,02/17/22 02/17/22 02/16/22 History eye liquid gel drops fexofenadine 180 mg tablet 180 mg PO BID@,02/17/22 02/17/22 02/16/22 History nut. tx, spec. form, 1 ea PO TID 02/17/22 02/17/22 Unknown History lac-free,iron-fos 0.08 gram-2 kcal/mL oral liquid (TwoCal HN) sennosides 8.6 mg-docusate sodium 1 tab-cap PO DAILY PRN 02/17/22 02/17/22 Unknown History 50 mg tablet (Stool Softener-Laxative) Allergies Allergy/AdvReac Type Severity Reaction Status Date / Time No Known Allergies Allergy Verified 02/17/22 07:36 PFSH Acute PFSH: Medical History (Updated 02/17/22 @ 22:34 by Kristopher Bauman MD) Acute exacerbation of chronic obstructive airways disease Aspiration pneumonia -as noted above Atrial fibrillation Atrial fibrillation and flutter Atrial fibrillation with RVR -on oral BB; digoxin -not on AC, presumably due to high fall risk Bronchopneumonia CHF (congestive heart failure) Chronic kidney disease CKD (chronic kidney disease) stage 3, GFR 30-59 ml/min COPD (chronic obstructive pulmonary disease) -acute COPD exacerbation secondary to pneumonia -as noted above -not oxygen dependent at baseline Dementia Diastolic heart failure Elevated troponin Respiratory failure with hypoxia and hypercapnia Currently discharged on 3 Ls oxygen Sepsis Urinary retention Urolithiasis Surgical History (Updated 02/17/22 @ 22:34 by Kristopher Bauman MD) S/P tonsillectomy Status post cystoscopy with ureteral stent placement Family History Mother , 84 No problems noted. Father , 80's No problems noted. Social History Quit status (tobacco): has quit using tobacco Year quit tobacco: 2017 [id number] Second hand smoke exposure: No Smoking risk assessment/counseling performed?: No Alcohol intake: never Caregiver/support person: Yes Lives independently: No Household members: none Housing: [facility] Marital status: Single service: No Current occupational status: retired Pets and animals: No History of recent travel: No Current gender identity: Male Vitals/I&O/Wt Last Vital Signs Temp 99.7 F H 02/17/22 06:55 Pulse 109 H 02/17/22 15:55 Resp 20 H 02/17/22 14:00 BP 117/72 02/17/22 15:00 Pulse Ox 92 02/17/22 15:55 02/17/22 02/17/22 02/17/22 06:59 14:59 22:59 Intake Total 50 / 50 Balance 50 / 50 Weight last 48 hrs Weight 68.492 kg Physical Exam Narrative: General: No acute distress, drowsy but arousable HEENT: PERRLA, pupils bilaterally equal and reactive Chest: Bilateral bronchial breath sounds, coarse breath sounds present in the right lower lobe, diffuse rhonchi over the lung tucker CVS: S1-S2 regular, no murmurs, no tachycardia, no gallops, no rubs Abdomen: Soft, nontender, no organomegaly, bowel sounds present Neuro: No focal deficits, no facial deformity, Data : 02/18/22 03:30 02/18/22 03:30 A&P Assessment and plan (1) Hypercapnic respiratory failure: Status: Acute (2) Acute exacerbation of chronic obstructive airways disease: Status: Acute (3) CHF (congestive heart failure): Status: Acute Qualifiers: Heart failure chronicity: chronic Heart failure type: diastolic Qualified Code(s): I50.32 - Chronic diastolic (congestive) heart failure (4) Atrial fibrillation: Status: Acute (5) DEBRA (acute kidney injury): Status: Acute Plan Acute hypercapnic respiratory failure secondary to COPD exacerbation along with mild CHF exacerbation. Cannot rule out underlying baseline aspiration pneumonia. CT chest abdomen pelvis results appreciated. Done in the ER. For now start patient on vancomycin and Zosyn as per creatinine clearance. Check MRSA swab, flu swab, COVID-19 PCR negative in the ER, sputum culture, blood culture, urine Legionella, bacterial antigen, urinalysis, urine culture if needed Will de-escalate as per culture results. Check swallow evaluation. DuoNebs every 6 hour, budesonide twice daily. Oxygen supplementation keeping saturation over 88%. Currently BiPAP. Repeat ABG in AM. Given Solu-Medrol 125 mg in the ER. For now continue 40 mg every 8 hours. BiPAP for now given hypercapnic respiratory failure. Repeat ABG in AM. Echocardiogram done in 2020 showed an EF 55 to 60%, no R WMA. CHF most likely secondary to diastolic dysfunction given history of atrial fibrillation. Already given Lasix in the ER. For now start patient on gentle IV hydration with normal saline 50 cc/h. Continue to monitor input output diligently. Hastings cath Acute kidney injury: Baseline creatinine 1.1-1.4. Most likely secondary to dehydration from poor oral intake given poor mentation. Gentle IV hydration as above. Medical reconciliation done for nephrotoxic drugs. Hold off on fluid for now. Check urine lites, urine creatinine. Given Lasix in the ER. For now hold off on further IV fluids or Lasix. Monitor BMP daily. Atrial fibrillation: Currently rate controlled. Continue with home dose of medications. Not on anticoagulation given history of fall and advanced age. CODE STATUS: DNR/DNI. During the charting from the correction. NPO. Protonix for PUD prophylaxis Lovenox 30 mg subcu daily for DVT prophylaxis. Attestations Medical Necessity Statement*: Admission for more than 2 midnights for management of hypercapnic respiratory failure secondary to COPD exacerbation, mild CHF exacerbation Time Spent in Patient Care: Greater than 35 minutes Coding Level of Care Code Acute Stain Wiper for [facility] Diagnoses Hypercapnic respiratory failure J96.92 Acute exacerbation of chronic obstructive airways disease J44.1 CHF (congestive heart failure) I50.32 Heart failure chronicity: chronic Heart failure type: diastolic Atrial fibrillation I48.91 DEBRA (acute kidney injury) N17.9
[2022-02-17 17:12] LABS: D Dimer 1.89 ug/mIFEU (0-0.59)
[2022-02-17 17:14] LABS: Procalcitonin 1.21 ng/mL (0-0.5)
[2022-02-17] MEDS: enoxaparin 30 mg/0.3 mL Syringe SUBCUT (17:15)
[2022-02-17] MEDS: piperacillin-tazobactam 3.375 GM in sodium chloride 0.9% (plus) 50 ML IV (17:15)
[2022-02-17 17:21] LABS: Thyroid Stimulating Hormone 0.57 uIU/mL (0.27-4.20); Vitamin B12 1064 pg/mL (232-1245)
[2022-02-17 17:32] LABS: Iron 9 ug/dL (59-158); Percent Saturation 4.3 % (20-50); Total Iron Binding Capacity 206 mcg/dl; Unsaturated Iron Binding 197 ug/dL (112-347)
[2022-02-17] MEDS: vancomycin 1,000 MG in sodium chloride 0.9% 250 ML 250 MG IV (17:57)
[2022-02-17 18:31] LABS: Add Urine Culture? No; Add Urine Microscopic? YES; Amorphous Sediment Urine 1+ /hpf; Bilirubin Urine Neg (Negative); Blood Urine 3+ (Negative); Glucose Urine UA Norm (Normal); Hyaline Casts Urine 0-4 /lpf; Ketones Urine Negative (Negative); Leukocyte Esterase Urine Negative (Negative); Nitrate Urine Negative (Negative); Protein Urine Neg (Negative); RBC Urine 0-4 /hpf (0-2); Squamous Epithelial Cell Urine 0-4 /hpf (0-5); Urine Appearance Clear (CLEAR); Urine Color Yellow (Yellow); Urobilinogen Urine Norm (Negative); WBC Urine 0-4 /hpf (0-5); pH Urine 5 (5-7)
[2022-02-17 18:34] LABS: Potassium, Radom Urine 34 mmol/L; Urine Random Chloride 99 mmol/L; Urine Random Sodium 87 mmol/L
[2022-02-17 18:42] LABS: Folate Level 19.8 ng/mL (4.5-32.2)
[2022-02-17] MEDS: famotidine 20 mg/2 mL INJ IVP (19:39)
[2022-02-17] MEDS: metoprolol tartrate 25 mg Tablet PO (19:39)
[2022-02-17] MEDS: tamsulosin 0.4 mg Capsule PO (19:40)
[2022-02-17] MEDS: budesonide 0.5 mg/2 mL Neb INHALATION (21:37)
[2022-02-17 22:55] LABS: Creatinine Urine, Random 63 mg/dL (39-259)
[2022-02-18] VITALS (34 sets, daily range): BP systolic 103–131; BP diastolic 59–76; PULSE 69–124; RESP 16–30; TEMP 36.4–37; O2SAT 85–99
[2022-02-18] MEDS: piperacillin-tazobactam 3.375 GM in sodium chloride 0.9% (plus) 50 ML IV ×3 (02:12→18:03)
[2022-02-18] MEDS: sodium chloride 0.9% 1,000 ML 50 ML IV (02:17)
[2022-02-18] MEDS: ipratropium-albuterol 3 mL Neb INHALATION ×4 (02:52→20:38)
[2022-02-18 04:37] LABS: Basophils % 0.1 %; Hematocrit 46.5 % (42.0-52.0); Hemoglobin 14.6 g/dL (11.7-16.6); Lymphocytes # 0.8 10^3/uL (0.8-4.8); Lymphocytes % 6.2 %; Mean Corpuscular HGB Conc 31.4 g/dL (30.0-36.0); Mean Corpuscular Hemoglobin 29.4 pg (28.0-34.0); Mean Corpuscular Volume 93.6 fl (80-94); Mean Platelet Volume 10.2 fL (7.4-10.4); Monocytes # 0.7 10^3/uL (0.2-0.9); Monocytes % 4.8 %; Neutrophils # 11.99 10^3/uL (1.8-7.7); Neutrophils % 88.4 %; Nucleated Red Blood Cells % 0 %; Platelet Count 157 10^3/cmm (130-400); Red Blood Count 4.97 10^6/uL (4.1-5.3); Red Cell Distribution Width 14.7 % (12.1-15.1); White Blood Count 13.6 10^3/uL (4.0-10.0)
[2022-02-18 05:04] LABS: Alanine Aminotransferase 33 U/L (0-41); Albumin Level 3.6 g/dL (3.5-5.2); Alkaline Phosphatase 91 IU/L (40-130); Anion Gap 12.8 (5-19); Aspartate Amino Transferase 66 U/L (0-40); Blood Urea Nitrogen 43 mg/dL (8-23); Calcium 9.1 mg/dL (8.5-10.5); Carbon Dioxide 35 mmol/L (22-29); Chloride 100 mmol/L (98-107); Chol HDL Ratio 2.91 mg/dL (1.0-5.00); Cholesterol 163 mg/dL (0-200); Globulin 3.4 g/dL (1.3-4.6); Glucose 152 mg/dL (65-115); HDL Cholesterol 56 mg/dL (60-100); LDL Cholesterol Calculated 86 mg/dL (50-129); Magnesium 2.3 mg/dL (1.7-2.3); Osmolality Calculated 312 mOsm/kg (285-295); Phosphorus 2.2 mg/dL (2.5-4.5); Potassium 3.8 mmol/L (3.5-5.1); Sodium 144 mmol/L (136-145); Total Bilirubin 0.7 mg/dL (0.15-1.2); Triglycerides 103 mg/dL (0-150); VLDL Cholestrol Calculation 21 mg/dL (0-30)
[2022-02-18 05:15] LABS: Estmated Average Glucose 105; Hemoglobin A1C 5.3 % (4.0-6.0)
--- NOTE | 2022-02-18 05:34 | PC.NURSE ---
Addendum entered by Annel Vitale RN 02/18/22 07:34: Wrong patient Original Note: Family took patient belongings home 7
--- NOTE | 2022-02-18 05:36 | PC.NURSE ---
Patient 02/18/22 at 004
[2022-02-18] MEDS: aspirin 81 mg EC Tablet PO (08:21)
[2022-02-18] MEDS: budesonide 0.5 mg/2 mL Neb INHALATION ×2 (08:21→20:37)
[2022-02-18] MEDS: digoxin 125 mcg Tablet PO (08:21)
[2022-02-18] MEDS: famotidine 20 mg/2 mL INJ IVP ×2 (08:21→20:42)
[2022-02-18] MEDS: metoprolol tartrate 25 mg Tablet PO ×2 (08:40→20:05)
[2022-02-18 08:50] LABS: ABG PCO2 58.7 mmHg (35-45); ABG PH Result 7.36 (7.35-7.45); Arterial Blood Gas Hematocrit 44.3 % (42-52); Base Excess ABG 5.3 mmol/L (-2.0-2.0); Blood Gas Operator Identificat GD; Blood Gas Sample Site Brachial, right; Blood Gas Sample Type Arterial; Carboxyhemoglobin 0.9 %THgb (0.4-20.1); HCO3 ABG 32.7 mmol/L (22-26); HGB O2 Sat 90.3 % (95-100); Ionized Calcium Level - ABG 1.1 mmol/L (1.1-1.4); Methemoglobin 0.7 % (0.4-1.5); Oxygen Device NC; Oxygen Saturation ABG 91.9; Potassium Level - ABG 4.1 mmol/L (3.5-5.0); Total Hemoglobin 14.4 g/dL (14-18)
[2022-02-18 11:44] LABS: Digoxin 1.3 ng/mL (0.6-1.2)
[2022-02-18 11:56] LABS: Creatine Phosphokinase 1270 U/L (39-308)
--- NOTE | 2022-02-18 12:04 | PC.NURSE ---
Critical CK 9090 called from lab, MELANI Hernandez called Dr. Bauman and reported the critical.
--- NOTE | 2022-02-18 12:07 | PC.NURSE ---
Verbal orders: NS increased from 50ml/hr to 75ml/hr per Dr. Bauman's verbal orders. Verbal order to hold Digoxin received as well.
--- NOTE | 2022-02-18 13:56 | PC.NURSE ---
Lab called and reported that the patient's MRSA PCR swab from his nose came back positive. I called Dr. Bauman and reported the positive lab result.
--- NOTE | 2022-02-18 14:19 | PM.PN ---
Subjective Subjective: Overnight patient remained on BiPAP. Today morning ABG showed resolution of hypercapnia. Patient sitting up in bed on 3 L nasal cannula, awake and alert. Able to have complete conversation. Seems to be at his baseline mentation. Able to eat well. Continue to remain on gentle hydration overnight. No signs of congestive heart failure. Leukocyte trending down. Has remained hemodynamically stable and afebrile. Vitals/I&O/Wt Last Vital Signs Temp 98.6 F 02/18/22 07:30 Pulse 88 02/18/22 12:00 Resp 28 H 02/18/22 12:00 BP 106/62 02/18/22 12:00 Pulse Ox 90 02/18/22 12:00 02/17/22 02/18/22 02/18/22 22:59 06:59 14:59 Intake Total 450 / 500 400 / 900 1049.667 / 1049.667 Output Total 600 / 600 700 / 1300 Balance -150 / -100 -300 / -400 1049.667 / 1049.667 Weight last 48 hrs Weight 68.492 kg Weight 68.492 kg Physical Exam Narrative: General: No acute distress, awake and alert on nasal cannula HEENT: PERRLA, pupils bilaterally equal and reactive Chest: Bilateral bronchial breath sounds, coarse breath sounds present in the right lower lobe, diffuse rhonchi over the lung tucker CVS: S1-S2 regular, no murmurs, no tachycardia, no gallops, no rubs Abdomen: Soft, nontender, no organomegaly, bowel sounds present Neuro: No focal deficits, no facial deformity, Urinary Catheter Management: Hastings: Cath Placed During This Visit: yes Reason for Continuing Indwelling Catheter: Acute Urinary Retention or Obstruction Urinary Catheter Date of Insertion: 02/17/22 Urinary Catheter Time of Insertion: 17:58 Data : 02/18/22 03:30 02/18/22 03:30 Micro: Microbiology 02/17/22 17:10 MRSA Culture - Final Nose 02/17/22 17:10 Legionella Urinary Antigen - Final Urine Catheterized A&P Assessment and plan (1) Hypercapnic respiratory failure: Status: Acute (2) Acute exacerbation of chronic obstructive airways disease: Status: Acute (3) CHF (congestive heart failure): Status: Acute Qualifiers: Heart failure type: diastolic Heart failure chronicity: chronic Qualified Code(s): I50.32 - Chronic diastolic (congestive) heart failure (4) Atrial fibrillation: Status: Acute (5) DEBRA (acute kidney injury): Status: Acute (6) Dementia: Status: Acute Qualifiers: Dementia type: unspecified type Dementia behavioral disturbance: without behavioral disturbance Qualified Code(s): F03.90 - Unspecified dementia without behavioral disturbance Plan Acute hypercapnic respiratory failure secondary to COPD exacerbation. Cannot rule out underlying baseline aspiration pneumonia. CT chest abdomen pelvis results appreciated. Done in the ER. Vancomycin and Zosyn as per creatinine clearance. Will de-escalate as per culture results. MRSA swab positive, flu swab pending, COVID-19 PCR negative in the ER, Sputum culture, blood culture pending, Urine Legionella, bacterial antigen negative Check swallow evaluation. DuoNebs every 6 hour, budesonide twice daily. Oxygen supplementation keeping saturation over 88%. Currently BiPAP. Repeat ABG in AM. For now continue Solumedrol IV 40 mg every 8 hours. BiPAP QHS. Echocardiogram done in 2020 showed an EF 55 to 60%, no R WMA. CHF most likely secondary to diastolic dysfunction given history of atrial fibrillation. For now start patient on gentle IV hydration with normal saline 75 cc/h. Continue to monitor input output diligently. Hastings cath Acute kidney injury: Baseline creatinine 1.1-1.4. Most likely secondary to dehydration from poor oral intake given poor mentation. Slightly worse today. Give Lasix in ER. Gentle IV hydration as above. Check CPK. Given fall and high suspicion for rhabdomyolysis. Medical reconciliation done for nephrotoxic drugs. Monitor BMP daily. Atrial fibrillation: Currently rate controlled. Continue with home dose of medications. Check digoxin level. Given DEBRA will have to monitor closely. Not on anticoagulation given history of fall and advanced age. CODE STATUS: DNR/DNI. During the charting from the snf. Mechanical soft. Protonix for PUD prophylaxis Lovenox 30 mg subcu daily for DVT prophylaxis. PT evaluation. Discharge planning: Plan to discharge back to SNF once medically stable. Attestations Medical Necessity Statement*: Requires further hospitalization for management of hypercapnic respiratory failure secondary to COPD exacerbation, possible aspiration pneumonia, acute kidney injury Time Spent in Patient Care: Greater than 35 minutes Coding Level of Care Code Acute Collections Assistant for [facility] Diagnoses Hypercapnic respiratory failure J96.92 Acute exacerbation of chronic obstructive airways disease J44.1 CHF (congestive heart failure) I50.32 Heart failure type: diastolic Heart failure chronicity: chronic Atrial fibrillation I48.91 DEBRA (acute kidney injury) N17.9 Dementia F03.90 Dementia type: unspecified type Dementia behavioral disturbance: without behavioral disturbance
--- NOTE | 2022-02-18 15:15 | PC.NURSE ---
Transfer: Patient transferred to 2nd floor at approximately 1510. Patient resting comfortably in bed on 5L NC with NS infusing at 50ml/hr. Patient chart left with staff at assistant front office manager.
[2022-02-18] MEDS: vancomycin 1,000 MG in sodium chloride 0.9% 250 ML 250 MG IV (17:43)
[2022-02-18] MEDS: sodium chloride 0.9% 1,000 ML 75 ML IV (17:45)
[2022-02-18] MEDS: enoxaparin 30 mg/0.3 mL Syringe SUBCUT (17:45)
[2022-02-18] MEDS: tamsulosin 0.4 mg Capsule PO (20:05)
[2022-02-19] VITALS (14 sets, daily range): BP systolic 110–138; BP diastolic 62–69; PULSE 74–102; RESP 16–20; TEMP 35.9–36.9; O2SAT 94–97
[2022-02-19] MEDS: piperacillin-tazobactam 3.375 GM in sodium chloride 0.9% (plus) 50 ML IV ×3 (00:14→17:38)
[2022-02-19] MEDS: ipratropium-albuterol 3 mL Neb INHALATION ×4 (03:34→20:16)
[2022-02-19 05:44] LABS: Basophils % 0.1 %; Hematocrit 40.7 % (42.0-52.0); Hemoglobin 12.9 g/dL (11.7-16.6); Lymphocytes # 0.6 10^3/uL (0.8-4.8); Lymphocytes % 4.1 %; Mean Corpuscular HGB Conc 31.7 g/dL (30.0-36.0); Mean Corpuscular Hemoglobin 29.2 pg (28.0-34.0); Mean Corpuscular Volume 92.1 fl (80-94); Monocytes # 0.5 10^3/uL (0.2-0.9); Monocytes % 3.4 %; Neutrophils # 13.73 10^3/uL (1.8-7.7); Neutrophils % 91.7 %; Nucleated Red Blood Cells % 0 %; Platelet Count 164 10^3/cmm (130-400); Red Blood Count 4.42 10^6/uL (4.1-5.3); Red Cell Distribution Width 14.5 % (12.1-15.1)
[2022-02-19 06:18] LABS: Creatine Phosphokinase 1195 U/L (39-308)
[2022-02-19 06:27] LABS: Alanine Aminotransferase 35 U/L (0-41); Alkaline Phosphatase 74 IU/L (40-130); Aspartate Amino Transferase 52 U/L (0-40); Blood Urea Nitrogen 44 mg/dL (8-23); Calcium 7.9 mg/dL (8.5-10.5); Carbon Dioxide 30 mmol/L (22-29); Chloride 106 mmol/L (98-107); Globulin 2.6 g/dL (1.3-4.6); Glucose 142 mg/dL (65-115); Osmolality Calculated 310 mOsm/kg (285-295); Sodium 143 mmol/L (136-145); Total Bilirubin 0.8 mg/dL (0.15-1.2); Total Protein 5.6 g/dL (6.6-8.7)
[2022-02-19] MEDS: sodium chloride 0.9% 1,000 ML 75 ML IV ×2 (06:39→20:13)
[2022-02-19] MEDS: aspirin 81 mg EC Tablet PO (08:31)
[2022-02-19] MEDS: famotidine 20 mg/2 mL INJ IVP (08:31)
[2022-02-19] MEDS: metoprolol tartrate 25 mg Tablet PO ×2 (08:31→20:13)
[2022-02-19] MEDS: budesonide 0.5 mg/2 mL Neb INHALATION ×2 (09:02→19:56)
--- NOTE | 2022-02-19 11:52 | P.PN_ITS ---
Subjective Subjective: No acute vents overnight. [facility] He is awake and alert sitting at bedside. Able to complete conversation. Currently on 4 L satting 95%. Denies any nausea, vomiting, headache. Complaining of pain in third toe of right foot. On examination seems to have slight near subluxation with subungual hematoma. Vitals/I&O/Wt Last Vital Signs Temp 98.1 F 02/19/22 07:43 Pulse 99 02/19/22 09:16 Resp 16 02/19/22 09:05 BP 112/69 02/19/22 07:43 Pulse Ox 95 02/19/22 09:05 02/18/22 02/19/22 02/19/22 22:59 06:59 14:59 Intake Total 792.5 / 2715.659 8427.5 / 2909.667 240 / 240 Balance 792.5 / 9851.194 4879.5 / 2909.667 240 / 240 Weight last 48 hrs Weight 76.402 kg Weight 68.492 kg Physical Exam Narrative: General: No acute distress, awake and alert on nasal cannula HEENT: PERRLA, pupils bilaterally equal and reactive Chest: Bilateral bronchial breath sounds, coarse breath sounds present in the right lower lobe, diffuse rhonchi over the lung tucker CVS: S1-S2 regular, no murmurs, no tachycardia, no gallops, no rubs Abdomen: Soft, nontender, no organomegaly, bowel sounds present Neuro: No focal deficits, no facial deformity, Urinary Catheter Management: Hsatings: Cath Placed During This Visit: yes Reason for Continuing Indwelling Catheter: Other Urinary Catheter Date of Insertion: 02/17/22 Urinary Catheter Time of Insertion: 17:58 Data : 02/19/22 05:19 02/19/22 05:19 Micro: Microbiology 02/18/22 Unknown Gram Stain - Final Sputum - Expectorated Sputum Sputum Culture - Preliminary 02/17/22 17:10 Bacterial Antigens - Final Urine Kidney 02/17/22 17:10 MRSA Culture - Final Nose A&P Assessment and plan (1) Hypercapnic respiratory failure: Status: Acute (2) Acute exacerbation of chronic obstructive airways disease: Status: Acute (3) CHF (congestive heart failure): Status: Acute Qualifiers: Heart failure type: diastolic Heart failure chronicity: chronic Qualified Code(s): I50.32 - Chronic diastolic (congestive) heart failure (4) Atrial fibrillation: Status: Acute (5) DEBRA (acute kidney injury): Status: Acute (6) Dementia: Status: Acute Qualifiers: Dementia type: unspecified type Dementia behavioral disturbance: without behavioral disturbance Qualified Code(s): F03.90 - Unspecified dementia without behavioral disturbance Plan Acute hypercapnic respiratory failure secondary to COPD exacerbation. Cannot rule out underlying baseline aspiration pneumonia. CT chest abdomen pelvis results appreciated. Done in the ER. Vancomycin and Zosyn as per creatinine clearance. Will de-escalate as per culture results. MRSA swab positive, flu swab pending, COVID-19 PCR negative in the ER, Sputum culture, blood culture pending, Urine Legionella, bacterial antigen negative Check swallow evaluation. DuoNebs every 6 hour, budesonide twice daily. Oxygen supplementation keeping saturation over 88%. Currently BiPAP. Repeat ABG in AM. Wean down Solumedrol IV to 40 mg twice daily BiPAP QHS. Echocardiogram done in 2020 showed an EF 55 to 60%, no R WMA. CHF most likely secondary to diastolic dysfunction given history of atrial fibrillation. For now start patient on gentle IV hydration with normal saline 75 cc/h. Continue to monitor input output diligently. Hastings cath Acute kidney injury: Baseline creatinine 1.1-1.4. Most likely secondary to dehydration from poor oral intake given poor mentation. Slightly worse today. Give Lasix in ER. Gentle IV hydration as above. Check CPK. Given fall and high suspicion for rhabdomyolysis. Medical reconciliation done for nephrotoxic drugs. Monitor BMP daily. Atrial fibrillation: Currently rate controlled. Continue with home dose of medications. Check digoxin level. Given DEBRA will have to monitor closely. Not on anticoagulation given history of fall and advanced age. CODE STATUS: DNR/DNI. [facility]. Mechanical soft. Protonix for PUD prophylaxis Lovenox 30 mg subcu daily for DVT prophylaxis. PT evaluation. Discharge planning: Plan to discharge back to SNF once medically stable. Plan for the day: Continue with vancomycin and Zosyn. Patient is MRSA positive. Follow sputum culture. Follow-up flu swab which is still pending. Wean down Solu-Medrol to 40 mg twice daily. Continue with gentle IV hydration but decrease the rate to 50 cc/h while monitoring for fluid overload. Creatinine back to baseline. Repeat digoxin level in a.m. Hold off digoxin for now. Will restart as per digoxin levels. Right foot x-ray to rule out toe fracture. Wound care. Follow-up swallow e valuation. Attestations Medical Necessity Statement*: Requested hospitalization for management of hypercapnic respiratory failure secondary COPD exacerbation in setting of possible aspiration pneumonia, acute kidney injury Time Spent in Patient Care: Greater than 35 minutes Coding Level of Care Code Acute Lieutenant Colonel for [facility] Diagnoses Hypercapnic respiratory failure J96.92 Acute exacerbation of chronic obstructive airways disease J44.1 CHF (congestive heart failure) I50.32 Heart failure type: diastolic Heart failure chronicity: chronic Atrial fibrillation I48.91 DEBRA (acute kidney injury) N17.9 Dementia F03.90 Dementia type: unspecified type Dementia behavioral disturbance: without behavioral disturbance
--- NOTE | 2022-02-19 11:53 | XRR_ITS ---
PROCEDURE INFORMATION: Exam: XR Right Foot Exam date and time: 02/19/2022 1:16 PM Age: 76 years old Clinical indication: Pain; Foot; Right; Additional info: Toe pain after fall TECHNIQUE: Imaging protocol: Radiologic exam of the Right foot. Views: 1 or 2 views. COMPARISON: No relevant prior studies available. FINDINGS: Bones/joints: Osseous structures are intact. Negative for fracture. Joint spaces are preserved. Soft tissues: Normal. XR/XR foot RT 2V [id number] IMPRESSION: No acute findings.
[2022-02-19 12:32] LABS: Digoxin 0.8 ng/mL (0.6-1.2)
[2022-02-19] MEDS: enoxaparin 30 mg/0.3 mL Syringe SUBCUT (17:39)
[2022-02-19] MEDS: vancomycin 1,000 MG in sodium chloride 0.9% 250 ML 250 MG IV (18:20)
[2022-02-19] MEDS: tamsulosin 0.4 mg Capsule PO (20:13)
[2022-02-19] MEDS: famotidine 20 mg Tablet PO (20:14)
[2022-02-20] VITALS (8 sets, daily range): BP systolic 132–156; BP diastolic 65–82; PULSE 79–114; RESP 17–20; TEMP 36.4–36.8; O2SAT 92–97
[2022-02-20] MEDS: piperacillin-tazobactam 3.375 GM in sodium chloride 0.9% (plus) 50 ML IV ×2 (01:53→08:42)
[2022-02-20] MEDS: ipratropium-albuterol 3 mL Neb INHALATION ×2 (03:06→08:53)
[2022-02-20 04:41] LABS: Basophils % 0.2 %; Hematocrit 39.6 % (42.0-52.0); Hemoglobin 12.7 g/dL (11.7-16.6); Lymphocytes # 0.7 10^3/uL (0.8-4.8); Lymphocytes % 6.6 %; Mean Corpuscular HGB Conc 32.1 g/dL (30.0-36.0); Mean Corpuscular Hemoglobin 29.6 pg (28.0-34.0); Mean Corpuscular Volume 92.3 fl (80-94); Mean Platelet Volume 9.6 fL (7.4-10.4); Monocytes # 0.6 10^3/uL (0.2-0.9); Monocytes % 5.8 %; Neutrophils # 9.64 10^3/uL (1.8-7.7); Neutrophils % 86.9 %; Nucleated Red Blood Cells % 0 %; Platelet Count 156 10^3/cmm (130-400); Red Blood Count 4.29 10^6/uL (4.1-5.3); Red Cell Distribution Width 14.6 % (12.1-15.1); White Blood Count 11.1 10^3/uL (4.0-10.0)
[2022-02-20 05:05] LABS: Alanine Aminotransferase 35 U/L (0-41); Alkaline Phosphatase 59 IU/L (40-130); Anion Gap 10.2 (5-19); Aspartate Amino Transferase 40 U/L (0-40); Blood Urea Nitrogen 37 mg/dL (8-23); Calcium 7.9 mg/dL (8.5-10.5); Carbon Dioxide 29 mmol/L (22-29); Chloride 110 mmol/L (98-107); Globulin 2.4 g/dL (1.3-4.6); Glucose 116 mg/dL (65-115); Osmolality Calculated 310 mOsm/kg (285-295); Potassium 4.2 mmol/L (3.5-5.1); Sodium 145 mmol/L (136-145); Total Protein 5.4 g/dL (6.6-8.7)
[2022-02-20 05:06] LABS: Digoxin 0.8 ng/mL (0.6-1.2)
[2022-02-20] MEDS: haloperidol inj 5 mg/mL INJ 1 mL 1 MG IM (06:00)
[2022-02-20 06:06] LABS: Influenza A by IFA Negative (Negative); Influenza B by IFA Negative (Negative)
--- NOTE | 2022-02-20 06:08 | PC.NURSE ---
pt agitation pt has become increasingly confused over the coarse of the shift, pulling at catheter tube, removing stat lock twice, pulled peripheral iv twice, telemetry removed, and has had to be encouraged to wear his 4L NC since he is continuing to remove it as well. pt now refusing oxygen, telemetry, iv and is agitated. dr borges notified, verbal order for 1mg IM haldol once time. medication administered. will continue to monitor and attempt to reapply o2 and replace tubes and wires.
[2022-02-20] MEDS: metoprolol tartrate 25 mg Tablet PO (08:41)
[2022-02-20] MEDS: famotidine 20 mg Tablet PO (08:42)
[2022-02-20] MEDS: aspirin 81 mg EC Tablet PO (08:42)
[2022-02-20] MEDS: sodium chloride 0.9% 1,000 ML 75 ML IV (08:42)
[2022-02-20] MEDS: budesonide 0.5 mg/2 mL Neb INHALATION (08:53)
--- NOTE | 2022-02-20 11:15 | PC.SOCIAL ---
IMM UPDATED IMM dated and initialed and copy given to patient and placed in chart
--- NOTE | 2022-02-20 12:34 | P.DS_ITS ---
Discharge Providers Date of Admission: 02/17/22 13:53 Date of Discharge: February 20, 2022 Attending Provider at Admission: Kristopher Bauman MD Attending Provider at Discharge: Frank Lane MD Primary Care Provider: Ivet Burnham MD Diagnoses at Discharge Discharge Diagnosis (1) Hypercapnic respiratory failure: Status: Acute (2) Acute exacerbation of chronic obstructive airways disease: Status: Acute (3) CHF (congestive heart failure): Status: Acute Qualifiers: Heart failure chronicity: chronic Heart failure type: diastolic Qualified Code(s): I50.32 - Chronic diastolic (congestive) heart failure (4) Atrial fibrillation: Status: Acute (5) DEBRA (acute kidney injury): Status: Acute (6) Dementia: Status: Acute Qualifiers: Dementia behavioral disturbance: without behavioral disturbance Dementia type: unspecified type Qualified Code(s): F03.90 - Unspecified dementia without behavioral disturbance Reason for Visit Reason for Visit: SOB Hospital Course Hospital Course HPI: Kristopher Bauman MD Luis Talavera is a 76 year old male with PMH of??COPD, aspiration pneumonia, atrial fibrillation, chronic diastolic CHF, CKD, severe dementia with minimal v erbal communication, [facility] who was [facility] into the SNF today because of worsening shortness of breath.? [facility] to [facility] staff at [facility] patient was found today down on the floor in the bathroom.? When asking about the patient was done on the floor he stated to the nursing staff that he was resting.? Patient was thought to be in acute respiratory distress.? As per nursing staff he has been requiring 2 to 3 L oxygen lately for last few days. In the ER at first patient was on nonrebreather mask but later after nebulization treatment and 40 mg of IV Lasix he was transitioned over to 4 L.. Hospital course: Patient was admitted for the management of: Acute hypercapnic respiratory failure secondary to COPD exacerbation along with mild CHF exacerbation.? Cannot rule out underlying baseline aspiration pneumonia. Patient was kept on broad-spectrum antibiotics: IV steroids, DuoNebs, supplemental oxygen as needed, Blood cultures were negative, sputum culture: Negative at the time of discharge, MRSA culture was positive, Urine Legionella antigen negative bacterial negative, COVID PCR was negative , influenza was negative ,CT angio chest w abd pel w con: No pulmonary embolism. Patchy opacifications with volume loss in the lower lung tucker bilaterally. Most consistent with atelectasis. Bronchial wall thickening with bilateral hilar and interlobar adenopathy. The largest lymph node on the RIGHT measures 2.1 cm. Suspect this is reactive adenopathy..?Bilobed abdominal aortic aneurysm. Largest aneurysmal dilatation is 4.7 x 3.9 cm. Aneurysm has increased in size since 07/21/2018. The largest aneurysm was 3.8 x 3.3 cm at that time. He was also managed for DEBRA: Responded well to IV hydration, at the time of disc harge his serum creatinine was normalized. Overall patient responded well to above medical management, at the time of discharge he was hemodynamically stable, afebrile, saturating well on 2 L oxygen through nasal cannula, for his history of A. fib he was continued on digoxin and metoprolol. Patient was [facility] condition to [facility], he will continue to follow primary care physician as an outpatient. Physical Exam Const: COMMON NORMALS: patient oriented x3 HENMT: COMMON NORMALS: normocephalic and atraumatic HEAD & SCALP: normocephalic and atraumatic Resp: COMMON NORMALS: clear to auscultation bilaterally EFFORT & INSPECTION: Yes symmetric chest movement AUSCULTATION: clear to auscultation bilaterally Cardio: COMMON NORMALS: regular rate, regular rhythm, S1 normal heart sound present, S2 normal heart sound present, No gallops present (Cardio), No murmurs present (Cardio), No rub (Cardio) and Peripheral pulses 2+ throughout RATE: regular rate RHYTHM: regular rhythm HEART SOUNDS: S1 normal heart sound present and S2 normal heart sound present PERIPHERAL PULSES: Peripheral pulses 2+ throughout GI: COMMON NORMALS: Normal to inspection, nondistended, normoactive bowel sounds present, Soft to palpation, non-tender, No hepatosplenomegaly present and no masses AUSCULTATION: Yes normoactive bowel sounds PALPATION: Yes Soft to palpation and Yes No hepatosplenomegaly present RECTAL EXAM: Yes deferred Extremity: COMMON NORMALS: no clubbing, cyanosis or edema and no pedal edema Neuro: COMMON NORMALS: patient oriented x3 Urinary Catheter Management: [place]: Cath Placed During This Visit: yes Reason for Continuing Indwelling Catheter: Other Urinary Catheter Date of Insertion: 02/17/22 Urinary Catheter Time of Insertion: 17:58 Discharge Data Studies Completed and Pending Completed Studies During Hospitalization Category Date Time Status CT angio chest w abd pel w con Urgent Cat Scan 02/17/22 08:36 Completed XR chest 1V portable [id number] Urgent Exams 02/17/22 07:05 Completed XR foot RT 2V [id number] Routine Exams 02/19/22 11:53 Completed Pending at discharge Category Date Time Status Vancomycin Trough Timed Lab 02/20/22 16:30 Ordered Radiology Impressions Chest X-Ray 02/17/22 07:05 Impression: Atherosclerosis. Chest/Abdomen/Pelvis CT 02/17/22 08:36 IMPRESSION: 1. No pulmonary embolism. 2. Patchy opacifications with volume loss in the lower lung tucker bilaterally. Most consistent with atelectasis. 3. Bronchial wall thickening with bilateral hilar and interlobar adenopathy. The largest lymph node on the RIGHT measures 2.1 cm. Suspect this is reactive adenopathy. 4. Chronic emphysema. 5. No evidence for pancreatitis. 6. No bile duct dilatation. 7. Bilobed abdominal aortic aneurysm. Largest aneurysmal dilatation is 4.7 x 3.9 cm. Aneurysm has increased in size since 07/21/2018. The largest aneurysm was 3.8 x 3.3 cm at that time. 8. Diverticulosis without acute diverticulitis. 9. Prostate gland enlargement. Foot X-Ray 02/19/22 11:53 IMPRESSION: No acute findings. Laboratory Results WBC 11.1 10^3/uL (4.0-10.0) H 02/20/22 04:35 RBC 4.29 10^6/uL (4.1-5.3) 02/20/22 04:35 Hgb 12.7 g/dL (11.7-16.6) 02/20/22 04:35 Hct 39.6 % (42.0-52.0) L 02/20/22 04:35 MCV 92.3 fl (80-94) 02/20/22 04:35 MCH 29.6 pg (28.0-34.0) 02/20/22 04:35 MCHC 32.1 g/dL (30.0-36.0) 02/20/22 04:35 RDW 14.6 % (12.1-15.1) 02/20/22 04:35 Plt Count 156 10^3/cmm (130-400) 02/20/22 04:35 MPV 9.6 fL (7.4-10.4) 02/20/22 04:35 Neut % (Auto) 86.9 % 02/20/22 04:35 Lymph % (Auto) 6.6 % 02/20/22 04:35 [place] % (Auto) 5.8 % 02/20/22 04:35 Eos % (Auto) 0.0 % 02/20/22 04:35 Baso % (Auto) 0.2 % 02/20/22 04:35 Neut # (Auto) 9.64 10^3/uL (1.8-7.7) H 02/20/22 04:35 Lymph # (Auto) 0.7 10^3/uL (0.8-4.8) L 02/20/22 04:35 [place] # (Auto) 0.6 10^3/uL (0.2-0.9) 02/20/22 04:35 Eos # (Auto) 0.0 10^3/uL (0.0-0.8) 02/20/22 04:35 Baso # (Auto) 0.0 10^3/uL (0.0-0.1) 02/20/22 04:35 Nucleated RBC % (auto) 0 % 02/20/22 04:35 Nucleated RBCs # 0.0 /100WBC 02/20/22 04:35 D-Dimer 1.89 ug/mIFEU (0-0.59) H 02/17/22 16:47 Specimen Type Arterial 02/18/22 08:32 Sample Site Brachial, right 02/18/22 08:32 ABG pH 7.36 (7.35-7.45) 02/18/22 08:32 ABG pCO2 58.7 mmHg (35-45) H 02/18/22 08:32 ABG pO2 58.0 mmHg (80.0-100.0) L 02/18/22 08:32 ABG HCO3 32.7 mmol/L (22-26) H 02/18/22 08:32 ABG O2 Saturation 91.9 02/18/22 08:32 ABG Base Excess 5.3 mmol/L (-2.0-2.0) H 02/18/22 08:32 Jamari Test N/a 02/18/22 08:32 A-a O2 Gradient Not Reportable 02/18/22 08:32 Hematocrit 44.3 % (42-52) 02/18/22 08:32 Hgb O2 Saturation 90.3 % (95-100) L 02/18/22 08:32 Carboxyhemoglobin 0.9 %THgb (0.4-20.1) 02/18/22 08:32 Methemoglobin 0.7 % (0.4-1.5) 02/18/22 08:32 Total Hemoglobin 14.4 g/dL (14-18) 02/18/22 08:32 Sodium 142.0 mmol/L (131-143) 02/18/22 08:32 Potassium 4.1 mmol/L (3.5-5.0) 02/18/22 08:32 Glucose 218.0 mg/dL (70-115) H 02/18/22 08:32 Ionized Calcium 1.1 mmol/L (1.1-1.4) 02/18/22 08:32 O2 Delivery Device Nc 02/18/22 08:32 O2 Liters/Min 6.0 % 02/18/22 08:32 FiO2 0.0 % 02/18/22 08:32 Executive Director Contract Shop ID Gd 02/18/22 08:32 Sodium 145 mmol/L (136-145) 02/20/22 04:35 Potassium 4.2 mmol/L (3.5-5.1) 02/20/22 04:35 Chloride 110 mmol/L (98-107) H 02/20/22 04:35 Carbon Dioxide 29 mmol/L (22-29) 02/20/22 04:35 Anion Gap 10.2 (5-19) 02/20/22 04:35 BUN 37 mg/dL (8-23) H 02/20/22 04:35 Creatinine 1.2 mg/dL (0.7-1.2) 02/20/22 04:35 GFR Calculation Not Reportable 02/20/22 04:35 Glucose 116 mg/dL (65-115) H 02/20/22 04:35 Estimat Average Glucose 105 02/18/22 03:30 Hemoglobin A1c 5.3 % (4.0-6.0) 02/18/22 03:30 Calculated Osmolality 310 mOsm/kg (285-295) H 02/20/22 04:35 Lactic Acid 1.5 mmol/L (0.5-2.2) 02/17/22 07:18 Calcium 7.9 mg/dL (8.5-10.5) L 02/20/22 04:35 Phosphorus 2.2 mg/dL (2.5-4.5) L 02/18/22 03:30 Magnesium 2.3 mg/dL (1.7-2.3) 02/18/22 03:30 Iron 9 ug/dL (59-158) L 02/17/22 12:47 TIBC 206 mcg/dl 02/17/22 12:47 % Saturation 4.3 % (20-50) L 02/17/22 12:47 Unsat Iron Binding 197 ug/dL (112-347) 02/17/22 12:47 Total Bilirubin 1.0 mg/dL (0.15-1.2) 02/20/22 04:35 AST 40 U/L (0-40) 02/20/22 04:35 ALT 35 U/L (0-41) 02/20/22 04:35 Alkaline Phosphatase 59 IU/L (40-130) 02/20/22 04:35 Lactate Dehydrogenase 241 U/L (135-225) H 02/17/22 06:53 Creatine Kinase 1195 U/L (39-308) H* 02/19/22 05:19 Troponin T Baseline 36 ng/L (0-15) H 02/17/22 06:53 Troponin T 120 Minute 28.45 ng/L (0-15) H 02/17/22 09:30 Delta Troponin T -7.55 ABS# (0-10) L 02/17/22 09:30 Troponin T Hi Sens 6Hr 25.36 ng/L (0-15) H 02/17/22 12:45 Troponin T Hi Sens 6Hr Delta -10.64 ng/L (0-12) L 02/17/22 12:45 C-Reactive Protein 273.0 mg/L (0.0-4.9) H 02/17/22 06:53 NT-Pro-B Natriuret Pep 1186 pg/mL (0-450) H 02/17/22 06:53 Total Protein 5.4 g/dL (6.6-8.7) L 02/20/22 04:35 Albumin 3.0 g/dL (3.5-5.2) L 02/20/22 04:35 Globulin 2.4 g/dL (1.3-4.6) 02/20/22 04:35 Triglycerides 103 mg/dL (0-150) 02/18/22 03:30 Cholesterol 163 mg/dL (0-200) 02/18/22 03:30 LDL Cholesterol, Calc 86 mg/dL (50-129) 02/18/22 03:30 Total VLDL Cholesterol 21 mg/dL (0-30) 02/18/22 03:30 HDL Cholesterol 56 mg/dL (60-100) L 02/18/22 03:30 Cholesterol/HDL Ratio 2.91 mg/dL (1.0-5.00) 02/18/22 03:30 Lipase 166 U/L (13-60) H 02/17/22 06:53 Vitamin B12 1064 pg/mL (232-1245) 02/17/22 12:47 Folate 19.8 ng/mL (4.5-32.2) 02/17/22 16:47 Procalcitonin 1.21 ng/mL (0-0.5) H 02/17/22 12:47 TSH 0.57 uIU/mL (0.27-4.20) 02/17/22 12:47 Urine Color Yellow (Yellow) 02/17/22 17:10 Urine Appearance Clear (CLEAR) 02/17/22 17:10 Urine pH 5 (5-7) 02/17/22 17:10 Ur Specific [place] 1.010 (1.005-1.030) 02/17/22 17:10 Urine Protein Neg (Negative) 02/17/22 17:10 Urine Glucose (UA) Norm (Normal) 02/17/22 17:10 Urine Ketones Negative (Negative) 02/17/22 17:10 Urine Blood 3+ (Negative) H 02/17/22 17:10 Urine Nitrate Negative (Negative) 02/17/22 17:10 Urine Bilirubin Neg (Negative) 02/17/22 17:10 Urine Urobilinogen Norm mg/dL (Negative) 02/17/22 17:10 Ur Leukocyte Esterase Negative (Negative) 02/17/22 17:10 Urine RBC 0-4 /hpf (0-2) H 02/17/22 17:10 Urine WBC 0-4 /hpf (0-5) H 02/17/22 17:10 Ur Squamous Epith Cells 0-4 /hpf (0-5) H 02/17/22 17:10 Amorphous Sediment 1+ /hpf 02/17/22 17:10 Urine Bacteria None /hpf (NONE) 02/17/22 17:10 Hyaline Casts 0-4 /lpf H 02/17/22 17:10 Ur Random Sodium 87 mmol/L 02/17/22 17:10 Ur Random Potassium 34 mmol/L 02/17/22 17:10 Ur Random Chloride 99 mmol/L 02/17/22 17:10 Urine Creatinine 63 mg/dL (39-259) 02/17/22 17:10 Digoxin 0.8 ng/mL (0.6-1.2) 02/20/22 04:35 Coronavirus 229E (PCR) Not detected (NOT DETECT) 02/17/22 06:55 Influenza Type A Ag Negative (Negative) 02/17/22 05:41 Influenza Type B Ag Negative (Negative) 02/17/22 05:41 SARS-CoV-2 (PCR) Not detected (NOT DETECT) 02/17/22 06:55 Vitals Last Vital Signs Temp 97.6 F 02/20/22 11:16 Pulse 114 H 02/20/22 11:16 Resp 18 02/20/22 11:16 BP 133/65 02/20/22 11:16 Pulse Ox 93 02/20/22 11:16 Discharge Plan Discharge Patient Disposition: Xfer SNF Condition: Stable Prescriptions: New prednisone 20 mg tablet 20 mg PO DAILY 5 Days Qty: 5 0RF Augmentin 500-125 mg tablet 1 tab PO BID 7 Days Qty: 14 0RF Continued acetaminophen 325 mg Tablet 325 mg PO QID MDD 4000 mg PRN (Reason: Pain) 0RF magnesium hydroxide [Milk of Magnesia] 400 mg/5 mL Suspension 30 ml PO DAILY PRN (Reason: Constipation) 0RF tamsulosin 0.4 mg Capsule 0.4 mg PO BEDTIME@20 0RF bisacodyl 10 mg Suppository 10 mg VA DAILY PRN (Reason: Constipation) 0RF Enema 19-7 gram/118 mL Enema 118 ml VA DAILY PRN (Reason: Constipation) 0RF digoxin 125 mcg (0.125 mg) tablet 125 mcg PO DAILY@0800 0RF Rx Instructions: hold for pulse less than 60 metoprolol tartrate 25 mg tablet 25 mg PO BID@0800,2000 0RF Minerin Creme Cream 1 applic TOPICAL Q12H PRN (Reason: Itching) 0RF Rx Instructions: apply to back Combivent Respimat 20-100 mcg/actuation Mist 1 puff INHALATION Q6H PRN (Reason: Shortness Of Breath) 0RF Trelegy Ellipta 100-62.5-25 mcg Blister With Device 1 inh INHALATION DAILY@08 0RF Stool Softener-Laxative 8.6-50 mg Tablet 1 tab-cap PO DAILY PRN (Reason: Constipation) 0RF fexofenadine 180 mg Tablet 180 mg PO BID@08,20 0RF aspirin 81 mg Tablet,Delayed Release (Dr/Ec) 81 mg PO DAILY@08 0RF carboxymethylcellulose sodium 1 % Drops, Liquid Gel 1 drp OPHTHALMIC (EYE) BID@08,20 0RF Rx Instructions: each eye TwoCal HN 0.08-2 gram-kcal/mL Liquid 1 ea PO TID 0RF Discharge Orders: Discharge Order (Routine); Ordered 02/20/22 Ordered By: Frank Lane Referrals: Ivet Burnham MD [Primary Care Provider] - 2 weeks Discharge Diet: Soft Mechanical Patient Instructions: Rhabdomyolysis (DC), COPD (Chronic Obstructive Pulmonary Disease) (DC), Acute Respiratory Failure (GEN) Discharge Attestations Time Spent in Discharge Care*: less than 30 min Status at Discharge: Cognitive status at discharge: mildly impaired cognition (at baseline, A & O x 1) , Behavioral status at discharge: cooperative and dependent in ADL's , Quality Metrics Clinical Quality Measures [ No reported AMI, CVA or VTE this stay] Coding Level of Care Code Acute Chg FW DC note Diagnoses Hypercapnic respiratory failure J96.92 Acute exacerbation of chronic obstructive airways disease J44.1 CHF (congestive heart failure) I50.32 Heart failure chronicity: chronic Heart failure type: diastolic Atrial fibrillation I48.91 DEBRA (acute kidney injury) N17.9 Dementia F03.90 Dementia behavioral disturbance: without behavioral disturbance Dementia type: unspecified type
--- NOTE | 2022-02-20 13:59 | PC.NURSE ---
Called report to Windy Jackson LPN at [facility] @[phone]
== END 2022-02-20 15:26 | disposition skilled nursing facility (03) | DRG 189 ==
LOC: ER 07:31 → ICU 15:07 → MEDSURG 02-18 15:17
PROVIDERS: Admitting Provider Student in an Organized Health Care Education/Training Program; Emergency Provider Emergency Medicine; PCP Family Medicine; Visit Provider Internal Medicine
DX: J96.02 Acute respiratory failure with hypercapnia (principal); I50.33 Acute on chronic diastolic (congestive) heart failure; J69.0 Pneumonitis due to inhalation of food and vomit; J44.1 Chronic obstructive pulmonary disease with (acute) exacerbation; N17.9 Acute kidney failure, unspecified; I48.91 Unspecified atrial fibrillation; N18.30 Chronic kidney disease, stage 3 unspecified; F03.90 Unspecified dementia, unspecified severity, without behavioral disturbance, psychotic disturbance, mood disturbance, and anxiety; Z87.891 Personal history of nicotine dependence; E86.0 Dehydration; Z66 Do not resuscitate; B95.62 Methicillin resistant Staphylococcus aureus infection as the cause of diseases classified elsewhere; Z79.82 Long term (current) use of aspirin
CPT/HCPCS: 36415; 36600; 51702; 71045; 71275; 73620; 74177; 80051; 80053; 80061; 80162; 81001; 82330; 82436; 82550; 82575; 82607; 82746; 82803; 82805; 83036; 83540; 83550; 83605; 83615; 83690; 83735; 83880; 84100; 84133; 84145; 84300; 84443; 84484; 85025; 85378; 86140; 86403; 87070; 87205; 87449; 87635; 87641; 87804; 92523; 92610; 93005; 94002; 94640; 94660; 96365; 96372; 96375; 99285; J0696; J1630; J1650; J1940; J2543; J2920; J2930; J3370; J3490; J7030; J7050; J7626; Q9967

== ENCOUNTER → 2022-04-25 13:21 | Outpatient (BNVA) | payer MEDICARE, MEDICAID, SELFPAY | PROVIDERS: PCP Family Medicine; Visit Provider Internal Medicine | DX: I48.91 Unspecified atrial fibrillation (principal); Z87.891 Personal history of nicotine dependence | CPT/HCPCS: 99213; 99214 ==

== ENCOUNTER → 2022-05-10 08:49 | Outpatient (BNVA) | payer MEDICARE, MEDICAID, SELFPAY | PROVIDERS: PCP Family Medicine; Visit Provider Podiatrist Foot & Ankle Surgery | DX: L60.3 Nail dystrophy (principal); I73.9 Peripheral vascular disease, unspecified; Z79.01 Long term (current) use of anticoagulants | CPT/HCPCS: 11721; 99203; 99204 ==

== ENCOUNTER 2022-06-15 08:22 | Inpatient (IN) | payer MEDICARE, MEDICAID, SELFPAY ==
[2022-06-15] VITALS (27 sets, daily range): BP systolic 103–142; BP diastolic 60–90; PULSE 64–98; RESP 12–29; TEMP 36.4–38.2; O2SAT 91–98
--- NOTE | 2022-06-15 08:31 | XR_ITS ---
WS: [id number] Portable AP upright chest, 06/15/2022 Clinical Data: sob Comparison: Portable chest, 02/17/2022 Findings: No nodules, masses or effusions are seen. The heart is normal. The pulmonary vascularity is not increased. No pneumothorax is seen. There is a patchy opacity obscuring the left cardiac border which could represent minimal pneumonia and/or atelectasis. The remainder of the lungs is clear. XR/XR chest 1V portable [id number] Impression: Patchy lingular opacity which could represent minimal pneumonia.
--- NOTE | 2022-06-15 08:39 | ED_ITS ---
HPI - SOB/Dyspnea General: Chief Complaint: Shortness of Breath/Dyspnea Stated Complaint: resp. distress Time Seen by Provider: 06/15/22 08:27 History of Present Illness: HPI Narrative: 77-year-old male presents with shortness of breath. Patient lives at the snf who reports that his oxygen was low and called EMS. He reports his oxygen is wearing 70 to 80%. When EMS arrived he had an oxygen concentrator on and received an albuterol inhaler. They provided him in route with a DuoNeb. Patient's oxygen improved following treatment. Patient's not normally on oxygen per the snf and is having O2 saturations in the low to mid 90s on 3 L nasal cannula. Patient himself does not provide a lot of HPI. He is mildly febrile upon presentation. Associated symptoms: Reports fever(s); Deny abdominal pain, chest pain, nausea, palpitations or vomiting Review of Systems Const: Reports: fever(s) Eyes: Reports: other (Nothing reported) ENMT: Reports: other (No complaints reported) Card: Denies: chest pain or palpitations Resp: Reports: dyspnea and non-productive cough GI: Denies: abdominal pain, nausea or vomiting : Reports: other (None reported) Musc: Reports: other (None reported) Skin/Breast: Denies: rash or pruritus PFSH ED PFSH: Medical History (Updated 06/15/22 @ 16:[address] MD) Acute exacerbation of chronic obstructive airways disease DEBRA (acute kidney injury) Aspiration pneumonia -as noted above Atrial fibrillation Atrial fibrillation and flutter Atrial fibrillation with RVR Bronchopneumonia CHF (congestive heart failure) Chronic kidney disease CKD (chronic kidney disease) stage 3, GFR 30-59 ml/min COPD (chronic obstructive pulmonary disease) -acute COPD exacerbation secondary to pneumonia -as noted above -not oxygen dependent at baseline Dementia Diastolic heart failure Elevated troponin Hypercapnic respiratory failure Respiratory failure with hypoxia and hypercapnia Currently discharged on 3 Ls oxygen Sepsis Urinary retention Urolithiasis Surgical History S/P tonsillectomy Status post cystoscopy with ureteral stent placement Family History Mother , 84 No problems noted. Father , 80's No problems noted. Social History Smoking and tobacco status: former smoker Quit status (tobacco): has quit using tobacco Year quit tobacco: 2018 [id number] Second hand smoke exposure: No Smoking risk assessment/counseling performed?: No Alcohol intake: never Caregiver/support person: Yes Lives independently: No Household members: none Housing: Half-Way Marital status: Single service: No Current occupational status: retired Pets and animals: No History of recent travel: No Current gender identity: Male Physical Exam Const: GENERAL APPEARANCE: disheveled and frail appearing HENMT: COMMON NORMALS: normocephalic and hearing grossly normal bilaterally HEAD & SCALP: normocephalic Resp: EFFORT & INSPECTION: Yes able to speak in complete sentences and No respiratory distress AUSCULTATION: diminished lung sounds Cardio: COMMON NORMALS: regular rate and regular rhythm RATE: regular rate RHYTHM: regular rhythm GI: COMMON NORMALS: Soft to palpation and non-tender PALPATION: Yes Soft to palpation Extremity: COMMON NORMALS: normal to inspection and capillary refill normal Neuro: COMMON NORMALS: moves all extremities OTHER: Patient can answer appropriately but says very little, no obvious deficit Psych: APPEARANCE: Yes grossly normal ATTITUDE: Yes Withdrawn affect present SPEECH: Yes minimal Skin: COMMON NORMALS: no rashes or lesions noted GENERAL SKIN EXAM: no rashes or lesions noted Course Vital Signs: Vital signs: Vital Signs Temperature 100.8 F H 06/15/22 08:24 Pulse Rate 69 06/15/22 16:49 Respiratory Rate 24 H 06/15/22 16:49 Blood Pressure 142/70 06/15/22 16:00 Pulse Oximetry 95 06/15/22 16:49 Oxygen Delivery Me thod 06/15/22 16:49 Oxygen Flow Rate 4 06/15/22 10:54 Fraction of Inspir ed Oxygen 40 06/15/22 16:49 MDM - SOB/Dyspnea Medical Decision Making Patient has a slight new need for requirement for oxygen. He does have a history of lung cancer is a DNR. Initially were going to try to discharge him. However an ABG just prior to discharge showed he had some hypercapnia. Patient was placed on BiPAP. Despite 2 hours of BiPAP his hypercapnia did slightly worsen. Due to his worsening of his hypercapnia we will admit him to MedSurg for BiPAP. Patient is a DNR so he will have limited intervention. Lab Data : 06/15/22 08:44 06/15/22 08:44 Labs/Radiology: Radiology Impressions Chest X-Ray 06/15/22 08:31 Impression: Patchy lingular opacity which could represent minimal pneumonia. Laboratory Results WBC 7.9 10^3/uL (4.0-10.0) 06/15/22 08:44 RBC 4.66 10^6/uL (4.1-5.3) 06/15/22 08:44 Hgb 13.6 g/dL (11.7-16.6) 06/15/22 08:44 Hct 45.8 % (42.0-52.0) 06/15/22 08:44 MCV 98.3 fl (80-94) H 06/15/22 08:44 MCH 29.2 pg (28.0-34.0) 06/15/22 08:44 MCHC 29.7 g/dL (30.0-36.0) L 06/15/22 08:44 RDW 13.4 % (12.1-15.1) 06/15/22 08:44 Plt Count 220 10^3/cmm (130-400) 06/15/22 08:44 MPV 9.5 fL (7.4-10.4) 06/15/22 08:44 Neut % (Auto) 73.0 % 06/15/22 08:44 Lymph % (Auto) 12.7 % 06/15/22 08:44 [place] % (Auto) 11.2 % 06/15/22 08:44 Eos % (Auto) 1.9 % 06/15/22 08:44 Baso % (Auto) 0.6 % 06/15/22 08:44 Neut # (Auto) 5.72 10^3/uL (1.8-7.7) 06/15/22 08:44 Lymph # (Auto) 1.0 10^3/uL (0.8-4.8) 06/15/22 08:44 [place] # (Auto) 0.9 10^3/uL (0.2-0.9) 06/15/22 08:44 Eos # (Auto) 0.2 10^3/uL (0.0-0.8) 06/15/22 08:44 Baso # (Auto) 0.1 10^3/uL (0.0-0.1) 06/15/22 08:44 Nucleated RBC % (auto) 0 % 06/15/22 08:44 Nucleated RBCs # 0.0 /100WBC 06/15/22 08:44 Specimen Type Arterial 06/15/22 14:57 Sample Site Brachial, left 06/15/22 14:57 ABG pH 7.29 (7.35-7.45) L 06/15/22 14:57 ABG pCO2 75.3 mmHg (35-45) H* 06/15/22 14:57 ABG pO2 86.6 mmHg (80.0-100.0) 06/15/22 14:57 ABG HCO3 36.1 mmol/L (22-26) H 06/15/22 14:57 ABG Base Excess 6.5 mmol/L (-2.0-2.0) H 06/15/22 14:57 Jamari Test Pos 06/15/22 14:57 Hematocrit 43.2 % (42-52) 06/15/22 14:57 O2 Delivery Device Bipap 06/15/22 14:57 O2 Liters/Min 3.0 % 06/15/22 13:17 FiO2 40.0 % 06/15/22 14:57 Office Nurse Practitioner ID Cak 06/15/22 14:57 Sodium 143 mmol/L (136-145) 06/15/22 08:44 Potassium 4.5 mmol/L (3.5-5.1) 06/15/22 08:44 Chloride 101 mmol/L (98-107) 06/15/22 08:44 Carbon Dioxide 34 mmol/L (22-29) H 06/15/22 08:44 Anion Gap 12.5 (5-19) 06/15/22 08:44 BUN 33 mg/dL (8-23) H 06/15/22 08:44 Creatinine 1.3 mg/dL (0.7-1.2) H 06/15/22 08:44 GFR Calculation Not Reportable 06/15/22 08:44 Glucose 125 mg/dL (65-115) H 06/15/22 08:44 Calculated Osmolality 305 mOsm/kg (285-295) H 06/15/22 08:44 Lactate 1.4 mmol/L (0.5-2.2) 06/15/22 10:13 Calcium 8.8 mg/dL (8.5-10.5) 06/15/22 08:44 Magnesium 2.1 mg/dL (1.7-2.3) 06/15/22 08:44 Total Bilirubin 0.7 mg/dL (0.15-1.2) 06/15/22 08:44 AST 20 U/L (0-40) 06/15/22 08:44 ALT 23 U/L (0-41) 06/15/22 08:44 Alkaline Phosphatase 79 U/L (40-130) 06/15/22 08:44 C-Reactive Protein 51.9 mg/L (0.0-4.9) H 06/15/22 08:44 Total Protein 6.2 g/dL (6.6-8.7) L 06/15/22 08:44 Albumin 3.2 g/dL (3.5-5.2) L 06/15/22 08:44 Globulin 3.0 g/dL (1.3-4.6) 06/15/22 08:44 Procalcitonin 0.12 ng/mL (0-0.5) 06/15/22 08:44 Nasal Influ A H1 2009 PCR Not detected (NOT DETECT) 06/15/22 08:44 Adenovirus (PCR) Not detected (NOT DETECT) 06/15/22 08:44 C. pneumoniae DNA (PCR) Not detected (NOT DETECT) 06/15/22 08:44 Coronavirus 229E (PCR) Not detected (NOT DETECT) 06/15/22 08:44 Human Metapneumovir PCR Not detected (NOT DETECT) 06/15/22 08:44 Influenza A (H1) PCR Not detected (NOT DETECT) 06/15/22 08:44 Influenza A (H3) PCR Not detected (NOT DETECT) 06/15/22 08:44 Influenza Type A (PCR) Not detected (NOT DETECT) 06/15/22 08:44 Influenza Type B (PCR) Not detected (NOT DETECT) 06/15/22 08:44 M. pneumoniae (PCR) Not detected (NOT DETECT) 06/15/22 08:44 Parainfluenza 1 (PCR) Not detected (NOT DETECT) 06/15/22 08:44 Parainfluenza 2 (PCR) Not detected (NOT DETECT) 06/15/22 08:44 Parainfluenza 3 (PCR) Not detected (NOT DETECT) 06/15/22 08:44 Parainfluenza 4 (PCR) Not detected (NOT DETECT) 06/15/22 08:44 RSV Type A (PCR) Not detected (NOT DETECT) 06/15/22 08:44 RSV Type B (PCR) Not detected (NOT DETECT) 06/15/22 08:44 Entero/Rhino (PCR) Not detected (NOT DETECT) 06/15/22 08:44 SARS-CoV-2 (PCR) Not detected (NOT DETECT) 06/15/22 08:44 Discharge Plan Discharge Patient Disposition: Admitted As Inpatient Admit Provider: Frank Lane Clinical Impression: Left lower lobe pneumonia, Respiratory failure with hypoxia and hypercapnia Condition: Stable Coding Level of Care Code ED Remelt Worker for Carmen Fwd Exam Comprehensive
[2022-06-15 08:50] LABS: Basophils # 0.1 10^3/uL (0.0-0.1); Basophils % 0.6 %; Eosinophils # 0.2 10^3/uL (0.0-0.8); Eosinophils % 1.9 %; Hematocrit 45.8 % (42.0-52.0); Hemoglobin 13.6 g/dL (11.7-16.6); Lymphocytes % 12.7 %; Mean Corpuscular HGB Conc 29.7 g/dL (30.0-36.0); Mean Corpuscular Hemoglobin 29.2 pg (28.0-34.0); Mean Corpuscular Volume 98.3 fl (80-94); Mean Platelet Volume 9.5 fL (7.4-10.4); Monocytes # 0.9 10^3/uL (0.2-0.9); Monocytes % 11.2 %; Neutrophils # 5.72 10^3/uL (1.8-7.7); Nucleated Red Blood Cells % 0 %; Platelet Count 220 10^3/cmm (130-400); Red Blood Count 4.66 10^6/uL (4.1-5.3); Red Cell Distribution Width 13.4 % (12.1-15.1); White Blood Count 7.9 10^3/uL (4.0-10.0)
[2022-06-15 09:29] LABS: Procalcitonin 0.12 ng/mL (0-0.5)
[2022-06-15 09:41] LABS: Alanine Aminotransferase 23 U/L (0-41); Albumin Level 3.2 g/dL (3.5-5.2); Alkaline Phosphatase 79 U/L (40-130); Anion Gap 12.5 (5-19); Aspartate Amino Transferase 20 U/L (0-40); Blood Urea Nitrogen 33 mg/dL (8-23); C Reactive Protein 51.9 mg/L (0.0-4.9); Calcium 8.8 mg/dL (8.5-10.5); Carbon Dioxide 34 mmol/L (22-29); Chloride 101 mmol/L (98-107); Glucose 125 mg/dL (65-115); Magnesium 2.1 mg/dL (1.7-2.3); Osmolality Calculated 305 mOsm/kg (285-295); Potassium 4.5 mmol/L (3.5-5.1); Sodium 143 mmol/L (136-145); Total Bilirubin 0.7 mg/dL (0.15-1.2); Total Protein 6.2 g/dL (6.6-8.7)
[2022-06-15 09:44] LABS: Creatinine Clr Calc Pharmacy 47.5937
[2022-06-15 10:31] LABS: Adenovirus Not Detected (NOT DETECT); Chlamydia Pneumoniae Not Detected (NOT DETECT); Coronavirus 229E,HKU1,NL63,OC4 Not Detected (NOT DETECT); Human Metapneumovirus Not Detected (NOT DETECT); Human Rhinovirus/Enterovirus Not Detected (NOT DETECT); Influenza A Not Detected (NOT DETECT); Influenza A H1 Not Detected (NOT DETECT); Influenza A H1-2009 Not Detected (NOT DETECT); Influenza A H3 Not Detected (NOT DETECT); Influenza B Not Detected (NOT DETECT); Mycoplasma Pneumoniae Not Detected (NOT DETECT); Parainfluenza Virus Type 1 Not Detected (NOT DETECT); Parainfluenza Virus Type 2 Not Detected (NOT DETECT); Parainfluenza Virus Type 3 Not Detected (NOT DETECT); Parainfluenza Virus Type 4 Not Detected (NOT DETECT); Respiratory Syncytial Virus A Not Detected (NOT DETECT); Respiratory Syncytial Virus B Not Detected (NOT DETECT); SARS-COV-2 Not Detected (NOT DETECT)
[2022-06-15 10:35] LABS: Lactate (Lactic Acid level) 1.4 mmol/L (0.5-2.2)
[2022-06-15] MEDS: ipratropium-albuterol 3 mL Neb INHALATION ×5 (10:54→23:30)
[2022-06-15] MEDS: cefTRIAXone 1,000 MG in sodium chloride 0.9% (plus) 50 ML 100 MG IV (11:26)
[2022-06-15] MEDS: azithromycin 250 mg Tablet 500 MG PO (11:26)
[2022-06-15 13:29] LABS: ABG PH Result 7.33 (7.35-7.45); Arterial Blood Gas Hematocrit 43.6 % (42-52); Base Excess ABG 7.3 mmol/L (-2.0-2.0); Blood Gas Allen Test Pos; Blood Gas Operator Identificat CAK; Blood Gas Sample Site Radial, left; Blood Gas Sample Type Arterial; HCO3 ABG 35.8 mmol/L (22-26); Oxygen Device NC; PO2 ABG 45.9 mmHg (80.0-100.0)
[2022-06-15 13:30] LABS: ABG PCO2 67.9 mmHg (35-45)
[2022-06-15 15:08] LABS: ABG PH Result 7.29 (7.35-7.45); Arterial Blood Gas Hematocrit 43.2 % (42-52); Base Excess ABG 6.5 mmol/L (-2.0-2.0); Blood Gas Allen Test Pos; Blood Gas Operator Identificat CAK; Blood Gas Sample Site Brachial, left; Blood Gas Sample Type Arterial; HCO3 ABG 36.1 mmol/L (22-26); Oxygen Device BIPAP; PO2 ABG 86.6 mmHg (80.0-100.0)
[2022-06-15 15:09] LABS: ABG PCO2 75.3 mmHg (35-45)
--- NOTE | 2022-06-15 16:04 | P.HP_ITS ---
Providers/Chief Complaint Primary Care Provider: Ivet Burnham MD Chief Complaint: resp. distress History of Present Illness Luis Talavera is a 77 year old male with past medical history of COPD, discharged on 2 L home oxygen on last admission, , heart failure with preserved ejection fraction, atrial fibrillation, dementia CKD stage III, intermediate resident, was brought in with chief complaint of worsening shortness of breat h,as well as nonproductive cough.Along with shortness of breath he was also complaining of excess sleepiness , history taking has been difficult as the patient is on BiPAP, and is not very participative. History has been taken from ER chart review. Upon arrival in the ER he was worked up for above-mentioned complaint: Pertinent imaging studies: X-ray chest: Patchy lingular opacity which could represent minimal pneumonia. His pertinent labs and vitals have been reviewed. ABG done in the ER showed pH of 7.29, PCO2 75, PO2 86: Patient was placed on BiPAP, he also received ceftriaxone and anthramycin. As well as nebs in the ER. Review of Systems General: Reports: 10 or more systems reviewed and unremarkable except in HPI and below Const: Reports: fever(s); Denies: chills, body aches, change in appetite or diaphoresis Card: Reports: dyspnea on exertion and orthopnea; Denies: palpitations, edema, swelling of feet/ankles or leg pain with exertion Resp: Reports: dyspnea and productive cough; Denies: wheezing or pain on inspiration GI: Denies: abdominal pain, nausea, vomiting, diarrhea or constipation : Denies: flank pain or difficulty urinating Musc: Denies: back pain, extremity pain or extremity swelling Neuro: Denies: headache(s) or difficulty walking Medications/Allergies Home Medications Medication Instructions Recorded Confirmed Last Taken Type acetaminophen 325 mg tablet 325 mg PO QID PRN Pain 01/24/20 06/15/22 12/26/20 01:20 History bisacodyl 10 mg rectal suppository 10 mg NM DAILY PRN Constipation 01/24/20 06/15/22 Unknown History magnesium hydroxide 400 mg/5 mL 30 ml PO DAILY PRN Constipation 01/24/20 06/15/22 Unknown History oral suspension (Milk of Magnesia) sodium phosphates 19 gram-7 118 ml NM DAILY PRN Constipation 01/24/20 06/15/22 Unknown History gram/118 mL enema (Enema) tamsulosin 0.4 mg capsule 0.4 mg PO BEDTIME@20 01/24/20 06/15/22 02/16/22 History digoxin 125 mcg (0.125 mg) tablet 125 mcg PO DAILY@0800 12/26/20 06/15/22 02/16/22 History metoprolol tartrate 25 mg tablet 25 mg PO BID@08,199912/26/20 06/15/22 02/16/22 History fluticasone fur. 100 mcg-umeclid 1 inh inhalation DAILY@08 11/21/21 06/15/22 02/16/22 History 62.5 mcg-vilant 25 mcg inhalat.powder (Trelegy Ellipta) ipratropium 20 mcg-albuterol 100 1 puff inhalation Q6H PRN 11/21/21 06/15/22 Unknown History mcg/actuation mist for inhalation Shortness Of Breath (Combivent Respimat) lanolin alcohols-mineral 1 applic topical Q12H PRN Itching 11/21/21 06/15/22 U nknown History oil-w.petrolatum-ceresin topical cream (Minerin Creme topical) aspirin 81 mg tablet,delayed 81 mg PO DAILY@08 02/17/22 06/15/22 02/16/22 History release carboxymethylcellulose sodium 1 % 1 drp ophthalmic (eye) BID@08,02/17/22 06/15/22 02/16/22 History eye liquid gel drops nut. tx, spec. form, 1 ea PO TID 02/17/22 06/15/22 Unknown History lac-free,iron-fos 0.08 gram-2 kcal/mL oral liquid (TwoCal HN) sennosides 8.6 mg-docusate sodium 1 tab-cap PO DAILY PRN Constipation 02/17/22 06/15/22 Unknown History 50 mg tablet (Stool Softener-Laxative) albuterol sulfate 2.5 mg/3 mL 2.5 mg inhalation Q4H PRN 06/15/22 06/15/22 Unkno wn History (0.083 %) solution for nebulization Shortness Of Breath fexofenadine 180 mg tablet 180 mg PO BID 06/15/22 06/15/22 Unknown History levofloxacin 500 mg tablet 500 mg PO DAILY 5 days #5 tabs 06/15/22 Unknown Rx Allergies Allergy/AdvReac Type Severity Reaction Status Date / Time No Known Allergies Allergy Verified 06/15/22 09:44 PFSH Acute PFSH: Medical History (Updated 06/15/22 @ 16:[address] MD) Acute exacerbation of chronic obstructive airways disease DEBRA (acute kidney injury) Aspiration pneumonia -as noted above Atrial fibrillation Atrial fibrillation and flutter Atrial fibrillation with RVR Bronchopneumonia CHF (congestive heart failure) Chronic kidney disease CKD (chronic kidney disease) stage 3, GFR 30-59 ml/min COPD (chronic obstructive pulmonary disease) -acute COPD exacerbation secondary to pneumonia -as noted above -not oxygen dependent at baseline Dementia Diastolic heart failure Elevated troponin Hypercapnic respiratory failure Respiratory failure with hypoxia and hypercapnia Currently discharged on 3 Ls oxygen Sepsis Urinary retention Urolithiasis Surgical History S/P tonsillectomy Status post cystoscopy with ureteral stent placement Family History Mother , 84 No problems noted. Father , 80's No problems noted. Social History Smoking and tobacco status: former smoker Quit status (tobacco): has quit using tobacco Year quit tobacco: 2018 [id number] Second hand smoke exposure: No Smoking risk assessment/counseling performed?: No Alcohol intake: never Caregiver/support person: Yes Lives independently: No Household members: none Housing: [facility] Marital status: Single service: No Current occupational status: retired Pets and animals: No History of recent travel: No Current gender identity: Male Vitals/I&O/Wt Last Vital Signs Temp 100.8 F H 06/15/22 08:24 Pulse 87 06/15/22 15:14 Resp 16 06/15/22 14:41 BP 124/71 06/15/22 14:30 Pulse Ox 95 06/15/22 15:14 O2 Del Method 06/15/22 14:41 O2 Flow Rate 4 06/15/22 10:54 FiO2 40 06/15/22 15:14 06/15/22 06/15/22 06/15/22 06:59 14:59 22:59 Intake Total 50 / 50 Balance 50 / 50 Weight last 48 hrs Weight 66.678 kg Physical Exam Const: COMMON NORMALS: patient oriented x3 Resp: COMMON NORMALS: clear to auscultation bilaterally EFFORT & INSPECTION: Yes symmetric chest movement AUSCULTATION: clear to auscultation bilaterally OTHER: Diminished air entry b/l Cardio: COMMON NORMALS: regular rate, regular rhythm, S1 normal heart sound present, S2 normal heart sound present, No gallops present (Cardio), No murmurs present (Cardio), No rub (Cardio) and Peripheral pulses 2+ throughout RATE: regular rate RHYTHM: regular rhythm HEART SOUNDS: S1 normal heart sound present and S2 normal heart sound present PERIPHERAL PULSES: Peripheral pulses 2+ throughout GI: COMMON NORMALS: Normal to inspection, nondistended, normoactive bowel sounds present, Soft to palpation, non-tender, No hepatosplenomegaly present and no masses AUSCULTATION: Yes normoactive bowel sounds PALPATION: Yes Soft to palpation and Yes No hepatosplenomegaly present RECTAL EXAM: Yes deferred Extremity: COMMON NORMALS: no clubbing, cyanosis or edema and no pedal edema Neuro: COMMON NORMALS: patient oriented x3 Data : 06/15/22 08:44 06/15/22 08:44 A&P Assessment and plan (1) Respiratory failure with hypoxia and hypercapnia: (2) Left lower lobe pneumonia: (3) Atrial fibrillation: (4) CKD (chronic kidney disease) stage 3, GFR 30-59 ml/min: (5) CHF (congestive heart failure): Qualifiers: Heart failure type: diastolic Heart failure chronicity: chronic Qualified Code(s): I50.32 - Chronic diastolic (congestive) heart failure Plan 77 year old male with past medical history of COPD, discharged on 2 L home oxygen on last admission, , heart failure with preserved ejection fraction, atrial fibrillation, dementia CKD stage III, intermediate resident, was brought in with chief complaint of worsening shortness of breath as well as n onproductive cough. Assessment: Acute on chronic respiratory failure with hypoxia and hypercapnia secondary to COPD exacerbation secondary to pneumonia Pneumonia Fever History of atrial fibrillation not on anticoagulation HFpEF CKD stage III Dementia Plan: Monitor x-ray chest ABG, continue DuoNebs, steroids, BiPAP. Continue ceftriaxone azithromycin for now Continue other conservative respiratory support measures With regards to his heart failure patient is currently compensated, monitor intake output charting,, monitor daily weight, monitor electrolytes, keep potassium greater than 4 magnesium greater than 2 History of atrial fibrillation: Continue metoprolol and digoxin, patient is not on anticoagulation at home For his history of CKD stage III: Currently serum creatinine is at baseline, monitor intake output charting monitor BMP avoid nephrotoxic's, CODE STATUS: AND DVT prophylaxis on Lovenox Attestations Medical Necessity Statement*: Patient is to be in hospital for management of respiratory failure with hypoxia and hypercapnia.Anticipated length of stay gr eater than 2 midnights Time Spent in Patient Care: Greater than 35 minutes (>than 50% of time spent in counselling and/or direct pt care on unit) . 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
[2022-06-15 18:03] LABS: ABG PH Result 7.31 (7.35-7.45); Alveolar-Arterial Oxygen Gradi 15.3 mmHg (5-10); Arterial Blood Gas Hematocrit 41.9 % (42-52); Blood Gas Operator Identificat AMH; Blood Gas Sample Site Brachial, right; Blood Gas Sample Type Arterial; Carboxyhemoglobin 2.1 %THgb (0.4-20.1); HCO3 ABG 35.8 mmol/L (22-26); HGB O2 Sat 93.6 % (95-100); Ionized Calcium Level - ABG 1.2 mmol/L (1.1-1.4); Methemoglobin 0.8 % (0.4-1.5); Oxygen Device BIPAP; Oxygen Saturation ABG 96.4; PO2 ABG 81.5 mmHg (80.0-100.0); Potassium Level - ABG 4.5 mmol/L (3.5-5.0); Total Hemoglobin 13.7 g/dL (14-18)
[2022-06-15 18:08] LABS: ABG PCO2 70.8 mmHg (35-45)
[2022-06-15] MEDS: enoxaparin 40 mg/0.4 mL Syringe SUBCUT (18:22)
[2022-06-15] MEDS: tamsulosin 0.4 mg Capsule PO (20:32)
[2022-06-15] MEDS: metoprolol tartrate 25 mg Tablet PO (20:32)
[2022-06-16] VITALS (11 sets, daily range): BP systolic 122–132; BP diastolic 70–82; PULSE 63–96; RESP 16–20; TEMP 36.4–36.7; O2SAT 90–95
[2022-06-16] MEDS: ipratropium-albuterol 3 mL Neb INHALATION ×3 (03:41→12:10)
[2022-06-16 05:47] LABS: Basophils % 0.4 %; Hematocrit 46.9 % (42.0-52.0); Hemoglobin 13.6 g/dL (11.7-16.6); Lymphocytes # 0.5 10^3/uL (0.8-4.8); Lymphocytes % 10.4 %; Mean Corpuscular Hemoglobin 28.6 pg (28.0-34.0); Mean Corpuscular Volume 98.7 fl (80-94); Mean Platelet Volume 9.8 fL (7.4-10.4); Monocytes # 0.1 10^3/uL (0.2-0.9); Monocytes % 1.3 %; Neutrophils % 87.1 %; Nucleated Red Blood Cells % 0 %; Platelet Count 197 10^3/cmm (130-400); Red Blood Count 4.75 10^6/uL (4.1-5.3); Red Cell Distribution Width 13.2 % (12.1-15.1); White Blood Count 4.7 10^3/uL (4.0-10.0)
[2022-06-16] MEDS: azithromycin 500 MG in sodium chloride 0.9% 250 ML 250 MG IV (06:04)
[2022-06-16 06:16] LABS: Anion Gap 15.4 (5-19); Blood Urea Nitrogen 32 mg/dL (8-23); Calcium 8.7 mg/dL (8.5-10.5); Carbon Dioxide 31 mmol/L (22-29); Chloride 103 mmol/L (98-107); Glucose 124 mg/dL (65-115); Osmolality Calculated 306 mOsm/kg (285-295); Potassium 5.4 mmol/L (3.5-5.1); Sodium 144 mmol/L (136-145)
[2022-06-16] MEDS: cefTRIAXone 1,000 MG in sodium chloride 0.9% (plus) 50 ML 100 MG IV (08:13)
[2022-06-16] MEDS: metoprolol tartrate 25 mg Tablet PO (08:31)
[2022-06-16] MEDS: digoxin 125 mcg Tablet PO (08:31)
[2022-06-16] MEDS: aspirin 81 mg EC Tablet PO (08:31)
--- NOTE | 2022-06-16 13:16 | PM.DCS ---
Discharge Providers Date of Admission: 06/15/22 15:59 Date of Discharge: June 16, 2022 Attending Provider at Admission: Frank Lane MD Attending Provider at Discharge: Frank Lane MD Primary Care Provider: Ivet Burnham MD Diagnoses at Discharge Discharge Diagnosis (1) Respiratory failure with hypoxia and hypercapnia: Status: Acute (2) Left lower lobe pneumonia: Status: Acute (3) Atrial fibrillation: Status: Acute (4) CKD (chronic kidney disease) stage 3, GFR 30-59 ml/min: Status: Acute (5) CHF (congestive heart failure): Status: Acute Qualifiers: Heart failure chronicity: chronic Heart failure type: diastolic Qualified Code(s): I50.32 - Chronic diastolic (congestive) heart failure Reason for Visit Reason for Visit: resp. distress Hospital Course Hospital Course Luis Talavera is a 77 year old male with past medical history of COPD, discharged on 2 L home oxygen on last admission, , heart failure with preserved ejection fraction, atrial fibrillation, dementia CKD stage III, [facility] resident, was brought in with chief complaint of worsening shortness of breath,as well as nonproductive cough. Was admitted for management of Acute on chronic respiratory failure with hypoxia and hypercapnia secondary to COPD exacerbation secondary to pneumonia, patient was kept on BiPAP, Antibiotics and steroids DuoNebs Home inhalers, to which she responded well, at the time of discharge he was saturating well on 2 L oxygen, denied any shortness of breath, was alert awake oriented, he was discharged in stable condition to [facility], levofloxacin p.o. was prescribed on discharge. Patient responded well to above medical management. Physical Exam Const: COMMON NORMALS: patient oriented x3 Resp: COMMON NORMALS: clear to auscultation bilaterally EFFORT & INSPECTION: Yes symmetric chest movement AUSCULTATION: clear to auscultation bilaterally OTHER: Diminished air entry b/l Cardio: COMMON NORMALS: regular rate, regular rhythm, S1 normal heart sound present, S2 normal heart sound present, No gallops present (Cardio), No murmurs present (Cardio), No rub (Cardio) and Peripheral pulses 2+ throughout RATE: regular rate RHYTHM: regular rhythm HEART SOUNDS: S1 normal heart sound present and S2 normal heart sound present PERIPHERAL PULSES: Peripheral pulses 2+ throughout GI: COMMON NORMALS: Normal to inspection, nondistended, normoactive bowel sounds present, Soft to palpation, non-tender, No hepatosplenomegaly present and no masses AUSCULTATION: Yes normoactive bowel sounds PALPATION: Yes Soft to palpation and Yes No hepatosplenomegaly present RECTAL EXAM: Yes deferred Extremity: COMMON NORMALS: no clubbing, cyanosis or edema and no pedal edema Neuro: COMMON NORMALS: patient oriented x3 Discharge Data Studies Completed and Pending Completed Studies During Hospitalization Category Date Time Status XR chest 1V portable [id number] Stat Exams 06/15/22 08:31 Completed Pending at discharge Category Date Time Status Basic Metabolic Panel AM LABS Lab 06/17/22 04:00 Ordered Basic Metabolic Panel AM LABS Lab 06/18/22 04:00 Ordered Complete Blood Count w/Auto AM LABS Lab 06/17/22 04:00 Ordered Complete Blood Count w/Auto AM LABS Lab 06/18/22 04:00 Ordered Urinalysis Stat Lab 06/15/22 08:31 Uncollected Radiology Impressions Chest X-Ray 06/15/22 08:31 Impression: Patchy lingular opacity which could represent minimal pneumonia. Laboratory Results WBC 4.7 10^3/uL (4.0-10.0) 06/16/22 05:08 RBC 4.75 10^6/uL (4.1-5.3) 06/16/22 05:08 Hgb 13.6 g/dL (11.7-16.6) 06/16/22 05:08 Hct 46.9 % (42.0-52.0) 06/16/22 05:08 MCV 98.7 fl (80-94) H 06/16/22 05:08 MCH 28.6 pg (28.0-34.0) 06/16/22 05:08 MCHC 29.0 g/dL (30.0-36.0) L 06/16/22 05:08 RDW 13.2 % (12.1-15.1) 06/16/22 05:08 Plt Count 197 10^3/cmm (130-400) 06/16/22 05:08 MPV 9.8 fL (7.4-10.4) 06/16/22 05:08 Neut % (Auto) 87.1 % 06/16/22 05:08 Lymph % (Auto) 10.4 % 06/16/22 05:08 [place] % (Auto) 1.3 % 06/16/22 05:08 Eos % (Auto) 0.0 % 06/16/22 05:08 Baso % (Auto) 0.4 % 06/16/22 05:08 Neut # (Auto) 4.10 10^3/uL (1.8-7.7) 06/16/22 05:08 Lymph # (Auto) 0.5 10^3/uL (0.8-4.8) L 06/16/22 05:08 [place] # (Auto) 0.1 10^3/uL (0.2-0.9) L 06/16/22 05:08 Eos # (Auto) 0.0 10^3/uL (0.0-0.8) 06/16/22 05:08 Baso # (Auto) 0.0 10^3/uL (0.0-0.1) 06/16/22 05:08 Nucleated RBC % (auto) 0 % 06/16/22 05:08 Nucleated RBCs # 0.0 /100WBC 06/16/22 05:08 Specimen Type Arterial 06/15/22 17:52 Sample Site Brachial, right 06/15/22 17:52 ABG pH 7.31 (7.35-7.45) L 06/15/22 17:52 ABG pCO2 70.8 mmHg (35-45) H* 06/15/22 17:52 ABG pO2 81.5 mmHg (80.0-100.0) 06/15/22 17:52 ABG HCO3 35.8 mmol/L (22-26) H 06/15/22 17:52 ABG O2 Saturation 96.4 06/15/22 17:52 ABG Base Excess 7.0 mmol/L (-2.0-2.0) H 06/15/22 17:52 Jamari Test N/a 06/15/22 17:52 A-a O2 Gradient 15.3 mmHg (5-10) H 06/15/22 17:52 Hematocrit 41.9 % (42-52) L 06/15/22 17:52 Hgb O2 Saturation 93.6 % (95-100) L 06/15/22 17:52 Carboxyhemoglobin 2.1 %THgb (0.4-20.1) 06/15/22 17:52 Methemoglobin 0.8 % (0.4-1.5) 06/15/22 17:52 Total Hemoglobin 13.7 g/dL (14-18) L 06/15/22 17:52 Sodium 143.0 mmol/L (131-143) 06/15/22 17:52 Potassium 4.5 mmol/L (3.5-5.0) 06/15/22 17:52 Glucose 91.0 mg/dL (70-115) 06/15/22 17:52 Ionized Calcium 1.2 mmol/L (1.1-1.4) 06/15/22 17:52 O2 Delivery Device Bipap 06/15/22 17:52 O2 Liters/Min 3.0 % 06/15/22 13:17 FiO2 40.0 % 06/15/22 17:52 [employer] ID [facility] 06/15/22 17:52 Sodium 144 mmol/L (136-145) 06/16/22 05:08 Potassium 5.4 mmol/L (3.5-5.1) H 06/16/22 05:08 Chloride 103 mmol/L (98-107) 06/16/22 05:08 Carbon Dioxide 31 mmol/L (22-29) H 06/16/22 05:08 Anion Gap 15.4 (5-19) 06/16/22 05:08 BUN 32 mg/dL (8-23) H 06/16/22 05:08 Creatinine 1.2 mg/dL (0.7-1.2) 06/16/22 05:08 GFR Calculation Not Reportable 06/16/22 05:08 Glucose 124 mg/dL (65-115) H 06/16/22 05:08 Calculated Osmolality 306 mOsm/kg (285-295) H 06/16/22 05:08 Lactate 1.4 mmol/L (0.5-2.2) 06/15/22 10:13 Calcium 8.7 mg/dL (8.5-10.5) 06/16/22 05:08 Magnesium 2.1 mg/dL (1.7-2.3) 06/15/22 08:44 Total Bilirubin 0.7 mg/dL (0.15-1.2) 06/15/22 08:44 AST 20 U/L (0-40) 06/15/22 08:44 ALT 23 U/L (0-41) 06/15/22 08:44 Alkaline Phosphatase 79 U/L (40-130) 06/15/22 08:44 C-Reactive Protein 51.9 mg/L (0.0-4.9) H 11 08:44 Total Protein 6.2 g/dL (6.6-8.7) L 11 08:44 Albumin 3.2 g/dL (3.5-5.2) L 06/15/22 08:44 Globulin 3.0 g/dL (1.3-4.6) 06/15/22 08:44 Procalcitonin 0.12 ng/mL (0-0.5) 06/15/22 08:44 Nasal Influ A H1 2009 PCR Not detected (NOT DETECT) 06/15/22 08:44 Adenovirus (PCR) Not detected (NOT DETECT) 06/15/22 08:44 C. pneumoniae DNA (PCR) Not detected (NOT DETECT) 06/15/22 08:44 Coronavirus 229E (PCR) Not detected (NOT DETECT) 06/15/22 08:44 Human Metapneumovir PCR Not detected (NOT DETECT) 06/15/22 08:44 Influenza A (H1) PCR Not detected (NOT DETECT) 06/15/22 08:44 Influenza A (H3) PCR Not detected (NOT DETECT) 06/15/22 08:44 Influenza Type A (PCR) Not detected (NOT DETECT) 06/15/22 08:44 Influenza Type B (PCR) Not detected (NOT DETECT) 06/15/22 08:44 M. pneumoniae (PCR) Not detected (NOT DETECT) 06/15/22 08:44 Parainfluenza 1 (PCR) Not detected (NOT DETECT) 06/15/22 08:44 Parainfluenza 2 (PCR) Not detected (NOT DETECT) 06/15/22 08:44 Parainfluenza 3 (PCR) Not detected (NOT DETECT) 06/15/22 08:44 Parainfluenza 4 (PCR) Not detected (NOT DETECT) 06/15/22 08:44 RSV Type A (PCR) Not detected (NOT DETECT) 06/15/22 08:44 RSV Type B (PCR) Not detected (NOT DETECT) 06/15/22 08:44 Entero/Rhino (PCR) Not detected (NOT DETECT) 06/15/22 08:44 SARS-CoV-2 (PCR) Not detected (NOT DETECT) 06/15/22 08:44 Vitals Last Vital Signs Temp 97.8 F 06/16/22 08:00 Pulse 96 06/16/22 12:07 Resp 16 06/16/22 12:07 BP 132/82 06/16/22 12:07 Pulse Ox 90 06/16/22 12:07 O2 Del Method 06/16/22 12:00 O2 Flow Rate 4.5 06/16/22 12:00 FiO2 30 06/16/22 08:30 Discharge Plan Discharge Patient Disposition: Xfer SNF Condition: Stable Prescriptions: New levofloxacin 500 mg tablet 500 mg PO DAILY 5 Days Qty: 5 0RF Continued acetaminophen 325 mg Tablet 325 mg PO QID MDD 4000 mg PRN (Reason: Pain) magnesium hydroxide [Milk of Magnesia] 400 mg/5 mL Suspension 30 ml PO DAILY PRN (Reason: Constipation) tamsulosin 0.4 mg Capsule 0.4 mg PO BEDTIME@20 bisacodyl 10 mg Suppository 10 mg NC DAILY PRN (Reason: Constipation) Enema 19-7 gram/118 mL Enema 118 ml NC DAILY PRN (Reason: Constipation) digoxin 125 mcg (0.125 mg) tablet 125 mcg PO DAILY@0800 Rx Instructions: hold for pulse less than 60 metoprolol tartrate 25 mg tablet 25 mg PO BID@0800,2000 Minerin Creme Cream 1 applic TOPICAL Q12H PRN (Reason: Itching) Rx Instructions: apply to back Combivent Respimat 20-100 mcg/actuation Mist 1 puff INHALATION Q6H PRN (Reason: Shortness Of Breath) Trelegy Ellipta 100-62.5-25 mcg Blister With Device 1 inh INHALATION DAILY@08 sennosides-docusate sodium [Stool Softener-Laxative] 8.6-50 mg Tablet 1 tab-cap PO DAILY PRN (Reason: Constipation) aspirin 81 mg Tablet,Delayed Release (Dr/Ec) 81 mg PO DAILY@08 carboxymethylcellulose sodium 1 % Drops, Liquid Gel 1 drp OPHTHALMIC (EYE) BID@08,20 Rx Instructions: each eye TwoCal HN 0.08-2 gram-kcal/mL Liquid 1 ea PO TID albuterol sulfate 2.5 mg /3 mL (0.083 %) solution for nebulization 2.5 mg inhalation Q4H PRN (Reason: Shortness Of Breath) fexofenadine 180 mg Tablet 180 mg PO BID Discharge Orders: Discharge Order (Routine); Ordered 06/16/22 Ordered By: Frank Lane Referrals: Ivet Burnham MD [Primary Care Provider] - 1 week Patient Instructions: Pneumonia (ED), Opioid Safety, Pain Management, Pneumonia Stoplight Activity Restrictions/Additional Instructions: Nasal cannula as needed to keep oxygen greater than 90% Albuterol every 4 hours for the next 24 hours while awake then as needed Follow-up with primary care provider next week for recheck symptoms, return to the ER as needed Discharge Attestations Time Spent in Discharge Care*: less than 30 min Status at Discharge: Cognitive status at discharge: mildly impaired cognition (at baseline, A & O x 1), Behavioral status at discharge: cooperative and dependent in ADL's, Quality Metrics Clinical Quality Measures [ No reported AMI, CVA or VTE this stay] Coding Level of Care Code Acute Chg FW DC note Exam Detailed Diagnoses Respiratory failure with hypoxia and hypercapnia J96.91; J96.92 Left lower lobe pneumonia J18.9 Atrial fibrillation I48.91 CKD (chronic kidney disease) stage 3, GFR 30-59 ml/min N18.30 CHF (congestive heart failure) I50.32 Heart failure chronicity: chronic Heart failure type: diastolic
== END 2022-06-16 12:30 | disposition skilled nursing facility (03) | DRG 189 ==
LOC: ER 16:02 → MEDSURG 16:47
PROVIDERS: Admitting Provider Internal Medicine; Emergency Provider Student in an Organized Health Care Education/Training Program; PCP Family Medicine; Visit Provider Internal Medicine
DX: J96.22 Acute and chronic respiratory failure with hypercapnia (principal); J18.9 Pneumonia, unspecified organism; J44.1 Chronic obstructive pulmonary disease with (acute) exacerbation; I50.32 Chronic diastolic (congestive) heart failure; J44.0 Chronic obstructive pulmonary disease with (acute) lower respiratory infection; J96.21 Acute and chronic respiratory failure with hypoxia; N18.30 Chronic kidney disease, stage 3 unspecified; F03.90 Unspecified dementia, unspecified severity, without behavioral disturbance, psychotic disturbance, mood disturbance, and anxiety; I48.91 Unspecified atrial fibrillation; Z87.891 Personal history of nicotine dependence; Z66 Do not resuscitate
CPT/HCPCS: 36415; 36600; 71045; 80048; 80051; 80053; 82330; 82803; 82805; 83605; 83735; 84145; 85025; 86140; 87486; 87581; 87633; 94640; 94660; 96365; 96372; 99285; J0456; J0696; J1650; J2920; J7050; Q0144

== ENCOUNTER 2022-08-21 13:53 | Outpatient (CLI) | payer MEDICARE, MEDICAID, SELFPAY ==
--- NOTE | 2022-08-21 13:00 | CT_ITS ---
WS: [id number] CT CHEST WITHOUT INTRAVENOUS CONTRAST HISTORY: lung screening TECHNIQUE: Contiguous 5 mm axial imaging performed on the thorax. Coronal and sagittal reformats are submitted. All CT scans at [facility] use at least one of these dose optimization techniques: automated exposure control; mA and/or kV adjustment per patient size (includes targeted exams where dose is matched to clinical indication); or iterative reconstruction. CONTRAST: None DLP: 334.46 mGy.cm COMPARISON: 02/17/2022 Lungs and central airway: Marked emphysema and pulmonary hyperexpansion. Scattered nodules and focal asymmetry is noted bilaterally. 2 noncalcified nodules posterior LEFT lower lobe with the largest jhoan suring 9 mm. There are additional scattered smaller nodules which may be postinflammatory. As compare d to 02/17/2022 improvement in aeration in the lower lung tucker. Pleura: Normal. No pleural effusion. Heart and pericardium: Normal size heart with no pericardial effusion. Mediastinum and hue: No adenopathy. Vessels: Atherosclerosis aorta. Normal size pulmonary artery. Moderate coronary artery calcifications . Chest wall and lower neck: Pectus excavatum deformity. Upper abdomen: Patient has a known abdominal aortic aneurysm. The initial aneurysm is identified but only a small portion is included on this examination. Osseous structures: No destructive process. CT/CT chest wo con [id number] IMPRESSION: 1. Multifocal, multilobar opacifications with solid nodules measuring up to 9 mm in the LEFT lower lobe. Recommend follow-up chest CT in 3 months. These quiles ges all may be postinflammatory. 2. Chronic emphysema. 3. No adenopathy. 4. Atherosclerosis aorta and moderate coronary artery calcifications.
== END 2022-08-21 13:54 | disposition home or self-care (01) ==
LOC: RAD 13:55
PROVIDERS: PCP Family Medicine; Visit Provider Internal Medicine Pulmonary Disease
DX: Z12.2 Encounter for screening for malignant neoplasm of respiratory organs (principal); Z87.891 Personal history of nicotine dependence; I70.0 Atherosclerosis of aorta; I25.10 Atherosclerotic heart disease of native coronary artery without angina pectoris; R91.1 Solitary pulmonary nodule; J43.2 Centrilobular emphysema; J96.90 Respiratory failure, unspecified, unspecified whether with hypoxia or hypercapnia; J18.0 Bronchopneumonia, unspecified organism; I50.32 Chronic diastolic (congestive) heart failure; I48.91 Unspecified atrial fibrillation; F03.90 Unspecified dementia, unspecified severity, without behavioral disturbance, psychotic disturbance, mood disturbance, and anxiety
CPT/HCPCS: 71250; 99214

== ENCOUNTER → 2022-11-14 08:02 | Outpatient (BNVA) | payer MEDICARE, MEDICAID, SELFPAY | PROVIDERS: PCP Family Medicine; Visit Provider Podiatrist Foot & Ankle Surgery | DX: I73.9 Peripheral vascular disease, unspecified (principal); L60.3 Nail dystrophy; Z79.01 Long term (current) use of anticoagulants | CPT/HCPCS: 11721; 93923 ==

== ENCOUNTER 2022-11-20 09:14 | Outpatient (CLI) | payer MEDICARE, MEDICAID, SELFPAY ==
--- NOTE | 2022-11-20 09:00 | CT_ITS ---
WS: [id number] CT chest wo con [id number] HISTORY: 3 month f/u multiple lung nodules TECHNIQUE: Axial imaging performed through the thorax. Coronal and sagittal reformats are submitted. All CT scans at [facility] use at least one of these dose optimization techniques: automated exposure control; mA and/or kV adjustment per patient size (includes targeted exams where dose is mat ched to clinical indication); or iterative reconstruction. CONTRAST: None DLP: 220.73 mGy.cm COMPARISON: 08/21/2022, 02/17/2022 Lungs and central airway: Hyperexpanded lungs with chronic emphysema. Interstitial thickening noted b ilaterally but greatest in the lower lobes. Reidentified are the subcentimeter nodules in the LEFT lo wer lobe with the largest measuring 7 mm as seen on the prior study. No increase in size. Mild improv ement in the scattered opacifications and groundglass attenuation. No progression of any findings.21 millimeters retention in the bronchial tree, greatest involving the LEFT mainstem bronchus. Pleura: Normal. No pleural effusion. Heart and pericardium: Normal size heart with no pericardial effusion. Mediastinum and hue: No mediastinum or hilar adenopathy. Vessels: Mild atherosclerosis aorta and proximal great arteries. Normal size pulmonary artery. Modera te distribution coronary artery calcification. Chest wall and lower neck: Pectus excavatum deformity. Upper abdomen: Marked distention of the stomach with fluid. No adrenal mass. Osseous structures: No destructive process. CT/CT chest wo con [id number] IMPRESSION: 1. No interval improvement of the 7 mm noncalcified nodules at the LEFT lung b ase. There is slight interval improvement in scattered opacifications and groun dglass attenuation. Consider noncontrast chest CT follow-up in 6 months. Favor benign and postinflammatory etiology. 2. No adenopathy. 3. Chronic emphysema. 4. Mucous secretions retained within the bronchial tree.
== END 2022-11-20 09:15 | disposition home or self-care (01) ==
LOC: RAD 09:17
PROVIDERS: PCP Family Medicine; Visit Provider Internal Medicine Pulmonary Disease
DX: R91.8 Other nonspecific abnormal finding of lung field (principal); J43.9 Emphysema, unspecified
CPT/HCPCS: 71250

== ENCOUNTER → 2022-12-18 10:00 | Outpatient (BNVA) | payer MEDICARE, MEDICAID, SELFPAY | PROVIDERS: PCP Family Medicine; Visit Provider Internal Medicine Pulmonary Disease | DX: J43.2 Centrilobular emphysema (principal); I50.32 Chronic diastolic (congestive) heart failure; Z87.891 Personal history of nicotine dependence; I48.20 Chronic atrial fibrillation, unspecified; R91.8 Other nonspecific abnormal finding of lung field; Z99.81 Dependence on supplemental oxygen | CPT/HCPCS: 99214 ==

== ENCOUNTER → 2023-01-30 08:04 | Outpatient (BNVA) | payer MEDICARE, MEDICAID, SELFPAY | PROVIDERS: PCP Family Medicine; Visit Provider Podiatrist Foot & Ankle Surgery | DX: I73.9 Peripheral vascular disease, unspecified (principal); L60.8 Other nail disorders; L60.3 Nail dystrophy; Z79.01 Long term (current) use of anticoagulants | CPT/HCPCS: 11721 ==

== ENCOUNTER → 2023-04-24 13:24 | Outpatient (BNVA) | payer MEDICARE, MEDICAID, SELFPAY | PROVIDERS: PCP Family Medicine; Visit Provider Internal Medicine | DX: I48.91 Unspecified atrial fibrillation (principal); Z87.891 Personal history of nicotine dependence | CPT/HCPCS: 99214 ==

== ENCOUNTER 2023-05-23 11:33 | Outpatient (CLI) | payer MEDICARE, MEDICAID, SELFPAY ==
--- NOTE | 2023-05-23 12:00 | CTR_ITS ---
PROCEDURE INFORMATION: Exam: CT Chest Without Contrast; Diagnostic Exam date and time: 05/23/2023 12:01 PM Age: 78 years old Clinical indication: Condition or disease; Lung condition and disease; Pulmonary nodule, solitary; Additional info: Lung nodule, please schedule in May 2023. TECHNIQUE: Imaging protocol: Diagnostic computed tomography of the chest without contrast. Radiation optimization: All CT scans at this facility use at least one of these dose optimization techniques: automated exposure control; mA and/or kV adjustment per patient size (includes targeted exams where dose is matched to clinical indication); or iterative reconstruction. REPORTING DATA: Count of CT and Cardiac NM exams in prior 12 months: This patient has received 2 known CTs and 0 known cardiac nuclear medicine studies in the 12 months prior to the current study. COMPARISON: CT chest wo con [id number] 11/20/2022 9:22 AM and August 2022 RADIATION DOSE METRICS: Total DLP (mGy-cm): 292.53 FINDINGS: Lungs: Small cluster of indistinct confluent nodular densities within the left paravertebral gutter stable from earlier studies probably representing nodular areas of subsegmental atelectasis. There is mild bronchiectasis lower lung zones with chronic small airway changes also stable. Stable upper lobe emphysematous changes again noted. No new nodules detected. Pleural spaces: Unremarkable. No pneumothorax. No pleural effusion. Heart: Heart is not significantly enlarged. There are mild calcifications of the coronary arteries. No significant pericardial effusion. Lymph nodes: Unremarkable. No enlarged lymph nodes. Vasculature: Scattered atherosclerotic changes of the thoracic aorta. No evidence of aortic aneurysm. Bones/joints: Unremarkable. No acute fracture. Soft tissues: Unremarkable. CT/CT chest wo con [id number] IMPRESSION: 1. Stable cluster of confluent nodular opacities left lower lung zone favoring benign etiology. Recommend a repeat CT chest in 6 months for continued surveillance. 2. Mild chronic airway changes lower lung zones and upper lobe emphysematous changes, stable.
== END 2023-05-23 11:34 | disposition home or self-care (01) ==
LOC: RAD 11:34
PROVIDERS: PCP Family Medicine; Visit Provider Internal Medicine Pulmonary Disease
DX: R91.1 Solitary pulmonary nodule (principal); Z87.891 Personal history of nicotine dependence; R91.8 Other nonspecific abnormal finding of lung field
CPT/HCPCS: 71250

== ENCOUNTER → 2023-06-21 13:25 | Outpatient (BNVA) | payer MEDICARE, MEDICAID, SELFPAY | PROVIDERS: PCP Family Medicine; Visit Provider Internal Medicine Pulmonary Disease | DX: J43.2 Centrilobular emphysema (principal); I50.32 Chronic diastolic (congestive) heart failure; I48.91 Unspecified atrial fibrillation; Z87.891 Personal history of nicotine dependence; Z12.2 Encounter for screening for malignant neoplasm of respiratory organs; R91.1 Solitary pulmonary nodule | CPT/HCPCS: 99214 ==

== ENCOUNTER → 2023-06-27 08:45 | Outpatient (BNVA) | payer MEDICARE, MEDICAID, SELFPAY | PROVIDERS: PCP Family Medicine; Visit Provider Podiatrist Foot & Ankle Surgery | DX: L60.3 Nail dystrophy (principal); I73.9 Peripheral vascular disease, unspecified; Z79.01 Long term (current) use of anticoagulants | CPT/HCPCS: 11720 ==

== ENCOUNTER 2024-08-19 09:15 | Inpatient (IN) | payer MEDICARE, MEDICAID, SELFPAY ==
[2024-08-19] VITALS (104 sets, daily range): BP systolic 86–139; BP diastolic 55–86; PULSE 73–112; RESP 15–34; TEMP 36–37.1; O2SAT 86–100
--- NOTE | 2024-08-19 09:19 | PC.PHAR ---
Pt is from [facility]
--- NOTE | 2024-08-19 09:21 | CT_ITS ---
WS: [id number] CT HEAD TECHNIQUE: Noncontrast CT of the head obtained from the skullbase to the vertex. CLINICAL INFORMATION: Symptoms of acute stroke COMPARISON: 2021 DLP: [address] scans at [facility] use at least one of these dose optimization techniques: automated e xposure control; mA and/or kV adjustment per patient size (includes targeted exams where dose is matc hed to clinical indication); or iterative reconstruction. FINDINGS: No evidence of intraparenchymal hemorrhage or mass effect. Small area of increased density overlying the RIGHT inferior frontal lobe may be due to beam hardening artifact. Recommend short interval follo w-up. Ventricular system and basal cisterns are patent. Mild small vessel changes with moderate parenchymal volume loss. No evidence of mass or mass effect. Paranasal sinuses and mastoid air cells are well aerated. .Normal visualized soft tissues. CT/CT head thrombolytic [id number] IMPRESSION: 1. Small area of increased density in the subarachnoid space overlying the RIG HT inferior frontal lobe. This probably represents a small amount of beam harde joel artifact but recommend follow-up head CT 2. No other acute findings. 3. Vascular calcification. 4. Mild small vessel changes with mild to moderate parenchymal volume loss sim ilar to previous studies Notified Nick Cho DO at 08/19/2024 9:42 AM.
--- NOTE | 2024-08-19 09:22 | ECG_ITS ---
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 Measurements Intervals [place]ir Rate: 84 P: 69 MA: 135 QRS: 74 QRSD: 87 T: 81 QT: 332 QTc: 393 Interpretive Statements SINUS RHYTHM WITH OCCASIONAL SUPRAVENTRICULAR PREMATURE COMPLEXES Compared to ECG 02/17/2022 15:31:28 Sinus tachycardia no longer present Electronically Signed On 08-19-2024 23:49:53 PRIVACY SPECIALIST by Doyle Healy M.D. [email or web address]
--- NOTE | 2024-08-19 09:26 | ED_ITS ---
HPI - Altered Mental Status 2 General: Chief Complaint: Altered Mental Status Stated Complaint: SOB Time Seen by Provider: 08/19/24 09:21 History of Present Illness: 79-year-old male who presents [facility] the [facility] room via EMS for altered mental status he was found this morning in his condition he is slumped over to his right and has a right-sided facial droop. He is very difficult to score for an NIH because he is nonresponsive. When he first arrived he was on a nonrebreather this was switched to a nasal cannula. Old chest x-ray showed hyperinflation. He does not appear his had a formal diagnosis of COPD in the past although he has been given Combivent according to his old records. He also has a history of A-fib with rapid ventricular response. Medication list in the chart at the time of admission to the ER shows that he is on baby aspirin daily and digoxin and metoprolol but not any long-term anticoagulants. Nursing staff is contacting the [facility] to get in approximately last known well. First report from EMS was that this was a wake-up condition. Related Data Home Medications Medication Instructions Recorded Confirmed acetaminophen 325 mg tablet 325 mg PO QID PRN Pain 01/24/20 08/19/24 bisacodyl 10 mg rectal suppository [address] DAILY PRN Constipation 01/24/20 08/19/24 magnesium hydroxide 400 mg/5 mL 30 ml PO DAILY PRN Constipation 01/24/20 08/19/24 oral suspension (Milk of Magnesia) sodium phosphates 19 gram-[address] DAILY PRN Constipation 01/24/20 08/19/24 gram/118 mL enema (Enema) tamsulosin 0.4 mg capsule 0.4 mg PO BEDTIME@01/24/20 08/19/24 digoxin 125 mcg (0.125 mg) tablet 125 mcg PO .QOD 12/26/20 08/19/24 metoprolol tartrate 25 mg tablet 25 mg PO BID@0800,199912/26/20 08/19/24 fluticasone fur. 100 mcg-umeclid 1 inh inhalation DAILY@11/21/21 08/19/24 62.5 mcg-vilant 25 mcg inhalat.powder (Trelegy Ellipta) ipratropium 20 mcg-albuterol 100 1 puff inhalation Q6H PRN 11/21/21 08/19/24 mcg/actuation mist for inhalation Shortness Of Breath (Combivent Respimat) lanolin alcohols-mineral 1 applic topical Q12H PRN Itching 11/21/21 08/19/24 oil-w.petrolatum-ceresin topical cream (Minerin Creme topical) aspirin 81 mg tablet,delayed 81 mg PO DAILY@08 02/17/22 08/19/24 release carboxymethylcellulose sodium 1 % 1 drp ophthalmic (eye) BID@08,02/17/22 08/19/24 eye liquid gel drops nut. tx, spec. form, 1 ea PO TID 02/17/22 08/19/24 lac-free,iron-fos 0.08 gram-2 kcal/mL oral liquid (TwoCal HN) sennosides 8.6 mg-docusate sodium 1 tab-cap PO DAILY PRN Constipation 02/17/22 08/19/24 50 mg tablet (Stool Softener-Laxative) albuterol sulfate 2.5 mg/3 mL 2.5 mg inhalation Q4H PRN 06/15/22 08/19/24 (0.083 %) solution for nebulization Shortness Of Breath guaifenesin 600 mg tablet, 600 mg PO BID 08/21/22 08/19/24 extended release 12 hr (Mucinex) hydrochlorothiazide 12.5 mg tablet 12.5 mg PO DAILY 04/24/23 08/19/24 psyllium 2 tbsp PO DAILY PRN Constipation 08/19/24 08/19/24 Previous Rx's Medication Instructions Recorded azithromycin 250 mg tablet 250 mg PO .COMPLEX 12 months #48 08/21/22 tabs Allergies Allergy/AdvReac Type Severity Reaction Status Date / Time No Known Allergies Allergy Verified 06/27/23 09:09 Review of Systems 2 General: Reports: ROS unobtainable due to medical condition and ROS unobtainable due to mental status PFSH ED 2 PFSH: Medical History Respiratory failure with hypoxia and hypercapnia Left lower lobe pneumonia Hypercapnic respiratory failure Urolithiasis Diastolic heart failure Atrial fibrillation Elevated troponin CKD (chronic kidney disease) stage 3, GFR 30-59 ml/min Respiratory failure with hypoxia and hypercapnia Currently discharged on 3 Ls oxygen Sepsis Acute exacerbation of chronic obstructive airways disease Bronchopneumonia Urinary retention Chronic kidney disease Atrial fibrillation with RVR DEBRA (acute kidney injury) COPD (chronic obstructive pulmonary disease) -acute COPD exacerbation secondary to pneumonia -as noted above -not oxygen dependent at baseline Atrial fibrillation and flutter CHF (congestive heart failure) Aspiration pneumonia -as noted above Dementia Surgical History S/P tonsillectomy Status post cystoscopy with ureteral stent placement Family History Mother , 84 No problems noted. Father , 80's No problems noted. Social History Smoking and tobacco/nicotine status: former use of tobacco/nicotine Quit status (tobacco/nicotine): has quit using Year quit tobacco: 2018 [id number] Second hand smoke exposure: No Alcohol intake: never Substance/Drug Use: never Caregiver/support person: Yes Lives independently: No Household members: none Housing: Detention Marital status: Single service: No Current occupational status: retired Pets and animals: No Do you think of yourself as: Straight/Heterosexual Current gender identity: Male Physical Exam 2 HENMT: COMMON NORMALS: normocephalic, atraumatic and hearing grossly normal bilaterally HEAD & SCALP: normocephalic and atraumatic Resp: EFFORT & INSPECTION: Yes respiratory distress, Yes labored and Yes grunting AUSCULTATION: wheezes and diminished lung sounds Cardio: COMMON NORMALS: regular rate, regular rhythm and No murmurs present (Cardio) RATE: regular rate RHYTHM: regular rhythm GI: COMMON NORMALS: Soft to palpation and No hepatosplenomegaly present A USCULTATION: Yes normoactive bowel sounds PALPATION: Yes Soft to palpation, No Tenderness to palpation present (GI), No Guarding due to palpation present (GI) and Yes No hepatosplenomegaly present Extremity: COMMON NORMALS: normal to inspection, capillary refill normal, no clubbing, cyanosis or edema, no calf tenderness and no pedal edema Skin: COMMON NORMALS: no rashes or lesions noted GENERAL SKIN EXAM: no rashes or lesions noted Course 2 Vital Signs: Vital signs: Vital Signs Temperature 97.9 F 08/19/24 09:22 Pulse Rate 88 08/19/24 13:20 Respiratory Rate 22 H 08/19/24 13:20 Blood Pressure 124/81 08/19/24 13:20 Pulse Oximetry 94 08/19/24 13:20 Oxygen Delivery Me thod BiPAP 08/19/24 13:20 Oxygen Flow Rate 6 08/19/24 09:17 Fraction of Inspir ed Oxygen 40 08/19/24 11:02 MDM - Altered Mental Status Medical Decision Making Acute hypercapnic respiratory failure exacerbation COPD chest x-ray looks normal white count normal D-dimer adjusted for age is in normal range. Initial blood gas 7.26 with a markedly elevated pCO2 102. Initially a stroke alert was called. He is difficult to assess because of his altered mental status and his hypercapnia. He did improve after he started on BiPAP slightly. He was awaking responsive to verbal stimuli and answering brief questions but he is dozing off. Discussed with hospitalist will admit for hypercapnic respiratory failure to the ICU. CT of the head reviewed. Finally has a mild acute kidney injury. Orders written for ICU. Medical Records I reviewed the patient's medical records. Lab Data I reviewed the patient's lab results. 08/19/24 09:05 08/19/24 09:[address] 08/19/24 09:21 IMPRESSION: 1. Small area of increased density in the subarachnoid space overlying the RIGHT inferior frontal lobe. This probably represents a small amount of beam hardening artifact but recommend follow-up head CT 2. No other acute findings. 3. Vascular calcification. 4. Mild small vessel changes with mild to moderate parenchymal volume loss similar to previous studies Notified Nick Cho DO at 08/19/2024 9:42 AM. Chest X-Ray 08/19/24 10:15 IMPRESSION: No acute findings. Hyperinflation possibly due to COPD. Laboratory Results WBC 9.59 10^3/uL (3.29-11.43) 08/19/24 09:05 RBC 4.65 10^6/uL (3.85-5.65) 08/19/24 09:05 Hgb 14.40 g/dL (11.27-16.99) 08/19/24 09:05 Hct 45.6 % (37-53) 08/19/24 09:05 MCV 98.1 fl (82-101) 08/19/24 09:05 MCH 31.0 pg (27-33) 08/19/24 09:05 MCHC 31.6 g/dL (30-55) 08/19/24 09:05 RDW 12.4 % (12.1-15.1) 08/19/24 09:05 Plt Count 141 10^3/cmm (157-399) L 08/19/24 09:05 MPV 9.3 fL (7.4-10.4) 08/19/24 09:05 Neut % (Auto) 72.1 % 08/19/24 09:05 Lymph % (Auto) 10.6 % 08/19/24 09:05 [place] % (Auto) 16.2 % 08/19/24 09:05 Eos % (Auto) 0.2 % 08/19/24 09:05 Baso % (Auto) 0.5 % 08/19/24 09:05 Neut # (Auto) 6.91 10^3/uL (1.8-7.7) 08/19/24 09:05 Lymph # (Auto) 1.0 10^3/uL (0.8-4.8) 08/19/24 09:05 [place] # (Auto) 1.6 10^3/uL (0.2-0.9) H 08/19/24 09:05 Eos # (Auto) 0.0 10^3/uL (0.0-0.8) 08/19/24 09:05 Baso # (Auto) 0.1 10^3/uL (0.0-0.1) 08/19/24 09:05 Nucleated RBC % (auto) 0 % 08/19/24 09:05 Nucleated RBCs # 0.0 /100WBC 08/19/24 09:05 PT 14.00 SECONDS (12.1-14.9) 08/19/24 09:05 INR 1.01 (0.8-1.2) 08/19/24 09:05 APTT 31.4 SECONDS (23.9-36.7) 08/19/24 09:05 D-Dimer 1.61 ug/mLFEU (0-0.59) H 08/19/24 09:00 Specimen Type Arterial 08/19/24 10:47 Sample Site Brachial, right 08/19/24 10:47 ABG pH 7.26 (7.35-7.45) L 08/19/24 10:47 ABG pCO2 96.3 mmHg (35-45) H* 08/19/24 10:47 ABG pO2 74.5 mmHg (80.0-100.0) L 08/19/24 10:47 ABG PO2/FiO2 Ratio 186 08/19/24 10:47 ABG HCO3 43.3 mmol/L (22-26) H 08/19/24 10:47 ABG O2 Saturation 93.0 08/19/24 10:47 ABG Base Excess 11.4 mmol/L (-2.0-2.0) H 08/19/24 10:47 Jamari Test Pos 08/19/24 10:47 A-a O2 Gradient 13.1 mmHg (5-10) H 08/19/24 10:47 Hematocrit 46.4 % (42-52) 08/19/24 10:47 Hgb O2 Saturation 90.8 % (95-100) L 08/19/24 10:47 Carboxyhemoglobin 1.3 %THgb (0.4-20.1) 08/19/24 10:47 Methemoglobin 1.1 % (0.4-1.5) 08/19/24 10:47 Total Hemoglobin 15.1 g/dL (14-18) 08/19/24 10:47 Sodium 144.0 mmol/L (131-143) H 08/19/24 10:47 Potassium 3.9 mmol/L (3.5-5.0) 08/19/24 10:47 Glucose 116.0 mg/dL (70-115) H 08/19/24 10:47 Ionized Calcium 1.2 mmol/L (1.1-1.4) 08/19/24 10:47 O2 Delivery Device Bipap 08/19/24 10:47 O2 Liters/Min 5.0 % 08/19/24 09:20 FiO2 40.0 % 08/19/24 10:47 PEEP 8.0 cmH20 08/19/24 10:47 Cement Car Dumper ID Bd 08/19/24 10:47 Sodium 141 mmol/L (136-145) 08/19/24 09:05 Potassium 3.8 mmol/L (3.5-5.1) 08/19/24 09:05 Chloride 96 mmol/L (98-107) L 08/19/24 09:05 Carbon Dioxide 41 mmol/L (22-29) H 08/19/24 09:05 Anion Gap 7.8 (5-19) 08/19/24 09:05 BUN 41 mg/dL (8-23) H 08/19/24 09:05 Creatinine 1.6 mg/dL (0.7-1.2) H 08/19/24 09:05 GFR Calculation Not Reportable 08/19/24 09:05 Glucose 118 mg/dL (65-115) H 08/19/24 09:05 POC Glucose 115 mg/dL (70-110) H 08/19/24 09:23 Calculated Osmolality 303 mOsm/kg (285-295) H 08/19/24 09:05 Lactic Acid 1.3 mmol/L (0.5-2.2) 08/19/24 09:05 Calcium 9.0 mg/dL (8.5-10.5) 08/19/24 09:05 Total Bilirubin 0.7 mg/dL (0.15-1.2) 08/19/24 09:05 AST 78 U/L (0-40) H 08/19/24 09:05 ALT 26 U/L (0-41) 08/19/24 09:05 Alkaline Phosphatase 96 U/L (40-130) 08/19/24 09:05 Ammonia 38 umol/L (16-60) 08/19/24 09:05 Troponin T Baseline 36 ng/L (0-15) H 08/19/24 09:05 Troponin T 120 Minute 37.71 ng/L (0-15) H 08/19/24 10:56 Delta Troponin T 1.71 ABS# (0-10) 08/19/24 10:56 Total Protein 6.6 g/dL (6.6-8.7) 08/19/24 09:05 Albumin 3.8 g/dL (3.5-5.2) 08/19/24 09:05 Globulin 2.8 g/dL (1.3-4.6) 08/19/24 09:05 Urine Color Dark yellow (Yellow) A 08/19/24 10:04 Urine Appearance Cloudy (CLEAR) A 08/19/24 10:04 Urine pH 5.0 (5-7) 08/19/24 10:04 Ur Specific [place] 1.029 (1.005-1.030) 08/19/24 10:04 Urine Protein 2+ (Negative) A 08/19/24 10:04 Urine Glucose (UA) Negative (Normal) 08/19/24 10:04 Urine Ketones Trace (Negative) 08/19/24 10:04 Urine Blood 2+ (Negative) A 08/19/24 10:04 Urine Nitrate Negative (Negative) 08/19/24 10:04 Urine Bilirubin Negative (Negative) 08/19/24 10:04 Urine Urobilinogen 1.0 mg/dL (Negative) 08/19/24 10:04 Ur Leukocyte Esterase Negative (Negative) 08/19/24 10:04 Urine RBC 0-4 /hpf (0-2) H 08/19/24 10:04 Urine WBC 0-4 /hpf (0-5) H 08/19/24 10:04 Ur Squamous Epith Cells 0-4 /hpf (0-5) H 08/19/24 10:04 Amorphous Sediment Not Reportable 08/19/24 10:04 Urine Bacteria None /hpf (NONE) 08/19/24 10:04 Hyaline Casts 0-4 /lpf H 08/19/24 10:04 Fine Granular Casts 0-4 /lpf H 08/19/24 10:04 Urine Mucus Trace /hpf 08/19/24 10:04 Digoxin 0.8 ng/mL (0.6-1.2) 08/19/24 09:05 Urine Opiates Screen Negative ng/mL (Negative) 08/19/24 10:04 Ur Barbiturates Screen Negative ng/mL (Negative) 08/19/24 10:04 Ur Phencyclidine Scrn Negative ng/mL (Negative) 08/19/24 10:04 Ur Amphetamines Screen Negative ng/mL (Negative) 08/19/24 10:04 U Benzodiazepines Scrn Negative ng/mL (Negative) 08/19/24 10:04 Urine Cocaine Screen Negative ng/mL (Negative) 08/19/24 10:04 U Marijuana (THC) Screen Negative ng/mL (Negative) 08/19/24 10:04 Adenovirus (PCR) Not detected (NOT DETECT) 08/19/24 10:31 C. pneumoniae DNA (PCR) Not detected (NOT DETECT) 08/19/24 10:31 Coronavirus 229E (PCR) Not detected (NOT DETECT) 08/19/24 10:31 Human Metapneumovir PCR Not detected (NOT DETECT) 08/19/24 10:31 Influenza A (H1) PCR Not detected (NOT DETECT) 08/19/24 10:31 Influ A (H1/09) PCR Not detected (NOT DETECT) 08/19/24 10:31 Influenza A (H3) PCR Not detected (NOT DETECT) 08/19/24 10:31 Influenza Type A (PCR) Not detected (NOT DETECT) 08/19/24 10:31 Influenza Type B (PCR) Not detected (NOT DETECT) 08/19/24 10:31 M. pneumoniae (PCR) Not detected (NOT DETECT) 08/19/24 10:31 Parainfluenza 1 (PCR) Not detected (NOT DETECT) 08/19/24 10:31 Parainfluenza 2 (PCR) Not detected (NOT DETECT) 08/19/24 10:31 Parainfluenza 3 (PCR) Not detected (NOT DETECT) 08/19/24 10:31 Parainfluenza 4 (PCR) Not detected (NOT DETECT) 08/19/24 10:31 RSV Type A (PCR) Not detected (NOT DETECT) 08/19/24 10:31 RSV Type B (PCR) Detected (NOT DETECT) A 08/19/24 10:31 Entero/Rhino (PCR) Not detected (NOT DETECT) 08/19/24 10:31 SARS-CoV-2 (PCR) Not detected (NOT DETECT) 08/19/24 10:31 All radiology interpretation(s) finalized by discharge Discharge Plan Discharge Patient Disposition: Admitted As Inpatient Admit Provider: Case Roberts Clinical Impression: Acute respiratory failure with hypoxia and hypercapnia, COPD with acute exacerbation, Acute kidney injury, RSV bronchiolitis Condition: Stable Coding Level of Care Code ED [place] Manager for Carmen Torres
[2024-08-19 09:28] LABS: Glucose Point of Care 115 mg/dL (70-110)
[2024-08-19 09:29] LABS: Basophils # 0.1 10^3/uL (0.0-0.1); Basophils % 0.5 %; Eosinophils % 0.2 %; Hematocrit 45.6 % (37-53); Lymphocytes % 10.6 %; Mean Corpuscular HGB Conc 31.6 g/dL (30-55); Mean Corpuscular Volume 98.1 fl (82-101); Mean Platelet Volume 9.3 fL (7.4-10.4); Monocytes # 1.6 10^3/uL (0.2-0.9); Monocytes % 16.2 %; Neutrophils # 6.91 10^3/uL (1.8-7.7); Neutrophils % 72.1 %; Nucleated Red Blood Cells % 0 %; Platelet Count 141 10^3/cmm (157-399); Red Blood Count 4.65 10^6/uL (3.85-5.65); Red Cell Distribution Width 12.4 % (12.1-15.1); White Blood Count 9.59 10^3/uL (3.29-11.43)
[2024-08-19 09:29] LABS: ABG PH Result 7.25 (7.35-7.45); Alveolar-Arterial Oxygen Gradi 6.7 mmHg (5-10); Arterial Blood Gas Hematocrit 45.8 % (42-52); Base Excess ABG 11.8 mmol/L (-2.0-2.0); Blood Gas Allen Test Pos; Blood Gas Operator Identificat BD; Blood Gas Sample Site Brachial, right; Blood Gas Sample Type Arterial; Carboxyhemoglobin 1.4 %THgb (0.4-20.1); HCO3 ABG 44.2 mmol/L (22-26); HGB O2 Sat 95.7 % (95-100); Ionized Calcium Level - ABG 1.2 mmol/L (1.1-1.4); Methemoglobin 1.1 % (0.4-1.5); Oxygen Device NC; PO2 FiO2 Ratio Arterial Blood 290; Potassium Level - ABG 3.7 mmol/L (3.5-5.0)
--- NOTE | 2024-08-19 09:29 | PC.NURSE ---
CORRECTION STAFF REPORTS LAST KNOWN WELL BETWEEN [phone] THIS MORNING.
[2024-08-19 09:41] LABS: INR 1.01 (0.8-1.2)
[2024-08-19 09:42] LABS: Partial Thromboplastin Time 31.4 SECONDS (23.9-36.7)
[2024-08-19 09:44] LABS: Alanine Aminotransferase 26 U/L (0-41); Albumin Level 3.8 g/dL (3.5-5.2); Alkaline Phosphatase 96 U/L (40-130); Anion Gap 7.8 (5-19); Aspartate Amino Transferase 78 U/L (0-40); Blood Urea Nitrogen 41 mg/dL (8-23); Chloride 96 mmol/L (98-107); Creatinine Clr Calc Pharmacy 31.1844; Globulin 2.8 g/dL (1.3-4.6); Glucose 118 mg/dL (65-115); Osmolality Calculated 303 mOsm/kg (285-295); Potassium 3.8 mmol/L (3.5-5.1); Sodium 141 mmol/L (136-145); Total Bilirubin 0.7 mg/dL (0.15-1.2); Total Protein 6.6 g/dL (6.6-8.7); Troponin(5th) Baseline 36 ng/L (0-15)
[2024-08-19 09:45] LABS: Lactic Sepsis W/Reflex 1.3 mmol/L (0.5-2.2)
[2024-08-19 09:48] LABS: Carbon Dioxide 41 mmol/L (22-29); Digoxin 0.8 ng/mL (0.6-1.2)
--- NOTE | 2024-08-19 09:48 | PC.NURSE ---
DIFFICULT TO PERFORM ACCURATE NIH SCORE DUE TO PT MENTATION AT THIS TIME. STROKE ALERT WAS CANCELLED ON PT.
[2024-08-19 09:50] LABS: Ammonia 38 umol/L (16-60)
--- NOTE | 2024-08-19 10:15 | XRR_ITS ---
PROCEDURE INFORMATION: Exam: XR Chest Exam date and time: 08/19/2024 10:15 AM Age: 79 years old Clinical indication: Cough and dyspnea and shortness of breath; Additional info: Dyspnea/cough TECHNIQUE: Imaging protocol: Radiologic exam of the chest. Views: 1 view. COMPARISON: CT chest [facility] [id number] 05/23/2023 12:01 PM FINDINGS: Lungs: Lungs appear hyperinflated but free of acute disease. Pleural spaces: Unremarkable. No pleural effusion. No pneumothorax. Heart/Mediastinum: Unremarkable. No cardiomegaly. Bones/joints: Unremarkable. XR/XR chest 1V portable [id number] IMPRESSION: No acute findings. Hyperinflation possibly due to COPD.
[2024-08-19 10:17] LABS: Bilirubin Urine Negative (Negative); Blood Urine 2+ (Negative); Glucose Urine UA Negative (Normal); Ketones Urine Trace (Negative); Leukocyte Esterase Urine Negative (Negative); Nitrate Urine Negative (Negative); Protein Urine 2+ (Negative); Specific Gravity, Urine 1.029 (1.005-1.030); Urine Appearance Cloudy (CLEAR); Urine Color Dark Yellow (Yellow)
[2024-08-19 10:20] LABS: Add Urine Microscopic? YES
[2024-08-19 10:25] LABS: Amphetamines Screen Urine Negative (Negative); Barbiturates Screen Urine Negative (Negative); Benzodiazepines Screen Urine Negative (Negative); Cocaine Screen Urine Negative (Negative); Opiate Screen Urine Negative (Negative); PCP Screen Urine Negative (Negative); THC Screen Urine Negative (Negative)
[2024-08-19 10:38] LABS: UA Manual Slide Review YES; UA Slide Review UA Slide Review Perf
[2024-08-19 10:40] LABS: Fine Granular Casts Urine 0-4 /lpf; Hyaline Casts Urine 0-4 /lpf; Mucus Urine TRACE /hpf; RBC Urine 0-4 /hpf (0-2); Squamous Epithelial Cell Urine 0-4 /hpf (0-5); WBC Urine 0-4 /hpf (0-5)
[2024-08-19 10:47] LABS: D Dimer 1.61 ug/mLFEU (0-0.59)
--- NOTE | 2024-08-19 10:56 | P.HP_ITS ---
Providers/Chief Complaint 2 Primary Care Provider: Ivet Burnham MD Chief Complaint: SOB History of Present Illness 79-year-old gentleman with history of COPD on chronic oxygen previously about 2 L, with history of atrial fibrillation, CKD, diastolic congestive heart failure, aspiration pneumonia, was evaluated in ER after EMS was called due to altered mental status at group home facility, was found slumped over to the right side with possible right-sided facial droop. In ER found obtunded. With hypercapnic, hypoxic respiratory failure. He was started on BiPAP support. Started becoming more alert, with reassessment not found to have right-sided facial droop or obvious right side deficits and stroke code had been canceled. We were called for admission for respiratory failure. He remains lethargic, but with some improvement, he is now opening his eyes, is able to give small bits of information. Stated he has been coughing, spitting up some phlegm. Denies headache, denies chest pain or pressure. Does fall asleep between sentences and still unable to participate well with exam. Review of Systems 2 Const: Reports: other (Mental status change) Card: Denies: chest pain or edema Resp: Reports: productive cough; Denies: pain on inspiration Medications/Allergies Home Medications Medication Instructions Recorded Confirmed Last Taken Type acetaminophen 325 mg tablet 325 mg PO QID PRN Pain 01/24/20 08/19/24 08/18/24 History bisacodyl 10 mg rectal suppository 10 mg HI DAILY PRN Constipation 01/24/20 08/19/24 Unknown History magnesium hydroxide 400 mg/5 mL 30 ml PO DAILY PRN Constipation 01/24/20 08/19/24 Unknown History oral suspension (Milk of Magnesia) sodium phosphates 19 gram-7 118 ml HI DAILY PRN Constipation 01/24/20 08/19/24 Unknown History gram/118 mL enema (Enema) tamsulosin 0.4 mg capsule 0.4 mg PO BEDTIME@20 01/24/20 08/19/24 08/18/24 History digoxin 125 mcg (0.125 mg) tablet 125 mcg PO .QOD 12/26/20 08/19/24 08/18/24 History metoprolol tartrate 25 mg tablet 25 mg PO BID@0800,199912/26/20 08/19/24 08/19/24 History fluticasone fur. 100 mcg-umeclid 1 inh inhalation DAILY@08 11/21/21 08/19/24 08/19/24 History 62.5 mcg-vilant 25 mcg inhalat.powder (Trelegy Ellipta) ipratropium 20 mcg-albuterol 100 1 puff inhalation Q6H PRN 11/21/21 08/19/24 Unknown History mcg/actuation mist for inhalation Shortness Of Breath (Combivent Respimat) lanolin alcohols-mineral 1 applic topical Q12H PRN Itching 11/21/21 08/19/24 Unknown History oil-w.petrolatum-ceresin topical cream (Minerin Creme topical) aspirin 81 mg tablet,delayed 81 mg PO DAILY@08 02/17/22 08/19/24 08/19/24 History release carboxymethylcellulose sodium 1 % 1 drp ophthalmic (eye) BID@08,02/17/22 08/19/24 08/19/24 History eye liquid gel drops nut. tx, spec. form, 1 ea PO TID 02/17/22 08/19/24 08/19/24 History lac-free,iron-fos 0.08 gram-2 kcal/mL oral liquid (TwoCal HN) sennosides 8.6 mg-docusate sodium 1 tab-cap PO DAILY PRN Constipation 02/17/22 08/19/24 Unknown History 50 mg tablet (Stool Softener-Laxative) albuterol sulfate 2.5 mg/3 mL 2.5 mg inhalation Q4H PRN 06/15/22 08/19/24 08/18/24 History (0.083 %) solution for nebulization Shortness Of Breath azithromycin 250 mg tablet 250 mg PO .COMPLEX 12 months #48 08/21/22 08/19/24 08/18/24 Rx tabs guaifenesin 600 mg tablet, 600 mg PO BID 08/21/22 08/19/24 08/19/24 History extended release 12 hr (Mucinex) hydrochlorothiazide 12.5 mg tablet 12.5 mg PO DAILY 04/24/23 08/19/24 08/19/24 History psyllium 2 tbsp PO DAILY PRN Constipation 08/19/24 08/19/24 Unknown History Allergies Allergy/AdvReac Type Severity Reaction Status Date / Time No Known Allergies Allergy Verified 06/27/23 09:09 PFSH Acute 2 PFSH: Medical History Respiratory failure with hypoxia and hypercapnia Left lower lobe pneumonia Hypercapnic respiratory failure Urolithiasis Diastolic heart failure Atrial fibrillation Elevated troponin CKD (chronic kidney disease) stage 3, GFR 30-59 ml/min Respiratory failure with hypoxia and hypercapnia Currently discharged on 3 Ls oxygen Sepsis Acute exacerbation of chronic obstructive airways disease Bronchopneumonia Urinary retention Chronic kidney disease Atrial fibrillation with RVR DEBRA (acute kidney injury) COPD (chronic obstructive pulmonary disease) -acute COPD exacerbation secondary to pneumonia -as noted above -not oxygen dependent at baseline Atrial fibrillation and flutter CHF (congestive heart failure) Aspiration pneumonia -as noted above Dementia Surgical History S/P tonsillectomy Status post cystoscopy with ureteral stent placement Family History Mother , 84 No problems noted. Father , 80's No problems noted. Social History Smoking and tobacco/nicotine status: former use of tobacco/nicotine Quit status (tobacco/nicotine): has quit using Year quit tobacco: 2018 [id number] Second hand smoke exposure: No Alcohol intake: never Substance/Drug Use: never Caregiver/support person: Yes Lives independently: No Household members: none Housing: Snf Marital status: Single service: No Current occupational status: retired Pets and animals: No Do you think of yourself as: Straight/Heterosexual Current gender identity: Male Vitals/I&O/Wt Last Vital Signs Temp 97.9 F 08/19/24 09:22 Pulse 85 08/19/24 10:30 Resp 25 H 08/19/24 09:17 BP 97/63 08/19/24 10:30 Pulse Ox 93 08/19/24 10:20 O2 Del Method BiPAP 08/19/24 10:20 O2 Flow Rate 6 08/19/24 09:17 FiO2 40 08/19/24 09:40 Weight last 48 hrs Weight 59.874 kg Physical Exam 2 Const: COMMON NORMALS: negative for alert GENERAL APPEARANCE: cooperative ORIENTATION/CONSCIOUSNESS: not awake HENMT: COMMON NORMALS: oropharynx normal Neck/C-Spine: COMMON NORMALS: no JVD Resp: AUSCULTATION: diminished lung sounds OTHER: BiPAP Cardio: COMMON NORMALS: no JVD, regular rhythm, S1 normal heart sound present, S2 normal heart sound present and No murmurs present (Cardio) RHYTHM: regular rhythm HEART SOUNDS: S1 normal heart sound present and S2 normal heart sound present GI: COMMON NORMALS: Normal to inspection, nondistended, normoactive bowel sounds present, Soft to palpation and non-tender PALPATION: Yes Soft to palpation Extremity: COMMON NORMALS: no joint enlargement GENERAL: Yes edema (Trace bilateral lower extremity) Neuro: SENSORIUM/ORIENTATION: No alert OTHER: Difficult examination to perform. He is lethargic. Head is leaning to the right. I do not observe any obvious facial droop. He does wake up intermittently briefly. Does have asterixis with acute metabolic encephalopathy. Answers few questions briefly. Speech is mildly slurred. Does appear to track me, but does not follow directions to track her finger. Unable to perform FNF. Difficult to say whether there may be some weakness in the right upper extremity. Unable to perform sensory exam. On additional reassessment he is more alert, without visible facial droop. Slurred speech with significant improvement. Follows directions. No difficulty with tracking. Sensory exam symmetrical. Motor exam symmetrical. No upper extremity drift. Generally weak, asterixis. Skin: COMMON NORMALS: no rashes or lesions noted GENERAL SKIN EXAM: no rashes or lesions noted Data 08/19/24 09:05 08/19/24 09:05 A&P Assessment and plan (1) Altered mental status: Acute encephalopathy with initially obtundation, unresponsiveness, with BiPAP lethargy, with asterixis, generalized weakness. Some slurred speech. Acute metabolic encephalopathy with hypercapnic and hypoxic respiratory failure, 7.25, CO2 102 on presentation, O2 116 on 5 L. Initially concern for possible CVA, while obtunded was leaning towards the right side. Difficult to assess facial droop. Stroke code was initially called, but subsequently canceled after with waking up he could be reassessed, no facial droop noted. Currently on additional reassessment he is more alert still, without facial droop, slurred speech with improvement, without discernible unilateral upper extremity weakness, without drift, with symmetrical sensory exam. Reviewed vitals, CBC, INR, D-dimer, ABG, CMP, troponin, UA, digoxin level, UDS, head CT, chest x-ray, EKG, ER provider note, discussed with ER provider. Continue treatment of acute metabolic encephalopathy, continue BiPAP support, avoid hyperoxia, target O2 saturation 88-92%. (2) Acute respiratory failure with hypoxia and hypercapnia: Acute severe exacerbation of COPD with acute respiratory failure with hypoxia and hypercapnia, severely diminished air entry, with productive cough, with hypercapnic encephalopathy. Received breathing treatment in ER. Will give treatment with Solu-Medrol, empiric coverage with cefdinir. Monitor for risk of hyperglycemia, hypertension, gastritis, encephalopathy with IV steroid. Reviewed prior micro studies. Continue breathing treatment. Reviewed ABG, reviewed ABG, so far mild improvement. Continue and wean down BiPAP support as tolerating. Left instructions for target O2 saturation 88-92%. Follow-up respiratory viral panel which is pending. Obtain sputum culture if able to provide. Noted with mild sinus tachycardia low 100s. Suspected related to respiratory failure, discussed with ER provider consideration of PE. Reviewed D-dimer, noted 1.61, but difficult to interpret in the setting of CKD and now DEBRA with CKD, review of prior D-dimer with noted some prior elevation, current level lower than before, previously 1.89, 3.1. Will recheck level. Follow-up respiratory viral panel. Will obtain lower extremity venous duplex study. I could not reach his pelvic guardian at current time, however, as per discussion of ER physician with guardian, with regards to goals of care, no intubation, mechanical ventilation, CPR in case of cardiopulmonary arrest. (3) COPD with acute exacerbation: Treat severe COPD exacerbation as above. (4) Acute kidney injury: DEBRA on CKD, creatinine noted up to 1.6, BUN on review was 41. Bicarb 41. Anion gap 7.8. Potassium reviewed 3.8. Check magnesium. Hold HCTZ, blood pressure soft, 86/60, will give a dose of albumin 25 g, 25%. Continue Flomax. Reviewed UA. Obtain kidney ultrasound. Plan Low blood pressure: 86/60, hold HCTZ, hold metoprolol for now. Monitor vitals, heart rate. Initial admission to intensive care unit. He denies any chest pain or pressure. No pleuritic pain. No hemoptysis. No asymmetrical lower extremity edema. Possibly in setting of BiPAP. Prior echocardiogram with normal ejection fraction back in 2020. D-dimer abnormal bilaterally difficulty interpret with DEBRA on CKD, and in setting of history of A-fib, prior chronic elevation back in 2019 and 2021, currently appears lower than before, 1.61, previously 1.89, 3.1. Obtain lower extremity duplex ultrasound. Currently suspicion lower for PE to expose the risk of contrast in the setting of DEBRA on CKD. Additionally possible beam hardening artifact versus flash of minimal intracranial hemorrhage noted on CT as per radiologist verbal report to ER provider. Hold off anticoagulation for now. Prophylactic in chelation with low-dose Lovenox requested. Follow-up condition, studies. COPD on chronic oxygen previously about 2 L, Atrial fibrillation, reviewed digoxin level, noted therapeutic. Continue digoxin. Continue aspirin. Hold metoprolol for now with soft blood pressure. CKD, Diastolic congestive heart failure not in exacerbation, currently does not appear in any significant exacerbation, trace edema bilaterally, minimal fluid overload if any. Avoid IV fluids, reassess volume status. Hx aspiration pneumonia: For now only clear liquid diet. Continue dysphagia diet as per pen[facility]ent[facility], regular mechanical soft diet once able to resume, with thin liquids. Clear liquids for now. Dementia Attestations 2 Medical Necessity Statement*: Admission of over 2 midnights anticipated for assessment management of acute respiratory failure with hypercapnia hypoxia, acute metabolic encephalopathy, with severe exacerbation of CKD, with DEBRA on CKD, additional comorbidities as above. Coding Level of Care Code Critical Care >/= 30 minutes Critical care time (in minutes): 35 The high probability of a clinically significant, sudden or life threatening deterioration, as referenced in this documentation, required my full and direct attention, intervention and personal management. The critical care time shown is in addition to time spent performing any reported separately billable procedures and includes the following: [x] Data and vital sign review and interpretation [x ] Patient assessment, examination and intervention [x] Medication orders and management [x] Patient/Family updates as able [x] Care Coordination and Documentation. Diagnoses Altered mental status R41.82 Acute respiratory failure with hypoxia and hypercapnia J96.01; J96.02 COPD with acute exacerbation J44.1 Acute kidney injury N17.9
[2024-08-19 10:57] LABS: ABG PH Result 7.26 (7.35-7.45); Alveolar-Arterial Oxygen Gradi 13.1 mmHg (5-10); Arterial Blood Gas Hematocrit 46.4 % (42-52); Base Excess ABG 11.4 mmol/L (-2.0-2.0); Blood Gas Allen Test Pos; Blood Gas Operator Identificat BD; Blood Gas Sample Site Brachial, right; Blood Gas Sample Type Arterial; Carboxyhemoglobin 1.3 %THgb (0.4-20.1); HCO3 ABG 43.3 mmol/L (22-26); HGB O2 Sat 90.8 % (95-100); Ionized Calcium Level - ABG 1.2 mmol/L (1.1-1.4); Methemoglobin 1.1 % (0.4-1.5); Oxygen Device BIPAP; PO2 ABG 74.5 mmHg (80.0-100.0); PO2 FiO2 Ratio Arterial Blood 186; Potassium Level - ABG 3.9 mmol/L (3.5-5.0); Total Hemoglobin 15.1 g/dL (14-18)
[2024-08-19 10:58] LABS: ABG PCO2 96.3 mmHg (35-45)
[2024-08-19] MEDS: ipratropium-albuterol 3 mL Neb INHALATION ×3 (11:00→20:15)
[2024-08-19 11:19] LABS: Troponin 5 2HR 37.71 ng/L (0-15); Troponin 5 2HR Delta 1.71 ABS# (0-10)
--- NOTE | 2024-08-19 11:22 | ECG_ITS ---
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
[2024-08-19] MEDS: methylPREDNISolone sod succ 125 mg/2 mL INJ 60 MG IVP ×2 (12:36→17:21)
[2024-08-19 13:20] LABS: Adenovirus Not Detected (NOT DETECT); Chlamydia Pneumoniae Not Detected (NOT DETECT); Coronavirus 229E,HKU1,NL63,OC4 Not Detected (NOT DETECT); Human Metapneumovirus Not Detected (NOT DETECT); Human Rhinovirus/Enterovirus Not Detected (NOT DETECT); Influenza A Not Detected (NOT DETECT); Influenza A H1 Not Detected (NOT DETECT); Influenza A H1-2009 Not Detected (NOT DETECT); Influenza A H3 Not Detected (NOT DETECT); Influenza B Not Detected (NOT DETECT); Mycoplasma Pneumoniae Not Detected (NOT DETECT); Parainfluenza Virus Type 1 Not Detected (NOT DETECT); Parainfluenza Virus Type 2 Not Detected (NOT DETECT); Parainfluenza Virus Type 3 Not Detected (NOT DETECT); Parainfluenza Virus Type 4 Not Detected (NOT DETECT); Respiratory Syncytial Virus A Not Detected (NOT DETECT); SARS-COV-2 Not Detected (NOT DETECT)
[2024-08-19 13:31] LABS: Respiratory Syncytial Virus B Detected (NOT DETECT)
--- NOTE | 2024-08-19 14:18 | US_ITS ---
WS: [id number] ULTRASOUND RENAL TECHNIQUE: Ultrasound examination of both kidneys. CLINICAL INFORMATION: DEBRA FINDINGS: RIGHT: Simple cyst inferior pole RIGHT kidney measuring 2.1 x 2.3 x 1.8 cm Echogenicity: Normal. Cortical thickness: 1.1 cm; Normal. Hydronephrosis: None. Perinephric fluid: None. Right kidney measures: 10.8 cm x 5.9 cm x 6.0 cm. LEFT: Left kidney is normal in size and appearance. Echogenicity: Normal. Cortical thickness: 0.9 cm; Normal. Hydronephrosis: None. Perinephric fluid: None. Left kidney measures: 11.4 cm x 4.3 cm x 4.6 cm. Infrarenal abdominal aortic aneurysm measuring 3.8 x 4.2 cm. Enlarged prostate 4.1 x 3.4 x 5.2 cm. Fo zulema catheter. US/US renal BI* [id number] IMPRESSION: 1. No hydronephrosis in either kidney. 2. Simple cyst inferior pole RIGHT kidney measuring 2.1 x 2.3 x 1.8 cm. 3. Abdominal aortic aneurysm measuring 3.8 x 4.2 cm AP by transverse. Associat ed mural thrombus. This could be followed up with CTA. 4. Enlarged nodular prostate. Recommend correlation PSA.
--- NOTE | 2024-08-19 14:18 | USCV_ITS ---
Luis Talavera Age: 79 Gender: M : 1945 Exam Date: 08/19/2024 15:39 Ordering Phys: Case Roberts MD Technologist: USR Exam Location: [facility] [place]_ Indication: assess for dvt HISTORY: assess for dvt PROCEDURES: Venous duplex imaging was performed in bilateral lower extremities. The following venous structures were evaluated: common femoral vein, profunda vein, proximal portion of the greater saphenous vein, superficial femoral vein, and the popliteal vein. In addition, the posterior tibial and peroneal trunk were evaluated. Serial compression, augmentation maneuvers, and spectral Doppler flow evaluation were performed. FINDINGS: No evidence of DVT seen in any vessel visualized at this time. CONCLUSIONS No evidence of right lower extremity DVT. No evidence of left lower extremity DVT. Everton Trotter MD (Electronically Signed) Final Date: 19 August 2024 16:55 S
[2024-08-19] MEDS: pantoprazole 40 mg SDV IVP (14:54)
[2024-08-19] MEDS: enoxaparin 30 mg/0.3 mL Syringe SUBCUT (14:57)
[2024-08-19] MEDS: albumin 37.5 GM/150 ML VIAL IV (14:58)
--- NOTE | 2024-08-19 15:22 | ECG_ITS ---
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
[2024-08-19 15:36] LABS: Troponin 5 6HR 31.83 ng/L (0-15)
[2024-08-19 15:44] LABS: Troponin 5 6HR Delta -4.17 ng/L (0-12)
[2024-08-20] VITALS (54 sets, daily range): BP systolic 86–138; BP diastolic 47–87; PULSE 78–131; RESP 16–39; TEMP 36.6–36.8; O2SAT 78–98
[2024-08-20] MEDS: methylPREDNISolone sod succ 125 mg/2 mL INJ 60 MG IVP ×4 (00:11→17:28)
[2024-08-20] MEDS: ipratropium-albuterol 3 mL Neb INHALATION ×6 (00:48→19:56)
[2024-08-20 04:26] LABS: Basophils % 0.2 %; Hematocrit 44.8 % (37-53); Lymphocytes # 0.5 10^3/uL (0.8-4.8); Lymphocytes % 8.1 %; Mean Corpuscular HGB Conc 31.7 g/dL (30-55); Mean Corpuscular Hemoglobin 31.4 pg (27-33); Mean Corpuscular Volume 99.1 fl (82-101); Mean Platelet Volume 10.1 fL (7.4-10.4); Monocytes # 0.1 10^3/uL (0.2-0.9); Monocytes % 1.3 %; Neutrophils # 5.02 10^3/uL (1.8-7.7); Neutrophils % 89.7 %; Nucleated Red Blood Cells % 0 %; Platelet Count 118 10^3/cmm (157-399); Red Blood Count 4.52 10^6/uL (3.85-5.65); Red Cell Distribution Width 12.2 % (12.1-15.1); White Blood Count 5.59 10^3/uL (3.29-11.43)
[2024-08-20 04:35] LABS: D Dimer 1.45 ug/mLFEU (0-0.59)
[2024-08-20 04:56] LABS: Alanine Aminotransferase 36 U/L (0-41); Albumin Level 4.1 g/dL (3.5-5.2); Alkaline Phosphatase 83 U/L (40-130); Aspartate Amino Transferase 96 U/L (0-40); Blood Urea Nitrogen 51 mg/dL (8-23); Calcium 9.3 mg/dL (8.5-10.5); Carbon Dioxide 39 mmol/L (22-29); Chloride 98 mmol/L (98-107); Creatinine Clr Calc Pharmacy 33.3333; Globulin 2.4 g/dL (1.3-4.6); Glucose 168 mg/dL (65-115); Magnesium 2.3 mg/dL (1.7-2.3); Osmolality Calculated 320 mOsm/kg (285-295); Sodium 146 mmol/L (136-145); Total Bilirubin 0.7 mg/dL (0.15-1.2); Total Protein 6.5 g/dL (6.6-8.7)
[2024-08-20 08:47] LABS: ABG PCO2 49.8 mmHg (35-45); Alveolar-Arterial Oxygen Gradi 19.3 mmHg (5-10); Arterial Blood Gas Hematocrit 43.7 % (42-52); Base Excess ABG 13.5 mmol/L (-2.0-2.0); Blood Gas Allen Test Pos; Blood Gas Operator Identificat CAK; Blood Gas Sample Site Brachial, left; Blood Gas Sample Type Arterial; Carboxyhemoglobin 0.8 %THgb (0.4-20.1); HCO3 ABG 38.8 mmol/L (22-26); HGB O2 Sat 95.6 % (95-100); Ionized Calcium Level - ABG 1.2 mmol/L (1.1-1.4); Oxygen Device BIPAP; Oxygen Saturation ABG 97.4; PO2 ABG 80.1 mmHg (80.0-100.0); PO2 FiO2 Ratio Arterial Blood 200; Potassium Level - ABG 3.4 mmol/L (3.5-5.0); Total Hemoglobin 14.3 g/dL (14-18)
[2024-08-20] MEDS: digoxin 125 mcg Tablet PO (09:08)
[2024-08-20] MEDS: aspirin 81 mg EC Tablet PO (09:08)
[2024-08-20] MEDS: pantoprazole 40 mg SDV IVP (14:23)
[2024-08-20] MEDS: enoxaparin 30 mg/0.3 mL Syringe SUBCUT (14:24)
--- NOTE | 2024-08-20 17:05 | PM.PN ---
Subjective Subjective: She is overall feeling better today. She has been more alert, denies pain or discomfort or any additional new changes. Vitals/I&O/Wt Last Vital Signs Temp 98.2 F 08/20/24 12:00 Pulse 118 H 08/20/24 16:30 Resp 27 H 08/20/24 16:30 BP 100/49 08/20/24 16:30 Pulse Ox 94 08/20/24 16:30 O2 Del Method Nasal Cannula 08/20/24 16:30 O2 Flow Rate 2 08/20/24 16:30 FiO2 40 08/20/24 08:00 08/20/24 08/20/24 08/20/24 06:59 14:59 22:59 Intake Total 1020 / 1020 Output Total 350 / 600 Balance -350 / -450 1020 / 1020 Weight last 48 hrs Weight 60.686 kg Weight 60 kg Weight 59.874 kg Physical Exam Const: COMMON NORMALS: negative for alert GENERAL APPEARANCE: cooperative ORIENTATION/CONSCIOUSNESS: not awake HENMT: COMMON NORMALS: oropharynx normal Neck/C-Spine: COMMON NORMALS: no JVD Resp: AUSCULTATION: diminished lung sounds OTHER: BiPAP Cardio: COMMON NORMALS: no JVD, regular rhythm, S1 normal heart sound present, S2 normal heart sound present and No murmurs present (Cardio) RHYTHM: regular rhythm HEART SOUNDS: S1 normal heart sound present and S2 normal heart sound present GI: COMMON NORMALS: Normal to inspection, nondistended, normoactive bowel sounds present, Soft to palpation and non-tender PALPATION: Yes Soft to palpation Extremity: COMMON NORMALS: no joint enlargement and no pedal edema GENERAL: Yes edema (Trace bilateral lower extremity) Neuro: SENSORIUM/ORIENTATION: No alert OTHER: He is awake, alert, interactive. Following directions. Communication impeded by BiPAP mask. He is otherwise not showing laterality. No obvious facial droop. Skin: COMMON NORMALS: no rashes or lesions noted GENERAL SKIN EXAM: no rashes or lesions noted Urinary Catheter Management: [place]: Cath Placed During This Visit: yes Reason for Continuing Indwelling Catheter: Accurate Measurement of Urinary Output in Critically Ill Patients Urinary Catheter Date of Insertion: 08/19/24 Urinary Catheter Time of Insertion: 10:00 Data 08/20/24 04:00 08/20/24 04:00 A&P Assessment and plan (1) Altered mental status: So far resolved. Reviewed vitals, CBC, CMP, magnesium, D-dimer, requested repeat ABG. Reviewed. Discussed with respiratory therapist. Respiratory acidosis so far with resolution, now with mild alkalosis. Taken off BiPAP. Avoid hyperoxia. Reassess mental status. Discussed with nursing. Discussed with case filler. Continue treatment of acute metabolic encephalopathy, continue BiPAP support, avoid hyperoxia, target O2 saturation 88-92%. Continue supportive measures for RSV infection. (2) Acute respiratory failure with hypoxia and hypercapnia: Reviewed ABG. Will trial weaning off BiPAP, continue oxygen support. Target O2 sat 88-92, avoid hyperoxia. Continue treatment of COPD exacerbation. Still very diminished air entry. Continue treatment with Solu-Medrol, empiric coverage with cefdinir. Monitor for risk of hyperglycemia, hypertension, gastritis, encephalopathy with IV steroid. Obtain sputum culture if able to provide. Continue breathing treatment. Reviewed ABG, reviewed ABG, so far mild improvement. Reviewed respiratory viral panel, noted RSV infection. On presentation acute severe exacerbation of COPD with acute respiratory failure with hypoxia and hypercapnia, severely diminished air entry, with productive cough, with hypercapnic encephalopathy. Sinus tachycardia improved, but now he does have atrial fibrillation with mild RVR. Continue digoxin, reviewed level. Resume metoprolol at lower dose 12.5 mg twice daily starting now. Continue to monitor on telemetry. Reviewed potassium, magnesium. Called again but could not reach his public guardian Mr. Matute for update. (3) COPD with acute exacerbation: Treat severe COPD exacerbation as above. (4) Acute kidney injury: With noted mild improvement, creatinine down to 1.5. BUN 51. Potassium normal. Magnesium normal. Reassess chemistry. Monitor intake and output. Reviewed kidney ultrasound. No hydronephrosis. Incidental findings as below. Continue Flomax. Plan Low blood pressure: With improvement. Resume low-dose metoprolol with noted mild A-fib with RVR. 86/60, hold HCTZ He denies any chest pain or pressure. No pleuritic pain. No hemoptysis. No asymmetrical lower extremity edema. Lower extremity duplex negative for DVT. Possibly in setting of BiPAP, mild hypovolemia. Received 25 g 25% albumin infusion. With improvement. Prior echocardiogram with normal ejection fraction back in 2020. D-dimer abnormal bilaterally difficulty interpret with DEBRA on CKD, and in setting of history of A-fib, prior chronic elevation back in 2019 and 2021, currently appears lower than before, 1.61, previously 1.89, 3.1. Obtain lower extremity duplex ultrasound. Currently suspicion lower for PE to expose the risk of contrast in the setting of DEBRA on CKD. Additionally possible beam hardening artifact versus flash of minimal intracranial hemorrhage noted on CT as per radiologist verbal report to ER provider. Hold off anticoagulation for now. DVT prophylaxis with low-dose Lovenox requested. Follow-up condition, studies. Incidentally found abdominal recurrence more on kidney ultrasound, 3.8 x 4.2 cm. Associated mural thrombus. Consider follow-up with CTA upon improvement of renal function. Nodular enlarged prostate: Incidentally noted on ultrasound. Consider correlation with PSA. COPD on chronic oxygen previously about 2 L, Atrial fibrillation, A-fib with mild RVR. Resume lower dose metoprolol 12.5 mg a day. Continue digoxin. Reviewed digoxin level, noted therapeutic. Continue aspirin. CKD, Diastolic congestive heart failure not in exacerbation, currently does not appear in any significant exacerbation, trace edema bilaterally, minimal fluid overload if any. Avoid IV fluids, reassess volume status. Reviewed lower extremity venous duplex. Hx aspiration pneumonia: For now only clear liquid diet. Continue dysphagia diet as per senior care, regular mechanical soft diet once able to resume, with thin liquids. Clear liquids for now. Dementia Attestations Medical Necessity Statement*: Continue admission for assessment management of respiratory failure, COPD exacerbation, DEBRA. and High MDM includes amount and/or complexity of data reviewed/ordered [ resulted lab(s)/test(s), ordered lab(s)/test(s) and other healthcare professional discussion] and described risk of complication, morbidity or mortality of management as documented Diagnoses Altered mental status R41.82 Acute respiratory failure with hypoxia and hypercapnia J96.01; J96.02 COPD with acute exacerbation J44.1 Acute kidney injury N17.9
[2024-08-20] MEDS: tamsulosin 0.4 mg Capsule PO (19:15)
[2024-08-20] MEDS: amiodarone 150 MG/100 ML PREMIX 400 MG IV (19:16)
[2024-08-21] VITALS (36 sets, daily range): BP systolic 85–142; BP diastolic 51–82; PULSE 86–123; RESP 12–29; TEMP 36.5–36.9; O2SAT 76–98
[2024-08-21] MEDS: methylPREDNISolone sod succ 125 mg/2 mL INJ 60 MG IVP ×5 (00:16→23:59)
[2024-08-21] MEDS: ipratropium-albuterol 3 mL Neb INHALATION ×6 (00:38→20:32)
[2024-08-21 03:35] LABS: Basophils % 0.1 %; Hematocrit 42.8 % (37-53); Lymphocytes # 0.6 10^3/uL (0.8-4.8); Lymphocytes % 3.8 %; Mean Corpuscular HGB Conc 32.2 g/dL (30-55); Mean Corpuscular Hemoglobin 30.5 pg (27-33); Mean Corpuscular Volume 94.5 fl (82-101); Mean Platelet Volume 9.9 fL (7.4-10.4); Monocytes # 0.3 10^3/uL (0.2-0.9); Monocytes % 2.3 %; Neutrophils % 93.3 %; Nucleated Red Blood Cells % 0 %; Platelet Count 137 10^3/cmm (157-399); Red Blood Count 4.53 10^6/uL (3.85-5.65); Red Cell Distribution Width 12.4 % (12.1-15.1)
[2024-08-21 03:43] LABS: D Dimer 2.08 ug/mLFEU (0-0.59)
[2024-08-21 03:58] LABS: Alanine Aminotransferase 37 U/L (0-41); Albumin Level 3.9 g/dL (3.5-5.2); Alkaline Phosphatase 84 U/L (40-130); Anion Gap 15.3 (5-19); Aspartate Amino Transferase 77 U/L (0-40); Blood Urea Nitrogen 48 mg/dL (8-23); Calcium 9.2 mg/dL (8.5-10.5); Carbon Dioxide 35 mmol/L (22-29); Chloride 88 mmol/L (98-107); Creatinine Clr Calc Pharmacy 36.1226; Globulin 2.4 g/dL (1.3-4.6); Glucose 136 mg/dL (65-115); Osmolality Calculated 295 mOsm/kg (285-295); Potassium 3.3 mmol/L (3.5-5.1); Sodium 135 mmol/L (136-145); Total Bilirubin 0.5 mg/dL (0.15-1.2); Total Protein 6.3 g/dL (6.6-8.7)
[2024-08-21 04:03] LABS: Magnesium 2.2 mg/dL (1.7-2.3)
[2024-08-21] MEDS: aspirin 81 mg EC Tablet PO (08:27)
[2024-08-21] MEDS: metoprolol tartrate 25 mg Tablet 12.5 MG PO ×2 (08:27→20:27)
--- NOTE | 2024-08-21 09:01 | P.PN_ITS ---
Subjective 2 Subjective: He is overall feeling somewhat better. He has been coughing up some phlegm. He would like to try some more solid foods. Vitals/I&O/Wt Last Vital Signs Temp 97.7 F 08/21/24 05:43 Pulse 108 H 08/21/24 08:08 Resp 17 08/21/24 08:00 BP 111/62 08/21/24 08:30 Pulse Ox 92 08/21/24 08:30 O2 Del Method Room Air 08/21/24 08:00 O2 Flow Rate 2 08/20/24 16:30 FiO2 24 08/21/24 03:45 08/20/24 08/21/24 08/21/24 22:59 06:59 14:59 Intake Total 450 / 1470 195.536 / 1665.536 320 / 320 Output Total 450 / 450 Balance 450 / 1470 -254.464 / 1215.536 320 / 320 Weight last 48 hrs Weight 60.373 kg Weight 60.686 kg Weight 60 kg Weight 59.874 kg Physical Exam 2 Const: COMMON NORMALS: negative for alert GENERAL APPEARANCE: cooperative ORIENTATION/CONSCIOUSNESS: not awake HENMT: COMMON NORMALS: oropharynx normal Neck/C-Spine: COMMON NORMALS: no JVD Resp: AUSCULTATION: diminished lung sounds OTHER: BiPAP Cardio: COMMON NORMALS: no JVD, regular rhythm, S1 normal heart sound present, S2 normal heart sound present and No murmurs present (Cardio) RHYTHM: regular rhythm HEART SOUNDS: S1 normal heart sound present and S2 normal heart sound present GI: COMMON NORMALS: Normal to inspection, nondistended, normoactive bowel sounds present, Soft to palpation and non-tender PALPATION: Yes Soft to palpation Extremity: COMMON NORMALS: no joint enlargement and no pedal edema GENERAL: Yes edema (Trace bilateral lower extremity) Neuro: SENSORIUM/ORIENTATION: No alert OTHER: He is awake, alert, interactive. Following directions. Communication impeded by BiPAP mask. He is otherwise not showing laterality. No obvious facial droop. Skin: COMMON NORMALS: no rashes or lesions noted GENERAL SKIN EXAM: no rashes or lesions noted Urinary Catheter Management: [place]: Cath Placed During This Visit: yes Reason for Continuing Indwelling Catheter: Accurate Measurement of Urinary Output in Critically Ill Patients Urinary Catheter Date of Insertion: 08/19/24 Urinary Catheter Time of Insertion: 10:00 Data 08/21/24 03:03 08/21/24 03:03 A&P Assessment and plan (1) Altered mental status: So far resolved. Noted leukocytosis today up to 15.1. Has been on steroids. Possibly demargination sickness steroids. He states he is coughing up phlegm, will add empiric interval for now with azithromycin. Reviewed EKG. Monitor for risk of QTc prolongation. Repeat EKG in the morning. Reviewed vitals, CBC, CMP, magnesium, D-dimer. Discussed with respiratory therapist. Currently on room air. Monitor saturation. 88-92% Giurgius target. Respiratory acidosis so far with resolution, now with mild alkalosis. Avoid hyperoxia. Reassess mental status. Discussed with nursing. Discussed with mental health case manager. Continue treatment of acute metabolic encephalopathy, continue BiPAP support, avoid hyperoxia, target O2 saturation 88-92%. Continue supportive measures for RSV infection. (2) Acute respiratory failure with hypoxia and hypercapnia: Reviewed ABG. Wean off BiPAP. Target O2 sat 88-92, avoid hyperoxia. Continue treatment of COPD exacerbation. Still very diminished air entry. Continue treatment with Solu-Medrol. Will not decrease IV steroid dose at current time. Monitor for risk of hyperglycemia, hypertension, gastritis, encephalopathy with IV steroid. Empiric azithromycin. Reassess EKG, monitor for QT prolongation. Obtain sputum culture if able to provide. Continue breathing treatments. Advance diet to soft and bite sized. Consistent carb. Reviewed respiratory viral panel, noted RSV infection. Lower chance for PE, although D-dimer is abnormal, but may be elevated secondary to atrial fibrillation. No DVT on venous duplex. However, PE not entirely excluded. As per discussion with his guardian, repeat CT head, in case no sign of bleeding, further consideration of anticoagulation for atrial fibrillation and until he can be further more definitively assessed to exclude PE. On presentation acute severe exacerbation of COPD with acute respiratory failure with hypoxia and hypercapnia, severely diminished air entry, with productive cough, with hypercapnic encephalopathy. Sinus tachycardia improved, but now he does have atrial fibrillation with mild RVR. Continue digoxin, reviewed level. Resumed metoprolol at lower dose 12.5 mg twice daily. Blood pressure was soft last night, could not receive metoprolol, started on amiodarone. Continue care with cardiac monitoring on CSU. Continue to monitor on telemetry. Reviewed potassium, magnesium. Replace mild hypokalemia. Magnesium is okay. (3) COPD with acute exacerbation: Treat severe COPD exacerbation as above. (4) Acute kidney injury: Reviewed BUN, creatinine, bicarb, anion gap, potassium. Noted with mild improvement. BUN at 48. Creatinine at 1.4. Producing urine. Mild hypokalemia: Requested replacement. Recheck level. Magnesium normal. Reassess chemistry. Monitor intake and output. Reviewed kidney ultrasound. No hydronephrosis. Incidental findings as below. Continue Flomax. Plan Low blood pressure: With improvement. Resume low-dose metoprolol with noted mild A-fib with RVR. 86/60, hold HCTZ He denies any chest pain or pressure. No pleuritic pain. No hemoptysis. No asymmetrical lower extremity edema. Lower extremity duplex negative for DVT. Possibly in setting of BiPAP, mild hypovolemia. Received 25 g 25% albumin infusion on admission. With improvement. Prior echocardiogram with normal ejection fraction back in 2020. D-dimer abnormal bilaterally difficulty interpret with DEBRA on CKD, and in setting of history of A-fib, prior chronic elevation back in 2019 and 2021, currently appears lower than before, 1.61, previously 1.89, 3.1. Obtain lower extremity duplex ultrasound. Currently suspicion lower for PE to expose the risk of contrast in the setting of DEBRA on CKD. Additionally possible beam hardening artifact versus flash of minimal intracranial hemorrhage noted on CT as per radiologist verbal report to ER provider. Hold off anticoagulation for now. DVT prophylaxis with low-dose Lovenox requested. Follow-up condition, studies. Incidentally found abdominal aneurysm on kidney ultrasound, 3.8 x 4.2 cm. Noted going back as far as 2018. Does not appear to be increased in size compared to abdominal CT in 2021. Does have associated mural thrombus. Consider follow-up with CTA upon improvement of renal function. Nodular enlarged prostate: Incidentally noted on ultrasound. Consider correlation with PSA. COPD on chronic oxygen previously about 2 L, Atrial fibrillation, A-fib with mild RVR. Resume lower dose metoprolol 12.5 mg a day. Continue digoxin. Reviewed digoxin level, noted therapeutic. Continue aspirin. CKD, Diastolic congestive heart failure not in exacerbation, currently does not appear in any significant exacerbation, trace edema bilaterally, minimal fluid overload if any. Avoid IV fluids, reassess volume status. Reviewed lower extremity venous duplex. Hx aspiration pneumonia: For now only clear liquid diet. Continue dysphagia diet as per [facility], regular mechanical soft diet once able to resume, with thin liquids. Trial of advancement of diet. He overall states has not been eating quite well and has lost some weight. He is agreeable to add protein shakes. Dementia Discussed condition and care plan with his guardian. Attestations 2 Medical Necessity Statement*: Continue admission for assessment management of severe exacerbation of COPD, slow to improve respiratory failure. A-fib with RVR. and High MDM includes amount and/or complexity of data reviewed/ordered [ resulted lab(s)/test(s), ordered lab(s)/test(s) and other healthcare professional discussion] and described risk of complication, morbidity or mortality of management as documented Diagnoses Altered mental status R41.82 Acute respiratory failure with hypoxia and hypercapnia J96.01; J96.02 COPD with acute exacerbation J44.1 Acute kidney injury N17.9
[2024-08-21] MEDS: potassium chloride ER 20 mEq Tablet PO (09:20)
--- NOTE | 2024-08-21 10:04 | CTR_ITS ---
PROCEDURE INFORMATION: Exam: CT Head Without Contrast Exam date and time: 08/21/2024 1:21 PM Age: 79 years old Clinical indication: Screening exam; Additional info: Reassess questionable finding on prior CT of, area of increased density in the subarachnoid space TECHNIQUE: Imaging protocol: Computed tomography of the head without contrast. Radiation optimization: All CT scans at this facility use at least one of these dose optimization techniques: automated exposure control; mA and/or kV adjustment per patient size (includes targeted exams where dose is matched to clinical indication); or iterative reconstruction. COMPARISON: CT head thrombolytic [id number] 08/19/2024 9:27 AM RADIATION DOSE METRICS: Total DLP (mGy-cm): 1028.95 FINDINGS: Brain: The areas slightly increased density in the inferior right frontal lobe is unchanged. It is unclear whether this represents a minimal subarachnoid hemorrhage or is simply beam hardening artifact, the appearance is unchanged. Cerebral ventricles: Cerebral atrophy with ventricular and sulcal prominence. Ventricular prominence disproportionate to the degree of atrophy observed. Paranasal sinuses: Visualized sinuses are unremarkable. No fluid levels. Mastoid air cells: Visualized mastoid air cells are well aerated. Bones: Unremarkable. No acute fracture. Soft tissues: Unremarkable. CT/CT head wo con* [id number] IMPRESSION: No significant interval change. Slight increased density in the anterior right frontal lobe is unchanged, and may be artifact or a small subdural hemorrhage.
[2024-08-21] MEDS: AZITHROMYCIN ADD-Vantage 500 MG in 0.9% NaCl ADD-Vantage 250 ML 250 MG IV (10:20)
[2024-08-21] MEDS: pantoprazole 40 mg SDV IVP (13:39)
[2024-08-21] MEDS: enoxaparin 30 mg/0.3 mL Syringe SUBCUT (13:39)
--- NOTE | 2024-08-21 13:55 | PC.NURSE ---
Assumed care of patient at this time. Patient is a transfer from ICU. Received report from MELANI Ballesteros. Patient pleasantly confused at this time.
--- NOTE | 2024-08-21 17:24 | PC.NURSE ---
Patient becoming more confused and restless. Assisted patient up to BSC. Patient will not leave telemetry in place. Patient is redirectable at this time.
[2024-08-21] MEDS: tamsulosin 0.4 mg Capsule PO (20:27)
[2024-08-21] MEDS: hyDROXYzine 25 mg Capsule PO (22:05)
[2024-08-22] VITALS (20 sets, daily range): BP systolic 97–131; BP diastolic 66–83; PULSE 82–133; RESP 18–26; TEMP 36.3–36.7; O2SAT 89–96
[2024-08-22] MEDS: ipratropium-albuterol 3 mL Neb INHALATION ×5 (00:04→15:11)
[2024-08-22 06:07] LABS: Basophils % 0.1 %; Hematocrit 43.7 % (37-53); Lymphocytes # 0.7 10^3/uL (0.8-4.8); Lymphocytes % 4.7 %; Mean Corpuscular HGB Conc 33.2 g/dL (30-55); Mean Corpuscular Volume 93.6 fl (82-101); Mean Platelet Volume 9.7 fL (7.4-10.4); Monocytes # 0.4 10^3/uL (0.2-0.9); Monocytes % 2.9 %; Neutrophils # 13.84 10^3/uL (1.8-7.7); Neutrophils % 91.8 %; Nucleated Red Blood Cells % 0 %; Platelet Count 147 10^3/cmm (157-399); Red Blood Count 4.67 10^6/uL (3.85-5.65); Red Cell Distribution Width 12.6 % (12.1-15.1); White Blood Count 15.07 10^3/uL (3.29-11.43)
[2024-08-22 06:18] LABS: D Dimer 2.35 ug/mLFEU (0-0.59)
[2024-08-22 06:22] LABS: Alanine Aminotransferase 43 U/L (0-41); Albumin Level 3.6 g/dL (3.5-5.2); Alkaline Phosphatase 80 U/L (40-130); Anion Gap 13.8 (5-19); Aspartate Amino Transferase 71 U/L (0-40); Blood Urea Nitrogen 47 mg/dL (8-23); Carbon Dioxide 35 mmol/L (22-29); Chloride 93 mmol/L (98-107); Creatinine Clr Calc Pharmacy 39.3692; Globulin 2.4 g/dL (1.3-4.6); Glucose 120 mg/dL (65-115); Magnesium 2.1 mg/dL (1.7-2.3); Osmolality Calculated 299 mOsm/kg (285-295); Potassium 3.8 mmol/L (3.5-5.1); Sodium 138 mmol/L (136-145); Total Bilirubin 0.5 mg/dL (0.15-1.2)
[2024-08-22] MEDS: methylPREDNISolone sod succ 125 mg/2 mL INJ 60 MG IVP (06:26)
--- NOTE | 2024-08-22 08:27 | P.PN_ITS ---
Subjective 2 Subjective: He was confused overnight and did not get much sleep per nursing report. He reports he is still having some cough, coughing up some phlegm. He tells me that he had worked with therapy in the past and that he had declined to continue at the half-way, although also tells me that he had been in [employer] for 2 years including doing twirls around a high line. He is otherwise not currently in pain. He knows he is at the hospital. He is asking when he may be able to return to the half-way. Vitals/I&O/Wt Last Vital Signs Temp 97.7 F 08/22/24 07:30 Pulse 106 H 08/22/24 07:30 Resp 26 H 08/22/24 07:30 BP 131/79 08/22/24 07:30 Pulse Ox 92 08/22/24 04:08 O2 Del Method Room Air 08/22/24 07:30 O2 Flow Rate 2 08/21/24 20:32 FiO2 24 08/22/24 00:04 08/21/24 08/22/24 08/22/24 22:59 06:59 14:59 Intake Total 240 / 1210 440 / 1650 85.017 / 85.017 Output Total 1251 / 1251 2500 / 3751 Balance -1011 / -41 -2060 / -2101 85.017 / 85.017 Weight last 48 hrs Weight 61.416 kg Weight 60.373 kg Physical Exam 2 Const: COMMON NORMALS: negative for alert GENERAL APPEARANCE: cooperative ORIENTATION/CONSCIOUSNESS: not awake HENMT: COMMON NORMALS: oropharynx normal Neck/C-Spine: COMMON NORMALS: no JVD Resp: AUSCULTATION: diminished lung sounds (Very slight improvement in air entry) OTHER: On room air Cardio: COMMON NORMALS: no JVD, regular rhythm, S1 normal heart sound present, S2 normal heart sound present and No murmurs present (Cardio) RHYTHM: regular rhythm HEART SOUNDS: S1 normal heart sound present and S2 normal heart sound present GI: COMMON NORMALS: Normal to inspection, nondistended, normoactive bowel sounds present, Soft to palpation and non-tender PALPATION: Yes Soft to palpation Extremity: COMMON NORMALS: no joint enlargement and no pedal edema GENERAL: Yes edema (Trace bilateral lower extremity) Neuro: SENSORIUM/ORIENTATION: No alert OTHER: He is awake, alert, interactive. No facial droop. Following directions. No difficulty with tracking. Moving all extremities symmetrically. Skin: COMMON NORMALS: no rashes or lesions noted GENERAL SKIN EXAM: no rashes or lesions noted Urinary Catheter Management: [place]: Cath Placed During This Visit: yes Reason for Continuing Indwelling Catheter: Other Urinary Catheter Date of Insertion: 08/19/24 Urinary Catheter Time of Insertion: 10:00 Data 08/22/24 05:44 08/22/24 05:44 A&P Assessment and plan (1) Altered mental status: With acute encephalopathy, was confused yesterday evening, with transient improvement but then again had a confused and sleepless night. Acute delirium, possibly after ICU admission, medical condition. This morning seems to be doing a bit better, although still possibly not entirely appropriate answers. States that he had physical therapy at half-way. Also seems to imply that with physical therapy performed acrobatic feet including spinning around a tight rope. Appears to still have some ongoing delirium, superimposed on chronic dementia. Possibility of corticosteroid induced delirium. Haldol added as needed in case of agitation. Continue to treat medical conditions. Reorient. Mobilize with PT. Reduce Solu-Medrol dose to 30 mg every 6 hours. Noted leukocytosis today up to 15.1. Has been on corticosteroids. Possibly demargination sickness steroids. He states he is coughing up phlegm, will add empiric interval for now with azithromycin. Reviewed repeat EKG. With risk of QTc prolongation. Reviewed vitals, CBC, CMP, magnesium, D-dimer. Currently on room air. Monitor saturation. 88-92% O2 sat target. Respiratory acidosis so far with resolution, now with mild alkalosis. Avoid hyperoxia. Reassess mental status. Discussed with nursing. Discussed with catalytic case operator. Continue treatment of acute metabolic encephalopathy, continue BiPAP support, avoid hyperoxia, target O2 saturation 88-92%. Continue supportive measures for RSV infection. (2) Acute respiratory failure with hypoxia and hypercapnia: Gradually improving. Has been weaning down to room air. Continue to target saturation 88-92%. Oxygen as needed. Avoid hyperoxia. Today air entry is very slightly better bilaterally. Additionally with delirium. Will decrease IV steroid. Continue to monitor for continued improvement in severe exacerbation of COPD. Monitor for additional risk of delirium, hypertension, hyperglycemia. Blood pressure is rising up to 131/79, but we do have to increase metoprolol up to 25 mg twice daily to help with control of A-fib with RVR. Monitor for risk of hypotension. Continue to monitor. Reviewed ABG. Wean off BiPAP. Target O2 sat 88-92, avoid hyperoxia. Continue treatment of COPD exacerbation. Still very diminished air entry. Empiric azithromycin. Reviewed EKG, monitor for QT prolongation. Obtain sputum culture if able to provide. Continue breathing treatments. Advance diet to soft and bite sized. Consistent carb. Discussed with catalytic case operator. Anticipate continued hospitalization through the weekend. Hopefully should be able to return to half-way early next week. For RSV infection in addition to treatment of COPD this admission continue supportive measures and isolation. Lower chance for PE, although D-dimer is abnormal, but may be elevated secondary to atrial fibrillation. No DVT on venous duplex. However, PE not entirely excluded. As per discussion with his guardian, repeat CT head, in case no sign of bleeding, further consideration of anticoagulation for atrial fibrillation and until he can be further more definitively assessed to exclude PE. Reviewed repeat CT head, without significant interval change, slight increased density in the anterior right frontal lobe unchanged, possible artifact or small subdural hemorrhage. For now not a candidate for anticoagulation. Consider further interval reassessment On presentation acute severe exacerbation of COPD with acute respiratory failure with hypoxia and hypercapnia, severely diminished air entry, with productive cough, with hypercapnic encephalopathy. With RSV infection. Sinus tachycardia improved, but now he does have atrial fibrillation with mild RVR. Continue digoxin, reviewed level. Resumed metoprolol at lower dose 12.5 mg twice daily. Blood pressure was soft last night, could not receive metoprolol, started on amiodarone. Continue care with cardiac monitoring on CSU. Continue to monitor on telemetry. Reviewed potassium, magnesium. Replace mild hypokalemia. Magnesium is okay. (3) COPD with acute exacerbation: Treat severe COPD exacerbation as above. (4) Acute kidney injury: With mild improvement, BUN 47, creatinine down slightly to 1.3. He is producing urine. Anion gap is normal. Bicarb with some elevation to 35 with compensation for respiratory acidosis. Hypokalemia supplemented. Repeat chemistry. Magnesium normal. Reassess chemistry. Monitor intake and output. Reviewed kidney ultrasound. No hydronephrosis. Incidental findings as below. Continue Flomax. Plan Low blood pressure: With improvement. Increase metoprolol to 25 mg twice daily. Hold HCTZ He denies any chest pain or pressure. No pleuritic pain. No hemoptysis. No asymmetrical lower extremity edema. Lower extremity duplex negative for DVT. Possibly in setting of BiPAP, mild hypovolemia. Received 25 g 25% albumin infusion on admission. Prior echocardiogram with normal ejection fraction back in 2020. D-dimer abnormal bilaterally difficulty interpret with DEBRA on CKD, and in setting of history of A-fib, prior chronic elevation back in 2019 and 2021, currently appears lower than before, 1.61, previously 1.89, 3.1. Obtain lower extremity duplex ultrasound. Currently suspicion lower for PE to expose the risk of contrast in the setting of DEBRA on CKD. Increased density anterior right frontal lobe: possible beam hardening artifact versus flash of small subdural hemorrhage noted on CT. Repeat CT obtained, reported findings are unchanged. Hold off anticoagulation for now. Consider further interval reassessment. DVT prophylaxis with low-dose Lovenox only. Incidentally found abdominal aneurysm on kidney ultrasound, 3.8 x 4.2 cm. Noted going back as far as 2018. Does not appear to be increased in size compared to abdominal CT in 2021. Does have associated mural thrombus. Consider follow-up with CTA upon improvement of renal function. Currently not a candidate for consideration of anticoagulation. Continue antiplatelets as currently. Will benefit from reassessment by cardiology versus vascular surgery. Nodular enlarged prostate: Incidentally noted on ultrasound. Consider correlation with PSA. A-fib with RVR: Heart rates up as high as 130s, blood pressure was soft, metoprolol continued 12.5 mg, transiently on amiodarone, renal function with some improvement in terms of DEBRA. Continue home digoxin. Increase metoprolol dose to 25 mg twice daily. Continue aspirin. COPD on chronic oxygen previously about 2 L, CKD, Diastolic congestive heart failure not in exacerbation, currently does not appear in any significant exacerbation, trace edema bilaterally, minimal fluid overload if any. Avoid IV fluids, reassess volume status. Reviewed lower extremity venous duplex. Hx aspiration pneumonia: For now only clear liquid diet. Continue dysphagia diet as per half-way, regular mechanical soft diet once able to resume, with thin liquids. Trial of advancement of diet. He overall states has not been eating quite well and has lost some weight. He is agreeable to add protein shakes. Dementia Discussed condition and care plan with his guardian. Attestations 2 Medical Necessity Statement*: Continue admission for assessment of management of slowly improving respiratory failure, severe exacerbation of COPD, acute encephalopathy superimposed on chronic dementia, A-fib with RVR, additional conditions as above. and High MDM includes amount and/or complexity of data reviewed/ordered [ resulted lab(s)/test(s), ordered lab(s)/test(s) and other healthcare professional discussion] and described risk of complication, morbidity or mortality of management as documented Diagnoses Altered mental status R41.82 Acute respiratory failure with hypoxia and hypercapnia J96.01; J96.02 COPD with acute exacerbation J44.1 Acute kidney injury N17.9
[2024-08-22] MEDS: digoxin 125 mcg Tablet PO (08:30)
[2024-08-22] MEDS: AZITHROMYCIN ADD-Vantage 500 MG in 0.9% NaCl ADD-Vantage 250 ML 250 MG IV (08:30)
[2024-08-22] MEDS: aspirin 81 mg EC Tablet PO (08:30)
[2024-08-22] MEDS: metoprolol tartrate 25 mg Tablet PO ×2 (08:30→22:14)
--- NOTE | 2024-08-22 09:00 | ECG_ITS ---
[employer] Test Date: 2024-08-22 Pat Name: Luis Talavera Department: Room: 107 Gender: Male Check Totaler: : 1945 Requested By: Case Roberts Order Number: [id number] Reading MD: LOREE BARBOSA Measurements Intervals [place] Rate: 121 P: 0 AK: 0 QRS: 50 QRSD: 89 T: 70 QT: 258 QTc: 366 Interpretive Statements ATRIAL FIBRILLATION WITH RAPID VENTRICULAR RESPONSE NONSPECIFIC ST & T-WAVE ABNORMALITY ABNORMAL RHYTHM ECG Compared to ECG 08/19/2024 16:58:18 T-wave abnormality now present Electronically Signed On 08-22-2024 23:32:42 HEAD ATHLETIC TRAINER/STRENGTH COACH by LOREE BARBOSA [email or web address]
--- NOTE | 2024-08-22 10:53 | PC.SOCIAL ---
IMM Updated Updated pt's guardian, Ventura Matute, on IMM. No questions voiced. Provided pt a copy. Initialed, dated, & timed a copy & placed in chart.
[2024-08-22] MEDS: pantoprazole 40 mg SDV IVP (13:48)
[2024-08-22] MEDS: enoxaparin 30 mg/0.3 mL Syringe SUBCUT (13:48)
[2024-08-22] MEDS: methylPREDNISolone sod succ 40 mg/mL INJ 30 MG IVP ×2 (13:49→22:13)
[2024-08-22] MEDS: tamsulosin 0.4 mg Capsule PO (22:14)
[2024-08-23] VITALS (21 sets, daily range): BP systolic 103–137; BP diastolic 63–91; PULSE 83–120; RESP 17–32; TEMP 36.5–37; O2SAT 89–94
[2024-08-23] MEDS: ipratropium-albuterol 3 mL Neb INHALATION ×5 (00:05→19:46)
[2024-08-23] MEDS: methylPREDNISolone sod succ 40 mg/mL INJ 30 MG IVP ×3 (00:46→12:45)
[2024-08-23 05:20] LABS: Basophils % 0.1 %; Hematocrit 43.4 % (37-53); Lymphocytes # 0.7 10^3/uL (0.8-4.8); Lymphocytes % 4.3 %; Mean Corpuscular HGB Conc 31.1 g/dL (30-55); Mean Corpuscular Hemoglobin 30.4 pg (27-33); Mean Corpuscular Volume 97.7 fl (82-101); Mean Platelet Volume 9.8 fL (7.4-10.4); Monocytes # 0.6 10^3/uL (0.2-0.9); Monocytes % 3.5 %; Neutrophils # 14.14 10^3/uL (1.8-7.7); Neutrophils % 91.3 %; Nucleated Red Blood Cells % 0 %; Platelet Count 146 10^3/cmm (157-399); Red Blood Count 4.44 10^6/uL (3.85-5.65); Red Cell Distribution Width 12.6 % (12.1-15.1)
[2024-08-23 05:45] LABS: Alanine Aminotransferase 38 U/L (0-41); Albumin Level 3.3 g/dL (3.5-5.2); Alkaline Phosphatase 73 U/L (40-130); Aspartate Amino Transferase 41 U/L (0-40); Blood Urea Nitrogen 44 mg/dL (8-23); Calcium 8.7 mg/dL (8.5-10.5); Carbon Dioxide 35 mmol/L (22-29); Chloride 98 mmol/L (98-107); Creatinine Clr Calc Pharmacy 53.4294; Globulin 2.1 g/dL (1.3-4.6); Glucose 114 mg/dL (65-115); Osmolality Calculated 302 mOsm/kg (285-295); Sodium 140 mmol/L (136-145); Total Bilirubin 0.5 mg/dL (0.15-1.2); Total Protein 5.4 g/dL (6.6-8.7)
[2024-08-23 05:46] LABS: Anion Gap 11.5 (5-19); Potassium 4.5 mmol/L (3.5-5.1)
[2024-08-23] MEDS: metoprolol tartrate 25 mg Tablet PO ×2 (09:40→20:51)
[2024-08-23] MEDS: aspirin 81 mg EC Tablet PO (09:40)
[2024-08-23] MEDS: AZITHROMYCIN ADD-Vantage 500 MG in 0.9% NaCl ADD-Vantage 250 ML 250 MG IV (09:41)
[2024-08-23] MEDS: pantoprazole 40 mg SDV IVP (14:28)
--- NOTE | 2024-08-23 15:01 | P.PN_ITS ---
Subjective 2 Subjective: No acute events overnight. Patient seen at the bedside, he is awake this morning. Alert and oriented to himself, place . He did not know the year. He still having some cough. Vitals/I&O/Wt Last Vital Signs Temp 97.9 F 08/23/24 11:37 Pulse 105 H 08/23/24 14:56 Resp 22 H 08/23/24 14:56 BP 104/68 08/23/24 11:37 Pulse Ox 93 08/23/24 14:56 O2 Del Method Nasal Cannula 08/23/24 14:56 O2 Flow Rate 3 08/23/24 14:56 FiO2 40 08/22/24 11:19 08/23/24 08/23/24 08/23/24 06:59 14:59 22:59 Intake Total 610 / 610 Output Total 1100 / 1950 Balance -1100 / -954.983 610 / 610 Weight last 48 hrs Weight 63.367 kg Weight 61.416 kg Physical Exam 2 Const: OTHER: Awake, alert, no acute distress, wearing nasal cannula HENMT: COMMON NORMALS: normocephalic, atraumatic, external ears normal, Normal external nose present, moist oral mucous membranes and oropharynx normal HEAD & SCALP: normocephalic and atraumatic NOSE: Normal external nose present E XTERNAL EAR: Yes external ears normal Eye: COMMON NORMALS: Equal, round and reactive pupils present, EOMs intact bilaterally, conjunctivae normal and no scleral icterus CONJUNCTIVA: Yes conjunctivae normal PUPIL: Yes Equal, round and reactive pupils present Neck/C-Spine: COMMON NORMALS: full ROM, no lymphadenopathy and no JVD Resp: OTHER: Diminished breath sounds bilaterally, no wheezes or crackles Cardio: COMMON NORMALS: no JVD, S1 normal heart sound present (Irregular rhythm) and S2 normal heart sound present HEART SOUNDS: S1 normal heart sound present (Irregular rhythm) and S2 normal heart sound present GI: COMMON NORMALS: Normal to inspection, nondistended, normoactive bowel sounds present, Soft to palpation and non-tender PALPATION: Yes Soft to palpation Extremity: COMMON NORMALS: normal to inspection and no pedal edema Neuro: OTHER: No gross focal deficits Urinary Catheter Management: [place]: Cath Placed During This Visit: yes Reason for Continuing Indwelling Catheter: Other Urinary Catheter Date of Insertion: 08/19/24 Urinary Catheter Time of Insertion: 10:00 Data 08/23/24 04:54 08/23/24 04:54 A&P Assessment and plan (1) Altered mental status: #Acute metabolic encephalopathy -In the setting of hypercapnia, hypoxia which is currently improved -Patient having on and off confusion thought to be due to delirium -Patient's mental status is improved today, he is oriented to himself and place. -CT of the head done on 08/21 - Slight increased density in the anterior right frontal lobe is unchanged, and may be artifact or a small subdural hemorrhage. -Repeat CT of the head today -Monitor patient's mental status (2) Acute respiratory failure with hypoxia and hypercapnia: - In the setting of COPD exacerbation, RSV infection -Continue BiPAP for naps and at bedtime -Continue to wean oxygen as tolerated (3) COPD with acute exacerbation: -Patient still sounds somewhat diminished - Will continue Solu-Medrol taper -Continue breathing treatments -Continue empiric azithromycin (4) Acute kidney injury: - Patient having improvement in his kidney function -No hydronephrosis on kidney ultrasound -Continue to monitor, avoid nephrotoxic medications Plan # Elevated D-dimer -DVT ultrasound of lower extremity negative for DVT -CT PE not done yet due to acute kidney injury -Patient is currently not a candidate for anticoagulation due to suspected subdural hematoma # Atrial fibrillation with RVR -Continue digoxin, metoprolol, amiodarone -Patient is not currently anticoagulated due to suspected subdural hematoma -CT head will be repeated today # RSV infection -Maintain droplet precautions -Continue supportive care #Incidentally found abdominal aneurysm on kidney ultrasound, 3.8 x 4.2 cm. - Noted going back as far as 2018. Does not appear to be increased in size compared to abdominal CT in 2021. - Does have associated mural thrombus. - Consider follow-up with CTA upon improvement of renal function. -Currently not a candidate for consideration of anticoagulation. - Will benefit from reassessment by cardiology versus vascular surgery. #Nodular enlarged prostate: - Incidentally noted on ultrasound. -Urology follow up #Chronic hypoxic respiratory failure -Patient on 2 L supplemental oxygen, now currently on 3 L -Wean oxygen as tolerated . Attestations 2 Medical Necessity Statement*: Continue inpatient care for management of respiratory failure, severe exacerbation of COPD, acute encephalopathy superimposed on chronic dementia, A- fib Coding Level of Care Code Acute Code for Chg Fwd Diagnoses Altered mental status R41.82 Acute respiratory failure with hypoxia and hypercapnia J96.01; J96.02 COPD with acute exacerbation J44.1 Acute kidney injury N17.9
--- NOTE | 2024-08-23 15:33 | CTR_ITS ---
PROCEDURE INFORMATION: Exam: CT Head Without Contrast Exam date and time: 08/23/2024 4:10 PM Age: 79 years old Clinical indication: Altered mental status/memory loss; Additional info: Evaluate frontal lesion TECHNIQUE: Imaging protocol: Computed tomography of the head without contrast. Radiation optimization: All CT scans at this facility use at least one of these dose optimization techniques: automated exposure control; mA and/or kV adjustment per patient size (includes targeted exams where dose is matched to clinical indication); or iterative reconstruction. COMPARISON: CT head wo con* [id number] 08/21/2024 1:21 PM RADIATION DOSE METRICS: Total DLP (mGy-cm): 1074.14 FINDINGS: Brain: Sequela of mild chronic microvascular ischemic changes. Rose-white differentiation is otherwise maintained. No evidence of intra-axial or extra-axial hemorrhage. No mass effect or midline shift. Basilar cisterns are patent. Cerebral ventricles: No hydrocephalus. Paranasal sinuses: The visualized paranasal sinuses are well aerated. Mastoid air cells: The visualized mastoids and middle ears are clear. Bones: Calvarium is intact. No evidence of acute fracture. Soft tissues: No gross soft tissue abnormality. CT/CT head wo con* [id number] IMPRESSION: 1. No acute intracranial abnormality.
[2024-08-23] MEDS: methylPREDNISolone sod succ 40 mg/mL INJ IVP (18:11)
[2024-08-23] MEDS: tamsulosin 0.4 mg Capsule PO (20:51)
[2024-08-24] VITALS (14 sets, daily range): BP systolic 104–136; BP diastolic 61–84; PULSE 80–117; RESP 18–26; TEMP 36.4–37; O2SAT 91–95
[2024-08-24] MEDS: ipratropium-albuterol 3 mL Neb INHALATION ×5 (05:18→21:40)
[2024-08-24 06:03] LABS: Basophils % 0.2 %; Hematocrit 42.2 % (37-53); Lymphocytes # 0.6 10^3/uL (0.8-4.8); Lymphocytes % 4.3 %; Mean Corpuscular HGB Conc 31.8 g/dL (30-55); Mean Corpuscular Hemoglobin 30.8 pg (27-33); Mean Platelet Volume 9.7 fL (7.4-10.4); Monocytes # 0.5 10^3/uL (0.2-0.9); Monocytes % 3.5 %; Neutrophils # 12.93 10^3/uL (1.8-7.7); Neutrophils % 90.5 %; Nucleated Red Blood Cells % 0 %; Platelet Count 135 10^3/cmm (157-399); Red Blood Count 4.35 10^6/uL (3.85-5.65); Red Cell Distribution Width 12.4 % (12.1-15.1); White Blood Count 14.28 10^3/uL (3.29-11.43)
[2024-08-24] MEDS: methylPREDNISolone sod succ 40 mg/mL INJ IVP ×2 (06:27→18:21)
[2024-08-24 06:31] LABS: Albumin Level 3.1 g/dL (3.5-5.2); Anion Gap 9.6 (5-19); Blood Urea Nitrogen 44 mg/dL (8-23); Calcium 8.4 mg/dL (8.5-10.5); Carbon Dioxide 36 mmol/L (22-29); Chloride 95 mmol/L (98-107); Creatinine Clr Calc Pharmacy 53.5667; Glucose 100 mg/dL (65-115); Phosphorus 2.3 mg/dL (2.5-4.5); Potassium 4.6 mmol/L (3.5-5.1); Sodium 136 mmol/L (136-145)
[2024-08-24] MEDS: digoxin 125 mcg Tablet PO (09:04)
[2024-08-24] MEDS: aspirin 81 mg EC Tablet PO (09:04)
[2024-08-24] MEDS: metoprolol tartrate 25 mg Tablet PO ×2 (09:04→20:30)
[2024-08-24] MEDS: AZITHROMYCIN ADD-Vantage 500 MG in 0.9% NaCl ADD-Vantage 250 ML 250 MG IV (09:05)
--- NOTE | 2024-08-24 13:32 | P.PN_ITS ---
Subjective 2 Subjective: Doing better today. Less confused. Says that he is still very tired. No other complaints at this time. Medications: Reviewed: Yes Vitals/I&O/Wt Last Vital Signs Temp 97.6 F 08/24/24 12:47 Pulse 88 08/24/24 12:47 Resp 26 H 08/24/24 12:47 BP 119/73 08/24/24 12:47 Pulse Ox 93 08/24/24 12:47 O2 Del Method Nasal Cannula 08/24/24 12:47 O2 Flow Rate 2 08/24/24 12:47 FiO2 40 08/22/24 11:19 08/23/24 08/24/24 08/24/24 22:59 06:59 14:59 Intake Total 200 / 810 100 / 910 604 / 604 Output Total 500 / 500 1000 / 1500 550 / 550 Balance -300 / 310 -900 / -590 54 / 54 Weight last 48 hrs Weight 140 lb 11.2 oz Weight 139 lb 11.2 oz Physical Exam 2 Narrative: General: Cooperative patient in no apparent distress. Well developed. Alert and oriented x 3. HEENT: Normocephalic, Atraumatic. External ears normal. Nasal passages patent without drainage. MMM. Heart: RRR. Resp: Bibasilar rales, with mild respiratory distress. Abd: Soft, non-tender. Non-distended. Extremities: No edema. Skin: No rash or lesions on exposed areas. Neuro: No focal motor or sensory loss. Gait is normal. Urinary Catheter Management: [place]: Cath Placed During This Visit: yes Reason for Continuing Indwelling Catheter: Other Urinary Catheter Date of Insertion: 08/19/24 Urinary Catheter Time of Insertion: 10:00 Data 08/24/24 05:43 08/24/24 05:43 Micro: Microbiology 08/23/24 14:56 Gram Stain - Final Sputum - Expectorated Sputum A&P Assessment and plan (1) Altered mental status: Improved today. Alert and able to communicate appropriately. In the setting of hypercapnia, hypoxia which is currently improved. Still slightly short of breath. Denies chest pain. CT of the head done on 08/21 - Slight increased density in the anterior right frontal lobe is unchanged, and may be artifact or a small subdural hemorrhage. Repeat; CT shows no intracranial abnormality. Qualifiers: Altered mental status type: delirium Qualified Code(s): R41.0 - Disorientation, unspecified (2) Acute respiratory failure with hypoxia and hypercapnia: In the setting of COPD exacerbation, RSV infection improving. Continue oxygen supplementation and taper. Continue RAAT and Duonebs. (3) COPD with acute exacerbation: Lung exam improved. Continue RAAT, O2 supplementation, antibiotics and steroids. RSV infection Maintain droplet precautions Continue supportive care (4) Acute kidney injury: Patient having improvement in his kidney function. Cr improved to 1.1. US showed no hydronephrosis. Continue to monitor, avoid nephrotoxic medications Plan Elevated D-dimer DVT ultrasound of lower extremity negative for DVT CT PE not done yet due to acute kidney injury. Consider repeating if symptoms persist despite treatment. Patient is currently not a candidate for anticoagulation due to suspected subdural hematoma Atrial fibrillation with RVR Continue digoxin, metoprolol, amiodarone Incidentally found abdominal aneurysm on kidney ultrasound, 3.8 x 4.2 cm. Noted going back as far as 2018. Does not appear to be increased in size compared to abdominal CT in 2021. Does have associated mural thrombus. Consider follow-up with CTA upon improvement of renal function. Currently not a candidate for consideration of anticoagulation. Will benefit from reassessment by cardiology versus vascular surgery. Code Status: Allow natural . IVF: None DVT PPx: SCD's. Lovenox. GI PPx: Protonix ABx: Azithromycin Diet: Dysphagia Level 6. Discharge plan: SNF when stable and appropriate. Attestations 2 Medical Necessity Statement*: Continue inpatient care for management of respiratory failure, severe exacerbation of COPD, acute encephalopathy superimposed on chronic dementia, A- fib Coding Level of Care Code Acute Code for Chg Fwd Moderate MDM includes number and complexity of problems actively addressed during encounter, amount and/or complexity of data reviewed/ordered and described risk of complication, morbidity or mortality of management as documented Diagnoses Delirium R41.0 Altered mental status type: delirium Acute respiratory failure with hypoxia and hypercapnia J96.01; J96.02 COPD with acute exacerbation J44.1 Acute kidney injury N17.9
[2024-08-24] MEDS: pantoprazole 40 mg SDV IVP (14:54)
[2024-08-24] MEDS: enoxaparin 30 mg/0.3 mL Syringe SUBCUT (14:54)
[2024-08-24] MEDS: tamsulosin 0.4 mg Capsule PO (20:30)
[2024-08-25] VITALS (12 sets, daily range): BP systolic 108–166; BP diastolic 59–83; PULSE 88–118; RESP 16–23; TEMP 36.3–36.7; O2SAT 90–96; BMI 19.6
[2024-08-25] MEDS: ipratropium-albuterol 3 mL Neb INHALATION ×4 (00:47→11:15)
[2024-08-25] MEDS: methylPREDNISolone sod succ 40 mg/mL INJ IVP (05:34)
[2024-08-25] MEDS: AZITHROMYCIN ADD-Vantage 500 MG in 0.9% NaCl ADD-Vantage 250 ML 250 MG IV (08:33)
[2024-08-25] MEDS: aspirin 81 mg EC Tablet PO (08:33)
[2024-08-25] MEDS: metoprolol tartrate 25 mg Tablet PO ×2 (08:33→21:24)
--- NOTE | 2024-08-25 09:14 | PC.CHAP ---
Pastoral Care Encounter/Spiritual Assessment Type of Contact [] Declined project inspector visit [] Patient/Family/Request visit [] Outpatient visit [] Follow-up visit [] Physician referral [] Code/Alert [x] Routine visit [] Staff referral [] Actively dying [] Patient sleeping [] Family support [] [] Out of room [] Palliative care [] [] Receiving care in room [] Pre-surgical visit [] Trauma [] Long length of stay [] ICU visit [] Other: Relational/Emotional Strength [] Patient feels connected with others/family/visitors/staff [] Distress [] Loneliness/isolation [] Abandonment Spirituality of Patient [] Person of Stacey [] Attends Mormonism of their Stacey [] Believes in Prayer [] Reads Bible or Quaker materials [] There are Spiritual issues to be addressed Customer Service Sales Consultant Interventions [] Prayer [] Active listening [] Non-anxious presence [] Spiritual/emotional support [] Crisis/trauma care [] Spiritual counseling [] Bereavement support [] Provided bereavement packet [] Provided Bible/devotional materials [] Provided toy/stuffed animal, coloring book to patient or family member [] Provided Communion [] Anointing/[place] [] Salvation [] Completed spiritual assessment [] Other: Impact on Illness or Injury [] Angry [] Fearful [] Anxious [] Often cries [] Exhaustion [] Unable to work [] Unable to attend confucianist [] Unable to walk/stand [] Unable to read [] Unable to drive [] Unable to eat/drink [] Unable to sleep [] Unable to be with family [] Patient intubated [] Other: Summary precaution Time spent with patient
[2024-08-25 09:52] LABS: Basophils % 0.3 %; Hematocrit 42.8 % (37-53); Lymphocytes # 0.3 10^3/uL (0.8-4.8); Lymphocytes % 2.2 %; Mean Corpuscular HGB Conc 32.5 g/dL (30-55); Mean Corpuscular Hemoglobin 31.3 pg (27-33); Mean Corpuscular Volume 96.4 fl (82-101); Mean Platelet Volume 9.2 fL (7.4-10.4); Monocytes # 0.2 10^3/uL (0.2-0.9); Monocytes % 1.7 %; Neutrophils # 12.48 10^3/uL (1.8-7.7); Neutrophils % 93.7 %; Nucleated Red Blood Cells % 0 %; Platelet Count 147 10^3/cmm (157-399); Red Blood Count 4.44 10^6/uL (3.85-5.65); Red Cell Distribution Width 12.4 % (12.1-15.1); White Blood Count 13.32 10^3/uL (3.29-11.43)
--- NOTE | 2024-08-25 10:03 | XRR_ITS ---
PROCEDURE INFORMATION: Exam: XR Chest Exam date and time: 08/25/2024 10:23 AM Age: 79 years old Clinical indication: Shortness of breath; Additional info: SOB TECHNIQUE: Imaging protocol: Radiologic exam of the chest. Views: 1 view. COMPARISON: CR XR chest 1V portable [id number] 08/19/2024 10:15 AM FINDINGS: Lungs: Pulmonary vascular prominence. No focal consolidation. Pleural spaces: Unremarkable. No pleural effusion. No pneumothorax. Heart/Mediastinum: Cardiomegaly. Bones/joints: Unremarkable. XR/XR chest 1V portable [id number] IMPRESSION: 1. No focal consolidation. Mild left basilar subsegmental atelectasis. 2. Mild pulmonary venous hypertension may be present. 3. Cardiomegaly.
--- NOTE | 2024-08-25 10:05 | USCV_ITS ---
Luis Talavera Age: 79 Gender: M : 1945 Exam Date: 08/25/2024 12:37 Ordering Phys: Kristopher Bauman MD Technologist: CT Exam Location: [facility] [place] [facility] [place] Indication: afib BP: / HR: 82 Rhythm: Atrial fibrillation Technical Quality: Very technically difficult study MEASUREMENTS (Male / Female) Normal Values 2D ECHO LVOT Diameter 2.0 cm LV Ejection Fraction MOD 4C 45.7 % LA Diameter 2.5 cm RA Systolic Volume 4C AL 99.7 ml RA Systolic Volume 4C MOD 95.4 ml Aorta at Sinotubular Diameter 3.3 cm M-MODE LA Ao Ratio MM 1.2 AV Cusp Separation MM 1.6 cm DOPPLER AV Peak Velocity 102.0 cm/s LVOT Peak Velocity 77.0 cm/s AV Area Cont Eq vti 4.1 cm squared AV Area Cont Eq pk 2.4 cm squared MV Peak Velocity 63.0 cm/s MV Area PHT 3.3 cm squared Mitral E to A Ratio 51.0 TV Peak E Velocity 56.0 cm/s FINDINGS Left Ventricle Normal left ventricular size, systolic function and wall thickness, with no regional wall motion abnormalities. Left ventricular ejection fraction is estimated at 60%. Grade I/IV diastolic dysfunction (abnormal relaxation filling pattern), normal to mildly elevated filling pressures. Right Ventricle The right ventricle is normal in size and function. Right Atrium The right atrium is normal in size. Left Atrium The left atrium is normal in size. Mitral Valve Structurally normal mitral valve without significant stenosis or prolapse. There is no mitral regurgitation. Aortic Valve Structurally normal aortic valve without significant sclerosis or stenosis. There is no aortic regurgitation. Tricuspid Valve Structurally normal tricuspid valve without significant stenosis or regurgitation. Pulmonary artery systolic pressure is normal. Pulmonic Valve Structurally normal pulmonic valve without significant stenosis. There is no pulmonic regurgitation. Pericardium Normal pericardium without effusion. Aorta Normal ascending aorta dimension. IVC The inferior vena cava appears normal. CONCLUSIONS Normal left ventricular size, systolic function and wall thickness, with no regional wall motion abnormalities. Left ventricular ejection fraction is estimated at 60%. Grade I/IV diastolic dysfunction (abnormal relaxation filling pattern), normal to mildly elevated filling pressures. No significant valve abnormalities. There is no pericardial effusion. Right atrial pressure is around 5 mm of mercury. Yemi Muhammad MD (Electronically Signed) Final Date: 25 August 2024 22:32 S
[2024-08-25 10:06] LABS: Alanine Aminotransferase 39 U/L (0-41); Albumin Level 3.2 g/dL (3.5-5.2); Alkaline Phosphatase 72 U/L (40-130); Anion Gap 14.4 (5-19); Aspartate Amino Transferase 21 U/L (0-40); Blood Urea Nitrogen 39 mg/dL (8-23); C Reactive Protein 4.6 mg/L (0.0-4.9); Calcium 8.7 mg/dL (8.5-10.5); Carbon Dioxide 31 mmol/L (22-29); Chloride 96 mmol/L (98-107); Creatinine Clr Calc Pharmacy 58.9233; Glucose 180 mg/dL (65-115); Osmolality Calculated 298 mOsm/kg (285-295); Potassium 4.4 mmol/L (3.5-5.1); Sodium 137 mmol/L (136-145); Total Bilirubin 0.6 mg/dL (0.15-1.2); Total Protein 5.2 g/dL (6.6-8.7)
[2024-08-25 10:51] LABS: Digoxin 0.7 ng/mL (0.6-1.2)
[2024-08-25] MEDS: FUROsemide 40 mg Tablet PO (11:05)
[2024-08-25] MEDS: linezolid 600 mg Tablet PO ×2 (11:05→22:24)
[2024-08-25 11:32] LABS: Estmated Average Glucose 108; Hemoglobin A1C 5.4 % (4.0-6.0)
[2024-08-25 11:35] LABS: Procalcitonin 0.08 ng/mL (0-0.5); Thyroid Stimulating Hormone 0.56 uIU/mL (0.27-4.20); Vitamin B12 1828 pg/mL (232-1245)
[2024-08-25 11:41] LABS: D Dimer 2.34 ug/mLFEU (0-0.59)
[2024-08-25 11:46] LABS: Chol HDL Ratio 2.51 mg/dL (1.0-5.00); Cholesterol 158 mg/dL (0-200); HDL Cholesterol 63 mg/dL (60-100); Iron 110 ug/dL (59-158); LDL Cholesterol Calculated 75 mg/dL (50-129); Percent Saturation 60.4 % (20-50); Total Iron Binding Capacity 182 mcg/dl; Triglycerides 99 mg/dL (0-150); Unsaturated Iron Binding 72 ug/dL (112-347); VLDL Cholestrol Calculation 20 mg/dL (0-30)
--- NOTE | 2024-08-25 12:01 | PC.SOCIAL ---
IMM Update pg 2 of IMM Updated and reviewed w/ patient. Copy provided and copy dated, initialed and placed in chart.
[2024-08-25] MEDS: pantoprazole 40 mg SDV IVP (14:15)
[2024-08-25] MEDS: enoxaparin 30 mg/0.3 mL Syringe SUBCUT (14:15)
--- NOTE | 2024-08-25 14:30 | P.PN_ITS ---
Subjective 2 Subjective: Hospital course, labs appreciated. Sitting comfortably in bed. Complaining of cough. Currently on 3 L. Denies any nausea, vomiting, headache. Appreciate urine output. Vitals/I&O/Wt Last Vital Signs Temp 97.5 F L 08/25/24 12:00 Pulse 88 08/25/24 12:00 Resp 20 H 08/25/24 12:00 BP 108/59 08/25/24 12:00 Pulse Ox 93 08/25/24 12:00 O2 Del Method Nasal Cannula 08/25/24 12:00 O2 Flow Rate 3 08/25/24 12:00 FiO2 40 08/22/24 11:19 08/24/24 08/25/24 08/25/24 22:59 06:59 14:59 Intake Total 358 / 1198 605 / 605 Output Total 650 / 1200 1400 / 1400 Balance -292 / -2 -795 / -795 Weight last 48 hrs Weight 63.82 kg Weight 63.82 kg Physical Exam 2 Narrative: General: Cooperative patient in no apparent distress., Chronically sick appearing, alert and oriented x 3. HEENT: Normocephalic, Atraumatic. External ears normal. Nasal passages patent without drainage. MMM. Heart: S1-S2 regular, tachycardia, no S3 gallop, no murmur. Resp: Bilateral bronchial breath sounds all over lung tucker, crackles present bilateral lower zone right more than left Abd: Soft, non-tender. Non-distended. Extremities: No edema. Skin: No rash or lesions on exposed areas. Neurology: No focal deficit, AOx3 Urinary Catheter Management: [place]: Cath Placed During This Visit: yes Reason for Continuing Indwelling Catheter: Other Urinary Catheter Date of Insertion: 08/19/24 Urinary Catheter Time of Insertion: 10:00 Data 08/25/24 09:40 08/25/24 09:40 Micro: Microbiology 08/23/24 14:56 Gram Stain - Final Sputum - Expectorated Sputum Sputum Culture - Final A&P Assessment and plan (1) Altered mental status: Resolved. Patient back to baseline. Most likely in setting of hypercapnia and hypoxia on admission. CT of the head done on 08/21 showed slight increased density in the anterior right frontal lobe is unchanged, and may be artifact or a small subdural hemorrhage. Repeat; CT shows no intracranial abnormality. Qualifiers: Altered mental status type: delirium Qualified Code(s): R41.0 - Disorientation, unspecified (2) Acute respiratory failure with hypoxia and hypercapnia: Most likely in setting of COPD exacerbation due to RSV. Cannot rule out superadded bacterial infection less likely. Patient does have leukocytosis most likely in setting of steroids. Sputum cultures so far pending. MRSA swab positive back in 2021. Repeat chest x-ray. Continue with supportive therapy. Oxygen supplementation keeping saturation over 90%. Will stop azithromycin as patient has received for more than 4 days. Add linezolid given history of positive MRSA in past 600 mg twice daily. D-dimer slightly elevated on admission. Lower limb Doppler negative for DVT. CTA not done given concerns for DEBRA admission. Repeat D-dimer. Depending on D-dimer trend will plan for CTA versus CT chest. Due to concerns for tachycardia for now we will give oral Lasix 40 mg one-time. Renal function stable. (3) COPD with acute exacerbation: Supportive care. Nebulization with ipratropium, Xopenex every 6 hours, Pulmicort twice daily. Wean Solu-Medrol to 40 mg twice daily. Will plan to wean further within next 24 hours. Most likely will discharge on oral steroid taper. Lung exam improved. Continue RAAT, O2 supplementation, antibiotics and steroids. RSV infection Maintain droplet precautions Continue supportive care (4) Acute kidney injury: Baseline creatinine 1-1.2. Resolved. Medical reconciliation done for nephrotoxic drugs. US showed no hydronephrosis. Continue to monitor, avoid nephrotoxic medications Plan Atrial fibrillation with RVR: Heart rate elevated. Most likely in setting of DuoNeb nebulization. Continue digoxin, metoprolol, amiodarone. Switching DuoNeb to ipratropium and Xopenex. Check digoxin level. Chronically not on anticoagulation. Check echocardiogram. Incidentally found abdominal aneurysm on kidney ultrasound, 3.8 x 4.2 cm. Noted going back as far as 2018. Does not appear to be increased in size compared to abdominal CT in 2021. Does have associated mural thrombus. Will plan for CTA as an outpatient in 6 months. Currently not a candidate for consideration of anticoagulation. Will benefit from reassessment by cardiology versus vascular surgery. Code Status: Allow natural . IVF: None DVT PPx: SCD's. Lovenox. GI PPx: Protonix Diet: Dysphagia Level 6. Discharge plan: SNF most likely within next 24 hours if remains on stable oxygen supplementation and hemodynamics. Physical therapy evaluation. Attestations 2 Medical Necessity Statement*: Requires further hospitalization for management of hypoxic and hypercapnic respiratory failure in setting of COPD exacerbation due to RSV, A-fib with RVR Diagnoses Delirium R41.0 Altered mental status type: delirium Acute respiratory failure with hypoxia and hypercapnia J96.01; J96.02 COPD with acute exacerbation J44.1 Acute kidney injury N17.9
[2024-08-25] MEDS: guaiFENesin 600 mg Tablet PO (17:21)
[2024-08-25] MEDS: budesonide 0.5 mg/2 mL Neb INHALATION (21:15)
[2024-08-25] MEDS: ipratropium 0.5 mg/2.5 mL Neb INHALATION (21:15)
[2024-08-25] MEDS: levalbuterol 0.63 mg/3 mL Neb INHALATION (21:15)
[2024-08-25] MEDS: tamsulosin 0.4 mg Capsule PO (21:24)
[2024-08-26] VITALS (10 sets, daily range): BP systolic 107–141; BP diastolic 68–89; PULSE 67–109; RESP 12–25; TEMP 36.4–36.7; O2SAT 93–98; BMI 19.6
[2024-08-26] MEDS: levalbuterol 0.63 mg/3 mL Neb INHALATION ×2 (02:26→08:04)
[2024-08-26] MEDS: ipratropium 0.5 mg/2.5 mL Neb INHALATION ×2 (02:26→08:04)
[2024-08-26 04:52] LABS: Hematocrit 42.3 % (37-53); Mean Corpuscular HGB Conc 32.4 g/dL (30-55); Mean Corpuscular Hemoglobin 30.6 pg (27-33); Mean Corpuscular Volume 94.6 fl (82-101); Mean Platelet Volume 8.8 fL (7.4-10.4); Platelet Count 195 10^3/cmm (157-399); Red Blood Count 4.47 10^6/uL (3.85-5.65); Red Cell Distribution Width 12.2 % (12.1-15.1); White Blood Count 13.06 10^3/uL (3.29-11.43)
[2024-08-26 05:11] LABS: Alanine Aminotransferase 38 U/L (0-41); Alkaline Phosphatase 70 U/L (40-130); Anion Gap 9.5 (5-19); Aspartate Amino Transferase 21 U/L (0-40); Blood Urea Nitrogen 42 mg/dL (8-23); Calcium 8.3 mg/dL (8.5-10.5); Carbon Dioxide 37 mmol/L (22-29); Chloride 96 mmol/L (98-107); Creatinine Clr Calc Pharmacy 49.1028; Globulin 1.7 g/dL (1.3-4.6); Glucose 84 mg/dL (65-115); Osmolality Calculated 296 mOsm/kg (285-295); Potassium 4.5 mmol/L (3.5-5.1); Sodium 138 mmol/L (136-145); Total Bilirubin 0.8 mg/dL (0.15-1.2); Total Protein 4.7 g/dL (6.6-8.7)
[2024-08-26 05:12] LABS: Magnesium 1.9 mg/dL (1.7-2.3)
[2024-08-26 05:30] LABS: Absolute Segmented Neutrophil 10.4 10/cmm (1.6-7.1); Eosinophils 0 %; Lymphocytes 6 %; Platelet Estimate Decreased (Normal); Segmented Neutrophils 80 %; Slide Review Slide Review Perform; Total Cells Counted 100 (0-100)
[2024-08-26 05:32] LABS: Folate Level 12.6 ng/mL (4.5-32.2)
[2024-08-26] MEDS: budesonide 0.5 mg/2 mL Neb INHALATION (08:05)
[2024-08-26] MEDS: AZITHROMYCIN ADD-Vantage 500 MG in 0.9% NaCl ADD-Vantage 250 ML 250 MG IV (08:18)
[2024-08-26] MEDS: methylPREDNISolone sod succ 40 mg/mL INJ IVP (08:18)
[2024-08-26] MEDS: digoxin 125 mcg Tablet PO (08:20)
[2024-08-26] MEDS: aspirin 81 mg EC Tablet PO (08:20)
[2024-08-26] MEDS: metoprolol tartrate 25 mg Tablet PO (08:20)
[2024-08-26] MEDS: guaiFENesin 600 mg Tablet PO (08:20)
--- NOTE | 2024-08-26 08:51 | PM.DCS ---
Discharge Providers Date of Admission: 08/19/24 11:03 Date of Discharge: August 26, 2024 Attending Provider at Admission: Case Roberts Attending Provider at Discharge: Kristopher Bauman MD Primary Care Provider: Ivet Burnham MD Diagnoses at Discharge Discharge Diagnosis (1) Altered mental status: Status: Resolved Qualifiers: Altered mental status type: delirium Qualified Code(s): R41.0 - Disorientation, unspecified (2) Acute respiratory failure with hypoxia and hypercapnia: Status: Acute (3) COPD with acute exacerbation: Status: Acute (4) Acute kidney injury: Status: Acute Reason for Visit Reason for Visit: SOB Brief History: History as per HPI: 79-year-old gentleman with history of COPD on chronic oxygen previously about 2 L, with history of atrial fibrillation, CKD, diastolic congestive heart failure, aspiration pneumonia, was evaluated in ER after EMS was called due to altered mental status at senior living facility, was found slumped over to the right side with possible right-sided facial droop. In ER found obtunded. With hypercapnic, hypoxic respiratory failure. He was started on BiPAP support. Started becoming more alert, with reassessment not found to have right-sided facial droop or obvious right side deficits and stroke code had been canceled. We were called for admission for respiratory failure. He remains lethargic, but with some improvement, he is now opening his eyes, is able to give small bits of information. Stated he has been coughing, spitting up some phlegm. Denies headache, denies chest pain or pressure. Does fall asleep between sentences and still unable to participate well with exam. Hospital Course Hospital Course Patient was admitted to the hospital further evaluation and management of acute on chronic hypoxic and hypercapnic respiratory failure along with altered mental status in setting of COPD exacerbation due to RSV. He was also found to have acute kidney injury which was treated with nebulization treatment, steroids, IV fluids after which his mentation and DEBRA resolved. Patient has continued to improve and his hospitalization stay was otherwise unremarkable. He has been on his baseline oxygen supplementation for more than 48 hours. Physical Exam Narrative: General: Cooperative patient in no apparent distress,Chronically sick appearing, alert and oriented x 3. HEENT: Normocephalic, Atraumatic. External ears normal. Nasal passages patent without drainage. MMM. Heart: S1-S2 regular, tachycardia, no S3 gallop, no murmur. Resp: Bilateral bronchial breath sounds all over lung tucker, crackles present bilateral lower zone right more than left Abd: Soft, non-tender. Non-distended. Extremities: No edema. Skin: No rash or lesions on exposed areas. Neurology: No focal deficit, AOx3 Urinary Catheter Management: [place]: Cath Placed During This Visit: yes Reason for Continuing Indwelling Catheter: Other Urinary Catheter Date of Insertion: 08/19/24 Urinary Catheter Time of Insertion: 10:00 Discharge Data Studies Completed and Pending Completed Studies During Hospitalization Category Date Time Status CT head thrombolytic [id number] Stat Cat Scan 08/19/24 09:[address] head wo con* [id number] Routine Cat Scan 08/21/24 10:[address] head wo con* [id number] Routine Cat Scan 08/23/24 15:33 Completed XR chest 1V portable [id number] Routine Exams 08/25/24 10:03 Completed XR chest 1V portable [id number] Stat Exams 08/19/24 10:15 [place] [id number] Routine Ultrasound 08/19/24 14:18 Completed CV. echo complete* [id number] Routine Ultrasound 08/25/24 10:05 Completed US renal BI* [id number] Routine Ultrasound 08/19/24 14:18 Completed Pending at discharge Category Date Time Status MAG [Magnesium] AM LABS Lab 08/27/24 04:00 Ordered MAG [Magnesium] AM LABS Lab 08/28/24 04:00 Ordered Radiology Impressions Renal Ultrasound 08/19/24 14:18 IMPRESSION: 1. No hydronephrosis in either kidney. 2. Simple cyst inferior pole RIGHT kidney measuring 2.1 x 2.3 x 1.8 cm. 3. Abdominal aortic aneurysm measuring 3.8 x 4.2 cm AP by transverse. Associated mural thrombus. This could be followed up with CTA. 4. Enlarged nodular prostate. Recommend correlation PSA. Head CT 08/23/24 15:33 IMPRESSION: 1. No acute intracranial abnormality. ADDENDUM: 08/23/24 1708 Subtle intermediate density along the right frontal convexity is less prominent on the current exam and is favored to be artifactual. No evidence of hemorrhage. If there is ongoing clinical concern, consider correlation with MRI. Chest X-Ray 08/25/24 10:03 IMPRESSION: 1. No focal consolidation. Mild left basilar subsegmental atelectasis. 2. Mild pulmonary venous hypertension may be present. 3. Cardiomegaly. Microbiology 08/23/24 14:56 Sputum - Expectorated Sputum Gram Stain - Final 08/23/24 14:56 Sputum - Expectorated Sputum Sputum Culture - Final Laboratory Results WBC 13.06 10^3/uL (3.29-11.43) H 08/26/24 04:29 RBC 4.47 10^6/uL (3.85-5.65) 08/26/24 04:29 Hgb 13.70 g/dL (11.27-16.99) 08/26/24 04:29 Hct 42.3 % (37-53) 08/26/24 04:29 MCV 94.6 fl (82-101) 08/26/24 04:29 MCH 30.6 pg (27-33) 08/26/24 04:29 MCHC 32.4 g/dL (30-55) 08/26/24 04:29 RDW 12.2 % (12.1-15.1) 08/26/24 04:29 Plt Count 195 10^3/cmm (157-399) D 08/26/24 04:29 MPV 8.8 fL (7.4-10.4) 08/26/24 04:29 Neut % (Auto) 93.7 % 08/25/24 09:40 Lymph % (Auto) Not Reportable 08/26/24 04:29 Wells % (Auto) Not Reportable 08/26/24 04:29 Eos % (Auto) 0.0 % 08/25/24 09:40 Baso % (Auto) 0.3 % 08/25/24 09:40 Neut # (Auto) 12.48 10^3/uL (1.8-7.7) H 08/25/24 09:40 Lymph # (Auto) Not Reportable 08/26/24 04:29 Wells # (Auto) Not Reportable 08/26/24 04:29 Eos # (Auto) 0.0 10^3/uL (0.0-0.8) 08/25/24 09:40 Baso # (Auto) 0.0 10^3/uL (0.0-0.1) 08/25/24 09:40 Nucleated RBC % (auto) 0 % 08/25/24 09:40 Total Counted 100 (0-100) 08/26/24 04:29 Atypical Lymphs % Not Reportable 08/26/24 04:29 Segmented Neutrophils 80 % 08/26/24 04:29 Band Neutrophils Not Reportable 08/26/24 04:29 Lymphocytes (Manual) 6 % 08/26/24 04:29 Monocytes (Manual) 8.0 % 08/26/24 04:29 Absolute Monocytes 1.0 10^3/cmm (0.1-0.6) H 08/26/24 04:29 Eosinophils (Manual) 0 % 08/26/24 04: Absolute Eosinophils 0.0 10^3/cmm (0.0-0.7) 08/26/24 04:29 Basophils (Manual) 0.0 % 08/26/24 04:29 Absolute Basophils 0.0 10^3/cmm (0.0-0.2) 08/26/24 04:29 Myelocytes 4.0 % 08/26/24 04:29 Nucleated RBCs # 0.0 /100WBC 08/25/24 09:40 Platelet Estimate Decreased (Normal) 08/26/24 04:29 PT 14.00 SECONDS (12.1-14.9) 08/19/24 09:05 INR 1.01 (0.8-1.2) 08/19/24 09:05 APTT 31.4 SECONDS (23.9-36.7) 08/19/24 09:05 D-Dimer 2.34 ug/mLFEU (0-0.59) H 08/25/24 11:22 Specimen Type Arterial 08/20/24 08:36 Sample Site Brachial, left 08/20/24 08:36 ABG pH 7.50 (7.35-7.45) H 08/20/24 08:36 ABG pCO2 49.8 mmHg (35-45) H 08/20/24 08:36 ABG pO2 80.1 mmHg (80.0-100.0) 08/20/24 08:36 ABG PO2/FiO2 Ratio 200 08/20/24 08:36 ABG HCO3 38.8 mmol/L (22-26) H 08/20/24 08:36 ABG O2 Saturation 97.4 08/20/24 08:36 ABG Base Excess 13.5 mmol/L (-2.0-2.0) H 08/20/24 08:36 Jamari Test Pos 08/20/24 08:36 A-a O2 Gradient 19.3 mmHg (5-10) H 08/20/24 08:36 Hematocrit 43.7 % (42-52) 08/20/24 08:36 Hgb O2 Saturation 95.6 % (95-100) 08/20/24 08:36 Carboxyhemoglobin 0.8 %THgb (0.4-20.1) 08/20/24 08:36 Methemoglobin 1.0 % (0.4-1.5) 08/20/24 08:36 Total Hemoglobin 14.3 g/dL (14-18) 08/20/24 08:36 Sodium 144.0 mmol/L (131-143) H 08/20/24 08:36 Potassium 3.4 mmol/L (3.5-5.0) L 08/20/24 08:36 Glucose 170.0 mg/dL (70-115) H 08/20/24 08:36 Ionized Calcium 1.2 mmol/L (1.1-1.4) 08/20/24 08:36 O2 Delivery Device Bipap 08/20/24 08:36 O2 Liters/Min 5.0 % 08/19/24 09:20 FiO2 40.0 % 08/20/24 08:36 PEEP 8.0 cmH20 08/19/24 10:47 Sales Planning Coordinator ID Cak 08/20/24 08:36 Sodium 138 mmol/L (136-145) 08/26/24 04:29 Potassium 4.5 mmol/L (3.5-5.1) 08/26/24 04:29 Chloride 96 mmol/L (98-107) L 08/26/24 04:29 Carbon Dioxide 37 mmol/L (22-29) H 08/26/24 04:29 Anion Gap 9.5 (5-19) 08/26/24 04:29 BUN 42 mg/dL (8-23) H 08/26/24 04:29 Creatinine 1.2 mg/dL (0.7-1.2) 08/26/24 04:29 GFR Calculation Not Reportable 08/26/24 04:29 Glucose 84 mg/dL (65-115) 08/26/24 04:29 POC Glucose 115 mg/dL (70-110) H 08/19/24 09:23 Estimat Average Glucose 108 08/25/24 09:40 Hemoglobin A1c 5.4 % (4.0-6.0) 08/25/24 09:40 Calculated Osmolality 296 mOsm/kg (285-295) H 08/26/24 04:29 Lactic Acid 1.3 mmol/L (0.5-2.2) 08/19/24 09:05 Calcium 8.3 mg/dL (8.5-10.5) L 08/26/24 04:29 Phosphorus 2.3 mg/dL (2.5-4.5) L 08/24/24 05:43 Magnesium 1.9 mg/dL (1.7-2.3) 08/26/24 04:29 Iron 110 ug/dL (59-158) 08/25/24 09:40 TIBC 182 mcg/dl 08/25/24 09:40 % Saturation 60.4 % (20-50) H 08/25/24 09:40 Unsat Iron Binding 72 ug/dL (112-347) L 08/25/24 09:40 Total Bilirubin 0.8 mg/dL (0.15-1.2) 08/26/24 04:29 AST 21 U/L (0-40) 08/26/24 04:29 ALT 38 U/L (0-41) 08/26/24 04:29 Alkaline Phosphatase 70 U/L (40-130) 08/26/24 04:29 Ammonia 38 umol/L (16-60) 08/19/24 09:05 Troponin T Baseline 36 ng/L (0-15) H 08/19/24 09:05 Troponin T 120 Minute 37.71 ng/L (0-15) H 08/19/24 10:56 Delta Troponin T 1.71 ABS# (0-10) 08/19/24 10:56 Troponin T Hi Sens 6Hr 31.83 ng/L (0-15) H 08/19/24 15:07 Troponin T Hi Sens 6Hr Delta -4.17 ng/L (0-12) L 08/19/24 15:07 C-Reactive Protein 4.6 mg/L (0.0-4.9) 08/25/24 09:40 Total Protein 4.7 g/dL (6.6-8.7) L 08/26/24 04:29 Albumin 3.0 g/dL (3.5-5.2) L 08/26/24 04:29 Globulin 1.7 g/dL (1.3-4.6) 08/26/24 04:29 Triglycerides 99 mg/dL (0-150) 08/25/24 09:40 Cholesterol 158 mg/dL (0-200) 08/25/24 09:40 LDL Cholesterol, Calc 75 mg/dL (50-129) 08/25/24 09:40 Total VLDL Cholesterol 20 mg/dL (0-30) 08/25/24 09:40 HDL Cholesterol 63 mg/dL (60-100) 08/25/24 09:40 Cholesterol/HDL Ratio 2.51 mg/dL (1.0-5.00) 08/25/24 09:40 Vitamin B12 1828 pg/mL (232-1245) H 08/25/24 09:40 Folate 12.6 ng/mL (4.5-32.2) 08/26/24 04:29 Procalcitonin 0.08 ng/mL (0-0.5) 08/25/24 09:40 TSH 0.56 uIU/mL (0.27-4.20) 08/25/24 09:40 Urine Color Dark yellow (Yellow) A 08/19/24 10:04 Urine Appearance Cloudy (CLEAR) A 08/19/24 10:04 Urine pH 5.0 (5-7) 08/19/24 10:04 Ur Specific [place] 1.029 (1.005-1.030) 08/19/24 10:04 Urine Protein 2+ (Negative) A 08/19/24 10:04 Urine Glucose (UA) Negative (Normal) 08/19/24 10:04 Urine Ketones Trace (Negative) 08/19/24 10:04 Urine Blood 2+ (Negative) A 08/19/24 10:04 Urine Nitrate Negative (Negative) 08/19/24 10:04 Urine Bilirubin Negative (Negative) 08/19/24 10:04 Urine Urobilinogen 1.0 mg/dL (Negative) 08/19/24 10:04 Ur Leukocyte Esterase Negative (Negative) 08/19/24 10:04 Urine RBC 0-4 /hpf (0-2) H 08/19/24 10:04 Urine WBC 0-4 /hpf (0-5) H 08/19/24 10:04 Ur Squamous Epith Cells 0-4 /hpf (0-5) H 08/19/24 10:04 Amorphous Sediment Not Reportable 08/19/24 10:04 Urine Bacteria None /hpf (NONE) 08/19/24 10:04 Hyaline Casts 0-4 /lpf H 08/19/24 10:04 Fine Granular Casts 0-4 /lpf H 08/19/24 10:04 Urine Mucus Trace /hpf 08/19/24 10:04 Digoxin 0.7 ng/mL (0.6-1.2) 08/25/24 09:40 Urine Opiates Screen Negative ng/mL (Negative) 08/19/24 10:04 Ur Barbiturates Screen Negative ng/mL (Negative) 08/19/24 10:04 Ur Phencyclidine Scrn Negative ng/mL (Negative) 08/19/24 10:04 Ur Amphetamines Screen Negative ng/mL (Negative) 08/19/24 10:04 U Benzodiazepines Scrn Negative ng/mL (Negative) 08/19/24 10:04 Urine Cocaine Screen Negative ng/mL (Negative) 08/19/24 10:04 U Marijuana (THC) Screen Negative ng/mL (Negative) 08/19/24 10:04 Adenovirus (PCR) Not detected (NOT DETECT) 08/19/24 10:31 C. pneumoniae DNA (PCR) Not detected (NOT DETECT) 08/19/24 10:31 Coronavirus 229E (PCR) Not detected (NOT DETECT) 08/19/24 10:31 Human Metapneumovir PCR Not detected (NOT DETECT) 08/19/24 10:31 Influenza A (H1) PCR Not detected (NOT DETECT) 08/19/24 10:31 Influ A (H1/09) PCR Not detected (NOT DETECT) 08/19/24 10:31 Influenza A (H3) PCR Not detected (NOT DETECT) 08/19/24 10:31 Influenza Type A (PCR) Not detected (NOT DETECT) 08/19/24 10:31 Influenza Type B (PCR) Not detected (NOT DETECT) 08/19/24 10:31 M. pneumoniae (PCR) Not detected (NOT DETECT) 08/19/24 10:31 Parainfluenza 1 (PCR) Not detected (NOT DETECT) 08/19/24 10:31 Parainfluenza 2 (PCR) Not detected (NOT DETECT) 08/19/24 10:31 Parainfluenza 3 (PCR) Not detected (NOT DETECT) 08/19/24 10:31 Parainfluenza 4 (PCR) Not detected (NOT DETECT) 08/19/24 10:31 RSV Type A (PCR) Not detected (NOT DETECT) 08/19/24 10:31 RSV Type B (PCR) Detected (NOT DETECT) A 08/19/24 10:31 Entero/Rhino (PCR) Not detected (NOT DETECT) 08/19/24 10:31 SARS-CoV-2 (PCR) Not detected (NOT DETECT) 08/19/24 10:31 Vitals Last Vital Signs Temp 97.9 F 08/26/24 07:33 Pulse 87 08/26/24 08:20 Resp 20 H 08/26/24 08:05 BP 135/68 08/26/24 07:33 Pulse Ox 93 08/26/24 08:05 O2 Del Method Nasal Cannula 08/26/24 08:05 O2 Flow Rate 2 08/26/24 08:05 FiO2 40 08/22/24 11:19 Discharge Plan Discharge Patient Disposition: Xfer SNF Condition: Stable Prescriptions: New linezolid 600 mg Tablet 600 mg PO Q12H 5 Days Qty: 10 0RF prednisone 10 mg tablet See Taper PO DIRECTED Qty: 42 0RF Taper: predniSONE 60-10 60 mg Daily for 2 Days and 0 Hour 50 mg Daily for 2 Days and 0 Hour 40 mg Daily for 2 Days and 0 Hour 30 mg Daily for 2 Days and 0 Hour 20 mg Daily for 2 Days and 0 Hour 10 mg Daily for 2 Days and 0 Hour Rx Instructions: see taper instructions pantoprazole [Protonix] 40 mg tablet,delayed release (DR/EC) 40 mg PO QAM Qty: 30 0RF Continued guaifenesin [Mucinex] 600 mg tablet extended release 12hr 600 mg PO BID azithromycin 250 mg tablet 250 mg PO .COMPLEX 360 Days Qty: 48 3RF Rx Instructions: Take 1 tablet by mouth daily on Sunday, Sunday, and Sunday. acetaminophen 325 mg Tablet 325 mg PO QID MDD 4000 mg PRN (Reason: Pain) magnesium hydroxide [Milk of Magnesia] 400 mg/5 mL Suspension 30 ml PO DAILY PRN (Reason: Constipation) tamsulosin 0.4 mg Capsule 0.4 mg PO BEDTIME@20 bisacodyl 10 mg Suppository 10 mg WA DAILY PRN (Reason: Constipation) Enema 19-7 gram/118 mL Enema 118 ml WA DAILY PRN (Reason: Constipation) digoxin 125 mcg (0.125 mg) tablet 125 mcg PO .QOD Rx Instructions: hold for pulse less than 60 metoprolol tartrate 25 mg tablet 25 mg PO BID@0800,2000 Minerin Creme Cream 1 applic TOPICAL Q12H PRN (Reason: Itching) Rx Instructions: apply to back Combivent Respimat 20-100 mcg/actuation Mist 1 puff INHALATION Q6H PRN (Reason: Shortness Of Breath) Trelegy Ellipta 100-62.5-25 mcg Blister With Device 1 inh INHALATION DAILY@08 sennosides-docusate sodium [Stool Softener-Laxative] 8.6-50 mg Tablet 1 tab-cap PO DAILY PRN (Reason: Constipation) aspirin 81 mg Tablet,Delayed Release (Dr/Ec) 81 mg PO DAILY@08 carboxymethylcellulose sodium 1 % Drops, Liquid Gel 1 drp OPHTHALMIC (EYE) BID@08,20 Rx Instructions: each eye TwoCal HN 0.08-2 gram-kcal/mL Liquid 1 ea PO TID albuterol sulfate 2.5 mg /3 mL (0.083 %) solution for nebulization 2.5 mg inhalation Q4H PRN (Reason: Shortness Of Breath) psyllium Powder 2 tbsp PO DAILY PRN (Reason: Constipation) Rx Instructions: mix into at least 8 oz of water or juice before administering Discontinued hydrochlorothiazide 12.5 mg tablet 12.5 mg PO DAILY Discharge Orders: Discharge Order (Routine); Ordered 08/26/24 Ordered By: Kristopher Bauman Referrals: [facility] [Outside] Ivet Burnham MD [Primary Care Provider] - Discharge Diet: Cardiac Discharge Activity: Resume usual activity and Increase activity as tolerated Patient Instructions: Prednisone (By mouth), Pantoprazole (By mouth) (Protonix), Linezolid (By mouth) (Zyvox), A-fib (Atrial Fibrillation) (DC), Acute Kidney Injury (DC), Altered Mental Status (ED), RSV (Respiratory Syncytial Virus) Infection (DC), COPD Stoplight, Opioid Safety Discharge Attestations Time Spent in Discharge Care*: greater than 30 min Specific Discharge Activities: educating patient, discussing with pcp/other providers, discussing with case specialist/social workers/dc planners, documenting/other paperwork and evaluating patient/reviewing data Status at Discharge: Cognitive status at discharge: mildly impaired cognition (at baseline, A & O x 1), Behavioral status at discharge: cooperative and dependent in ADL's, Functional status at discharge: other assisted ambulation, Overall status at discharge: patient is back to baseline Quality Metrics Clinical Quality Measures [ No reported AMI, CVA or VTE this stay] Coding Level of Care Code 74211 Total time (in minutes) for Discharge: 60 Diagnoses Delirium R41.0 Altered mental status type: delirium Acute respiratory failure with hypoxia and hypercapnia J96.01; J96.02 COPD with acute exacerbation J44.1 Acute kidney injury N17.9
--- NOTE | 2024-08-26 10:03 | PC.CHAP ---
Pastoral Care Encounter/Spiritual Assessment Type of Contact [] Declined ceramics machine operator visit [] Patient/Family/Request visit [] Outpatient visit [] Follow-up visit [] Physician referral [] Code/Alert [] Routine visit [] Staff referral [] Actively dying [] Patient sleeping [] Family support [] [] Out of room [] Palliative care [] [] Receiving care in room [] Pre-surgical visit [] Trauma [] Long length of stay [] ICU visit [x] Other:Contact precautions. No visit. Relational/Emotional Strength [] Patient feels connected with others/family/visitors/staff [] Distress [] Loneliness/isolation [] Abandonment Spirituality of Patient [] Person of Stacey [] Attends Nondenominational of their Stacey [] Believes in Prayer [] Reads Bible or Christianity materials [] There are Spiritual issues to be addressed Reclamation Kettle Tender Interventions [] Prayer [] Active listening [] Non-anxious presence [] Spiritual/emotional support [] Crisis/trauma care [] Spiritual counseling [] Bereavement support [] Provided bereavement packet [] Provided Bible/devotional materials [] Provided toy/stuffed animal, coloring book to patient or family member [] Provided Communion [] Anointing/[place]ascot [] Salvation [] Completed spiritual assessment [] Other: Impact on Illness or Injury [] Angry [] Fearful [] Anxious [] Often cries [] Exhaustion [] Unable to work [] Unable to attend judaism [] Unable to walk/stand [] Unable to read [] Unable to drive [] Unable to eat/drink [] Unable to sleep [] Unable to be with family [] Patient intubated [] Other: Summary Time spent with patient
[2024-08-26] MEDS: linezolid 600 mg Tablet PO (10:54)
--- NOTE | 2024-08-26 11:00 | PC.NURSE ---
lutz removed at 1055 without complication. Intact.
== END 2024-08-26 14:37 | disposition skilled nursing facility (03) | DRG 189 ==
LOC: ER 09:34 → ER IP 11:04 → ICU 12:27 → CSU 08-21 13:13
PROVIDERS: Family Medicine; Student in an Organized Health Care Education/Training Program; Admitting Provider Internal Medicine; Emergency Provider Family Medicine; PCP Family Medicine; Visit Provider Student in an Organized Health Care Education/Training Program
DX: J96.02 Acute respiratory failure with hypercapnia (principal); G93.41 Metabolic encephalopathy; J44.1 Chronic obstructive pulmonary disease with (acute) exacerbation; N17.9 Acute kidney failure, unspecified; I50.30 Unspecified diastolic (congestive) heart failure; F05 Delirium due to known physiological condition; J96.21 Acute and chronic respiratory failure with hypoxia; B97.4 Respiratory syncytial virus as the cause of diseases classified elsewhere; I48.91 Unspecified atrial fibrillation; N18.9 Chronic kidney disease, unspecified; F03.90 Unspecified dementia, unspecified severity, without behavioral disturbance, psychotic disturbance, mood disturbance, and anxiety; N40.2 Nodular prostate without lower urinary tract symptoms; R03.1 Nonspecific low blood-pressure reading; E87.6 Hypokalemia; R79.1 Abnormal coagulation profile; I71.40 Abdominal aortic aneurysm, without rupture, unspecified; Z99.81 Dependence on supplemental oxygen; Z87.891 Personal history of nicotine dependence; Z79.82 Long term (current) use of aspirin; Z87.01 Personal history of pneumonia (recurrent)
CPT/HCPCS: 36415; 36416; 36600; 51702; 70450; 71045; 76770; 80051; 80053; 80061; 80069; 80162; 80306; 81001; 82140; 82330; 82607; 82746; 82805; 82962; 83036; 83540; 83550; 83605; 83735; 84145; 84443; 84484; 85007; 85025; 85378; 85610; 85730; 86140; 87070; 87205; 87486; 87581; 87633; 93005; 93306; 93970; 94640; 94660; 96372; 96376; 97161; 97530; 99291; A4222; J0283; J0456; J1650; J2470; J2919; J7050; J7614; J7626; J7644; P9047

== ENCOUNTER 2025-07-21 03:24 | Inpatient (IN) | payer MEDICARE, MEDICAID, SELFPAY ==
[2025-07-21] VITALS (18 sets, daily range): BP systolic 102–130; BP diastolic 58–78; PULSE 81–116; RESP 16–24; TEMP 36.4–37.1; O2SAT 90–100; BMI 21.6; BMI 19.3
--- OUTSIDE RECORDS SUMMARY | 2025-07-21 03:30 | XMS_ITS | Encounter Summary ---
Author Organization [facility] Address [address] [place] [address] Care Team Providers Care Application Infrastructure Engineer Name Role Phone Unavailable Primary Care Provider Unavailabl e Encounter Details Date Type Department Care Team (Late st Contact Info) Description 12/31/2020 Lab Requisition [facility] [address] [address] Stormy Mixon, WILLIAM [address] [place] [phone] Social History Tobacco Use Types Packs/Day Years Used Date Smoking Tobacco: Never Assessed Sex and Gender Information Value Date Recorded Sex Assigned at Not on file Legal Sex Male 3:59 PM CDT Gender Identity Not on file Sexual Orientation Not on file documented as of this encounter Plan of Treatment Not on file documented as of this encounter Procedures Procedure Name Priority Date/Time Associated Diagnosis Comments DIGOXIN LEVEL Routine 12/31/2020 6:58 AM CDT documented in this encounter Results * (ABNORMAL) DIGOXIN LEVEL (12/31/2020 6:58 AM CDT) DIGOXIN LEVEL 0.78(L) 0.80 - 2.00 ng/mL 12/31/2020 5:59 PM CDT [facility] [employer] [facility] Blood Collection / Unknown 12/31/2020 6:58 AM CDT 12/31/2020 5:35 PM CDT us Stormy THOMAS CHEMISTRY ORDERABLES Final Result [facility] [employer] [address] [address] documented in this encounter Visit Diagnoses Not on filedocumented in this encounter
--- OUTSIDE RECORDS SUMMARY | 2025-07-21 03:30 | XMS_ITS | Encounter Summary ---
Author Organization [facility] Address [address] [place] [address] Care Team Providers Care Windlace Machine Operator Name Role Phone Unavailable Primary Care Provider Unavailabl e Encounter Details Date Type Department Care Team (Late st Contact Info) Description 12/16/2020 Lab Requisition [facility] [address] [place] [address] Stormy Mixon, WILLIAM [address] [place] [phone] Social History Tobacco Use Types Packs/Day [...] Date/Time Associated Diagnosis Comments DIGOXIN LEVEL Routine 12/16/2020 9:40 AM CDT documented in this encounter Results * DIGOXIN LEVEL (12/16/2020 9:40 AM CDT) DIGOXIN LEVEL 1.24 0.80 - 2.00 ng/mL 12/17/2020 1:20 AM CDT [facility] Blood Collection / Unknown 12/16/2020 9:40 AM CDT 12/17/2020 12:32 AM CDT us Stormy THOMAS CHEMISTRY ORDERABLES Final Result [facility] [employer] [facility] [address] [facility] [place] [address] documented in this encounter Visit Diagnoses Not on filedocumented in this encounter
--- OUTSIDE RECORDS SUMMARY | 2025-07-21 03:30 | XMS_ITS | Continuity of Care Document ---
Author Organization [facility] Dionne Mercado, [facility] ([facility]) Address [address] [place] [address] Assessment No assessment recorded. Plan of Treatment Reminders Order Date Submit Date Provider Last Modified By Organization Details Last Modified Time Details Appointments None record ed. Lab None record ed. Referral None record ed. Procedures None record ed. Surgeries None record ed. Imaging None record ed. Medication Orders None record ed. Patient TargetsNo targets recorded. Patient Instructions Encounter Date Encounter Id Patient Instructions Last Modified By Organization Details Last Modified Time 06/10/2025 [id number] No complaints, doing well. Vitals stable. [email or web address] Not available 06/10/2025 13:46:59 Reason for Referral None Reported. Problems Name Problem SNOMED Code Status Onset Date Resolution Date Notes Provider Name and Address Organization Details Recorded Time Hospital inpatient stay within past 30 days 5545733189100 Active 2024 [facility] Altered mental status 693701025 Active 2024 [facility]:03:55 Essential hypertensi on 59116892 Active 2024 [facility] 16:03:56 Atrial fibrillati on 72223661 Active 2024 [facility] 16:04[facility]13 Chronic systolic heart failure 914867762 Active 2024 [facility] 16:04:27 Chronic kidney disease stage 3 068857335 Active 2024 [facility] 16:04:34 Problem Notes None recorded. Medical Equipment None Reported. Medications Name Sig Start Date Stop Date Status Note LastModified by Organization Details LastModified Time azithromycin 250 mg tablet active Not Available Not Available Not Available tamsulosin 0.4 mg capsule active Not Available Not Available Not Available digoxin 125 mcg (0.125 mg) tablet active Not Available Not Avai lable Not Available metoprolol tartrate 25 mg tablet active Not Available Not Available Not Available hydrochlorothiazide 12.5 mg tablet active Not Available Not Availab le Not Available Combivent Respimat 20 mcg-100 mcg/actuation solution for inhalation active Not Available Not Available N ot Available Trelegy Ellipta 100 mcg-62.5 mcg-25 mcg powder for inhalation active Not Available Not Available N ot Available Vitals Date Recorded Body height Body mass index (BMI) Body weight Heart rate Respiratory rate Body temperature Oxygen saturation Systolic And Diastolic Provider Name and Address Organization Details Last Updated DateTime 5 180.34 cm 19.7 kg/m2 30508.5 2 g 76 /min 18 /min 97.3 [degF] 96 % 152/72 mm[Hg] SUE SCRUGGS [facility] 5 13:45:12 Social History None recorded. Functional Status None recorded. Mental Status None recorded. Family History Nothing Reported. Medical History No medical history recorded. Immunizations Vaccine Type Date Status Note Provider Nam e and Address Organization Details Recorded Time COVID-19, mRNA, LNP-S, PF, 100 mcg/0.5mL dose or 50 mcg/0.25mL dose 08/14/2020 completed Not Available [facility] 5 15:19:31 COVID-19, mRNA, LNP-S, PF, 100 mcg/0.5mL dose or 50 mcg/0.25mL dose 09/11/2020 completed Not Available [facility] 5 15:19:31 COVID-19, mRNA, LNP-S, bivalent, PF, 50 mcg/0.5 mL or 25mcg/0.25 mL dose 08/14/2022 completed Not Available [facility] 15:19:31 Past Encounters Encounter ID Performer Location Encounter Start Date Encounter Closed Date Diagnosis/Indication Diagnosis SNOMED-CT Code Diagnosis ICD10 Code Diagnosis IMO Codes Diagnosis Note [id number] Rolan Jonhson DO [facility] ([facility]) [address] [place] [phone] 05/18/2025 15:38:45 05/20/2025 08:06:36 Chronic kidney disease stage 3 010984048 N18.30 Chronic sy stolic heart failure 822700307 I50.22 Atrial fibrillation 4943 6004 I48.91 Essential hypertension 24149970 I10 [id number] Rolan Johnson DO [facility] ([facility]) [address] [place] [address] 06/10/2025 07:12:21 06/12/2025 16:19:18 Altered mental status 060830307 R41.82 Chronic ki dney disease stage 3 756488137 N18.30 Chronic sy stolic heart failure 349881800 I50.22 Atrial fibrillation 4943 6004 I48.91 Essential hypertension 64002355 I10 Health Concerns Section Related Observation LastModified by Organization Detai ls LastModified Time None Recorded Concern Status LastModified by Organization Details LastModified Time None Recorded Payers Encounter Date Sequence Insurance Name Policy Number Policy Cid Covered Member ID Cid Member ID Guarantor Name 06/10/2025 1 [place] Luis Talavera [id number] Dylan Matute 06/10/2025 2 [place] Luis Talavera [id number] Dylan Matute Notes Date Note Type Note Provider Name and Address Organization Details Recorded Time 06/10/2025 text/html DementiaReported by PatientHPIFor quality, patient reportsshort term memory loss. For severity, patient reportsmoderate. For duration, patient reports___ years. For context, patient reportsno alcohol use.ROS as noted in the HPI no complaints per staff or patient. Rolan Johnson DO [address] [place] [address], [phone], [facility] 06/10/2025 15:09:53
--- OUTSIDE RECORDS SUMMARY | 2025-07-21 03:30 | XMS_ITS | Clinical Summary ---
Author Organization [facility] Address [address] [place] [address] Phone Care Team Providers Care Offset Lithographic Press Operator Name Role Phone Unavailable Primary Care Provider Unavailabl e Social History Tobacco Use Types Packs/Day Years Used Date Smoking Tobacco: Never Assessed Sex and Gender Information Value Date Recorded Sex Assigned at Not on file Legal Sex Male 3:59 PM CDT Gender Identity Not on file Sexual Orientation Not on file Plan of Treatment Health Maintenance Due Date Last Done Comments DTAP/TDAP/TD VACCINES (1 - Tdap) 1964 PNEUMOCOCCAL VACCINE 50+ YEARS (1 of 1 - PCV) 03/19/19 94 ZOSTER VACCINE (1 of 2) 1994 RSV VACCINE (60+ or ) (1 - 1-dose 75+ series) 2019 INFLUENZA VACCINE (#1) 2025 Insurance C/O [employer]YLAN [employer]IVER [id number] [address] MEDICARE PART A AND B
--- OUTSIDE RECORDS SUMMARY | 2025-07-21 03:30 | XMS_ITS | Encounter Summary ---
Author Organization [facility] Address [address] [place] [address] Care Team Providers Care Rubber Attacher Name Role Phone Unavailable Primary Care Provider Unavailabl e Encounter Details Date Type Department Care Team (Late st Contact Info) Description 02/17/2020 Lab Requisition [facility] Laboratory Services [address] [place] [address] [place] [address] Stormy Mixon, [facility] [address] [place] [phone] Social History Tobacco Use Types Packs/Day [...] Procedure Name Priority Date/Time Associated Diagnosis Comments EXTRA TUBE (SST/GOLD) Routine 02/17/2020 8:58 AM CDT CBC WITH DIFFERENTIAL Routine 02/17/2020 8:58 AM CDT TSH Routine 02/17/2020 8:58 AM CDT DIGOXIN LEVEL Routine 02/17/2020 8:58 AM CDT LIPID PANEL Routine 02/17/2020 8:58 AM CDT COMPREHENSIVE METABOLIC PANEL Routine 02/17/2020 8:58 AM CDT documented in this encounter Results * EXTRA TUBE (SST/GOLD) (02/17/2020 8:58 AM CDT) Blood Collection / Unknown 02/17/2020 8:58 AM CDT 02/17/2020 3:40 PM CDT Stormy THOMAS CHEMISTRY ORDERABLES Final Result [facility] [employer] [facility] [address] [place] [address] * LIPID PANEL (02/17/2020 8:58 AM CDT) [facility] Signature CHOLESTEROL 135 <200 mg/dL 02/17/2020 4:02 PM CDT [facility] TRIGLYCERIDE 103 <150 mg/dL 02/17/2020 4:02 PM CDT [facility] HDL 43 40 - 59 mg/dL 02/17/2020 4:02 PM CDT [facility] LDL CALCULATED 71 <100 mg/dL 02/17/2020 4:02 PM CDT [facility] NON-HDL CHOLESTEROL 92 <130 mg/dL 02/17/2020 4:02 PM CDT [facility] Blood Collection / Unknown 02/17/2020 8:58 AM CDT 02/17/2020 3:38 PM CDT Narrative [facility] - 02/17/2020 4:02 PM CDT TOTAL CHOLESTEROL mg/dL Desirable <200 Borderline high 200-239 High >=240 TRIGLYCERIDES mg/dL Normal <150 Borderline high 150-199 High 200-499 Very high >=500 HDL CHOLESTEROL mg/dL Low <40 Normal 40-59 Desirable >=60 NON HDL CHOLESTEROL mg/dL Optimal <130 Near Optimal 130-159 Borderline High 160-189 Very High >=190 CALCULATED LDL mg/dL LDL <70, OPTIMAL if have Atherosclerotic cardiovascular disease (ASCVD) or intermediate or higher (>7.5%) 10 year risk of ASCVD including most adults with diabetes. LDL <100, Optimal in adult patients with low (<7.5%) 10 year ASCVD risk LDL 100-160, Suboptimal LDL >160, High LDL >190, Very high ATPIII Guidelines Reference Ranges for Lipid Panels (NCEP/AMA) . us Stormy ACOSTAP CHEMISTRY ORDERABLES Final Result Performing Organization Address [facility] de Phone Number [address] [address] * DIGOXIN LEVEL (02/17/2020 8:58 AM CDT) Pathologist [facility] DIGOXIN LEVEL 1.62 0.80 - 2.00 ng/mL 02/17/2020 4:02 PM CDT [facility] Blood Collection / Unknown 02/17/2020 8:58 AM CDT 02/17/2020 3:38 PM CDT Stormy Hawthorne [facility] CHEMISTRY ORDERABLES Final Result Performing Organization Address [facility] de Phone Number [phone] [place] [address] * TSH (02/17/2020 8:58 AM CDT) Pathologist [facility] TSH 1.57 0.27 - 4.20 uIU/mL 02/17/2020 4:02 PM CDT [facility] Blood Collection / Unknown 02/17/2020 8:58 AM CDT 02/17/2020 3:38 PM CDT us Stormy Hawthorne [facility] CHEMISTRY ORDERABLES Final Result Performing Organization Address [facility] de Phone Number [phone] [place] [address] * (ABNORMAL) COMPREHENSIVE METABOLIC PANEL (02/17/2020 8:58 AM CDT) Pathologist [facility] SODIUM 141 136 - 145 mmol/L 02/17/2020 4:02 PM CDT [facility] POTASSIUM 4.0 3.5 - 5.1 mmol/L 02/17/2020 4:02 PM CDT [facility] CHLORIDE 101 98 - 107 mmol/L 02/17/2020 4:02 PM [facility] CO2 33(H) 22 - 29 mmol/L 02/17/2020 4:02 PM [facility] CALCIUM 8.2(L) 8.8 - 10.2 mg/dL 02/17/2020 4:02 PM [facility] BUN 20 8 - 23 mg/dL 02/17/2020 4:02 PM [facility] CREATININE 1.51(H) 0.67 - 1.17 mg/dL 02/17/2020 4:02 PM [facility] Comment:The GFR result is no t clinically significant on patients <18 or >70 years of age. GLUCOSE 102(H) 74 - 99 mg/dL 02/17/2020 4:02 PM [facility] TOTAL PROTEIN 5.6(L) 6.4 - 8.3 g/dL 02/17/2020 4:02 PM [facility] ALBUMIN 2.8(L) 3.5 - 5.2 g/dL 02/17/2020 4:02 PM [facility] BILIRUBIN TOTAL 0.2 0.2 - 1.0 mg/dL 02/17/2020 4:02 PM [facility] ALKALINE PHOSPHATASE 62 40 - 129 U/L 02/17/2020 4:02 PM [facility] AST 20 10 - 50 U/L 02/17/2020 4:02 PM [facility] ALT 19 <=50 U/L 02/17/2020 4:02 PM [facility] GFR 45 mL/min/1. 73 sq meter 02/17/2020 4:02 PM [facility] Comment: eGFR has not been validated for use in the elderly (> 70 years of age), women, patients with serious co-morbid conditions, or persons with extremes of body size or muscle mass and should also be interpreted with caution in patients with acute kidney failure, dialysis dependent patients, patients reporting exceptional dietary intake (e.g. vegetarian diet, high protein diets, creatine supplementation), and patients with severe liver disease. Based on National Kidney Disease Education Program If patient is , please refer to the GFR result. GFR, 55 mL/min/1. 73 sq meter 02/17/2020 4:02 PM CDT [facility] ANION GAP 7(L) 9 - 20 mmol/L 02/17/2020 4:02 PM CDT [facility] Blood Collection / Unknown 02/17/2020 8:58 AM CDT 02/17/2020 3:38 PM CDT Stormy Hawthorne TILE PRESSER CHEMISTRY ORDERABLES Final Result [facility] [address] [place] [address] * (ABNORMAL) CBC WITH DIFFERENTIAL (02/17/2020 8:58 AM CDT) WBC 7.8 4.8 - 10.8 K/uL 02/17/2020 3:44 PM CDT [facility] RBC 3.09(L) 4.60 - 6.20 M/uL 02/17/2020 3:44 PM CDT [facility] HEMOGLOBIN 9.1(L) 14.0 - 18.0 g/dL 02/17/2020 3:44 PM CDT [facility] HEMATOCRIT 29.6(L) 41.0 - 53.0 % 02/17/2020 3:44 PM CDT [facility] MCV 95.8 84.0 - 103.0 fL 02/17/2020 3:44 PM CDT [facility] MCH 29.4 27.0 - 34.0 pg 02/17/2020 3:44 PM CDT [facility] MCHC 30.7 30.0 - 35.0 g/dL 02/17/2020 3:44 PM CDT [facility] RDW 12.8 11.0 - 14.5 % 02/17/2020 3:44 PM [facility] RDW-STDEV 44.4 37.0 - 54.0 fL 02/17/2020 3:44 PM [facility] PLATELETS 236 140 - 440 K/uL 02/17/2020 3:44 PM CDT [facility] MPV 8.9 8.9 - 12.8 fL 02/17/2020 3:44 PM CDT [facility] NEUTROPHILS 63 42 - 75 % 02/17/2020 3:44 PM CDT [facility] LYMPHOCYTES 20(L) 24 - 44 % 02/17/2020 3:44 PM CDT [facility] MONOCYTES 12(H) 2 - 10 % 02/17/2020 3:44 PM CDT [facility] EOSINOPHILS 1 0 - 7 % 02/17/2020 3:44 PM CDT [facility] BASOPHILS 0 0 - 1 % 02/17/2020 3:44 PM CDT [facility] IMMATURE GRANULOCYTES 4(H) 0 - 2 % 02/17/2020 3:44 PM CDT [facility] NEUTROPHIL ABSOLUTE 4.86 2.00 - 8.00 K/uL 02/17/2020 3:44 PM CDT [facility] LYMPHOCYTE ABSOLUTE 1.53 1.20 - 4.00 K/uL 02/17/2020 3:44 PM CDT [facility] MONOCYTE ABSOLUTE 0.93(H) 0.10 - 0.60 K/uL 02/17/2020 3:44 PM CDT [facility] EOSINOPHIL ABSOLUTE 0.10 0.00 - 0.70 K/uL 02/17/2020 3:44 PM CDT [facility] BASOPHILS ABSOLUTE 0.02 0.00 - 0.20 K/uL 02/17/2020 3:44 PM CDT [facility] IMMATURE GRANULOCYTES ABSOLUTE 0.31(H) 0.00 - 0.10 K/uL 02/17/2020 3:44 PM [facility] Blood Collection / Unknown 02/17/2020 8:58 AM CDT 02/17/2020 3:34 PM CDT us Stormy Hawthorne TILE PRESSER HEMATOLOGY ORDERABLES Final Result [facility] [address] [place] [address] documented in this encounter Visit Diagnoses Not on filedocumented in this encounter
--- OUTSIDE RECORDS SUMMARY | 2025-07-21 03:30 | XMS_ITS | Encounter Summary ---
Author Organization [facility] Address [address] [place] [address] Care Team Providers Care Tissue Recovery Technician Name Role Phone Unavailable Primary Care Provider Unavailabl e Encounter Details Date Type Department Care Team (Late st Contact Info) Description 08/03/2020 Lab Requisition [facility] [address] [place] [address] [place] [address] Stormy Mixon, WILLIAM [address] [place] [phone] Social History Tobacco Use Types Packs/Day [...] Date/Time Associated Diagnosis Comments DIGOXIN LEVEL Routine 08/03/2020 5:15 AM 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 CAREGIVER documented in this encounter Results * (ABNORMAL) DIGOXIN LEVEL (08/03/2020 5:15 AM HOUSEKEEPER CAREGIVER) DIGOXIN LEVEL 2.12(H) 0.80 - 2.00 ng/mL 08/03/2020 5:37 PM HOUSEKEEPER CAREGIVER [facility] [employer] [facility] Blood BLOOD SPECIMEN / Unknown Collection / Unknown 08/03/2020 5:15 AM HOUSEKEEPER CAREGIVER 08/03/2020 5:16 PM HOUSEKEEPER CAREGIVER us Stormy THOMAS CHEMISTRY ORDERABLES Final Result [facility] [employer] [facility] [address] [place] [address] documented in this encounter Visit Diagnoses Not on filedocumented in this encounter
--- OUTSIDE RECORDS SUMMARY | 2025-07-21 03:31 | XMS_ITS | Encounter Summary ---
Author Organization [facility] Address [address] [place] [address] Care Team Providers Care Legal Clerk Name Role Phone Unavailable Primary Care Provider Unavailabl e Encounter Details Date Type Department Care Team (Late st Contact Info) Description 02/03/2020 Lab Requisition [facility] Laboratory Services [address] [place] [address] [place] [address] [facility] [address] [place] [phone] Social History Tobacco Use Types Packs/Day [...] Procedure Name Priority Date/Time Associated Diagnosis Comments C. DIFFICILE DETECTION Stat 02/03/2020 2:30 AM CDT documented in this encounter Results * C. DIFFICILE DETECTION (02/03/2020 2:30 AM CDT) TOXIGENIC C DIFFICILE Not Detected Not Detected 02/03/2020 3:52 PM CDT [facility] Thomas-Krenn [facility] Stool STOOL SPECIMEN / Unknown Collection / Unknown 02/03/2020 2:30 AM CDT 02/03/2020 2:59 PM CDT Narrative [facility] Thomas-Krenn [facility] - 02/03/2020 3:52 PM CDT This assay is used to detect Toxigenic C. difficile target(B gene) DNA sequences in unformed stool specimens. If toxigenic C. difficile is not detected, but clinical suspicion is high please consult ID for consultation and potential repeat testing. This test should not be used as a test of cure. us Elizabeth ROY MICROBIOLOGY - GENERAL OR DERABLES Final Result Performing Organization Address City/State/[facility] Co de Phone Number [facility] LABORATORY SERVICES [facility]# [id number] [facility] [place] [address] documented in this encounter Visit Diagnoses Not on filedocumented in this encounter
--- OUTSIDE RECORDS SUMMARY | 2025-07-21 03:31 | XMS_ITS | Data Portability ---
Author Organization [facility] Dionne Mercado, [facility] Address [address] [place] [address] [address] [place] [address] Assessment No assessment recorded. Plan of Treatment [...] Modified By Organization Details Last Modified Time 03/16/2025 [id number] Doing well. Vitals stable. Mood good. [email or web address] Not available 03/18/2025 13:36:31 04/15/2025 [id number] Refusing eye drops, will d/c. Will also d/c scheduled azithromycin. Doing well. Mood good. Not available 04/15/2025 13:38:04 05/18/2025 [id number] No issues per staff, mood good. Vitals stable. [email or web address] Not available 05/18/2025 15:41:01 06/10/2025 [id number] No complaints, doing well. Vitals stable. Not available 06/10/2025 13:46:59 Reason for Referral None Reported. Problems Name Problem SNOMED Code Status Onset Date Resolution Date Notes Provider Name and Address Organization Details Recorded Time Hospital inpatient stay within past 30 days 2971444725249 Active 2024 [facility] Altered mental status 694616018 Active 2024 [facility] 01/22[facility]202 5 16:03:55 Essential hypertensi on 32735879 [facility] 16:03:56 Atrial fibrillati on 91766268 [facility] 5 16:04:13 Chronic systolic heart failure 308687046 [facility] 5 16:04:27 Chronic kidney disease stage 3 889054496 [facility] 5 16:04:34 Problem Notes None recorded. Medical [...] Details Last Updated DateTime 5 180.34 cm 20.4 kg/m2 21750.4 9 g 76 /min 17 /min 98.3 [degF] 91 % 115/79 mm[Hg] SUE SCRUGGS [facility], L.L.CMendoza 5 13:34:04 Date Recorded Body height Body mass index (BMI) Body weight Heart rate Respiratory rate Body temperature Oxygen saturation Systolic And Diastolic Provider Name and Address Organization Details Last Updated DateTime 5 180.34 cm 20.2 kg/m2 94599.8 9 g 78 /min 20 /min 97.4 [degF] 90 % 109/61 mm[Hg] [facility] 5 13:07:03 Date Recorded Body height Body mass index (BMI) Body weight Heart rate Respiratory rate Body temperature Oxygen saturation Systolic And Diastolic Provider Name and Address Organization Details Last Updated DateTime 5 180.34 cm 20.1 kg/m2 66009.3 g 74 /min 18 /min 98.1 [degF] 98 % 118/70 mm[Hg] [facility] 5 15:39:35 Date Recorded Body height Body mass index (BMI) Body weight Heart rate Respiratory rate Body temperature Oxygen saturation Systolic And Diastolic Provider Name and Address Organization Details Last Updated DateTime 5 180.34 cm 19.7 kg/m2 07196.5 2 g 76 /min 18 /min 97.3 [degF] 96 % 152/72 mm[Hg] [facility] 5 13:45:12 Date Recorded Body height Body mass index (BMI) Body weight Heart rate Respiratory rate Body temperature Oxygen saturation Systolic And Diastolic Provider Name and Address Organization Details Last Updated DateTime 5 180.34 cm 19.7 kg/m2 90539.5 2 g 80 /min 20 /min 97.5 [degF] 98 % 145/87 mm[Hg] [facility] 5 15:53:22 Social History None recorded. Functional Status None recorded. Mental Status None recorded. Family History Nothing Reported. Medical History No medical history recorded. Immunizations Vaccine Type Date Status Note Provider Nam e and Address Organization Details Recorded Time COVID-19, mRNA, LNP-S, PF, 100 mcg/0.5mL dose or 50 mcg/0.25mL dose 08/14/2020 completed Not Available [facility] 5 15:19:31 COVID-19, mRNA, LNP-S, PF, 100 mcg/0.5mL dose or 50 mcg/0.25mL dose 09/11/2020 completed Not Available [facility] 15:19:31 COVID-19, mRNA, LNP-S, bivalent, PF, 50 mcg/0.5 mL or 25mcg/0.25 mL dose 08/14/2022 completed Not Available [facility] 15:19:31 Past Encounters Encounter ID Performer Location Encounter Start Date Encounter Closed Date Diagnosis/Indication Diagnosis SNOMED-CT Code Diagnosis ICD10 Code Diagnosis IMO Codes Diagnosis Note [id number] Rolan Johnson DO [facility] ([facility]) [address] [place], [place] [address] 08/27/2024 13:51:15 09/01/2024 07:08:52 Hospital inpatient stay within past 30 days 3600521008 106 Z76.89 Altered mental status 41 8441624 R41.82 Essential hypertension 77460622 I10 Atrial fibrillation 4943 6004 I48.91 Chronic sy stolic heart failure 474277218 I50.22 Chronic ki dney disease stage 3 408862326 N18.30 Acute hypo xemic respiratory failure 942546043 J96.01 Respirator y syncytial virus infection 27171278 B97.4 [id number] Rolan Johnson DO [facility] ([facility]) [address] [place] [address] 09/01/2024 08:27:51 09/04/2024 07:38:13 Chronic kidney disease stage 3 042383648 N18.30 Chronic sy stolic heart failure 105234344 I50.22 Atrial fibrillation 4943 6004 I48.91 [id number] Rolan Johnson DO [facility] ([facility]) [address] [place] [address] 09/17/2024 08:25:09 09/18/2024 17:39:33 [id number] Rolan Johnson DO [facility] ([facility]) [address] [place] [address] 5 10/08/2024 08:47:34 10/10/2024 12:09:57 Chronic kidney disease stage 3 677602776 N18.30 Chronic sy stolic heart failure 537966670 I50.22 Atrial fibrillation 4943 6004 I48.91 [id number] Rolan Johnson DO [facility] ([facility]) [address] [place], [place] [address] 10/27/2024 16:12:35 10/28/2024 06:06:51 Synovial cyst of elbow 355428790 M71.329 right [id number] Rolan Johnson DO [facility] ([facility]) [address] [place] [address] 5 11/10/2024 08:10:28 11/11/2024 06:51:39 Altered mental status 621848631 R41.82 Chronic ki dney disease stage 3 203759899 N18.30 Chronic sy stolic heart failure 196531942 I50.22 Atrial fibrillation 4943 6004 I48.91 [id number] Rolan Johnson DO [facility] ([facility]) [address] [place] [address] 5 12/17/2024 08:04:34 12/21/2024 20:59:45 Chronic kidney disease stage 3 022510000 N18.30 Chronic sy stolic heart failure 190187962 I50.22 Atrial fibrillation 4943 6004 I48.91 [id number] Rolan Johnson DO [facility] ([facility]) [address] [place] [address] 5 01/12/2025 10:38:58 01/20/2025 14:38:11 Chronic systolic heart failure 793936764 I50.22 Chronic ki dney disease stage 3 650047523 N18.30 Atrial fibrillation 4943 6004 I48.91 [id number] Rolan Johnson DO [facility] ([facility]) [address] [place] [address] 5 02/11/2025 13:04:46 02/11/2025 15:43:02 Chronic systolic heart failure 825644614 I50.22 Atrial fibrillation 4943 6004 I48.91 Chronic ki dney disease stage 3 833753351 N18.30 [id number] Rolan Johnson DO [facility] ([facility]) [address] [place], [place] [address] 03/18/2025 11:04:44 03/23/2025 15:29:00 Chronic systolic heart failure 536035779 I50.22 Atrial fibrillation 4943 6004 I48.91 Essential hypertension 30959133 I10 [id number] Rolan Johnson DO [facility] ([facility]) [address] [place] [address] 04/15/2025 09:44:47 04/20/2025 15:25:32 Chronic kidney disease stage 3 590437961 N18.30 Chronic sy stolic heart failure 971349636 I50.22 Atrial fibrillation 4943 6004 I48.91 [id number] oRlan Johnson DO [facility] ([facility]) [address] [place] [address] 05/18/2025 15:38:45 05/20/2025 08:06:36 Chronic kidney disease stage 3 154920635 N18.30 Chronic sy stolic heart failure 000057140 I50.22 Atrial fibrillation 4943 6004 I48.91 Essential hypertension 22740187 I10 [id number] Rolan Johnson DO [facility] ([facility]) [address] [place] [address] 06/10/2025 07:12:21 06/12/2025 16:19:18 Altered mental status 842049463 R41.82 Chronic ki dney disease stage 3 651204179 N18.30 Chronic sy stolic heart failure 010325375 I50.22 Atrial fibrillation 4943 6004 I48.91 Essential hypertension 70485659 I10 Health Concerns Section Related Observation LastModified by Organization Detai ls LastModified Time None Recorded Concern Status LastModified by Organization Details LastModified Time None Recorded Advance Directives Directive None Recorded Payers Insurance Date Sequence Insurance Name Policy Number Policy Cid Covered Member ID Cid Member ID Guarantor Name 10/08/2024 1 [place] Luis Talavera [id number] Dylan Matute 07/15/2025 [place] [facility] (MEDICARE) Luis Talavera [id number] Dylan Matute 07/15/2025 [place] [facility] Luis Talavera [id number] Dylan Matute 07/15/2025 2 [place] Luis Talavera [id number] Dylan Matute 07/15/2025 1 [place] Luis Talavera [id number] Dylan Matute Notes Date Note Type Note Provider Name and Address Organization Details Recorded Time 03/16/2025 text/html DementiaReported by PatientHPIFor quality, patient reportsshort term memory loss. For severity, patient reportsmoderate. For duration, patient reports___ years. For context, patient reportsno alcohol use.ROS as noted in the HPI no complaints per staff or patient. Rolan DO Elizabeth [address] [place] [address], [phone], [facility] 03/22/2025 15:11:18 04/15/2025 text/html DementiaReported by PatientHPIFor quality, patient reportsshort term memory loss. For severity, patient reportsmoderate. For duration, patient reports___ years. For context, patient reportsno alcohol use.ROS as noted in the HPI no complaints per staff or patient. Rolan DO Elizabeth [address] [place] [address], [phone], [facility] 04/15/2025 13:38:16 05/18/2025 text/html DementiaReported by PatientIFor quality, patient reportsshort term memory loss. For severity, patient reportsmoderate. For duration, patient reports___ years. For context, patient reportsno alcohol use.ROS as noted in the HPI no complaints per staff or patient. Rolan MirzaDO jacqui [address] [place] [address], [phone], [facility] 05/18/2025 15:50:29 06/10/2025 text/html DementiaReported by PatientIFor quality, patient reportsshort term memory loss. For severity, patient reportsmoderate. For duration, patient reports___ years. For context, patient reportsno alcohol use.ROS as noted in the HPI no complaints per staff or patient. Rolan DO Elizabeth [address] [place], [address], [facility] 06/10/2025 15:09:53 07/15/2025 text/html DementiaReported by PatientHPIFor quality, patient reportsshort term memory loss. For severity, patient reportsmoderate. For duration, patient reports___ years. For context, patient reportsno alcohol use.ROS as noted in the HPI no complaints per staff or patient. Not Available Not Available Not Available
--- OUTSIDE RECORDS SUMMARY | 2025-07-21 03:31 | XMS_ITS | Continuity of Care Document ---
Author Organization [facility] Dionne Mercado, [facility] Address [address] [facility] [place] [facility] [place] [address] Assessment No assessment recorded. Plan of Treatment [...] Modified By Organization Details Last Modified Time 05/18/2025 [id number] No issues per staff, mood good. Vitals stable. [email or web address] Not available 05/18/2025 15:41:01 Reason for Referral None Reported. Problems Name Problem SNOMED Code Status Onset Date Resolution Date Notes Provider Name and Address Organization Details Recorded Time Hospital inpatient stay within past 30 days 2663642189477 [facility] 16:03[facility]31 Altered mental status 327357215 Active 2024 [facility] 5 16:03:55 Essential hypertensi on 11521511 Active 2024 [facility] 16:03:56 Atrial fibrillati on 46759766 Active 2024 [facility] 5 16:04:13 Chronic systolic heart failure 368555500 Active 2024 [facility] 16:04:27 Chronic kidney disease stage 3 333162827 Active [facility] 5 16:04:34 Problem Notes None recorded. [...] Updated DateTime 5 180.34 cm 20.1 kg/m2 44589.3 g 74 /min 18 /min 98.1 [degF] 98 % 118/70 mm[Hg] SUE SCRUGGS [facility] 5 15:39:35 Social History None recorded. Functional Status None recorded. Mental Status None recorded. Family History Nothing Reported. Medical History No medical history recorded. Immunizations Vaccine Type Date Status Note Provider Nam e and Address Organization Details Recorded Time COVID-19, mRNA, LNP-S, PF, 100 mcg/0.5mL dose or 50 mcg/0.25mL dose 08/14/2020 completed Not Available [facility] 5 15:19:31 COVID-19, mRNA, LNP-S, PF, 100 mcg/0.5mL dose or 50 mcg/0.25mL dose 09/11/2020 completed Not Available [facility] 5 15:19:31 COVID-19, mRNA, LNP-S, bivalent, PF, 50 mcg/0.5 mL or 25mcg/0.25 mL dose 08/14/2022 completed Not Available [facility] 15:19:31 Past Encounters Encounter ID Performer Location Encounter Start Date Encounter Closed Date Diagnosis/Indication Diagnosis SNOMED-CT Code Diagnosis ICD10 Code Diagnosis IMO Codes Diagnosis Note [id number] Rolan Johnson DO [facility] [address] [place] [address] 05/18/2025 15:38:45 05/20/2025 08:06:36 Chronic kidney disease stage 3 842091146 N18.30 Chronic sy stolic heart failure 018208621 I50.22 Atrial fibrillation 4943 6004 I48.91 Essential hypertension 38799658 I10 Health Concerns Section Related Observation LastModified by Organization Detai ls LastModified Time None Recorded Concern Status LastModified by Organization Details LastModified Time None Recorded Payers Encounter Date Sequence Insurance Name Policy Number Policy Cid Covered Member ID Cid Member ID Guarantor Name 05/18/2025 1 [place] Luis Talavera [id number] Dylan Matute 05/18/2025 2 [place] Luis Talavera [id number] Dylan Matute Notes Date Note Type Note Provider Name and Address Organization Details Recorded Time 05/18/2025 text/html DementiaReported by PatientHPIFor quality, patient reportsshort term memory loss. For severity, patient reportsmoderate. For duration, patient reports___ years. For context, patient reportsno alcohol use.ROS as noted in the HPI no complaints per staff or patient. Rolan Johnson DO [address] [place], [address], [facility] 05/18/2025 15:50:29
--- OUTSIDE RECORDS SUMMARY | 2025-07-21 03:31 | XMS_ITS | Encounter Summary ---
Author Organization [facility] Address [address] [place] [address] Care Team Providers Care Set Up Person Name Role Phone Unavailable Primary Care Provider Unavailabl e Encounter Details Date Type Department Care Team (Late st Contact Info) Description 01/29/2020 Lab Requisition [facility] [address] [place] [address] [place] [address] Stormy Mixon, [employer] [address] [place] [phone] Social History Tobacco Use Types Packs/Day [...] Associated Diagnosis Comments EXTRA TUBE (SST/GOLD) Routine 01/29/2020 5:53 AM CDT DIFFERENTIAL, MANUAL Routine 01/29/2020 5:53 AM CDT CBC WITH DIFFERENTIAL Routine 01/29/2020 5:53 AM CDT TSH Routine 01/29/2020 5:53 AM CDT HEMOGLOBIN A1C Routine 01/29/2020 5:53 AM CDT LIPID PANEL Routine 01/29/2020 5:53 AM CDT COMPREHENSIVE METABOLIC PANEL Routine 01/29/2020 5:53 AM CDT documented in this encounter Results * (ABNORMAL) MANUAL DIFFERENTIAL (01/29/2020 5:53 AM CDT) SEGMENTED NEUTROPHILS 80(H) 36 - 66 % 01/29/2020 4:14 PM CDT [facility] LYMPHOCYTES RELATIVE 10(L) 24 - 44 % 01/29/2020 4:14 PM CDT [facility] MONOCYTES RELATIVE 10 4 - 10 % 01/29/2020 4:14 PM CDT [facility] NEUTROPHILS ABSOLUTE COUNT 10.00(H) 2.00 - 8.00 K/uL 01/29/2020 4:14 PM CDT [facility] LYMPHOCYTES ABSOLUTE 1.25 1.20 - 4.00 K/uL 01/29/2020 4:14 PM CDT [facility] MONOCYTES ABSOLUTE 1.25(H) 0.10 - 0.60 K/uL 01/29/2020 4:14 PM CDT [facility] TOTAL CELLS COUNTED IN DIFF 100 01/29/2020 4:14 PM CDT [facility] PLATELET EST. Consistent w Count 01/29/2020 4:14 PM CDT [facility] ANISOCYTOSIS 1+ /hpf 01/29/2020 4:14 PM CDT [facility] Blood Collection / Unknown 01/29/2020 5:53 AM CDT 01/29/2020 3:33 PM CDT Stormy Hawthorne [employer] HEMATOLOGY ORDERABLES COM Final Result [facility] CLIA# [id number] [address] [place] [address] * EXTRA TUBE (SST/GOLD) (01/29/2020 5:53 AM CDT) Blood Collection / Unknown 01/29/2020 5:53 AM CDT 01/29/2020 4:14 PM CDT us Stormy Hawthorne [employer] CHEMISTRY ORDERABLES Final Result [facility] CLIA# [id number] [address] [place], [place] [address] * (ABNORMAL) LIPID PANEL (01/29/2020 5:53 AM CDT) CHOLESTEROL 143 <200 mg/dL 01/29/2020 5:01 PM CDT [facility] TRIGLYCERIDE 226(H) <150 mg/dL 01/29/2020 5:01 PM CDT [facility] HDL 36(L) 40 - 59 mg/dL 01/29/2020 5:01 PM CDT [facility] LDL CALCULATED 62 <100 mg/dL 01/29/2020 5:01 PM T [facility] NON-HDL CHOLESTEROL 107 <130 mg/dL 01/29/2020 5:01 PM T [facility] Blood Collection / Unknown 01/29/2020 5:53 AM CDT 01/29/2020 4:37 PM CDT Narrative [facility] - 01/29/2020 5:01 PM CDT TOTAL CHOLESTEROL mg/dL Desirable <200 [...] Reference Ranges for Lipid Panels (NCEP/AMA) . Stormy Hawthorne [employer] CHEMISTRY ORDERABLES Final Result [facility] CLIA# [id number] [address] [place] [address] * (ABNORMAL) HEMOGLOBIN A1C (01/29/2020 5:53 AM CDT) Pathologist [facility] HEMOGLOBIN A1C 5.7(H) <=5.6 % 01/30/2020 11:39 AM CDT [facility] EST. AVG GLUCOSE, A1C 117 mg/dL 01/30/2020 11:39 AM CDT [facility] Blood Collection / Unknown 01/29/2020 5:53 AM CDT 01/29/2020 3:15 PM CDT Narrative [facility] - 01/30/2020 11:39 AM CDT HGB A1C INTERPRETATION NORMAL: <5.7% PRE-DIABETES: 5.7 - 6.4% DIABETES: 6.5% OR GREATER Stormy Hawthorne [facility] CHEMISTRY ORDERABLES Final Result [facility] CLIA# [id number] [address] [place] [address] * TSH (01/29/2020 5:53 AM CDT) [facility] TSH 0.85 0.27 - 4.20 uIU/mL 01/29/2020 5:01 PM CDT [facility] Blood Collection / Unknown 01/29/2020 5:53 AM CDT 01/29/2020 4:37 PM CDT Stormy Hawthorne [employer] CHEMISTRY ORDERABLES Final Result [facility] CLIA# [id number] [address] [place] [address] * (ABNORMAL) CBC WITH DIFFERENTIAL (01/29/2020 5:53 AM CDT) [facility] WBC 12.5(H) 4.8 - 10.8 K/uL 01/29/2020 4:14 PM CDT [facility] RBC 4.52(L) 4.60 - 6.20 M/uL 01/29/2020 4:14 PM CDT [facility] HEMOGLOBIN 13.5(L) 14.0 - 18.0 g/dL 01/29/2020 4:14 PM T [facility] HEMATOCRIT 43.7 41.0 - 53.0 % 01/29/2020 4:14 PM CDT [facility] MCV 96.7 84.0 - 103.0 fL 01/29/2020 4:14 PM CDT [facility] MCH 29.9 27.0 - 34.0 pg 01/29/2020 4:14 PM CDT [facility] MCHC 30.9 30.0 - 35.0 g/dL 01/29/2020 4:14 PM T [facility] RDW 13.4 11.0 - 14.5 % 01/29/2020 4:14 PM [facility] RDW-STDEV 48.0 37.0 - 54.0 fL 01/29/2020 4:14 PM T [facility] PLATELETS 210 140 - 440 K/uL 01/29/2020 4:14 PM [facility] MPV 9.7 8.9 - 12.8 fL 01/29/2020 4:14 PM [facility] Blood Collection / Unknown 01/29/2020 5:53 AM CDT 01/29/2020 3:33 PM CDT us Stormy Hawthorne [employer] HEMATOLOGY ORDERABLES Final Result [facility] CLIA# [id number] [facility] [place] [address] * (ABNORMAL) COMPREHENSIVE METABOLIC PANEL (01/29/2020 5:53 AM CDT) SODIUM 148(H) 136 - 145 mmol/L 01/29/2020 5:01 PM [facility] POTASSIUM 4.5 3.5 - 5.1 mmol/L 01/29/2020 5:01 PM [facility] CHLORIDE 111(H) 98 - 107 mmol/L 01/29/2020 5:01 PM [facility] CO2 31(H) 22 - 29 mmol/L 01/29/2020 5:01 PM [facility] CALCIUM 7.8(L) 8.8 - 10.2 mg/dL 01/29/2020 5:01 PM [facility] BUN 53(H) 8 - 23 mg/dL 01/29/2020 5:01 PM [facility] CREATININE 1.55(H) 0.67 - 1.17 mg/dL 01/29/2020 5:01 PM [facility] Comment:The GFR result is no t clinically significant on patients <18 or >70 years of age. GLUCOSE 91 74 - 99 mg/dL 01/29/2020 5:01 PM [facility] TOTAL PROTEIN 5.3(L) 6.4 - 8.3 g/dL 01/29/2020 5:01 PM [facility] ALBUMIN 2.8(L) 3.5 - 5.2 g/dL 01/29/2020 5:01 PM [facility] BILIRUBIN TOTAL 0.3 0.2 - 1.0 mg/dL 01/29/2020 5:01 PM [facility] ALKALINE PHOSPHATASE 64 40 - 129 U/L 01/29/2020 5:01 PM [facility] AST 25 10 - 50 U/L 01/29/2020 5:01 PM [facility] ALT 28 <=50 U/L 01/29/2020 5:01 PM [facility] GFR 44 mL/min/1. 73 sq meter 01/29/2020 5:01 PM [facility] Comment: eGFR has not been validated for [...] please refer to the GFR result. GFR, 53 mL/min/1. 73 sq meter 01/29/2020 5:01 PM CDT [facility] ANION GAP 6(L) 9 - 20 mmol/L 01/29/2020 5:01 PM CDT [facility] Blood Collection / Unknown 01/29/2020 5:53 AM CDT 01/29/2020 4:37 PM CDT Stormy Hawthorne [employer] CHEMISTRY ORDERABLES Final Result [facility] CLIA# [id number] [facility] [place] [address] documented in this encounter Visit Diagnoses Not on filedocumented in this encounter
--- OUTSIDE RECORDS SUMMARY | 2025-07-21 03:31 | XMS_ITS | Encounter Summary ---
Author Organization [facility] Address [address] [place] [address] Care Team Providers Care Network Services Project Manager Name Role Phone Unavailable Primary Care Provider Unavailabl e Encounter Details Date Type Department Care Team (Late st Contact Info) Description 02/03/2020 Lab Requisition [facility] [address] [place] [address] Jack Starr MD [address] [place] [address] Social History Tobacco Use Types Packs/Day Years [...] Priority Date/Time Associated Diagnosis Comments DIGOXIN LEVEL Stat 02/03/2020 7:40 AM CDT documented in this encounter Results * (ABNORMAL) DIGOXIN LEVEL (02/03/2020 7:40 AM CDT) DIGOXIN LEVEL 2.31(H) 0.80 - 2.00 ng/mL 02/03/2020 3:29 PM CDT [facility] [employer] [facility] Blood Collection / Unknown 02/03/2020 7:40 AM CDT 02/03/2020 3:12 PM CDT us Jack Starr MD CHEMISTRY ORDERABLES Final Resu lt [facility] [employer] [facility] CLIA# [id number] [facility] [place] [address] documented in this encounter Visit Diagnoses Not on filedocumented in this encounter
--- OUTSIDE RECORDS SUMMARY | 2025-07-21 03:31 | XMS_ITS | Encounter Summary ---
Author Organization [facility] Address [address] [place] [address] Care Team Providers Care Bottle Blower Name Role Phone Unavailable Primary Care Provider Unavailabl e Encounter Details Date Type Department Care Team (Late st Contact Info) Description 08/16/2020 Lab Requisition [facility] [address] [place] [address] Stormy Mixon, WILLIAM [address] [place] [phone] Social History Tobacco Use Types Packs/Day [...] Date/Time Associated Diagnosis Comments DIGOXIN LEVEL Routine 08/16/2020 6:55 AM ASSEMBLER CRIMPER documented in this encounter Results * DIGOXIN LEVEL (08/16/2020 6:55 AM ASSEMBLER CRIMPER) DIGOXIN LEVEL 1.23 0.80 - 2.00 ng/mL 08/16/2020 1:[address] [facility] Blood 08/16/2020 6:55 AM ASSEMBLER CRIMPER 08/16/2020 12:53 PM ASSEMBLER CRIMPER us Stormy THOMAS CHEMISTRY ORDERABLES Final Result [facility] [address] [place] [address] documented in this encounter Visit Diagnoses Not on filedocumented in this encounter
--- OUTSIDE RECORDS SUMMARY | 2025-07-21 03:31 | XMS_ITS | Encounter Summary ---
Author Organization [facility] Address [address] [place] [address] Care Team Providers Care System Controller Name Role Phone Unavailable Primary Care Provider Unavailabl e Encounter Details Date Type Department Care Team (Late st Contact Info) Description 08/04/2020 Lab Requisition [facility] [address] [place] [address] Stormy Mixon, [facility] [address] [place] [phone] Social History Tobacco Use Types Packs/Day [...] Procedure Name Priority Date/Time Associated Diagnosis Comments CBC WITH DIFFERENTIAL Routine 08/04/2020 5:39 AM SENIOR ADULTS DIRECTOR documented in this encounter Results * (ABNORMAL) CBC WITH DIFFERENTIAL (08/04/2020 5:39 AM SENIOR ADULTS DIRECTOR) WBC 7.5 4.8 - 10.8 K/uL 08/04/2020 5:33 PM SENIOR ADULTS DIRECTOR [facility] RBC 4.27(L) 4.60 - 6.20 M/uL 08/04/2020 5:33 PM SENIOR ADULTS DIRECTOR [facility] HEMOGLOBIN 12.1(L) 14.0 - 18.0 g/dL 08/04/2020 5:33 PM [facility] HEMATOCRIT 39.6(L) 41.0 - 53.0 % 08/04/2020 5:33 PM SENIOR ADULTS DIRECTOR [facility] MCV 92.7 84.0 - 103.0 fL 08/04/2020 5:33 PM [facility] [employer] [facility] MCH 28.3 27.0 - 34.0 pg 08/04/2020 5:33 PM [facility] [employer] [facility] MCHC 30.6 30.0 - 35.0 g/dL 08/04/2020 5:33 PM [facility] [employer] [facility] RDW 14.5 11.0 - 14.5 % 08/04/2020 5:33 PM [facility] [employer] [facility] RDW-STDEV 49.7 37.0 - 54.0 fL 08/04/2020 5:33 PM [facility] [employer] [facility] PLATELETS 203 140 - 440 K/uL 08/04/2020 5:33 PM [facility] [employer] [facility] MPV 9.2 8.9 - 12.8 fL 08/04/2020 5:33 PM [facility] [employer] [facility] NEUTROPHILS 52 42 - 75 % 08/04/2020 5:33 PM [facility] [employer] [facility] LYMPHOCYTES 33 24 - 44 % 08/04/2020 5:33 PM [facility] [employer] [facility] MONOCYTES 10 2 - 10 % 08/04/2020 5:33 PM [facility] [employer] [facility] EOSINOPHILS 4 0 - 7 % 08/04/2020 5:33 PM [facility] [employer] [facility] BASOPHILS 1 0 - 1 % 08/04/2020 5:33 PM [facility] [employer] [facility] IMMATURE GRANULOCYTES 1 0 - 2 % 08/04/2020 5:33 PM [facility] [employer] [facility] NEUTROPHIL ABSOLUTE 3.89 2.00 - 8.00 K/uL 08/04/2020 5:33 PM [facility] [employer] [facility] LYMPHOCYTE ABSOLUTE 2.46 1.20 - 4.00 K/uL 08/04/2020 5:33 PM [facility] [employer] [facility] MONOCYTE ABSOLUTE 0.78(H) 0.10 - 0.60 K/uL 08/04/2020 5:33 PM [facility] [employer] [facility] EOSINOPHIL ABSOLUTE 0.26 0.00 - 0.70 K/uL 08/04/2020 5:33 PM [facility] [employer] [facility] BASOPHILS ABSOLUTE 0.05 0.00 - 0.20 K/uL 08/04/2020 5:33 PM SENIOR ADULTS DIRECTOR [facility] IMMATURE GRANULOCYTES ABSOLUTE 0.04 0.00 - 0.10 K/uL 08/04/2020 5:33 PM SENIOR ADULTS DIRECTOR [facility] Blood Collection / Unknown 08/04/2020 5:39 AM SENIOR ADULTS DIRECTOR 08/04/2020 5:22 PM SENIOR ADULTS DIRECTOR us Stormy Hawthorne RN CLINICAL RESOURCE HEMATOLOGY ORDERABLES Final Result [facility] [address] [place] [address] documented in this encounter Visit Diagnoses Not on filedocumented in this encounter
--- OUTSIDE RECORDS SUMMARY | 2025-07-21 03:31 | XMS_ITS | Encounter Summary ---
Author Organization [facility] Address [address] [place] [address] Care Team Providers Care Container Filler Name Role Phone Unavailable Primary Care Provider Unavailabl e Encounter Details Date Type Department Care Team (Late st Contact Info) Description 02/10/2020 Lab Requisition [facility] [address] [place] [address] Stormy Mixon, WILLIAM [address] [place] [phone] Social History Tobacco Use Types Packs/Day [...] Date/Time Associated Diagnosis Comments DIGOXIN LEVEL Stat 02/10/2020 9:44 AM CDT documented in this encounter Results * DIGOXIN LEVEL (02/10/2020 9:44 AM CDT) DIGOXIN LEVEL 1.26 0.80 - 2.00 ng/mL 02/10/2020 5:34 PM CDT [facility] Blood Collection / Unknown 02/10/2020 9:44 AM CDT 02/10/2020 5:18 PM CDT Stormy THOMAS CHEMISTRY ORDERABLES Final Result [facility] [address] [place] [address] documented in this encounter Visit Diagnoses Not on filedocumented in this encounter
--- NOTE | 2025-07-21 03:43 | CTR_ITS ---
PROCEDURE INFORMATION: Exam: CT Head Without Contrast Exam date and time: 07/21/2025 4:20 AM Age: 80 years old Clinical indication: Injury or trauma; Fall; Blunt trauma (contusions or hematomas) TECHNIQUE: Imaging protocol: Computed tomography of the head without contrast. Radiation optimization: All CT scans at this facility use at least one of these dose optimization techniques: automated exposure control; mA and/or kV adjustment per patient size (includes targeted exams where dose is matched to clinical indication); or iterative reconstruction. COMPARISON: CT head wo con* [id number] 08/23/2024 4:10 PM RADIATION DOSE METRICS: Total DLP (mGy-cm): 2255.23 FINDINGS: Brain: Prominent CSF attenuation along the medial right frontal lobe measuring 1.7 x 4.4 cm (series 9, image 41) favored to be an arachnoid cyst. Unchanged. Scattered periventricular and subcortical white matter hypodensities, non-specific but most commonly attributed to chronic microangiopathy. No CT evidence of an acute large vascular territory infarct. No significant midline shift. Mild-moderate slightly frontal and temporal predominant parenchymal volume loss, similar to the prior. Cerebral ventricles: No ventriculomegaly. Paranasal sinuses: Mild layering mucosal thickening in the right sphenoid sinus. Minimal ethmoidal air cell mucosal thickening. Mastoid air cells: Visualized mastoid air cells are well aerated. Bones: Unremarkable. No acute fracture. Soft tissues: Unremarkable. CT/CT head wo con* [id number] IMPRESSION: 1. No acute appearing intracranial abnormality. 2. Chronic appearing intracranial findings, as above. 3. Mild layering mucosal thickening in the right sphenoid sinus which could be acute or chronic.
--- NOTE | 2025-07-21 03:43 | XRR_ITS ---
PROCEDURE INFORMATION: Exam: XR Chest Exam date and time: 07/21/2025 3:55 AM Age: 80 years old Clinical indication: Shortness of breath; Additional info: SOB TECHNIQUE: Imaging protocol: Radiologic exam of the chest. Views: 1 view. COMPARISON: CR XR chest 1V portable [id number] 08/25/2024 10:23 AM FINDINGS: Lungs: Hyperinflated lungs with emphysematous changes. No focal consolidation. Pleural spaces: No visible pleural effusion or pneumothorax. Heart/Mediastinum: Unremarkable. No cardiomegaly. Bones/joints: No acute appearing osseous abnormality. XR/XR chest 1V portable [id number] IMPRESSION: No acute appearing abnormality.
[2025-07-21 03:54] LABS: Hematocrit 41.8 % (37-53); Hemoglobin 13.10 g/dL (11.27-16.99); Mean Corpuscular HGB Conc 31.3 g/dL (30-55); Mean Corpuscular Hemoglobin 29.6 pg (27-33); Mean Corpuscular Volume 94.6 fl (82-101); Nucleated Red Blood Cells % 0 %; Platelet Count 143 10^3/cmm (157-399); Red Blood Count 4.42 10^6/uL (3.85-5.65); White Blood Count 7.33 10^3/uL (3.29-11.43)
[2025-07-21] MEDS: cefepime 2,000 mg SDV 2000 MG IVP ×2 (04:04→15:17)
[2025-07-21 04:05] LABS: Lactic Sepsis W/Reflex 1.0 mmol/L (0.5-2.2)
--- NOTE | 2025-07-21 04:06 | ECG_ITS ---
[employer] Test Date: 2025-07-21 Pat Name: Luis Talavera Department: Room: Gender: Male Medical Claims Examiner: : 1945 Requested By: Velasquez Rowell Order Number: [id number] Liliam MD: Doyle Healy M.D. Measurements Intervals [place] Rate: 102 P: 48 AZ: 125 QRS: 50 QRSD: 82 T: 66 QT: 318 QTc: 415 Interpretive Statements SINUS TACHYCARDIA WITH OCCASIONAL SUPRAVENTRICULAR PREMATURE COMPLEXES ABNORMAL RHYTHM ECG Compared to ECG 08/22/2024 08:57:48 Atrial fibrillation no longer present T-wave abnormality no longer present Electronically Signed On 07-21-2025 21:24:31 CHANNEL PROCESS PLANT OPERATOR by Doyle Healy M.D. [email or web address]
[2025-07-21 04:07] LABS: Troponin(5th) Baseline 33 ng/L (0-15)
[2025-07-21 04:17] LABS: NT Pro B Type Natriuretic Pept 643 pg/mL (0-450); Procalcitonin 0.65 ng/mL (0-0.5)
[2025-07-21 04:28] LABS: Alanine Aminotransferase 9 U/L (0-41); Albumin Level 4.0 g/dL (3.5-5.2); Alkaline Phosphatase 101 U/L (40-130); Anion Gap 12.7 (5-19); Aspartate Amino Transferase 21 U/L (0-40); Blood Urea Nitrogen 21 mg/dL (8-23); Calcium 8.6 mg/dL (8.5-10.5); Carbon Dioxide 34 mmol/L (22-29); Chloride 101 mmol/L (98-107); Globulin 2.0 g/dL (1.3-4.6); Glucose 101 mg/dL (65-115); Magnesium 1.8 mg/dL (1.7-2.3); Osmolality Calculated 299 mOsm/kg (285-295); Potassium 4.7 mmol/L (3.5-5.1); Sodium 143 mmol/L (136-145); Total Protein 6.0 g/dL (6.6-8.7)
--- NOTE | 2025-07-21 04:35 | W.ED.AMS ---
HPI - Altered Mental Status General: Chief Complaint: Altered Mental Status Stated Complaint: FALL Time Seen by Provider: 07/21/25 03:24 History of Present Illness: Patient is an 80-year-old male with past medical history of dementia, COPD on home oxygen, A-fib who presents to the ED after a fall. Reportedly fell around 1 PM yesterday and has been increasingly confused since, has a history of falls. History limited secondary to mentation on arrival. Normally wears 4-1/2 L at baseline, had an elevated temperature for EMS at 101.7, mildly labored breathing and tachypneic. Multiple people have had COVID in his facility. Related Data Home Medications ?Medication ?Instructions ?Recorded ?Confirmed acetaminophen 325 mg tablet 325 mg PO QID PRN Pain 01/24/20 07/21/25 bisacodyl 10 mg rectal suppository 10 mg GA DAILY PRN Constipation 01/24/20 07/21/25 magnesium hydroxide 400 mg/5 mL 30 ml PO DAILY PRN Constipation 01/24/20 07/21/25 oral suspension (Milk of Magnesia) sodium phosphates 19 gram-7 118 ml GA DAILY PRN Constipation 01/24/20 07/21/25 gram/118 mL enema (Enema) tamsulosin 0.4 mg capsule 0.4 mg PO BEDTIME@20 01/24/20 07/21/25 digoxin 125 mcg (0.125 mg) tablet 125 mcg PO .QOD 12/26/20 07/21/25 fluticasone fur. 100 mcg-umeclid 1 inh inhalation DAILY@08 11/21/21 07/21/25 62.5 mcg-vilant 25 mcg inhalat.powder (Trelegy Ellipta) ipratropium 20 mcg-albuterol 100 1 puff inhalation Q6H PRN 11/21/21 07/21/25 mcg/actuation mist for inhalation Shortness Of Breath (Combivent Respimat) lanolin alcohols-mineral 1 applic topical Q12H PRN Itching 11/21/21 07/21/25 oil-w.petrolatum-ceresin topical cream (Minerin Creme topical) aspirin 81 mg tablet,delayed 81 mg PO DAILY@08 02/17/22 07/21/25 release nut. tx, spec. form, See Rx Instructions .Route .COMPLEX 02/17/22 07/21/25 lac-free,iron-fos 0.08 gram-2 kcal/mL oral liquid (TwoCal HN) sennosides 8.6 mg-docusate sodium 1 tab-cap PO DAILY PRN Constipation 02/17/22 07/21/25 50 mg tablet (Stool Softener-Laxative) albuterol sulfate 2.5 mg/3 mL 2.5 mg inhalation Q4H PRN 06/15/22 07/21/25 (0.083 %) solution for nebulization Shortness Of Breath guaifenesin 600 mg tablet, 600 mg PO BID 08/21/22 07/21/25 extended release 12 hr (Mucinex) psyllium 2 tbsp PO DAILY PRN Constipation 08/19/24 07/21/25 fluticasone propionate 50 1 spray intranasal Q24H PRN 07/21/25 07/21/25 mcg/actuation nasal allergies spray,suspension Previous Rx's ?Medication ?Instructions ?Recorded pantoprazole 40 mg tablet,delayed 40 mg PO QAM #30 tabs 08/26/24 release (Protonix) Allergies Allergy/AdvReac Type Severity Reaction Status Date / Time No Known Allergies Allergy Verified 06/27/23 09:09 Review of Systems General: Reports: ROS unobtainable due to mental status PFSH ED PFSH: Medical History (Updated 07/21/25 @ 22:57 by Velasquez Rowell DO) Paroxysmal atrial fibrillation with RVR Respiratory failure with hypoxia and hypercapnia Left lower lobe pneumonia Hypercapnic respiratory failure Urolithiasis Diastolic heart failure Atrial fibrillation Elevated troponin CKD (chronic kidney disease) stage 3, GFR 30-59 ml/min Respiratory failure with hypoxia and hypercapnia Currently discharged on 3 Ls oxygen Sepsis Acute exacerbation of chronic obstructive airways disease Bronchopneumonia Urinary retention Chronic kidney disease Atrial fibrillation with RVR DEBRA (acute kidney injury) COPD (chronic obstructive pulmonary disease) -acute COPD exacerbation secondary to pneumonia -as noted above -not oxygen dependent at baseline Atrial fibrillation and flutter CHF (congestive heart failure) Aspiration pneumonia -as noted above Dementia Surgical History S/P tonsillectomy Status post cystoscopy with ureteral stent placement Family History Mother , 84 No problems noted. Father , 80's No problems noted. Social History Smoking and tobacco/nicotine status: former use of tobacco/nicotine Quit status (tobacco/nicotine): has quit using Year quit tobacco: 2018 [id number] Second hand smoke exposure: No Alcohol intake: never Substance/Drug Use: never Caregiver/support person: Yes Lives independently: No Household members: none Housing: Intermediate Marital status: Single service: No Current occupational status: retired Pets and animals: No Do you think of yourself as: Straight/Heterosexual Current gender identity: Male Physical Exam Narrative: Patient been, frail, diaphoretic, mild sinus tachycardia, saturating in low 90s on home 4-1/2 L, mild distressed appearing on arrival. Breath sounds decreased, wet rhonchorous cough, mildly tachypneic. Sinus tachycardia, normotensive, no murmurs, no leg swelling, decreased cap refill. Abdomen soft, nontender, nondistended. Small hematoma to right forehead, no other facial or scalp trauma. GCS 13, reportedly baseline. Course Vital Signs: Vital signs: Vital Signs Temperature 97.5 F L 07/21/25 20:00 Pulse Rate 89 07/21/25 20:28 Respiratory Rate 20 H 07/21/25 20:18 Blood Pressure 102/58 07/21/25 20:00 Pulse Oximetry 98 07/21/25 20:18 Oxygen Delivery Me thod Nasal Cannula 07/21/25 20:18 Oxygen Flow Rate 4 07/21/25 20:18 MDM - Altered Mental Status Medical Decision Making -ddx: URI, pneumonia, sepsis, CHF, fall, head trauma, concussion - Patient with unreliable history secondary to dementia, reportedly with fall yesterday, seemingly also SIRS positive with multiple sick contacts at facility, on 4-1/2 L at baseline, with cough, will administer broad-spectrum antibiotics, get infectious workup and CT head to evaluate for traumatic injury. - Patient tested COVID-positive, no significant leukocytosis, no anemia, had mild thrombocytopenia, mild inflammatory marker elevati, Pro-Noman mildly elevated at 0.65. CT scan with no intra-cranial hemorrhage, no skull fracture, seemingly isolated superficial hematoma to his right forehead. Vital signs improved after fluids. Due to patient's age, comorbidities and being from a facility, he was admitted to medicine for continued IV antibiotics until his blood cultures returned and continued stabilization as needed, admitted in stable condition Lab Data 07/21/25 03:40 07/21/25 03:40 Radiology Impressions Chest X-Ray 07/21/25 03:43 IMPRESSION: No acute appearing abnormality. Head CT 07/21/25 03:43 IMPRESSION: 1. No acute appearing intracranial abnormality. 2. Chronic appearing intracranial findings, as above. 3. Mild layering mucosal thickening in the right sphenoid sinus which could be acute or chronic. Laboratory Results WBC 7.33 10^3/uL (3.29-11.43) 07/21/25 03:40 RBC 4.42 10^6/uL (3.85-5.65) 07/21/25 03:40 Hgb 13.10 g/dL (11.27-16.99) 07/21/25 03:40 Hct 41.8 % (37-53) 07/21/25 03:40 MCV 94.6 fl (82-101) 07/21/25 03:40 MCH 29.6 pg (27-33) 07/21/25 03:40 MCHC 31.3 g/dL (30-55) 07/21/25 03:40 RDW 12.4 % (12.1-15.1) 07/21/25 03:40 Plt Count 143 10^3/cmm (157-399) L 07/21/25 03:40 MPV 9.2 fL (7.4-10.4) 07/21/25 03:40 Neut % (Auto) 73.5 % 07/21/25 03:40 Lymph % (Auto) 11.2 % 07/21/25 03:40 Barry % (Auto) 14.1 % 07/21/25 03:40 Eos % (Auto) 0.3 % 07/21/25 03:40 Baso % (Auto) 0.4 % 07/21/25 03:40 Neut # (Auto) 5.39 10^3/uL (1.8-7.7) 07/21/25 03:40 Lymph # (Auto) 0.8 10^3/uL (0.8-4.8) 07/21/25 03:40 Barry # (Auto) 1.0 10^3/uL (0.2-0.9) H 07/21/25 03:40 Eos # (Auto) 0.0 10^3/uL (0.0-0.8) 07/21/25 03:40 Baso # (Auto) 0.0 10^3/uL (0.0-0.1) 07/21/25 03:40 Nucleated RBC % (auto) 0 % 07/21/25 03:40 Nucleated RBCs # 0.0 /100WBC 07/21/25 03:40 ESR 23 mm/hr (0-10) H 07/21/25 03:40 Sodium 143 mmol/L (136-145) 07/21/25 03:40 Potassium 4.7 mmol/L (3.5-5.1) 07/21/25 03:40 Chloride 101 mmol/L (98-107) 07/21/25 03:40 Carbon Dioxide 34 mmol/L (22-29) H 07/21/25 03:40 Anion Gap 12.7 (5-19) 07/21/25 03:40 BUN 21 mg/dL (8-23) 07/21/25 03:40 Creatinine 1.0 mg/dL (0.7-1.2) 07/21/25 03:40 GFR Calculation Not Reportable 07/21/25 03:40 Glucose 101 mg/dL (65-115) 07/21/25 03:40 Calculated Osmolality 299 mOsm/kg (285-295) H 07/21/25 03:40 Lactic Acid 1.0 mmol/L (0.5-2.2) 07/21/25 03:40 Calcium 8.6 mg/dL (8.5-10.5) 07/21/25 03:40 Phosphorus 2.3 mg/dL (2.5-4.5) L 07/21/25 03:40 Magnesium 1.8 mg/dL (1.7-2.3) 07/21/25 03:40 Total Bilirubin 0.7 mg/dL (0.15-1.2) 07/21/25 03:40 AST 21 U/L (0-40) 07/21/25 03:40 ALT 9 U/L (0-41) 07/21/25 03:40 Alkaline Phosphatase 101 U/L (40-130) 07/21/25 03:40 Creatine Kinase 154 U/L (39-308) 07/21/25 03:40 Troponin T Baseline 33 ng/L (0-15) H 07/21/25 03:40 Troponin T 60 Minute 30.40 ng/L (0-15) H 07/21/25 04:57 Delta Troponin T -2.60 ABS# (0-10) L 07/21/25 04:57 C-Reactive Protein 73.2 mg/L (0.0-4.9) H 07/21/25 03:40 NT-Pro-B Natriuret Pep 643 pg/mL (0-450) H 07/21/25 03:40 Total Protein 6.0 g/dL (6.6-8.7) L 07/21/25 03:40 Albumin 4.0 g/dL (3.5-5.2) 07/21/25 03:40 Globulin 2.0 g/dL (1.3-4.6) 07/21/25 03:40 Procalcitonin 0.65 ng/mL (0-0.5) H 07/21/25 03:40 Influenza A (PCR) Negative (Negative) 07/21/25 04:57 Influenza Type B (PCR) Negative (Negative) 07/21/25 04:57 RSV (PCR) Negative (Negative) 07/21/25 04:57 SARS-CoV-2 (PCR) Positive (Negative) A 07/21/25 04:57 All radiology interpretation(s) finalized by discharge Critical Care Time Critical Care Time: Attestation: Sepsis from respiratory source and comorbid patient requiring IV broad antibiotics and fluids for normalization of vitals Discharge Plan Discharge Patient Disposition: Admitted As Inpatient Admit Provider: Everton Henson Clinical Impression: Sepsis, COVID Condition: Stable Coding Level of Care Code ED Foundry Engineer for Camren Torres
[2025-07-21 05:38] LABS: Respiratory Syncytial Virus Ce NEGATIVE (Negative)
[2025-07-21 05:41] LABS: SARS-CoV-2 PCR Positive (Negative)
--- NOTE | 2025-07-21 07:19 | PM.HP ---
Providers/Chief Complaint Admitting Physician: Everton Henson MD Primary Care Provider: Ivet Burnham MD Chief Complaint: FALL History of Present Illness Luis Talavera is a 80 year old male with dementia sent in from correction facility. He is a very poor historian both speaking and audibly to me as well as unaware of what is going on. He tells me he fell out of bed and is here because of a hernia. He points to a large right inguinal hernia. He is unsure regarding respiratory symptoms. Dr. Rowell notes that patient is from correction facility fell around 1 PM was increasingly confused requiring increased oxygen and had temperature 101.7. Multiple people at the facility had COVID and he was found to have COVID. Patient had SIRS with blood pressure 106/78 heart rate as high as 120. His oxygen saturation requiring 6 L compared to baseline 4 L. He was referred for admission CODE STATUS documented as no code on previous admissions will be continued as such Review of Systems Narrative: Patient is unable to give meaningful review of systems Medications/Allergies Home Medications ?Medication ?Instructions ?Recorded ?Confirmed ?Last Taken ?Type acetaminophen 325 mg tablet 325 mg PO QID PRN Pain 01/24/20 08/19/24 08/18/24 History bisacodyl 10 mg rectal suppository 10 mg ND DAILY PRN Constipation 01/24/20 08/19/24 Unknown History magnesium hydroxide 400 mg/5 mL 30 ml PO DAILY PRN Constipation 01/24/20 08/19/24 Unknown History oral suspension (Milk of Magnesia) sodium phosphates 19 gram-7 118 ml ND DAILY PRN Constipation 01/24/20 08/19/24 Unknown History gram/118 mL enema (Enema) tamsulosin 0.4 mg capsule 0.4 mg PO BEDTIME@20 01/24/20 08/19/24 08/18/24 History digoxin 125 mcg (0.125 mg) tablet 125 mcg PO .QOD 12/26/20 08/19/24 08/18/24 History metoprolol tartrate 25 mg tablet 25 mg PO BID@0800,199912/26/20 08/19/24 08/19/24 History fluticasone fur. 100 mcg-umeclid 1 inh inhalation DAILY@08 11/21/21 08/19/24 08/19/24 History 62.5 mcg-vilant 25 mcg inhalat.powder (Trelegy Ellipta) ipratropium 20 mcg-albuterol 100 1 puff inhalation Q6H PRN 11/21/21 08/19/24 Unknown History mcg/actuation mist for inhalation Shortness Of Breath (Combivent Respimat) lanolin alcohols-mineral 1 applic topical Q12H PRN Itching 11/21/21 08/19/24 Unknown History oil-w.petrolatum-ceresin topical cream (Minerin Creme topical) aspirin 81 mg tablet,delayed 81 mg PO DAILY@08 02/17/22 08/19/24 08/19/24 History release carboxymethylcellulose sodium 1 % 1 drp ophthalmic (eye) BID@,02/17/22 08/19/24 08/19/24 History eye liquid gel drops nut. tx, spec. form, 1 ea PO TID 02/17/22 08/19/24 08/19/24 History lac-free,iron-fos 0.08 gram-2 kcal/mL oral liquid (TwoCal HN) sennosides 8.6 mg-docusate sodium 1 tab-cap PO DAILY PRN Constipation 02/17/22 08/19/24 Unknown History 50 mg tablet (Stool Softener-Laxative) albuterol sulfate 2.5 mg/3 mL 2.5 mg inhalation Q4H PRN 06/15/22 08/19/24 08/18/24 History (0.083 %) solution for nebulization Shortness Of Breath azithromycin 250 mg tablet 250 mg PO .COMPLEX 12 months #48 08/21/22 08/19/24 08/18/24 Rx tabs guaifenesin 600 mg tablet, 600 mg PO BID 08/21/22 08/19/24 08/19/24 History extended release 12 hr (Mucinex) psyllium 2 tbsp PO DAILY PRN Constipation 08/19/24 08/19/24 Unknown History pantoprazole 40 mg tablet,delayed 40 mg PO QAM #30 tabs 08/26/24 Unknown Rx release (Protonix) prednisone 10 mg tablet See Taper PO DIRECTED #42 tabs 08/26/24 Unknown Rx Allergies Allergy/AdvReac Type Severity Reaction Status Date / Time No Known Allergies Allergy Verified 06/27/23 09:09 PFSH Acute PFSH: Medical History (Updated 07/21/25 @ 07:29 by Everton Henson MD) Paroxysmal atrial fibrillation with RVR Respiratory failure with hypoxia and hypercapnia Left lower lobe pneumonia Hypercapnic respiratory failure Urolithiasis Diastolic heart failure Atrial fibrillation Elevated troponin CKD (chronic kidney disease) stage 3, GFR 30-59 ml/min Respiratory failure with hypoxia and hypercapnia Currently discharged on 3 Ls oxygen Sepsis Acute exacerbation of chronic obstructive airways disease Bronchopneumonia Urinary retention Chronic kidney disease Atrial fibrillation with RVR DEBRA (acute kidney injury) COPD (chronic obstructive pulmonary disease) -acute COPD exacerbation secondary to pneumonia -as noted above -not oxygen dependent at baseline Atrial fibrillation and flutter CHF (congestive heart failure) Aspiration pneumonia -as noted above Dementia Surgical History S/P tonsillectomy Status post cystoscopy with ureteral stent placement Family History Mother , 84 No problems noted. Father , 80's No problems noted. Social History Smoking and tobacco/nicotine status: former use of tobacco/nicotine Quit status (tobacco/nicotine): has quit using Year quit tobacco: 2018 [id number] Second hand smoke exposure: No Alcohol intake: never Substance/Drug Use: never Caregiver/support person: Yes Lives independently: No Household members: none Housing: Detention Marital status: Single service: No Current occupational status: retired Pets and animals: No Do you think of yourself as: Straight/Heterosexual Current gender identity: Male Vitals/I&O/Wt Last Vital Signs Temp 98.2 F 07/21/25 03:25 Pulse 113 H 07/21/25 06:45 Resp 24 H 07/21/25 03:25 BP 130/76 07/21/25 06:45 Pulse Ox 94 07/21/25 06:45 O2 Del Method Nasal Cannula 07/21/25 06:45 O2 Flow Rate 6 07/21/25 06:45 07/20/25 07/21/25 07/21/25 22:59 06:59 14:59 Intake Total 1400 / 1400 Balance 1400 / 1400 Weight last 48 hrs Weight 70.307 kg Physical Exam Narrative: General well-developed well-nourished male lethargic fatigued. He does not appear to be in acute distress Patient could not tell me where he is at or the date. He told me he was [id number] years old but did know that his birthdate was in 1945 CV regular tachycardic rhythm no loud murmur Lungs trace crackles in the bases very poor air movement and very poor cooperation with exam Abdomen soft nontender Genitalia circumcised penis he has a large right inguinal hernia into the scrotal sac Data 07/21/25 03:40 07/21/25 03:40 Micro: Microbiology 07/21/25 03:58 Blood Culture - Preliminary Blood SPECIMEN COLLECTED 07/21/25 03:54 Blood Culture - Preliminary Blood SPECIMEN COLLECTED CXR: Radiologist's impression: IMPRESSION: No acute appearing abnormality. EKG 1: My Interpretation: Sinus tach with PACs and couplets A&P Assessment and plan 1. Pneumonia due to COVID-19 virus: Admitted started on Decadron, remdesivir, DuoNebs increased oxygen and supportive care. Patient with SIRS so admitted to inpatient despite living at nursing facility 2. COPD with acute exacerbation: As above patient with chronic CO2 at 4 L/min oxygen 3. Paroxysmal atrial fibrillation with RVR: Continue with rate control. Patient is no longer on full anticoagulation based on medication list. His potassium 4.7 magnesium is 1.8 and will be given 1 g IV magnesium to get it above 2. Phosphorus is 2.3 and will be replaced. 4. Dementia without behavioral disturbance, unspecified dementia type: Patient is a poor historian. Supportive care and remdesivir plus steroids and nebulizers for his COPD ED exacerbation and COVID PDMP PDMP Reviewed: Not Reviewed Attestations Medical Necessity Statement*: Patient admitted to [facility] and expected to require 2 midnights or more Coding Level of Care Code Acute Code for [facility] Fwd Diagnoses Pneumonia due to COVID-19 virus U07.1; J12.82 COPD with acute exacerbation J44.1 Paroxysmal atrial fibrillation with RVR I48.0 Dementia without behavioral disturbance, unspecified dementia type F03.90 Time Spent (min) 60
[2025-07-21] MEDS: remdesivir 200 MG in sodium chloride 0.9% (100 ml) 60 ML 100 MG IV (07:57)
[2025-07-21] MEDS: potassium phosphate (mEq K) 40 MEQ in sodium chloride 0.9% (100 ml) 100 ML 27.25 MEQ IV (09:13)
--- NOTE | 2025-07-21 11:28 | P.PN_ITS ---
Subjective 2 Subjective: Feels he is improving. Vitals/I&O/Wt Last Vital Signs Temp 98.8 F 07/21/25 07:39 Pulse 101 H 07/21/25 08:41 Resp 22 H 07/21/25 08:25 BP 109/67 07/21/25 07:39 Pulse Ox 99 07/21/25 08:25 O2 Del Method Nasal Cannula 07/21/25 08:25 O2 Flow Rate 4 07/21/25 08:25 07/20/25 07/21/25 07/21/25 22:59 06:59 14:59 Intake Total 1603.333 / 1603.333 Balance 1603.333 / 1603.333 Weight last 48 hrs Weight 62.868 kg Weight 70.307 kg Physical Exam 2 Const: COMMON NORMALS: patient oriented x3 and alert GENERAL APPEARANCE: c ooperative ORIENTATION/CONSCIOUSNESS: Yes awake HENMT: COMMON NORMALS: oropharynx normal Neck/C-Spine: COMMON NORMALS: no JVD Resp: COMMON NORMALS: normal respiratory effort and clear to auscultation bilaterally AUSCULTATION: clear to auscultation bilaterally Cardio: COMMON NORMALS: no JVD, regular rhythm, S1 normal heart sound present, S2 normal heart sound present and No murmurs present (Cardio) RHYTHM: regular rhythm HEART SOUNDS: S1 normal heart sound present and S2 normal heart sound present GI: COMMON NORMALS: Normal to inspection, nondistended, normoactive bowel sounds present, Soft to palpation and non-tender PALPATION: Yes Soft to palpation Extremity: COMMON NORMALS: no joint enlargement and no pedal edema Neuro: COMMON NORMALS: patient oriented x3 and moves all extremities S ENSORIUM/ORIENTATION: Yes alert Skin: COMMON NORMALS: no rashes or lesions noted GENERAL SKIN EXAM: no rashes or lesions noted Data 07/21/25 03:40 07/21/25 03:40 Micro: Microbiology 07/21/25 03:58 Blood Culture - Preliminary Blood SPECIMEN COLLECTED 07/21/25 03:54 Blood Culture - Preliminary Blood SPECIMEN COLLECTED A&P Assessment and plan 1. Pneumonia due to COVID-19 virus: Continues to require 4 L of oxygen. Continue remdesivir, Decadron, monitor for risk of hyperglycemia, hypertension, encephalopathy, gastritis. Assess D-dimer. Stop LR. Discussed with nursing, patient case coordinator. Reviewed CBC, CMP, ESR, NT proBNP, 2. COPD with acute exacerbation: Continue Decadron. Breathing treatments. Budesonide. As above patient with chronic O2 at 4 L/min oxygen. On cefepime. Monitor for risk of encephalopathy with cefepime. Reviewed ESR, procalcitonin. Continue antibiotic for now. 3. Paroxysmal atrial fibrillation with RVR: Continue metoprolol, digoxin 4. Dementia without behavioral disturbance, unspecified dementia type: Patient is a poor historian. Monitor for risk of delirium with steroid. PDMP PDMP Reviewed: Not Reviewed Attestations 2 Medical Necessity Statement*: Continue admission for assessment and management of severe COVID pneumonia, COPD with exacerbation. Diagnoses Pneumonia due to COVID-19 virus U07.1; J12.82 COPD with acute exacerbation J44.1 Paroxysmal atrial fibrillation with RVR I48.0 Dementia without behavioral disturbance, unspecified dementia type F03.90 Dementia behavioral disturbance: without behavioral disturbance Dementia type: unspecified type
[2025-07-21] MEDS: water for injection-sterile 20 ML 100 ML (15:43)
--- NOTE | 2025-07-21 15:50 | PC.NURSE ---
1520 Still need a urinalysis, patient only has been incontinent once today since I've been here. So I did a straight in and out cath with injection mold technician. Return of 150ml light cortez yellow clear of sediment urine.
[2025-07-21 16:05] LABS: Glucose Urine UA Negative (Normal); Nitrate Urine Negative (Negative); Specific Gravity, Urine 1.027 (1.005-1.030)
[2025-07-21 16:08] LABS: Add Urine Microscopic? YES; Universal Test for UA Present (0)
[2025-07-21 16:25] LABS: UA Slide Review UA Slide Review Perf
[2025-07-22 04:00] VITALS: BP 101/60; PULSE 80; RESP 17; TEMP 36.5; O2SAT 100
[2025-07-22] MEDS: cefepime 2,000 mg SDV 2000 MG IVP (04:37)
[2025-07-22 05:14] LABS: Hematocrit 40.4 % (37-53); Hemoglobin 12.10 g/dL (11.27-16.99); Mean Corpuscular HGB Conc 30.0 g/dL (30-55); Mean Corpuscular Hemoglobin 28.9 pg (27-33); Mean Corpuscular Volume 96.7 fl (82-101); Nucleated Red Blood Cells % 0 %; Platelet Count 144 10^3/cmm (157-399); Red Blood Count 4.18 10^6/uL (3.85-5.65); White Blood Count 4.70 10^3/uL (3.29-11.43)
[2025-07-22 05:51] LABS: Anion Gap 8.2 (5-19); Blood Urea Nitrogen 32 mg/dL (8-23); Calcium 8.5 mg/dL (8.5-10.5); Carbon Dioxide 35 mmol/L (22-29); Chloride 106 mmol/L (98-107); Glucose 136 mg/dL (65-115); Magnesium 2.1 mg/dL (1.7-2.3); Osmolality Calculated 307 mOsm/kg (285-295); Potassium 5.2 mmol/L (3.5-5.1); Sodium 144 mmol/L (136-145)
[2025-07-22] MEDS: remdesivir 100 MG in sodium chloride 0.9% (100 ml) 80 ML IV (07:40)
[2025-07-22 08:00] VITALS: BP 99/57; PULSE 77; PULSE 88; RESP 16; TEMP 36.4; O2SAT 96; O2SAT 98
--- NOTE | 2025-07-22 09:07 | PM.DCS ---
Discharge Providers Date of Admission: 07/21/25 07:02 Date of Discharge: July 22, 2025 Attending Provider at Admission: Everton Henson MD Attending Provider at Discharge: Case Roberts Primary Care Provider: Ivet Burnham MD Diagnoses at Discharge Discharge Diagnosis 1. Pneumonia due to COVID-19 virus: 2. COPD with acute exacerbation: 3. Paroxysmal atrial fibrillation with RVR: 4. Dementia without behavioral disturbance, unspecified dementia type: Reason for Visit Reason for Visit: FALL Brief History: Luis Talavera is a 80 year old male with dementia sent in from [facility] facility. He is a very poor historian both speaking and audibly to me as well as unaware of what is going on. He tells me he fell out of bed and is here because of a hernia. He points to a large right inguinal hernia. He is unsure regarding respiratory symptoms. Dr. Rowell notes that patient is from [facility] facility fell around 1 PM was increasingly confused requiring increased oxygen and had temperature 101.7. Multiple people at the facility had COVID and he was found to have COVID. Patient had SIRS with blood pressure 106/78 heart rate as high as 120. His oxygen saturation requiring 6 L compared to baseline 4 L. He was referred for admission CODE STATUS documented as no code on previous admissions will be continued as such Hospital Course Hospital Course To treatment with remdesivir, Decadron, breathing treatments. With resolution of worsened hypoxia, back to baseline 4 L nasal cannula oxygen, feeling much better. Discussed with his guardian. Will complete steroid course with 3 more days of prednisone for mild concomitant exacerbation of COPD. Physical Exam Const: COMMON NORMALS: patient oriented x3 and alert GENERAL APPEARANCE: cooperative ORIENTATION/CONSCIOUSNESS: Yes awake HENMT: COMMON NORMALS: oropharynx normal Neck/C-Spine: COMMON NORMALS: no JVD Resp: COMMON NORMALS: normal respiratory effort and clear to auscultation bilaterally AUSCULTATION: clear to auscultation bilaterally Cardio: COMMON NORMALS: no JVD, regular rhythm, S1 normal heart sound present, S2 normal heart sound present and No murmurs present (Cardio) RHYTHM: regular rhythm HEART SOUNDS: S1 normal heart sound present and S2 normal heart sound present GI: COMMON NORMALS: Normal to inspection, nondistended, normoactive bowel sounds present, Soft to palpation and non-tender PALPATION: Yes Soft to palpation Extremity: COMMON NORMALS: no joint enlargement and no pedal edema Neuro: COMMON NORMALS: patient oriented x3 and moves all extremities SENSORIUM/ORIENTATION: Yes alert Skin: COMMON NORMALS: no rashes or lesions noted GENERAL SKIN EXAM: no rashes or lesions noted Discharge Data Studies Completed and Pending Completed Studies During Hospitalization Category Date Time Status CT head wo con* [id number] Stat Cat Scan 07/21/25 03:43 Completed XR chest 1V portable [id number] Stat Exams 07/21/25 03:43 Completed Pending at discharge Category Date Time Status Blood Culture Stat Lab 07/21/25 03:58 Results Radiology Impressions Chest X-Ray 07/21/25 03:43 IMPRESSION: No acute appearing abnormality. Head CT 07/21/25 03:43 IMPRESSION: 1. No acute appearing intracranial abnormality. 2. Chronic appearing intracranial findings, as above. 3. Mild layering mucosal thickening in the right sphenoid sinus which could be acute or chronic. Laboratory Results WBC 4.70 10^3/uL (3.29-11.43) 07/22/25 04:47 RBC 4.18 10^6/uL (3.85-5.65) 07/22/25 04:47 Hgb 12.10 g/dL (11.27-16.99) 07/22/25 04:47 Hct 40.4 % (37-53) 07/22/25 04:47 MCV 96.7 fl (82-101) 07/22/25 04:47 MCH 28.9 pg (27-33) 07/22/25 04:47 MCHC 30.0 g/dL (30-55) 07/22/25 04:47 RDW 12.4 % (12.1-15.1) 07/22/25 04:47 Plt Count 144 10^3/cmm (157-399) L 07/22/25 04:47 MPV 9.3 fL (7.4-10.4) 07/22/25 04:47 Neut % (Auto) 78.6 % 07/22/25 04:47 Lymph % (Auto) 15.7 % 07/22/25 04:47 [place] % (Auto) 5.3 % 07/22/25 04:47 Eos % (Auto) 0.0 % 07/22/25 04:47 Baso % (Auto) 0.0 % 07/22/25 04:47 Neut # (Auto) 3.69 10^3/uL (1.8-7.7) 07/22/25 04:47 Lymph # (Auto) 0.7 10^3/uL (0.8-4.8) L 07/22/25 04:47 [place] # (Auto) 0.3 10^3/uL (0.2-0.9) 07/22/25 04:47 Eos # (Auto) 0.0 10^3/uL (0.0-0.8) 07/22/25 04:47 Baso # (Auto) 0.0 10^3/uL (0.0-0.1) 07/22/25 04:47 Nucleated RBC % (auto) 0 % 07/22/25 04:47 Nucleated RBCs # 0.0 /100WBC 07/22/25 04:47 ESR 23 mm/hr (0-10) H 07/21/25 03:40 Sodium 144 mmol/L (136-145) 07/22/25 04:47 Potassium 5.2 mmol/L (3.5-5.1) H 07/22/25 04:47 Chloride 106 mmol/L (98-107) 07/22/25 04:47 Carbon Dioxide 35 mmol/L (22-29) H 07/22/25 04:47 Anion Gap 8.2 (5-19) 07/22/25 04:47 BUN 32 mg/dL (8-23) H 07/22/25 04:47 Creatinine 1.2 mg/dL (0.7-1.2) 07/22/25 04:47 GFR Calculation Not Reportable 07/22/25 04:47 Glucose 136 mg/dL (65-115) H 07/22/25 04:47 Calculated Osmolality 307 mOsm/kg (285-295) H 07/22/25 04:47 Lactic Acid 1.0 mmol/L (0.5-2.2) 07/21/25 03:40 Calcium 8.5 mg/dL (8.5-10.5) 07/22/25 04:47 Phosphorus 3.5 mg/dL (2.5-4.5) 07/22/25 04:47 Magnesium 2.1 mg/dL (1.7-2.3) 07/22/25 04:47 Total Bilirubin 0.7 mg/dL (0.15-1.2) 07/21/25 03:40 AST 21 U/L (0-40) 07/21/25 03:40 ALT 9 U/L (0-41) 07/21/25 03:40 Alkaline Phosphatase 101 U/L (40-130) 07/21/25 03:40 Creatine Kinase 154 U/L (39-308) 07/21/25 03:40 Troponin T Baseline 33 ng/L (0-15) H 07/21/25 03:40 Troponin T 60 Minute 30.40 ng/L (0-15) H 07/21/25 04:57 Delta Troponin T -2.60 ABS# (0-10) L 07/21/25 04:57 C-Reactive Protein 73.2 mg/L (0.0-4.9) H 07/21/25 03:40 NT-Pro-B Natriuret Pep 643 pg/mL (0-450) H 07/21/25 03:40 Total Protein 6.0 g/dL (6.6-8.7) L 07/21/25 03:40 Albumin 4.0 g/dL (3.5-5.2) 07/21/25 03:40 Globulin 2.0 g/dL (1.3-4.6) 07/21/25 03:40 Procalcitonin 0.65 ng/mL (0-0.5) H 07/21/25 03:40 Urine Color Yellow (Yellow) 07/21/25 15:30 Urine Appearance Clear (CLEAR) 07/21/25 15:30 Urine pH 5.0 (5-7) 07/21/25 15:30 Ur Specific [place] 1.027 (1.005-1.030) 07/21/25 15:30 Urine Protein 1+ (Negative) A 07/21/25 15:30 Urine Glucose (UA) Negative (Normal) 07/21/25 15:30 Urine Ketones Trace (Negative) 07/21/25 15:30 Urine Blood 2+ (Negative) A 07/21/25 15:30 Urine Nitrate Negative (Negative) 07/21/25 15:30 Urine Bilirubin Negative (Negative) 07/21/25 15:30 Urine Urobilinogen 0.2 mg/dL (Negative) 07/21/25 15:30 Ur Leukocyte Esterase Negative (Negative) 07/21/25 15:30 Urine RBC 21-50 /hpf (0-2) H 07/21/25 15:30 Urine WBC 0-5 /hpf (0-5) 07/21/25 15:30 Ur Squamous Epith Cells 0-5 /hpf (0-5) 07/21/25 15:30 Amorphous Sediment Not Reportable 07/21/25 15:30 Urine Bacteria None seen /hpf (NONE) 07/21/25 15:30 Hyaline Casts 2.05 /lpf 07/21/25 15:30 Influenza A (PCR) Negative (Negative) 07/21/25 04:57 Influenza Type B (PCR) Negative (Negative) 07/21/25 04:57 RSV (PCR) Negative (Negative) 07/21/25 04:57 SARS-CoV-2 (PCR) Positive (Negative) A 07/21/25 04:57 Vitals Last Vital Signs Temp 97.6 F 07/22/25 08:00 Pulse 88 07/22/25 08:00 Resp 16 07/22/25 08:00 BP 99/57 07/22/25 08:00 Pulse Ox 96 07/22/25 08:00 O2 Del Method Nasal Cannula 07/22/25 08:00 O2 Flow Rate 4 07/22/25 08:00 Discharge Plan Discharge Patient Disposition: Xfer SNF Condition: Stable Prescriptions: New prednisone 20 mg tablet 20 mg PO DAILY 3 Days Qty: 3 0RF Continued guaifenesin [Mucinex] 600 mg tablet extended release 12hr 600 mg PO BID acetaminophen 325 mg Tablet 325 mg PO QID MDD 4000 mg PRN (Reason: Pain) magnesium hydroxide [Milk of Magnesia] 400 mg/5 mL Suspension 30 ml PO DAILY PRN (Reason: Constipation) tamsulosin 0.4 mg Capsule 0.4 mg PO BEDTIME@20 bisacodyl 10 mg Suppository 10 mg NH DAILY PRN (Reason: Constipation) Enema 19-7 gram/118 mL Enema 118 ml NH DAILY PRN (Reason: Constipation) digoxin 125 mcg (0.125 mg) tablet 125 mcg PO .QOD Rx Instructions: hold for pulse less than 60 Minerin Creme Cream 1 applic TOPICAL Q12H PRN (Reason: Itching) Rx Instructions: apply to back Combivent Respimat 20-100 mcg/actuation Mist 1 puff INHALATION Q6H PRN (Reason: Shortness Of Breath) Treleevelyn Ellipta 100-62.5-25 mcg Blister With Device 1 inh INHALATION DAILY@08 sennosides-docusate sodium [Stool Softener-Laxative] 8.6-50 mg Tablet 1 tab-cap PO DAILY PRN (Reason: Constipation) aspirin 81 mg Tablet,Delayed Release (Dr/Ec) 81 mg PO DAILY@08 TwoCal HN 0.08-2 gram-kcal/mL Liquid See Rx Instructions .ROUTE .COMPLEX Rx Instructions: Give 90ml by mouth 3 times daily. albuterol sulfate 2.5 mg /3 mL (0.083 %) solution for nebulization 2.5 mg inhalation Q4H PRN (Reason: Shortness Of Breath) fluticasone propionate 50 mcg/actuation spray,suspension 1 spray INTRANASAL Q24H PRN (Reason: allergies) psyllium Powder 2 tbsp PO DAILY PRN (Reason: Constipation) Rx Instructions: mix into at least 8 oz of water or juice before administering pantoprazole [Protonix] 40 mg tablet,delayed release (DR/EC) 40 mg PO QAM Qty: 30 0RF Discharge Order = DC NOW: Discharge Order (Routine); Ordered 07/22/25 Ordered By: aCse Roberts Referrals: [facility] [Outside] Discharge Diet: As Directed Discharge Activity: Increase activity as tolerated Patient Instructions: Prednisone (By mouth), COPD (Chronic Obstructive Pulmonary Disease) (GEN), Altered Mental Status (ED), COVID-19 (Coronavirus Disease 2019) (GEN), Opioid Safety, Patient Portal & [employer] Instructions Discharge Attestations Time Spent in Discharge Care*: greater than 30 min Status at Discharge: Cognitive status at discharge: mildly impaired cognition (at baseline, A & O x 1), Behavioral status at discharge: cooperative and dependent in ADL's, Quality Metrics Clinical Quality Measures [ No reported AMI, CVA or VTE this stay] Coding Level of Care Code 14436 Total time (in minutes) for Discharge: 40 Diagnoses Pneumonia due to COVID-19 virus U07.1; J12.82 COPD with acute exacerbation J44.1 Paroxysmal atrial fibrillation with RVR I48.0 Dementia without behavioral disturbance, unspecified dementia type F03.90 Dementia behavioral disturbance: without behavioral disturbance Dementia type: unspecified type
[2025-07-22 09:53] VITALS: BP 99/57; PULSE 88; RESP 16; TEMP 36.4; O2SAT 96
== END 2025-07-22 09:54 | disposition skilled nursing facility (03) | DRG 177 ==
LOC: ER 06:58 → MEDSURG 07:03
PROVIDERS: Admitting Provider Internal Medicine; Emergency Provider Student in an Organized Health Care Education/Training Program; PCP Family Medicine; Visit Provider Internal Medicine
DX: U07.1 COVID-19 (principal); J12.82 Pneumonia due to coronavirus disease 2019; J96.92 Respiratory failure, unspecified with hypercapnia; J96.91 Respiratory failure, unspecified with hypoxia; R65.10 Systemic inflammatory response syndrome (SIRS) of non-infectious origin without acute organ dysfunction; J44.1 Chronic obstructive pulmonary disease with (acute) exacerbation; I50.32 Chronic diastolic (congestive) heart failure; I48.0 Paroxysmal atrial fibrillation; F03.90 Unspecified dementia, unspecified severity, without behavioral disturbance, psychotic disturbance, mood disturbance, and anxiety; K40.90 Unilateral inguinal hernia, without obstruction or gangrene, not specified as recurrent; W06.XXXA Fall from bed, initial encounter; N18.30 Chronic kidney disease, stage 3 unspecified; R00.0 Tachycardia, unspecified; Z79.51 Long term (current) use of inhaled steroids; Z79.82 Long term (current) use of aspirin; Z99.81 Dependence on supplemental oxygen; Z87.01 Personal history of pneumonia (recurrent); Z87.891 Personal history of nicotine dependence
CPT/HCPCS: 36415; 70450; 71045; 80048; 80053; 81001; 82550; 83605; 83735; 83880; 84100; 84145; 84484; 85025; 85651; 86140; 87040; 87637; 93005; 94640; 96365; 96372; 96375; 99285; J0248; J0692; J1650; J3372; J7030; J7120; J7626; J8540; J9999